=== PATIENT | female | born 1985 | race Caucasian/White ===

== ENCOUNTER 2023-08-08 19:02 | Emergency (ER) | payer OTHER, SELFPAY ==
[2023-08-08 19:06] VITALS: BP 143/87; PULSE 88; RESP 16; TEMP 36.9; O2SAT 99; BMI 33.8
--- NOTE | 2023-08-08 19:22 | ED_ITS ---
HPI - Female Genitourinary General Chief complaint: Urogenital-Female Stated complaint: UTI Time Seen by Provider: 08/08/23 19:09 Source: patient Mode of arrival: walk-in History of Present Illness HPI Narrative: Patient is a 38-year-old female who presents to the emergency department with concern she may have a UTI. She states she developed urinary urgency and frequency today. She reports some suprapubic discomfort with urination. She has had a previous hysterectomy. She has not had any fevers, chills, nausea, vomiting. She has no flank pain. No medications taken prior to arrival. She states she wanted to come to the ER to have this evaluated today so it would not get bad . Related Data Home Medications Medication Instructions Recorded Confirmed duloxetine 60 mg capsule,delayed 60 mg PO DAILY 08/08/23 08/08/23 release omeprazole 40 mg capsule,delayed 40 mg PO DAILY 08/08/23 08/08/23 release Previous Rx's Medication Instructions Recorded ciprofloxacin HCl 500 mg tablet 500 mg PO BID 3 days #6 tabs 08/08/23 (Cipro) ondansetron 4 mg disintegrating 4 mg PO Q6H PRN nausea and 08/08/23 tablet vomiting #12 tabs phenazopyridine 200 mg tablet 200 mg PO Q8H 2 days #6 tabs 08/08/23 (Pyridium) Allergies Allergy/AdvReac Type Severity Reaction Status Date / Time sulfamethoxazole Allergy Severe Verified 08/08/23 19:09 [From Bactrim] trimethoprim [From Bactrim] Allergy Severe Verified 08/08/23 19:09 Review of Systems ROS Constitutional Denies: fever or chills Ears, nose, mouth, and throat Denies: throat pain or nasal congestion Cardiovascular Denies: chest pain Respiratory Denies: shortness of breath or cough Gastrointestinal Reports: abdominal pain; Denies: nausea, vomiting or diarrhea Genitourinary Reports: urinary frequency, urinary urgency and pelvic pain; Denies: painful urination Musculoskeletal Denies: back pain or neck pain Integumentary/Breast Denies: rash Neurological Denies: headache Hematologic/Lymphatic Denies: easy bruising or easy bleeding Exam Narrative Exam Narrative: Gen.: Awake, alert, in no distress Head: Normocephalic, atraumatic ENT: Moist mucous membranes Respiratory: No respiratory distress Gastrointestinal: Abdomen is soft, nondistended and nontender to palpation Extremities: Moves extremities equally Psych: Normal mood and affect Neuro: No focal neuro deficit Skin: Warm, dry, intact Constitutional Vital Signs, click to edit/add: Last Vital Signs Temp 98.5 F 08/08/23 19:06 Pulse 88 08/08/23 19:06 Resp 16 08/08/23 19:06 BP 143/87 H 08/08/23 19:06 Pulse Ox 99 08/08/23 19:06 O2 Del Method Room Air 08/08/23 19:06 Course Vital Signs Vital signs: Vital Signs Temperature 98.5 F 08/08/23 19:06 Pulse Rate 88 08/08/23 19:06 Respiratory Rate 16 08/08/23 19:06 Blood Pressure 143/87 H 08/08/23 19:06 Pulse Oximetry 99 08/08/23 19:06 Oxygen Delivery Method Room Air 08/08/23 19:06 Temperature 98.5 F 08/08/23 19:06 Pulse Rate 88 08/08/23 19:06 Respiratory Rate 16 08/08/23 19:06 Blood Pressure 143/87 H 08/08/23 19:06 Pulse Oximetry 99 08/08/23 19:06 Oxygen Delivery Method Room Air 08/08/23 19:06 MDM - Female Genitourinary MDM Narrative Medical decision making narrative: Patient with a very mild UTI, vital signs stable and exam is benign. She is started on Cipro, Pyridium, Zofran for home. First dose is given in the ER. Follow-up with PCP and return to the ER if symptoms change or worsen Medical Records Attestation: I reviewed the patient's medical records. Lab Data Attestation: I reviewed the patient's lab results. Labs: Lab Results 08/08/23 Range/Units 19:10 Urine Color Lt. yellow (YELLOW) Urine Clarity Clear (CLEAR) Urine pH 5.5 (5.0-9.0) Ur Specific [place] >=1.030 A (1.005-1.025) Urine Protein Negative (NEG/TRACE) mg/dL Urine Glucose (UA) Negative (NEGATIVE) mg/dL Urine Ketones Negative (NEGATIVE) mg/dL Urine Occult Blood Trace-l (NEGATIVE) Urine Nitrite Negative (NEGATIVE) Urine Bilirubin Negative (NEGATIVE) Urine Urobilinogen 0.2 (0.2-1.0) EU/dL Ur Leukocyte Esterase Small A (NEGATIVE) Urine RBC 0-2 (0-2) #/HPF Urine WBC 2-5 A (NONE SEEN) #/HPF Ur Squamous Epith Cells Rare (NONE/RARE) #/LPF Urine Crystals None seen (None Seen) #/HPF Urine Bacteria Trace A (NONE SEEN) #/HPF Urine Casts None seen (NONE SEEN) #/LPF Urine Mucus None seen (NONE SEEN) Ur Culture Indicated? Yes Urine HCG, Qual Negative (NEGATIVE) Discharge Plan Discharge Chief Complaint: Urogenital-Female Clinical Impression: Urinary tract infection Patient Disposition: Home, Self-Care Time of Disposition Decision: 19:41 Condition: Good Prescriptions / Home Meds: New phenazopyridine [Pyridium] 200 mg tablet 200 mg PO Q8H 2 Days Qty: 6 0RF ciprofloxacin HCl [Cipro] 500 mg tablet 500 mg PO BID 3 Days Qty: 6 0RF ondansetron 4 mg tablet,disintegrating 4 mg PO Q6H PRN (Reason: nausea and vomiting) Qty: 12 0RF No Action duloxetine 60 mg capsule,delayed release(DR/EC) 60 mg PO DAILY omeprazole 40 mg capsule,delayed release(DR/EC) 40 mg PO DAILY Instructions: Urinary Tract Infection in Women (ED) Additional Instructions: pt ambulated with steady gait, verbalized understanding of discharge instructions at this time no distress noted Stand Alone Forms: Portal Instructions Referrals: NORA BHAT [Primary Care Provider] - 1 week Discharge Date/Time: 08/08/23 19:58
[2023-08-08 19:27] LABS: Bilirubin Urine NEGATIVE (NEGATIVE); Blood Urine TRACE-L (NEGATIVE); Clarity Urine CLEAR (CLEAR); Color Urine LT. YELLOW (YELLOW); Glucose Urine UA NEGATIVE (NEGATIVE); HCG Qualitative Urine* NEGATIVE (NEGATIVE); Ketones Urine NEGATIVE (NEGATIVE); Leukocyte Esterase Urine SMALL (NEGATIVE); Nitrite Urine NEGATIVE (NEGATIVE); Protein Urine NEGATIVE (NEG/TRACE); Specific Gravity Urine >=1.030 (1.005-1.025); Urobilinogen Urine 0.2 EU/dL (0.2-1.0); pH Urine 5.5 (5.0-9.0)
[2023-08-08 19:32] LABS: Urine Microscopic Indicated YES
[2023-08-08 19:38] LABS: Bacteria Urine TRACE #/HPF (NONE SEEN); Mucus Urine NONE SEEN (NONE SEEN); RBC Urine 0-2 #/HPF (0-2); Squamous Epithelial Cell Urine RARE #/LPF (NONE/RARE)
[2023-08-08 19:39] LABS: Cast Seen? NONE SEEN #/LPF (NONE SEEN); Crystals Seen? None Seen #/HPF (None Seen); Urine Culture Indicated YES
[2023-08-08] MEDS: CIPROFLOXACIN HCL 500 MG TABLET PO (19:50)
[2023-08-08] MEDS: PHENAZOPYRIDINE 100 MG TABLET 200 MG PO (19:50)
== END 2023-08-08 19:58 | disposition home or self-care (01) ==
PROVIDERS: Physician Assistant; Emergency Provider Internal Medicine
DX: N39.0 Urinary tract infection, site not specified (principal); Z79.899 Other long term (current) drug therapy
CPT/HCPCS: 81001; 84703; 87086; 87150; 87186; 99283

== ENCOUNTER 2023-10-13 21:41 | Emergency (ER) | payer OTHER, SELFPAY ==
--- OUTSIDE RECORDS SUMMARY | 2023-10-13 21:48 | XMS_ITS | CCD ---
Author Organization [facility] Care Team Providers Care Manager Paid Name Role Phone SAL SCHMID Admitting Unavailable ROSALVASCHCHAPIS, SAL Attending Unavailable HIRSCHCHAPIS, SAL Referring Unavailable ROSALVASCHCHAPIS, SAL Admitting Unavailable PROVIDER, UNKNOWN Attending Unavailable PROVIDER, UNKNOWN Attending Unavailable PROVIDER, UNKNOWN Admitting Unavailable PROVIDER, UNKNOWN Attending Unavailable PROVIDER, UNKNOWN Admitting Unavailable JAC MÁRQUEZ Referring Unavailabl e PROVIDER, UNKNOWN Attending Unavailable PROVIDER, UNKNOWN Admitting Unavailable PATIENT, SELF Referring Unavailable PROVIDER, UNKNOWN Attending Unavailable PROVIDER, UNKNOWN Admitting Unavailable PROVIDER, UNKNOWN Attending Unavailable PROVIDER, UNKNOWN Admitting Unavailable PATIENT, SELF Referring Unavailable PROVIDER, UNKNOWN Attending Unavailable PROVIDER, UNKNOWN Admitting Unavailable BINU, SAL Referring Unavailable PROVIDER, UNKNOWN Attending Unavailable PROVIDER, UNKNOWN Admitting Unavailable Angella Casas Primary Care Physician Heladio Roth Attending Unavailable Heladio Roth Attending Unavailable Jac Shepard Referring Unavailable Jac Shepard Attending Unavailable Jac Shepard Admitting Unavailable Shelley Oates Referring Unavailable Shelley Oates Attending Unavailable El [place] M Admitting Unavailable Heladio Roth Attending Unavailable eHladio Roth Admitting Unavailable Bereket Carlton Attending Unavailable Jac Shepard Referring Unavailable Jac Shepard Attending Unavailable Jac Shepard Admitting Unavailable Elsi Kelsey Attending Unavailable Allergies Allergy Classification Reported Allergen(s) Allergy Type Date of Onset Reaction(s) Facility (1 source) SULFAMETHOXAZOLE W-TRIMETHOPRIM; Translations: [SULFAMETHOXAZOLE W-TRIMETHOPRIM] Propensity to adverse reactions to drug (disorder) 12-20 21 [facility] (9 sources) Sulfamethoxazole / Trimethoprim; Translations: [sulfamethoxazole-t rimethoprim] Drug Allergy Yeast (substance) [facility] Medications Current Medications Medication Drug Class(es) Dates Sig (Normalized) Sig (Original) acetaminophen 325 mg / oxyCODONE hydrochloride 5 mg oral tablet (1 source) Opioid Agonist Start: 04-17-2022 End: 04-19-2022 Percocet 325 mg-5 mg Tab 1 tab(s), Oral, q6hr for pain for 2 day(s), 7 tab(s), Refill(s) 0, [facility]/pharmacy #[id number], 152, cm, 04/08/22 13:53:00 EDT, Height/Length Dosing, 79.8, kg, 04/08/22 13:53:00 EDT, Weight Dosing Start Date: 04/17/22 Stop Date: 04/19/22 Status: Ordered amoxicillin 500 mg oral capsule (1 source) Penicillin-class Antibacterial Start: 12-08-2022 End: 12-18-2022 take 1 capsule by mouth every twelve hours amoxicillin 500 mg Cap 500 mg = 1 cap(s), Oral, q12hr, X 10 day(s), # 20 cap(s), Refills(s) 0, Pharmacy: [facility]/pharmacy #[id number], 152, cm, 12/08/22 12:57:00 EDT, Height/Length Dosing, 79.9, kg, 12/08/22 12:57:00 EDT, Weight Dosing Start Date: 12/08/22 Stop Date: 12/18/22 Status: Ordered cephalexin 500 mg oral capsule (4 sources) Cephalosporin Antibacterial Start: 01-18-2023 End: 01-25-2023 take 1 capsule by mouth every eight hours Keflex 500 mg Cap 500 mg = 1 cap(s), Oral, q8hr, X 7 day(s), # 21 cap(s), Refills(s) 0, Pharmacy: [facility]/pharmacy #[id number], 153, cm, 12/23/22 18:41:00 EDT, Height/Length Dosing, 79.4, kg, 01/18/23 13:28:00 EDT, Weight Dosing Start Date: 01/18/23 Stop Date: 01/25/23 Status: Ordered Start: 04-24-2022 End: 04-29-2022 take 1 capsule by mouth every twelve hours Keflex 500 mg Cap 500 mg = 1 cap(s), Oral, q12hr, X 5 day(s), # 10 cap(s), Refills(s) 0, Pharmacy: [facility]/pharmacy #[id number], 152.4, cm, 04/24/22 13:46:00 EDT, Height/Length Dosing, 79, kg, 04/24/22 13:46:00 EDT, Weight Dosing Start Date: 04/24/22 Stop Date: 04/29/22 Status: Ordered Start: 11-28-2021 take 1 capsule by [facility] every twelve hours cephalexin 500 mg Cap 500 mg = 1 cap(s), Oral, q12hr, # 20 cap(s), Refills(s) 0, Pharmacy: [facility]/pharmacy #[id number], 152, cm, 11/28/21 21:52:00 EDT, Height/Length Dosing, 73, kg, 11/28/21 21:52:00 EDT, Weight Dosing Start Date: 11/28/21 Status: Ordered Cymbalta 60 mg Cap-DR (5 sources) Start: 09-06-2019 take 1 capsule by mouth at bedtime Cymbalta 60 mg Cap-DR 60 mg, Oral, Bedtime, Refills(s) 0, Depression Start Date: 09/06/19 Status: Ordered Start: 09-06-2019 take 1 capsule by [facility] at bedtime Cymbalta 60 mg Cap-DR 60 mg, Oral, Bedtime, Refills(s) 0 Start Date: 09/06/19 Status: Ordered DULoxetine 60 mg delayed release oral capsule (3 sources) Serotonin and Norepinephrine Reuptake Inhibitor Start: 09-06-2019 take 1 capsule by mouth at bedtime Cymbalta 60 mg Cap-DR 60 mg, Oral, Bedtime, Refills(s) 0, Depression Start Date: 09/06/19 Status: Ordered omeprazole 40 mg delayed release oral capsule (4 sources) Proton Pump Inhibitor Start: 12-08-2022 omeprazole 40 mg Cap-DR Refills(s) 0 Start Date: 12/08/22 Status: Ordered pantoprazole 40 mg delayed release oral tablet (4 sources) Proton Pump Inhibitor Start: 09-07-[address] Tab 40 mg = 1 tab(s), Oral, Daily, Refills(s) 0, Control of stomach acid Start Date: 09/07/19 Status: Ordered Start: 09-07-2019 take 1 tablet by yudy th once daily Pantoprazole [address] Tab 40 mg = 1 tab(s), Oral, Daily, Refills(s) 0 Start Date: 09/07/19 Status: Ordered phenazopyridine hydrochloride 100 mg oral tablet (2 sources) Start: 01-18-2023 End: 01-21-2023 take 1 tablet by mouth three times daily Pyridium 100 mg Tab 100 mg = 1 tab(s), Oral, TID, X 3 day(s), # 9 tab(s), Refills(s) 0, Pharmacy: [facility]/pharmacy #[id number], 153, cm, 12/23/22 18:41:00 EDT, Height/Length Dosing, 79.4, kg, 01/18/23 13:28:00 EDT, Weight Dosing Start Date: 01/18/23 Stop Date: 01/21/23 Status: Ordered Problems Active Problems Problem Classification Problem Date Documented Date Episodic/Chronic Esophageal disorders (7 sources) Gastroesophageal reflux disease 04-08-2022 Chronic Genitourinary symptoms and ill-defined conditions (1 source) Increased frequency of urination; Translations: [Frequency of micturition] Onset: 01-18-2023 Episodic Menstrual disorders (1 source) Menorrhagia; Translations: [Excessive and frequent menstruation with regular cycle] Onset: 04-17-2022 Chronic Mood disorders (8 sources) Mild major depression 01-25-2019 Chronic Nutritional deficiencies (8 sources) Vitamin D deficiency 01-25-2019 Chronic Other and unspecified benign neoplasm (1 source) Benign neoplasm of soft tissue; Translations: [Benign neoplasm of connective and other soft tissue, unspecified] Onset: 04-17-2022 Episodic Other nutritional; endocrine; and metabolic disorders (2 sources) Obese class I; Translations: [Body mass index (BMI) 34.0-34.9, adult] Onset: 12-08-2022 Chronic Other upper respiratory infections (6 sources) Acute pharyngitis; Translations: [Acute pharyngitis, unspecified] Onset: 12-08-2022 Episodic Residual codes; unclassified (1 source) Pelvic organ finding; Translations: [Acquired absence of both cervix and uterus] Onset: 04-17-2022 Episodic Substance-related disorders (8 sources) Smoker 05-09-2014 Chronic Comment on above: Added secondary to d ocumentation in Social History. Urinary tract infections (11 sources) Urinary tract infectious disease; Translations: [Urinary tract infection, site not specified] Onset: 11-28-2021 Episodic Past or Other Problems Problem Classification Problem Date Documented Date Episodic/Chronic Unclassified (8 sources) Streptococcus agalactiae (organism) Resolved: 12-12-2011 12-14-2011 Unclassified (20 sources) Onset: 09-15-1999 Resolved: 12-12-2011 12-27-2014 Results Test Name Value Interpretation Reference Range Facility C Urineon 01-21-2023 Bacteria identified Cx Nom (U) Microbiology PROCEDURE: Urine Culture [R1] SOURCE: U CleanCatch BODY SITE: COLLECTED DATE/TIME: 01/18/2023 14:22 EDT RECEIVED DATE/TIME: 01/19/2023 12:47 EDT START DATE/TIME: 01/19/2023 12:47 EDT FREE TEXT SOURCE: Gonzalez FRANCES, Heladio Roth PA-C, Heladio Solomon. FINAL REPORTS Final Report [] Verified Date/Time: 01/21/2023 11:32 EDT >100,000 cfu/ml Escherichia coli SUSCEPTIBILITY RESULTS LEGEND: S=Susceptible, N/R=Not Reported, Blank=Data not available, or drug not advisable or tested, I=Intermediate, ESBL=Extended spectrum beta-lactamase, R=Resistant, TFG=Thymidine-depend ent strain, CANDICE=Beta-lactamase positive, PARMINDER=mcg/m;(mg/L), S*=Predicted susceptible interp, R*=Predicted resistant interp EC Antibiotic PARMINDER Dilutn PARMINDER Interp Amikacin <=16 S Ampicillin >16 R Ampicillin/ 16/8 I Sulbactam Aztreonam <=4 S Cefazolin <=2 S Cefepime <=2 S Cefoxitin <=8 S Ceftazidime <=1 S Ceftazidime/ <=8 S Avibactam Ceftriaxone <=1 S Ciprofloxacin <=1 S Ertapenem <=0.5 S Gentamicin <=4 S Levofloxacin <=2 S Meropenem <=1 S Nitrofurantoin <=32 S Piperacillin/ <=16 S Tazobactam Tetracycline <=4 S Tigecycline <=2 S Tobramycin <=4 S Trimethoprim/ <=2/38 S Sulfa Performing Locations R1: This test was performed at: [facility], [address] [place] [address], [facility]- , , Normal [facility] Comment on above: Performed By: #### [id number] ####[facility] [address] [place] [address] Family Medicine Office/Clini c Noteon 01-18-2023 Family Medicine Office/Clinic Note Chief Complaint EST UTI HPI Staff Pt 37 yo female presents with UTI symptoms Onset- this morning Frequency- yes Urgency- yes Small volume void- yes Dysuria- starting Pressure- yes Back pain- no Nocturia- no Fever/chills- no Nausea/vomiting- no UTI or other reason for antbx's last 30 days- no History of Present Illness I have reviewed and verified the staff HPI to be accurate for this encounter. Portions of this record have been created with voice recognition software. Occasional wrong-word or ?[id number]? substitutions may have occurred due to the inherent limitations of voice recognition software. 37 yo female presents today with cc of possible UTI. She states onset of symptoms started this morning she notes urinary frequency and urgency small void volumes. She denies any back pain or flank pain. Denies fever chills denies any nausea vomiting abdominal pain or diarrhea. No recent antibiotics she has no other concerns at this time. Review of Systems PHQ Score Initial Depression Screen Score: 0 ROS negative unless otherwise stated in HPI. Physical Exam General: Obese female, no acute distress Eyes: not assessed Ears: not assessed Nose: not addressed Mouth: not assessed Neck: not assessed Lungs: clear to auscultation throughout, no wheezing, no rales. No respiratory distress Cardio: regular rate and rhythm, no murmur Abdomen: Bowel sounds are present x4 quadrants. Abdomen is soft, nontender, nondistended. No rigidity rebound or guarding on exam. Musculoskeletal: not assessed Extremity: not assessed Neurologic: not assessed Skin: No rashes, ulcerations, or suspicious lesions Mental Status: Alert and oriented x3. Normal mood and affect Assessment/Plan 1. UTI (urinary tract infection) (N39.0: Urinary tract infection, site not specified) UA with trace blood, trace protein, moderate leukocytes. Will treat with keflex 500 mg tid x 7 days, PRN pyridium rx sent for symptomatic tx. Finish course of ATB. Fluids/rest. Will cx urine and notify of results in 3-5 days. Fu with PCP if not improving over next 3-4 days with ATB or worsening. Patient and/or parent verbalized understanding of tx plan. Ordered: cephalexin, 500 mg = 1 cap(s), Oral, q8hr, X 7 day(s), # 21 cap(s), Refills(s) 0, Pharmacy: [facility]/pharmacy #[id number], 153, cm, 12/23/22 18:41:00 EDT, Height/Length Dosing, 79.4, kg, 01/18/23 13:28:00 EDT, Weight Dosing phenazopyridine, 100 mg = 1 tab(s), Oral, TID, X 3 day(s), # 9 tab(s), Refills(s) 0, Pharmacy: [facility]/pharmacy #[id number], 153, cm, 12/23/22 18:41:00 EDT, Height/Length Dosing, 79.4, kg, 01/18/23 13:28:00 EDT, Weight Dosing 2. BMI 33.0-33.9,adult (Z68.33: Body mass index [BMI] 33.0-33.9, adult) The standard range for ages 18 and older is >=18.5 and < 25 kg/m2. Your BMI today was above this range, this falls in the overweight to obese category and there are medical benefits to weight loss. We can offer counselling, referral, and/or medical support in addressing this problem. Your BMI and weight management will be followed at subsequent visits. Ordered: cephalexin, 500 mg = 1 cap(s), Oral, q8hr, X 7 day(s), # 21 cap(s), Refills(s) 0, Pharmacy: [facility]/pharmacy #[id number], 153, cm, 12/23/22 18:41:00 EDT, Height/Length Dosing, 79.4, kg, 01/18/23 13:28:00 EDT, Weight Dosing phenazopyridine, 100 mg = 1 tab(s), Oral, TID, X 3 day(s), # 9 tab(s), Refills(s) 0, Pharmacy: [facility]/pharmacy #[id number], 153, cm, 12/23/22 18:41:00 EDT, Height/Length Dosing, 79.4, kg, 01/18/23 13:28:00 EDT, Weight Dosing Body Mass Index (BMI) documented 3008F Frequency of urination (R35.0: Frequency of micturition) Ordered: Urnls Dip Stick Non-Auto w/o Micrscpy POC [id number] Follow-up With When Contact Information Yessenia HERNANDEZ, [place] [address]- Additional Instructions: Patient Education BMI for Adults Urinary Tract Infection, Adult Problem List/Past Medical History Ongoing GERD (gastroesophageal reflux disease) Mild major depression Smoker.. Sore throat UTI (urinary tract infection) Vitamin D deficiency Historical Group B streptococcus Procedure/Surgical History Laparoscopic hysterectomy (04/17/2022), Pelvis (06/21/2019), Cholecystectomy, Retention of hardware, tonsillectomy, Tubal ligation. Medications Cymbalta 60 mg Cap-DR, 60 mg, Oral, Bedtime Keflex 500 mg Cap, 500 mg= 1 cap(s), Oral, q8hr omeprazole 40 mg Cap-DR Pyridium 100 mg Tab, 100 mg= 1 tab(s), Oral, TID Allergies Bactrim (Yeast) Social History Alcohol - Low Risk, 02/23/2019 Current, 02/23/2019 Employment/School - Medium Risk, 09/06/2019 Exercise - Does not exercise, 09/06/2019 Home/Environment - No Risk, 09/06/2019 Nutrition/Health - No Risk, 09/06/2019 Sexual - No Risk, 09/06/2019 Substance Abuse - Denies Substance Abuse, 02/08/2012 Tobacco - High Risk, 02/23/2019 Never (less than 100 in lifetime) Tobacco Use:. Current vaping (more content not included)... Normal [facility] Comment on above: Result Comment: Elec tronically Signed By: Gonzalez FRANCES, Heladio Mei\.br\Date and Time Signed: 01/18/23 13:43 EDT Patient Educationon 01-19-20 Patient Education Nutrition BMI for Adults What is BMI? Body mass index (BMI) is a number that is calculated from a person's weight and height. BMI can help estimate how much of a person's weight is composed of fat. BMI does not measure body fat directly. Rather, it is an alternative to procedures that directly measure body fat, which can be difficult and expensive. BMI can help identify people who may be at higher risk for certain medical problems. What are BMI measurements used for? BMI is used as a screening tool to identify possible weight problems. It helps determine whether a person is obese, overweight, a healthy weight, or underweight. BMI is useful for: ? Identifying a weight problem that may be related to a medical condition or may increase the risk for medical problems. ? Promoting changes, such as changes in diet and exercise, to help reach a healthy weight. BMI screening can be repeated to see if these changes are working. How is BMI calculated? BMI involves measuring your weight in relation to your height. Both height and weight are measured, and the BMI is calculated from those numbers. This can be done either in [place] ([place] or metric measurements. Note that charts and online BMI calculators are available to help you find your BMI quickly and easily without having to do these calculations yourself. To calculate your BMI in [place] measurements: 1. Measure your weight in pounds (lb). 2. Multiply the number of pounds by 703. ? For example, for a person who weighs 180 lb, multiply that number by 703, which equals 126,540. 3. Measure your height in inches. Then multiply that number by itself to get a measurement called inches squared. ? For example, for a person who is 70 inches tall, the inches squared measurement is 70 inches x 70 inches, which equals 4,900 inches squared. 4. Divide the total from step 2 (number of lb x 703) by the total from step 3 (inches squared): 126,540 ? 4,900 = 25.8. This is your BMI. To calculate your BMI in metric measurements: 1. Measure your weight in kilograms (kg). 2. Measure your height in meters (m). Then multiply that number by itself to get a measurement called meters squared. ? For example, for a person who is 1.75 m tall, the meters squared measurement is 1.75 m x 1.75 m, which is equal to 3.1 meters squared. 3. Divide the number of kilograms (your weight) by the meters squared number. In this example: 70 ? 3.1 = 22.6. This is your BMI. What do the results mean? BMI charts are used to identify whether you are underweight, normal weight, overweight, or obese. The following guidelines will be used: ? Underweight: BMI less than 18.5. ? Normal weight: BMI between 18.5 and 24.9. ? Overweight: BMI between 25 and 29.9. ? Obese: BMI of 30 or above. Keep these notes in mind: ? Weight includes both fat and muscle, so someone with a muscular build, such as an athlete, may have a BMI that is higher than 24.9. In cases like these, BMI is not an accurate measure of body fat. ? To determine if excess body fat is the cause of a BMI of 25 or higher, further assessments may need to be done by a health care provider. ? BMI is usually interpreted in the same way for men and women. Where to find more information For more information about BMI, including tools to quickly calculate your BMI, go to these websites: ? Centers for Disease Control and Prevention: www.cdc.gov ? [place] Heart Association: www.heart.org ? National Heart, Lung, and Blood Atkins: www.nhlbi.nih.gov Summary ? Body mass index (BMI) is a number that is calculated from a person's weight and height. ? BMI may help estimate how much of a person's weight is composed of fat. BMI can help identify those who may be at higher risk for certain medical problems. ? BMI can be measured using [place]an measurements or metric measurements. ? BMI charts are used to identify whether you are underweight, normal weight, overweight, or obese. This information is not intended to replace advice given to you by your health care provider. Make sure you discuss any questions you have with your health care provider. Document Revised: 02/28/2020 Document Reviewed: 01/05/2020 [place] Patient Education ? 2022 [employer]. Obstetrics and Gynecology Urinary Tract Infection, Adult A urinary tract infection (UTI) is an infection of any part of the urinary tract. The urinary tract includes the kidneys, ureters, bladder, and urethra. These organs make, store, and get rid of urine in the body. An upper UTI affects the ureters and kidneys. A lower UTI affects the bladder and urethra. What are the causes? Most urinary tract infections are caused by bacteria in your genital area around your urethra, where urine leaves your body. These bacteria grow and cause inflammation of your urinary tract. What increases the risk? You are more likely to develop this condition if: (more content not included)... Normal [facility] Patient Letter FTon 2022 Patient Letter [facility] [place] [address], [facility] [place] [address] [id number] January 18, 2023 BEA CALVO [address] [facility] [address] [place] [address] : 1985 Please excuse BEA CALVO from work . Date and/or Time of Absence: From: 01/18/2023 To: 01/19/2023 May return to work on: 01/19/2023 Restrictions: None Comments: Please excuse due to an acute illness. Provider Signature: Heladio Roth PA-C Physician Dobby Loom [facility] [address] [place] [address] [facility] Medicine Office/Clini c Noteon 12-23-2022 Family Medicine Office/Clinic Note Chief Complaint EST strep HPI Staff was here and had strep 3 weeks ago but states her lymph nodes are swollen bad and she does not feel well states that it all just started again this week History of Present Illness Portions of this record may have been created with voice recognition artificial intelligence software, specifically [employer] and or [email or web address]. Substitutions may have occurred due to the inherent limitations of voice recognition and artificial intelligence software. Staff hpi reviewed. Pt is a 37yoF complaint of sore throat. States swollen lymph node on Wednesday a swollen right lymph node yesterday. States feels fatigued. Denies any ear pain, denies any runny nose. Denies any belly pain. No other complaints or concerns. Patient with bactrim allergies. Review of Systems PHQ Score Initial Depression Screen Score: 0 Physical Exam Vitals & Measurements T: 36.6 ?C(Oral) HR: 100(Peripheral) BP: 120/82 SpO2: 97% HT: 60 in HT: 153 cm WT: 80.1 kg WT: 176.22 lb BMI: 34.22 General - alert no acute distress Skin - warm dry Head -normocephalic atraumatic Eye - normal conjunctiva ENMT - TMs clear, moist oral mucosa, mild pharyngeal erythema without exudates Neck - supple Cardiovascular - regular rate regular rhythm, no murmur, normal peripheral perfusion Respiratory - lungs clear to auscultation, nonlabored respirations, breath sounds equal Lymphatics - no lymphadenopathy Assessment/Plan 1. Sore throat (J02.9: Acute pharyngitis, unspecified) Rapid strep -. Given exam will send strep cx to confirm- will call with results in 3-5 days. If any GAS growth, will rx appropriate antibiotic. Discussed otherwise consistent with viral illness, typical duration 7-14 days. Fluids/rest, PRN tylenol/ibuprofen for pain and/or fever. May use salt water gargles and otc lozenges or throat spray for pain. Fu with PCP if cx negative and not improving over next 5 days. Patient and/or parent verbalized understanding of tx plan. Ordered: Rapid Strep POC [id number] Follow-up With When Contact Information Yessenia HERNANDEZ, Angella Solomon [address] [place] [address]- Additional Instructions: Patient Education Strep Throat, Adult, [id number] Rapid Strep Test Strep Throat, Adult Problem List/Past Medical History Ongoing GERD (gastroesophageal reflux disease) Mild major depression Smoker.. Sore throat UTI (urinary tract infection) Vitamin D deficiency Historical Group B streptococcus Procedure/Surgical History Laparoscopic hysterectomy (04/17/2022), Pelvis (06/21/2019), Cholecystectomy, Retention of hardware, tonsillectomy, Tubal ligation. Medications Cymbalta 60 mg Cap-DR, 60 mg, Oral, Bedtime omeprazole 40 mg Cap-DR Allergies Bactrim (Yeast) Social History Alcohol - Low Risk, 02/23/2019 Current, 02/23/2019 Employment/School - Medium Risk, 09/06/2019 Exercise - Does not exercise, 09/06/2019 Home/Environment - No Risk, 09/06/2019 Nutrition/Health - No Risk, 09/06/2019 Sexual - No Risk, 09/06/2019 Substance Abuse - Denies Substance Abuse, 02/08/2012 Tobacco - High Risk, 02/23/2019 Vaping, 12/23/2022 Current vaping or e-cigarette use Smokeless Tobacco Use:., 10/27/2021 10 or more cigarettes (1/2 pack or more)/day in last 30 days Tobacco Use:. Cigarettes, 1 per day. Yes, 06/27/2021 Cigarettes, 11/07/2020 10 or more cigarettes (1/2 pack or more)/day in last 30 days Tobacco Use:., 03/28/2020 10 or more cigarettes (1/2 pack or more)/day in last 30 days Tobacco Use:. Never Smokeless Tobacco Use:. Cigarettes, Yes, 02/23/2019 10 or more cigarettes (1/2 pack or more)/day in last 30 days Tobacco Use:. Cigarettes, Previous treatment: None. Ready to change: No. Household tobacco concerns: No., 02/20/2018 Family History Alcoholism: Father. Alzheimer's disease: Aunt. Asthma: Mother. COPD: Mother. Depression: Aunt and Uncle. Drug addiction: Mother. Primary malignant neoplasm of female breast: Grandparent. Primary malignant neoplasm of female genital organ: Mother. Immunizations Vaccine Date Status Comments SARS-CoV-2 (COVID-19) mRNA-1273 vaccine 04/11/2021 Recorded 2022-12-08: TPVAL SARS-CoV-2 (COVID-19) mRNA-1273 vaccine 03/14/2021 Recorded 2022-12-08: TPVAL diphtheria/pertussis , acel/tetanus adult 09/06/2019 Given hepatitis B adult vaccine 08/18/2019 Recorded Seen in collaboration Jennifer Colon PA-C with Elsi Kelsey APRN, FNP-C. Agree with above documentation and plan of care. [facility] Comment on above: Result Comment: Elec tronically Signed By: SATURNINO Kelsey APRN, Elsi Barrios\.br\Date and Time Signed: 12/23/22 19:02 EDT Patient Educationon 12-24-19 Patient Education Infectious Disease Strep Throat, Adult Strep throat is an infection of the throat. It is caused by germs (bacteria). Strep throat is common during the cold months of the year. It mostly affects children who are 5?15 years old. However, people of all ages can get it at any time of the year. This infection spreads from person to person through coughing, sneezing, or having close contact. What are the causes? This condition is caused by the Streptococcus pyogenes germ. What increases the risk? ? You care for young children. Children are more likely to get strep throat and may spread it to others. ? You go to crowded places. Germs can spread easily in such places. ? You kiss or touch someone who has strep throat. What are the signs or symptoms? ? Fever or chills. ? Redness, swelling, or pain in the tonsils or throat. ? Pain or trouble when swallowing. ? White or yellow spots on the tonsils or throat. ? Tender glands in the neck and under the jaw. ? Bad breath. ? Red rash all over the body. This is rare. How is this treated? ? Medicines that kill germs (antibiotics). ? Medicines that treat pain or fever. These include: ? Ibuprofen or acetaminophen. ? Aspirin, only for people who are over the age of 18. ? Cough drops. ? Throat sprays. Follow these instructions at home: Medicines ? Take dmkj-ipc-qfygdor and prescription medicines only as told by your doctor. ? Take your antibiotic medicine as told by your doctor. Do not stop taking the antibiotic even if you start to feel better. Eating and drinking ? If you have trouble swallowing, eat soft foods until your throat feels better. ? Drink enough fluid to keep your pee (urine) pale yellow. ? To help with pain, you may have: ? Warm fluids, such as soup and tea. ? Cold fluids, such as frozen desserts or popsicles. General instructions ? Rinse your mouth (gargle) with a salt-water mixture 3?4 times a day or as needed. To make a salt-water mixture, dissolve ??1 tsp (3?6 g) of salt in 1 cup (237 mL) of warm water. ? Rest as much as you can. ? Stay home from work or school until you have been taking antibiotics for 24 hours. ? Do not smoke or use any products that contain nicotine or tobacco. If you need help quitting, ask your doctor. ? Keep all follow-up visits. How is this prevented? ? Do not share food, drinking cups, or personal items. They can cause the germs to spread. ? Wash your hands well with soap and water. Make sure that all people in your house wash their hands well. ? Have family members tested if they have a fever or a sore throat. They may need an antibiotic if they have strep throat. Contact a doctor if: ? You have swelling in your neck that keeps getting bigger. ? You get a rash, cough, or earache. ? You cough up a thick fluid that is green, yellow-brown, or bloody. ? You have pain that does not get better with medicine. ? Your symptoms get worse instead of getting better. ? You have a fever. Get help right away if: ? You vomit. ? You have a very bad headache. ? Your neck hurts or feels stiff. ? You have chest pain or are short of breath. ? You have drooling, very bad throat pain, or changes in your voice. ? Your neck is swollen, or the skin gets red and tender. ? Your mouth is dry, or you are peeing less than normal. ? You keep feeling more tired or have trouble waking up. ? Your joints are red or painful. These symptoms may be an emergency. Do not wait to see if the symptoms will go away. Get help right away. Call your local emergency services (911 in the [place] Summary ? Strep throat is an infection of the throat. It is caused by germs (bacteria). ? This infection can spread from person to person through coughing, sneezing, or having close contact. ? Take your medicines, including antibiotics, as told by your doctor. Do not stop taking the antibiotic even if you start to feel better. ? To prevent the spread of germs, wash your hands well with soap and water. Have others do the same. Do not share food, drinking cups, or personal items. ? Get help right away if you have a bad headache, chest pain, shortness of breath, a stiff or painful neck, or you vomit. This information is not intended to replace advice given to you by your health care provider. Make sure you discuss any questions you have with your health care provider. Document Revised: 09/30/2021 Document Reviewed: 09/30/2021 [place] Patient Education ? 2022 [employer]. Rapid Strep Test Why am I having this test? A rapid strep test is used to check for strep throat. Strep throat is a bacterial infection caused by the bacteria Streptococcus pyogenes. A rapid strep test is the quickest way to check if these bacteria are causing your sore throat. You may have this test if: ? You have throat pain or neck swelling and tenderness. ? You have (more content not included)... [facility] Provider Letteron 12-23-2022 Provider Letter December 23, 2022 BEA CALVO [address] [address] : 1985 To Whom It May Concern, Please excuse above patient from work. Date of Illness: From: 12/23/22 May Return to Work On: 12/24/22 Restrictions: none Comments: none Sincerely, [facility] [address] [place] [address], [place] [address] [facility] Ambulatory Visit Summaryon 0 12-08-2022 Ambulatory Visit Summary BEA CALVO :1985 Visit Date:12/08/2022 Ambulatory Visit Instructions Your Diagnosis Strep pharyngitis BMI 34.0-34.9,adult Sore throat Your Care Team Attending Physician - Heladio Roth PA-C. Primary Care Physician - Angella Casas MD This Is Your Medications List amoxicillin (amoxicillin 500 mg Cap) Contact prescribing physician if questions or concerns duloxetine (Cymbalta 60 mg Cap-DR) omeprazole (omeprazole 40 mg Cap-DR) Procedures Performed Laparoscopic hysterectomy (04/17/2022), Pelvis (06/21/2019), Cholecystectomy, Retention of hardware, tonsillectomy, Tubal ligation. Discharge Vitals Temperature (Oral) 36.6 ?C Heart Rate (Peripheral) 110 Blood Pressure 120/82 Height 152 cm Height 60 in Weight 79.9 kg Weight 175.78 lb BMI 34.58 What to do next You Need to Schedule the Following Appointments Follow Up with Angella Casas MD When: Where: [place] [address]- Medications What How Much When Why Instructions New amoxicillin (amoxicillin 500 mg Cap) 1 Capsules By Mouth Every 12 hours Strep pharyngitis BMI 34.0-34.9,adult Duration: 10 Days Pickup at [facility]/pharmacy #[id number] Unchanged duloxetine (Cymbalta 60 mg Cap-DR) 60 Milligram By Mouth At bedtime Contact prescribing physician if questions or concerns Unchanged omeprazole (omeprazole 40 mg Cap-DR) Contact prescribing physician if questions or concerns Pharmacy Information [facility]/pharmacy #[id number]: [address] [place], [place] [phone] Allergies Bactrim (Yeast) Problems Ongoing - Any problem that you are currently receiving treatment for. GERD (gastroesophageal reflux disease) Mild major depression Smoker.. UTI (urinary tract infection) Vitamin D deficiency Historical - Any problem that you are no longer receiving treatment for. Group B streptococcus Education Materials Strep Throat, Adult Strep throat is an infection in the throat that is caused by bacteria. It is common during the cold months of the year. It mostly affects children who are 5?15 years old. However, people of all ages can get it at any time of the year. This infection spreads from person to person (is contagious) through coughing, sneezing, or having close contact. Your health care provider may use other names to describe the infection. When strep throat affects the tonsils, it is called tonsillitis. When it affects the back of the throat, it is called pharyngitis. What are the causes? This condition is caused by the Streptococcus pyogenes bacteria. What increases the risk? You are more likely to develop this condition if: ? You care for school-age children, or are around school-age children. Children are more likely to get strep throat and may spread it to others. ? You spend time in crowded places where the infection can spread easily. ? You have close contact with someone who has strep throat. What are the signs or symptoms? Symptoms of this condition include: ? Fever or chills. ? Redness, swelling, or pain in the tonsils or throat. ? Pain or difficulty when swallowing. ? White or yellow spots on the tonsils or throat. ? Tender glands in the neck and under the jaw. ? Bad smelling breath. ? Red rash all over the body. This is rare. How is this diagnosed? This condition is diagnosed by tests that check for the presence and the amount of bacteria that cause strep throat. They are: ? Rapid strep test. Your throat is swabbed and checked for the presence of bacteria. Results are usually ready in minutes. ? Throat culture test. Your throat is swabbed. The sample is placed in a cup that allows infections to grow. Results are usually ready in 1 or 2 days. How is this treated? This condition may be treated with: ? Medicines that kill germs (antibiotics). ? Medicines that relieve pain or fever. These include: ? Ibuprofen or acetaminophen. ? Aspirin, only for people who are over the age of 18. ? Throat lozenges. ? Throat sprays. Follow these instructions at home: Medicines ? Take koqh-fbw-oqwazxt and prescription medicines only as told by your health care provider. ? Take your antibiotic medicine as told by your health care provider. Do not stop taking the antibiotic even if you start to feel better. Eating and drinking ? If you have trouble swallowing, try eating soft foods until your sore throat feels better. ? Drink enough fluid to keep your urine pale yellow. ? To help relieve pain, you may have: ? Warm fluids, such as soup and tea. ? Cold fluids, such as frozen desserts or popsicles. General instructions ? Gargle with a salt-water mixture 3?4 times a day or as needed. To make a salt-water mixture, completely dissolve ??1 tsp (3?6 g) of s (more content not included)... [facility] Family Medicine Office/Clini c Noteon 12-08-2022 Family Medicine Office/Clinic Note Chief Complaint EST sore throat HPI Staff 37 year old female presents with sore throat patient present for sore throat, onset yesterday sinus congestion- no swollen nodes-yes red/ white spots- cough-no ear pain-no fever/chills-no body aches-no nausea/ vomiting-no allergies- medication taken- History of Present Illness I have reviewed and verified the staff HPI to be accurate for this encounter. Portions of this record have been created with voice recognition software. Occasional wrong-word or ?nmkhq-g-jkms? substitutions may have occurred due to the inherent limitations of voice recognition software. 37 yo female presents today with cc of sore throat. Pt states sore throat started yesterday. Denies nasal congestion. States swollen lymph nodes. Denies any other cold symptoms. Denies nausea, vomiting, diarrhea, or abdominal pain. Denies headache, fever or chills. No recent contacts, no recent travel. No other concerns at this time. hx of tonsillecomy Review of Systems PHQ Score Initial Depression Screen Score: 0 Physical Exam Vitals & Measurements T: 36.6 ?C(Oral) HR: 110(Peripheral) BP: 120/82 SpO2: 98% HT: 60 in HT: 152 cm WT: 79.9 kg WT: 175.78 lb BMI: 34.58 General: Obese female, no acute distress. Eyes: not assessed Ears: No deformity or lesion of external ear. Canals and TM appear normal bilaterally. TM?s intact, not inflamed, with normal light reflex. Hearing grossly normal to conversational speech Nose: No deformity, discharge, inflammation, or lesions Mouth: oropharynx erythematous, no ulcerations, tonsils absent. No trismus or drooling Neck: Palpable anterior cervical nodes bilaterally Lungs: clear to auscultation throughout, no wheezing, no rales. No respiratory distress Cardio: regular rate and rhythm, no murmur Abdomen: not assessed Musculoskeletal: not assessed Extremity: not assessed Neurologic: not assessed Skin: No rashes, ulcerations, or suspicious lesions Mental Status: Alert and oriented x3. Normal mood and affect Assessment/Plan 1. Strep pharyngitis (J02.0: Streptococcal pharyngitis) Rapid strep +. Will treat with amoxicillin bid x 10 days. Finish course. Fluids/rest, PRN tylenol/ibuprofen for pain and/or fever. May use salt water gargles, otc throat sprays and lozenges for pain. Change toothbrush and pillowcases after 48 hours on ATB. Advised significantly less contagious after 24 hours on ATB. Follow up with PCP if not improving over next 4-5 days with antibiotic or fevers continuing. Seek medical attention immediately for any increased difficulty swallowing, opening mouth, or difficulty managing oral secretions. Patient and/or parent verbalized understanding of treatment plan Ordered: amoxicillin, 500 mg = 1 cap(s), Oral, q12hr, X 10 day(s), # 20 cap(s), Refills(s) 0, Pharmacy: [facility]/pharmacy #[id number], 152, cm, 12/08/22 12:57:00 EDT, Height/Length Dosing, 79.9, kg, 12/08/22 12:57:00 EDT, Weight Dosing 2. BMI 34.0-34.9,adult (Z68.34: Body mass index [BMI] 34.0-34.9, adult) The standard range for ages 18 and older is >=18.5 and < 25 kg/m2. Your BMI today was above this range, this falls in the overweight to obese category and there are medical benefits to weight loss. We can offer counselling, referral, and/or medical support in addressing this problem. Your BMI and weight management will be followed at subsequent visits. Ordered: amoxicillin, 500 mg = 1 cap(s), Oral, q12hr, X 10 day(s), # 20 cap(s), Refills(s) 0, Pharmacy: [facility]/pharmacy #[id number], 152, cm, 12/08/22 12:57:00 EDT, Height/Length Dosing, 79.9, kg, 12/08/22 12:57:00 EDT, Weight Dosing Body Mass Index (BMI) documented 3008F Sore throat (J02.9: Acute pharyngitis, unspecified) Ordered: Rapid Strep POC 44145 Follow-up With When Contact Information Yessenia HERNANDEZ, Angella Solomon [address] [place] [address]- Additional Instructions: Patient Education Strep Throat, Adult BMI for Adults Problem List/Past Medical History Ongoing GERD (gastroesophageal reflux disease) Mild major depression Smoker.. UTI (urinary tract infection) Vitamin D deficiency Historical Group B streptococcus Procedure/Surgical History Laparoscopic hysterectomy (04/17/2022), Pelvis (06/21/2019), Cholecystectomy, Retention of hardware, tonsillectomy, Tubal ligation. Medications amoxicillin 500 mg Cap, 500 mg= 1 cap(s), Oral, q12hr Cymbalta 60 mg Cap-DR, 60 mg, Oral, Bedtime omeprazole 40 mg Cap-DR Allergies Bactrim (Yeast) Social History Alcohol - Low Risk, 02/23/2019 Current, 02/23/2019 Employment/School - Medium Risk, 09/06/2019 Exercise - Does not exercise, 09/06/2019 Home/Environment - No Risk, 09/06/2019 Nutrition/Health - No Risk, 09/06/2019 Sexual - No Risk, 09/06/2019 Substance Abuse - Denies Substance Abuse, 02/08/2012 Tobacco - High Risk, 02/23/2019 Vaping, 12/08/2022 Current vaping or e-cigarette use Smokeless (more content not included)... [facility] Comment on above: Result Comment: Elec tronically Signed By: Gonzalez FRANCES, Heladio Mei\.br\Date and Time Signed: 12/08/22 13:18 EDT Patient Educationon 12-09-19 Patient Education Infectious Disease Strep Throat, Adult Strep throat is an infection in the throat that is caused by bacteria. It is common during the cold months of the year. It mostly affects children who are 5?15 years old. However, people of all ages can get it at any time of the year. This infection spreads from person to person (is contagious) through coughing, sneezing, or having close contact. Your health care provider may use other names to describe the infection. When strep throat affects the tonsils, it is called tonsillitis. When it affects the back of the throat, it is called pharyngitis. What are the causes? This condition is caused by the Streptococcus pyogenes bacteria. What increases the risk? You are more likely to develop this condition if: ? You care for school-age children, or are around school-age children. Children are more likely to get strep throat and may spread it to others. ? You spend time in crowded places where the infection can spread easily. ? You have close contact with someone who has strep throat. What are the signs or symptoms? Symptoms of this condition include: ? Fever or chills. ? Redness, swelling, or pain in the tonsils or throat. ? Pain or difficulty when swallowing. ? White or yellow spots on the tonsils or throat. ? Tender glands in the neck and under the jaw. ? Bad smelling breath. ? Red rash all over the body. This is rare. How is this diagnosed? This condition is diagnosed by tests that check for the presence and the amount of bacteria that cause strep throat. They are: ? Rapid strep test. Your throat is swabbed and checked for the presence of bacteria. Results are usually ready in minutes. ? Throat culture test. Your throat is swabbed. The sample is placed in a cup that allows infections to grow. Results are usually ready in 1 or 2 days. How is this treated? This condition may be treated with: ? Medicines that kill germs (antibiotics). ? Medicines that relieve pain or fever. These include: ? Ibuprofen or acetaminophen. ? Aspirin, only for people who are over the age of 18. ? Throat lozenges. ? Throat sprays. Follow these instructions at home: Medicines ? Take xvex-nid-yidahsy and prescription medicines only as told by your health care provider. ? Take your antibiotic medicine as told by your health care provider. Do not stop taking the antibiotic even if you start to feel better. Eating and drinking ? If you have trouble swallowing, try eating soft foods until your sore throat feels better. ? Drink enough fluid to keep your urine pale yellow. ? To help relieve pain, you may have: ? Warm fluids, such as soup and tea. ? Cold fluids, such as frozen desserts or popsicles. General instructions ? Gargle with a salt-water mixture 3?4 times a day or as needed. To make a salt-water mixture, completely dissolve ??1 tsp (3?6 g) of salt in 1 cup (237 mL) of warm water. ? Get plenty of rest. ? Stay home from work or school until you have been taking antibiotics for 24 hours. ? Do not use any products that contain nicotine or tobacco. These products include cigarettes, chewing tobacco, and vaping devices, such as e-cigarettes. If you need help quitting, ask your health care provider. ? It is up to you to get your test results. Ask your health care provider, or the department that is doing the test, when your results will be ready. ? Keep all follow-up visits. This is important. How is this prevented? ? Do not share food, drinking cups, or personal items that could cause the infection to spread to other people. ? Wash your hands often with soap and water for at least 20 seconds. If soap and water are not available, use hand compounder sterile products. Make sure that all people in your house wash their hands well. ? Have family members tested if they have a sore throat or fever. They may need an antibiotic if they have strep throat. Contact a health care provider if: ? You have swelling in your neck that keeps getting bigger. ? You develop a rash, cough, or earache. ? You cough up a thick mucus that is green, yellow-brown, or bloody. ? You have pain or discomfort that does not get better with medicine. ? Your symptoms seem to be getting worse. ? You have a fever. Get help right away if: ? You have new symptoms, such as vomiting, severe headache, stiff or painful neck, chest pain, or shortness of breath. ? You have severe throat pain, drooling, or changes in your voice. ? You have swelling of the neck, or the skin on the neck becomes red and tender. ? You have signs of dehydration, such as tiredness (fatigue), dry mouth, and decreased urination. ? You become increasingly sleepy, or you cannot wake up completely. ? Your joints become red or painful. These symptoms may represent a serious problem that is an emergency. Do not wait (more content not included)... [facility] [place] [facility] [address], [address] [place] [phone] December 08, 2022 BEA CALVO [address] [facility] [address] [place] [address] : 1985 Please excuse BEA CALVO from work . Date and/or Time of Absence: From: 12/08/2022 To: 12/10/2022 May return to work on: 12/10/2022 Restrictions: None Comments: Please excuse due to an acute illness. Provider Signature: Heladio Roth PA-C Physician Dobby Loom [place] [address] [address] [facility] Coding Summary.on 04-27-2022 Coding Summary. CD:[id number] Gh0bWw+PGhlYWQ+PE1FV HUnQ10ilQOkqH7RT2yNW T7DXPHDCPSPUN3QVS6yu AF4VRvkC5WgeeOa UoubeOZqLG51XMi1QHZ6 lCgeVLkhxE1cfXSsK8y2 InUqOY65lV84LFtzPROt KpL3InRqkfwtxYSn W7jsNvNdwOAnUai+PHRh YmxlIHdpZHRoPScxMDAl FiLqqLzuBC9cXs5lPWJv LWNvbGxhcHNlOiBj g7vyGDWnRAfmLX9wzAfw Y6BhwUN5JTOur2a3Oa73 dHI+ZDJaACM8eLirUUph c871AqJod0gxWKB6 fLCjRWirQYC6W77fy8C3 EJHmGJHsOKO9zUZ6mQ8u mUojzskdR1LjtXTgIoO3 QFO8oAOalS2qiBln ifxntQ9lKvp+V85NDL4L WXDMYR9LXxd5B9QiAwol dHI+DA23WULoDZ80kYXl xNUdl4objAp1LkKe UTKeELF3xNpwJRlnm7Pg HDTeL37imZKnz5F1YGFq sUbfvCTqNwWvxYK2qE8d PPydzrnoq9kejqac Qeyjr6qmlx61qY30O30m TOhnEOPeBES5RFYhIODc xCmbet0wwK3qHl8+IDxj o9ztn0xezZw6PgXd VRVbkfLfxXbuTOF1l6Hb Er22V5JjdZgmx5IdCim1 zi08fFPyi0P5uPS9SEjz BEMunB2bMLgpLpE2 WGDhTaQrdP11pALxQUev Ii7erYyoqYaeLA2hCNMv gtksUSUqjI7mTPBloTVz nSfpRU9aDXDzgotj s242YbXiXKR8CIYujEKq I7BgqG7dBhLiNTZbYERi C7AibOKiTEzuB853HPch BkJ8EHEtboLnT2Ip TMGmoXviRuU8r5L7Ak5B n0YyeqqcSAZ4ODtgDHUh KhU0WkFwLgW2I1HxKmj3 TTMmdWfsOM8sN7Hh UTQddvlaffzkrYW0UHAm RAOxiW50xWVuYWqvLs1k c7P3z272YGWxBYVfdK69 Qe4ncAthBWRypCVZ dW0mszavs8agdncqAqBg PXFjHGp2QOj7TFNdfRpp JwHmTMC5FtB9RGB3mCYq lF5hyXkjxnnmwD9l Oyc+E06pdN5rCZF6KWU0 bsgfFCDtadJzVD76MC71 T8HsVvgweILsiOY+PGRp ulLgfSjqBR9sYxKn r4pgr6JyYIkrE9LvDSDw SDwxMph9EKHqURN7vRK2 zQ5pAHMyRNcch2Q7eMD2 C3TpytBkrz0lb1mc GRSbSWmyL58ccKUoe1M3 BVHonGT8IMSnuOboRhZs pZ56Djh+ZJWwyIkjz3Cp Djure9ucn8inmSl6 IjMwJSIgdmFsaWduPSJ0 o5IwLu94F86nZUudHNSx XNDaMPCgUADwyFcomf8g fL1yLq6+PGNvbCB3 zYO7oY5nPBZkOpQ8CTcg F887OdCbqMRsSrehr5ul z4hsqCu7YiMkLPGqvvIq lBcrWOS1m6CrAi43 X37qBGmgPNOtOPGgQRVb JLRitDtmst4vjL3dKz8+ UM3rg7bang08rX36oMV+ LMIeAAH2qWmfYBcb HTGntK8bQEzjDtS1AMSq KsPnsZ28gVWzYGywIf7f hXuncBgiGV9jFNFoaxgf m285IiSdz7eqCKMg gIPnMHxxLIB3J72vr4H6 TGKlAZEfCFX6fUD7uT4h bGlnbjogbGVmdDsgdmVy qRkcNNhsCEkiP246 IHRvcDsnPlBhdGllbnQg FyFoXEo6N0UhLlh6SAXu vJpcYS2mqTBzXDatLy9m aShmdGhyKM2sESWm bqovo841QxEjo9seVKUi lPGvVVwfJFY4J37um5I2 DRRxXWBcZAE1mWS2wL5r bGlnbjogbGVmdDsg stJypYqhCSgeRQwaM916 IHRvcDsnPkJpcnRoIERh nNA9XB91YC04aFKjm2J1 eHB2W3RaGAAyyebx llspsAI3SMXwNPEamN07 Va8taGrcPh2rOSEiQVQ9 HDHfsQBhU5TrbW4wPfLa TCUbOZPdA4GvnQMy KEicF286OAqyDfI8LFWl wcAcG2PaWILofFdrOjE0 q0N6Be3AC1H4FW98CX21 aKLhx0Z4oGQ2S5Ho MTCmbzhrpgitvCR1PSFc DSMdyO74Dw6ycMnzPd8q ENQuLFJ1ICDduLMjO7Yg iC4oZtOmNRZtAZRr W9CtjIVxIYhxW532VGmn GdM0OOJcwuLbZ7RxKRBo hAfbXhO6b7R2Mi5ZEJm4 JT77DL60zULph6R5 sIU0I5AiPHHdmyfzijeh dHW1MSZmBEJjeI98Iu6a vPsuPr6pFOSpWTD1YUAa hIJpY3ZozW2zUuFu DSDzNVCtE1UkcLDyLEvo F057ATsqMrN8WXXjlaGh S5FmAOIorAgoAmF6u9X4 Gt1KVWOmGF27FAK6 uGU2OZ54SU47W5HmTber dGFibGU+PHRhYmxlIHdp ZHRoPScxMDAlJyBzdHls SI1pHj7yGFKlDXJz uNbwjFTmRnDmw5dnQXMr RNypSG6eaQmlP5PvxRY5 TLXxw0v8Bz18M55lC2Hr dXA+JUEwyZV3pLL9 jT1uPmMgWqA0PTxnE972 ZvQazLDdRwayt0hzp5jx jTw0NgQ8IHUgliVvkBuw ZUG4l0EpOr10S00r IHdpZHRoPSIxNSUiIHZh iCdsux8vfL9aRy7+PGNv mOQ0gXN0iE6zUcKyFzP7 CAcwT374CmOgrEUj Etzry7dci5yyjMj9CjTc BGWuffObhInnKXL9o0At Hz64J7DqzCsnl5SgSeg2 sg90fBHgk5X3lKP6 N7RfGWDhqzllcRIbmRtc LZ6rXXLlvhteFFYkgD0l NPNqO6z5HzXqZkR9DUhd M9TahgA4CIXruMPa LQpjTUH1V49yj8B4IOCq IJYjJOF2kYQ1zM5otJzw bjogbGVmdDsgdmVydGlj TCphVXgyP101DPAh hStcFJMjgB2iTQNlrUCn hIdrDQ4uDNLgoturGhPI W0jWZvRRNDUVJ8xRXMKT SJ55KA78iVWls9X4 dGO7B6ReQNEvqpnquhcq sBJ4ITGkACYebG21iUCw IHkmZb2xj3F8q077RMMf DDBxiB07Xw6cuPms DOTjsDLMfB7awvzab4lp cloaXdQhOWXaOIf8IHo1 BZRnkBvpHrYmTYK7BbJ5 ITA1tCBqcD2hwLfo ppwwjF6hPfd+MDEvMDYv OKj9UGgyoZV+PHRkIHN0 yYdyOLjmUKCiuH0tLZOp O4y7EnIbHnS1PVop W5YaTMJfirowQi58zQ4r AcCzPeO1PFpeN7HyrvO8 PLBngWXuVOsaZCW7Q20s s0X8UYPwNSJyTZJ1 kXI4vA8bsNecvtkfqDLp dDsgdmVydGljYWwtYWxp Y696MRQkjWvoPhX5MQxv FNOsCX39UN80sSIf i9A8tFU6U3VmYOStpblx ocenrPW8NIVpSOOuqX21 mOIuEZjoKt9cq3G3g587 CZYaZKZkgX08Sf6a iWfaEOGkqGLGxD7imonz g8euleclCrMfGOEjXYv1 MHb6RGWtsNcmIoNvNLS9 EaJ8POL1gUBjyB7i kQboikisfY5tKqq+RmVt QWhtEG93TY97yOUdq8G9 iEC4Z4TmCNGjlnufwsnk oSQ3BKByXFTjsL11 kBDvUPaeVm1wk6Z1t640 TZJpUYRbbK82Je0ckTfz OLUnzJPRhN1cxdklq2wq cjogIzAwMDAwMDt0 DFx1YWNyfWxcTbRwPOC3 GqI0NDJ5bTOhbY5qdItj zbgiwA5rXse+OO9dqfof fyO2OW16WV62C9Wz PjwvdGFibGU+PHRhYmxl IHdpZHRoPScxMDAlJyBz mEjsAK1aBe8vMNZbNFHg iUbzeKEtEoHic0mc HLXwGDvlOV4ztHdxV9Nb nTP6MGEeh1g7Ss18J14p L5UanVP+XZKimZR2lVD7 fL3eKiOdQoX3KLlg B265SjAxiWGzWgqsf7va y8akpYh9JwNbRAKluqEo kWsqAOK3i9SxXd62N32l IHdpZHRoPSIyMCUi LAXceGkgtg9ntS7dOy8+ UDFbdFS3mPH5vE3cVeBh NzH3AVqtY468VgNbgISj QplmV94eC3ZmyKL+ WZRwYyb7GZCpdHviAQ3v eIWkNHyfNz8vXKS2VgRc KgCrUUmdZ1WeFTSvrglm jkykqOA1YMYyVAPe bK30Ze5luUpwZk6gKLGw CEG1DMRbuKUrH7PevP5x KjZxNMEiQMJlA8QpgRZg ELhwS454ZNewLsK7 BJIipjPzW0OnWAKuzIpr BmF3h9Z1Na0OeUpfjQQo KL8dRpKxUKo8R7NzJdf5 OGYrmRyzFR4xcNAe VMrrBb1enSyjfKhfVS4t BDPwjrbve291RwEsb2gl VCBpiOUaVAmcHCA1P32r f4X0OYRrTRPcXBC0 uIV8lI0siVphnxteiSSl dDsgdmVydGljYWwtYWxp L121VTXcxHesSeBKJei1 O6IpVqn1HDAapUrd RC4hoNFjZHwvGf4psWkk lXzkJS4yHHZdmglje285 FqPdm8hcQRKcrGQbLIyi IVK2W68uq6M8EAMt CQEeXEY3iJP0sA9vaJpx bjogbGVmdDsgdmVydGlj CFulRSwxA201NKLiuJne Xc3VYbk7N6KtDsj2 DHIqnToaDY6xeJFvIMhz Mq3gcBgejJyrKN1dFVDz nxiyi297RmRjw2kdBSGq ySJlRRazXGA6K14m y1V6YJFvISIoFZV0mGB5 jM2xsCsfjbkimSLwoYfh vtNrcXlvLTmkQFboK343 IHRvcDsnPlBheWVy OjwvdGQ+EQ66ih44A7Xn CjliMak4NLKhALQ0fBY1 gQ9vSPVyBDxql0E0uUN3 D3IzkgTxug1wh7io YXBz (more content not included)... Normal [facility] Consenton 04-27-2022 Consent [id number] #1.00CD:127 [facility] Progress Note-Physicianon Progress Note-Physician Patient: BEA DAVILA Age: 36 years Sex: Female : 1985 Associated Diagnoses: None Author: Jac Salazar Jr, DO Preoperative Information Time patient last ate or drank:=== (npo 8 hours) Anesthesia history: Patient history: No prior anesthesia problems. Re-evaluation prior to induction: Completed, Initial evaluation reviewed. Review of Systems Respiratory: No shortness of breath. Cardiovascular: No chest pain. Hematology/Lymphatic s: No bruising tendency, No bleeding tendency. Health Status Allergies: Allergic Reactions (All) Severity Not Documented Bactrim- Yeast. Canceled/Inactive Reactions (All) No Known Allergies Current medications: (Selected) Inpatient Medications Ordered Lactated Ringers IV Christina 1000 mL 1,000 mL: 1,000 mL, IV, 150 mL/hr, Routine, Start date 04/17/22 9:30:00 EDT, 6.7 hour(s), Total volume (mL): 1,000, 79.8 kg, 1.84, m2 cefazolin additive + Sodium Chloride 0.9% intravenous solution 50 mL: 2 gram = 1 EA, Powder-Inj, IV Piggyback, PREOP, Routine, Start date 04/17/22 9:30:00 EDT, 100 mL/hr, Infuse over 30 minute(s) Documented Medications Documented Cymbalta 60 mg Cap-DR: 60 mg, Oral, Bedtime, Refills(s) 0, Depression Pantoprazole [address] Tab: 40 mg = 1 tab(s), Oral, Daily, Refills(s) 0, Control of stomach acid Problem list: All Problems GERD (gastroesophageal reflux disease) / SNOMED CT 980616539 / Confirmed Mild major depression / SNOMED CT 636989758 / Confirmed Obesity / ICD-9-CM 278.00 / Possible Smoker.. / SNOMED CT [id number] / Confirmed Added secondary to documentation in Social History. UTI (urinary tract infection) / SNOMED CT 103808319 / Confirmed Vitamin D deficiency / SNOMED CT 01919847 / Confirmed Resolved: Group B streptococcus / SNOMED CT 347833198 Resolved: / SNOMED CT 561322818 Resolved: / SNOMED CT 756381313 Resolved: / SNOMED CT 059226329 Resolved: / SNOMED CT 628146357 Resolved: / SNOMED CT 323231688 Histories Past Medical History: Resolved ([id number]): Onset on 03/27/2011 at 25 years. Resolved on 12/12/2011 at 26 years. (726251590): Onset on 09/21/2006 at 21 years. Resolved in 2007 at 21 years. (488532541): Onset on 09/14/2000 at 15 years. Resolved in 2001 at 15 years. ([id number]): Onset on 09/15/1999 at 14 years. Resolved in 2000 at 14 years. ([id number]): Resolved in 2005 at 19 years. Group B streptococcus (444256050): Resolved on 12/12/2011 at 26 years. Family History: Asthma Mother Primary malignant neoplasm of female genital organ Mother COPD Mother Primary malignant neoplasm of female breast Grandparent Alcoholism Father Drug addiction Mother Alzheimer's disease Aunt Depression Aunt Uncle Procedure history: Pelvis ([id number]) on 06/21/2019 at 33 Years. tonsillectomy. Comments: 02/08/2012 10:15 EDT - Christiane LÓPEZ, Kat 1997 Tubal ligation ([id number]). Cholecystectomy ([id number]). Removal of hardware ([id number]). Comments: 04/08/2022 13:44 Krista Mart RN May 2021 Social History Social & Psychosocial Habits Alcohol Comment: denies - 01/05/2019 11:48 - Mirian Hill RN 02/23/2019 Risk Assessment: Low Risk 02/23/2019 Use: Current Comment: occasional use - 02/23/2019 08:54 - Huma Montes CMA Comment: socially - 08/13/2021 08:31 - Irena Sifuentes RN Employment/School 09/06/2019 Risk Assessment: Medium Risk Exercise 09/06/2019 Risk Assessment: Does not exercise Home/Environment 09/06/2019 Risk Assessment: No Risk Nutrition/Health 09/06/2019 Risk Assessment: No Risk Sexual 09/06/2019 Risk Assessment: No Risk Substance Abuse 02/08/2012 Risk Assessment: Denies Substance Abuse Comment: denies - 01/05/2019 11:49 - Mirian Hill RN Comment: denies - 08/13/2021 08:32 - Irena Sifuentes RN Tobacco Comment: smokes 1/2 ppd. - 06/20/2015 20:52 - Yuki Beatty RN 02/20/2018 Tobacco Use: 10 or more cigarettes (1/ Type: Cigarettes Previous treatment: None Ready to change: No Concerns about tobacco use in household: No 02/23/2019 Risk Assessment: High Risk 02/23/2019 Tobacco Use: 10 or more cigarettes (1/ Smokeless tobacco use: Never Type: Cigarettes Smoking Cessation Yes 03/28/2020 Tobacco Use: 10 or more cigarettes (1/ Comment: 1 ppd daily - 03/28/2020 13:23 - Yaz Sanabria RN 11/07/2020 Type: Cigarettes Comment: 1ppd - 11/07/2020 16:43 - Sanket Newton RN 06/27/2021 Tobacco Use: 10 or more cigarettes (1/ Type: Cigarettes Tobacco use per day: 1 Smoking Cessation Yes 08/13/2021 Type: Vaping 10/27/2021 Smokeless tobacco use: Current vaping or e-cigar . Physical Examination Vital Signs 04/17/2022 9:52 EDT Heart Rate Monitored 94 bpm Systolic Blood Pressure 125 mmHg Diastolic Blood Pressure 85 mmHg Blood Pressure Location Left a (more content not included)... Normal [facility] Comment on above: Result Comment: Elec tronically Signed By: Jac Salazar Jr, DO\.br\Date and Time Signed: 04/27/22 14:34 EST Progress Note-Physician Patient: BEA DAVILA Age: 36 years Sex: Female : 1985 Associated Diagnoses: None Author: Jac Salazar Jr, DO Postoperative Information Post Operative Note: Post Anesthesia Care Unit. Anesthetic utilized: General. Health Status Allergies: Allergic Reactions (Selected) Severity Not Documented Bactrim- Yeast. Problem list: All Problems GERD (gastroesophageal reflux disease) / SNOMED CT 110394480 / Confirmed Mild major depression / SNOMED CT 097713120 / Confirmed Obesity / ICD-9-CM 278.00 / Possible Smoker.. / SNOMED CT [id number] / Confirmed Added secondary to documentation in Social History. UTI (urinary tract infection) / SNOMED CT 322022935 / Confirmed Vitamin D deficiency / SNOMED CT 99085412 / Confirmed Resolved: Group B streptococcus / SNOMED CT 962846705 Resolved: / SNOMED CT 586743793 Resolved: / SNOMED CT 474432432 Resolved: / SNOMED CT 185840784 Resolved: / SNOMED CT 739513341 Resolved: / SNOMED CT 144253388 Physical Examination Vital Signs 04/17/2022 15:44 EDT Heart Rate Monitored 104 bpm HI Respiratory Rate 18 br/min Systolic Blood Pressure 118 mmHg Diastolic Blood Pressure 82 mmHg Blood Pressure Location Right arm Mean Arterial Pressure, Monitered 94 mmHg SpO2 99 % BP/Pulse Patient Position Sitting 04/17/2022 14:48 EDT Heart Rate Monitored 107 bpm HI Respiratory Rate 18 br/min Systolic Blood Pressure 115 mmHg Diastolic Blood Pressure 79 mmHg Blood Pressure Location Right arm Mean Arterial Pressure, Monitered 91 mmHg SpO2 93 % BP/Pulse Patient Position Supine 04/17/2022 14:40 EDT Temperature Temporal Artery 36.1 DegC LOW Heart Rate Monitored 105 bpm HI Respiratory Rate Monitored 23 br/min Systolic Blood Pressure 117 mmHg Diastolic Blood Pressure 82 mmHg Blood Pressure Location Left arm SpO2 94 % 04/17/2022 14:30 EDT Heart Rate Monitored 117 bpm HI Respiratory Rate Monitored 21 br/min Systolic Blood Pressure 122 mmHg Diastolic Blood Pressure 78 mmHg Blood Pressure Location Left arm SpO2 94 % 04/17/2022 14:25 EDT Heart Rate Monitored 107 bpm HI Respiratory Rate Monitored 19 br/min Systolic Blood Pressure 121 mmHg Diastolic Blood Pressure 79 mmHg Blood Pressure Location Left arm SpO2 100 % 04/17/2022 14:20 EDT Heart Rate Monitored 114 bpm HI Respiratory Rate Monitored 11 br/min Systolic Blood Pressure 129 mmHg Diastolic Blood Pressure 84 mmHg Blood Pressure Location Left arm SpO2 100 % 04/17/2022 14:14 EDT Temperature Temporal Artery 36.2 DegC LOW Heart Rate Monitored 115 bpm HI Respiratory Rate Monitored 18 br/min Systolic Blood Pressure 130 mmHg Diastolic Blood Pressure 86 mmHg Blood Pressure Location Left arm SpO2 100 % 04/17/2022 9:52 EDT Heart Rate Monitored 94 bpm Systolic Blood Pressure 125 mmHg Diastolic Blood Pressure 85 mmHg Blood Pressure Location Left arm Mean Arterial Pressure, Monitered 98 mmHg 04/17/2022 9:52 EDT Apical Heart Rate 92 bpm 04/17/2022 9:51 EDT Temperature Oral 36.3 DegC Heart Rate Monitored 100 bpm Respiratory Rate 20 br/min Systolic Blood Pressure 125 mmHg Diastolic Blood Pressure 81 mmHg Blood Pressure Location Right arm Mean Arterial Pressure, Monitered 96 mmHg SpO2 97 % Vital Signs (last 24 hrs) Last Charted Temp Oral 36.3 DegC (APR 17 09:51) Heart Rate Apical 92 bpm (APR 17 09:52) Resp Rate 23 br/min (APR 17 14:40) SBP 118 mmHg (APR 17 15:44) DBP 82 mmHg (APR 17 15:44) SpO2 99 % (APR 17 15:44) Pain assessment: Pain Assessment 04/17/2022 15:44 EDT Preliminary Pain Scale 2 04/17/2022 15:44 EDT Pain Symptoms Self Report Yes, able to self report Primary Pain Location Abdomen Patient Preferred Pain Tool Numeric rating Numeric Pain Scale 2 Numeric Pain Score 2 04/17/2022 14:48 EDT Preliminary Pain Scale 0 04/17/2022 14:48 EDT Pain Symptoms Self Report No, able to self report Patient Preferred Pain Tool Numeric rating Numeric Pain Scale 0 = No pain Numeric Pain Score 0 04/17/2022 14:40 EDT Pain Symptoms Self Report Yes, able to self report Primary Pain Location Abdomen Primary Pain Quality Aching Patient Preferred Pain Tool Numeric rating Numeric Pain Scale 3 Numeric Pain Score 3 04/17/2022 14:14 EDT Pain Symptoms Self Report No, able to self report Numeric Pain Scale 0 = No pain Numeric Pain Score 0 04/17/2022 9:51 EDT Preliminary Pain Scale 0 . General: Alert and oriented, No acute distress. Respiratory: Lungs are clear to auscultation. Cardiovascular: Normal rate, Regular rhythm. Neurologic: Normal sensory. Review / Management Condition: Stable. Assessment Anesthetic outcome No anesthetic complications noted. Adequate pain relief. TOLERATING PO INTAKE. voiding w/o diff.. No Complaint of nausea and vomiting. Plan Transfer/ Discharge: Condition stable. Normal [facility] Comment on above: Result Comment: Elec tronically Signed By: Jac Salazar Jr, DO\.br\Date and Time Signed: 04/27/22 14:28 EST C Urineon 04-26-2022 Bacteria identified Cx Nom (U) Microbiology PROCEDURE: Urine Culture [R1] SOURCE: U CleanCatch BODY SITE: COLLECTED DATE/TIME: 04/24/2022 14:18 EDT RECEIVED DATE/TIME: 04/24/2022 17:14 EDT START DATE/TIME: 04/24/2022 17:15 EDT FREE TEXT SOURCE: Bereket Carlton DO, DO, Kevin M. FINAL REPORTS Final Report [] Verified Date/Time: 04/26/2022 11:38 EST 30,000 cfu/ml Escherichia coli SUSCEPTIBILITY RESULTS LEGEND: S=Susceptible, N/R=Not Reported, Blank=Data not available, or drug not advisable or tested, I=Intermediate, ESBL=Extended spectrum beta-lactamase, R=Resistant, TFG=Thymidine-depend ent strain, CANDICE=Beta-lactamase positive, PARMINDER=mcg/m;(mg/L), S*=Predicted susceptible interp, R*=Predicted resistant interp EC Antibiotic PARMINDER Dilutn PARMINDER Interp Amikacin <=16 S Ampicillin >16 R Ampicillin/ 16/8 I Sulbactam Aztreonam <=4 S Cefazolin <=2 S Cefepime <=2 S Cefoxitin <=8 S Ceftazidime <=1 S Ceftazidime/ <=8 S Avibactam Ceftriaxone <=1 S Ciprofloxacin <=1 S Ertapenem <=0.5 S Gentamicin <=4 S Levofloxacin <=2 S Meropenem <=1 S Nitrofurantoin <=32 S Piperacillin/ <=16 S Tazobactam Tetracycline <=4 S Tigecycline <=2 S Tobramycin <=4 S Trimethoprim/ <=2/38 S Sulfa Performing Locations R1: This test was performed at: [facility], [address] [place] [address], [address] , , [facility] Comment on above: Performed By: #### 2 [id number], [id number] ####[address] [address] Auto Diffon 04-24-2022 Basophils/100 WBC (Bld) 0.2 % Normal 0.0-2.0 [facility] Comment on above: Order Comment: Order Added by Discern Expert. Performed By: #### 2 559802, 7458807, 5508888, [id number] ####[address] [address] Basophils/Leukocytes Auto (Bld) [Pure # fraction] 0.0 E9/L Normal 0.0-0.2 [facility] Comment on above: Order Comment: Order Added by Discern Expert. Performed By: #### 2 172505, 0163438, 9723941, 83510991 ####[address] [address] Eosinophils/100 WBC (Bld) 0.5 % Normal 0.0-8.0 [facility] Comment on above: Order Comment: Order Added by Discern Expert. Performed By: #### 2 080437, 6041516, 5530120, [id number] ####[address] [address] Eosinophils/Leukocytes Auto (Bld) [Pure # fraction] 0.0 E9/L Normal 0.0-0.5 [facility] Comment on above: Order Comment: Order Added by Discern Expert. Performed By: #### 2 016226, 0524000, 0002633, 01654414 ####[address] [address] Lymphocytes/100 WBC (Bld) 9.2 % Low 14.0-50.0 [facility] Comment on above: Order Comment: Order Added by Discern Expert. Performed By: #### 2 025062, 3091829, 3075103, 48845145 ####[address] [address] Lymphocytes/Leukocytes Auto (Bld) [Pure # fraction] 0.8 E9/L Low 1.0-4.0 [facility] Comment on above: Order Comment: Order Added by Discern Expert. Performed By: #### 2 043606, 0237591, 7376271, 53358319 ####[facility] [address] [place] [address] Monocytes/100 WBC (Bld) 7.6 % Normal 4.0-14.0 [facility] Comment on above: Order Comment: Order Added by Discern Expert. Performed By: #### 2 758287, 1961742, 1487790, 48645063 ####[facility] [address] [place] [address] Monocytes/Leukocytes Auto (Bld) [Pure # fraction] 0.6 E9/L Normal 0.2-1.0 [facility] Comment on above: Order Comment: Order Added by Stella Expert. Performed By: #### 2 863345, 9961761, 3417927, 09601657 ####[address] [address] Neutrophils/100 WBC (Bld) 82.5 % High 36.0-75.0 [facility] Comment on above: Order Comment: Order Added by Discern Expert. Performed By: #### 2 305826, 9567832, 3553503, 40361933 ####[facility] [address] [place] [address] Neutrophils/Leukocytes Auto (Bld) [Pure # fraction] 6.9 E9/L Normal 2.0-7.5 [facility] Comment on above: Order Comment: Order Added by Discern Expert. Performed By: #### 2 446916, 1663897, 1353136, 66649776 ####[facility] [address] [place] [address] BMPon 04-24-2022 Creatinine [Mass/Vol] 0.6 mg/dL Normal 0.5-1.3 [facility] Comment on above: Performed By: #### 2 285154, 6164765, 4623083, 71523386 ####[facility] [address] [place] [address] Urea nitrogen [Mass/Vol] 9 mg/dL Normal 5-21 [facility] Comment on above: Performed By: #### 2 122746, 2394276, 4458399, 91805913 ####[facility] [address] [place] [address] Urea nitrogen/Creatinine [Mass ratio] 15 No Units Normal 10-20 [facility] Comment on above: Performed By: #### 2 661729, 3535941, 1409993, 52684141 ####[facility] [address] [place] [address] Anion gap [Moles/Vol] 16 mmol/L Normal 6-16 [facility] Comment on above: Performed By: #### 2 559201, 5413677, 5929892, 06207294 ####[facility] [address] [place] [address] Calcium [Mass/Vol] 8.8 mg/dL Low 8.9-11.1 [facility] Comment on above: Performed By: #### 2 955418, 3138022, 1453716, 46131962 ####[facility] [address] [place] [address] Chloride [Moles/Vol] 98 mmol/L Low 101-111 [facility] Comment on above: Performed By: #### 2 174046, 8554310, 1278588, 06171289 ####[facility] [address] [place] [address] CO2 [Moles/Vol] 22 mmol/L Normal 21-31 [facility] Comment on above: Performed By: #### 2 273589, 4706386, 5085185, 46932492 ####[facility] [address] [place] [address] Glucose [Mass/Vol] 116 mg/dL Normal 55-199 [facility] Comment on above: Result Comment: If t his glucose result represents a fasting glucose, interpretation should refer to the following reference range: 55-99 mg/dL Performed By: #### 2 426790, 8695248, 9779079, 13456628 ####[facility] [address] [place] [address] Potassium [Moles/Vol] 3.7 mmol/L Normal 3.5-5.3 [facility] Comment on above: Performed By: #### 2 440732, 4357747, 4201874, 91548064 ####[address] [address] Sodium [Moles/Vol] 132 mmol/L Low 135-145 [facility] Comment on above: Performed By: #### 2 091150, 9066645, 5031572, 45568533 ####[address] [address] CBC w/ Auto Diffon Erythrocyte distribution width (RBC) [Ratio] 16.5 % High 10.9-14.2 [facility] Comment on above: Performed By: #### 2 076889, 5140980, 1965573, 51981513 ####[address] [address] Hematocrit (Bld) [Volume fraction] 34.3 % Normal 34.0-46.0 [facility] Comment on above: Performed By: #### 2 046020, 2224414, 3066887, 55148734 ####[address] [address] Hemoglobin (Bld) [Mass/Vol] 11.3 g/dL Low 12.0-16.0 [facility] Comment on above: Performed By: #### 2 080014, 2851946, 8613785, 22561621 ####[address] [address] MCH (RBC) [Entitic mass] 27.7 pg Normal 27.0-34.0 [facility] Comment on above: Performed By: #### 2 916826, 8066821, 1563019, 53073113 ####[address] [address] MCHC (RBC) [Mass/Vol] 33.0 g/dL Normal 31.4-36.0 [facility] Comment on above: Performed By: #### 2 079368, 8529043, 7916012, 32857661 ####[address] [address] MCV (RBC) [Entitic vol] 83.8 fL Normal 80.0-100.0 [facility] Comment on above: Performed By: #### 2 060287, 1341418, 9590959, 46598126 ####[address] [address] Platelet mean volume (Bld) [Entitic vol] 8.2 fL Normal 6.4-10.8 [facility] Comment on above: Performed By: #### 2 948071, 6020827, 0940917, 84237068 ####[address] [address] Platelets (Bld) [#/Vol] 221.0 E9/L Normal 150.0-500.0 [facility] Comment on above: Performed By: #### 2 487108, 7442292, 4162856, 31956527 ####[address] [address] RBC (Bld) [#/Vol] 4.1 E12/L Low 4.3-5.9 [facility] Comment on above: Performed By: #### 2 231741, 1202715, 0756488, 16777890 ####[address] [address] WBC corrected for nucl RBC Auto (Bld) [#/Vol] 8.3 E9/L Normal 4.0-11.0 [facility] Comment on above: Performed By: #### 2 052557, 4486694, 1520864, 41593786 ####[address] [address] CHEMISTRYOrdered By: SYSTEM SYSTEM on 04-24-2022 Anion gap [Moles/Vol] 16 mmol/L Normal 6 - 16 mEq/L [facility] Calcium [Mass/Vol] 8.8 mg/dL Low 8.9 - 11. 1 mg/dL [facility] Chloride [Moles/Vol] 98 mmol/L Low 101 - 1 11 mmol/L [facility] CO2 [Moles/Vol] 22 mmol/L Normal 21 - 31 mmol/L [facility] Creatinine [Mass/Vol] 0.6 mg/dL Normal 0.5 - 1.3 mg/dL [facility] GFR/1.73 sq M.predicted among blacks MDRD (S/P/Bld) [Vol rate/Area] mL/min/1.73 m2 Normal >=59mL/min/1 .73 m2 [facility] Chem S GFR/1.73 sq M.predicted among non-blacks MDRD (S/P/Bld) [Vol rate/Area] mL/min/1.73 m2 Normal >=59mL/min/1 .73 m2 [facility] [place] Chem S Glucose [Mass/Vol] 116 mg/dL Normal 55 - 199 mg/dL [facility] Potassium [Moles/Vol] 3.7 mmol/L Normal 3.5 - 5.3 mmol/L [facility] Sodium [Moles/Vol] 132 mmol/L Low 135 - 145 mmol/L [facility] Urea nitrogen [Mass/Vol] 9 mg/dL Normal 5 - 21 mg/dL [facility] Urea nitrogen/Creatinine [Mass ratio] 15 mg/mg Normal 10 - 20 [facility] Consent for Treatmenton Consent for Treatment [id number] #1.00CD:127 Normal [facility] Discharge Instructionson Discharge Instructions [id number]#1.00CD:127 Normal [facility] ED Clinical Summaryon 2021 ED Clinical Summary [place] [id number] ED Clinical Summary Person Information Name: BEA DAVILA [facility] Age: 36 Years : 1985 Sex: Female Language: Palauan PCP: Angella Casas MD Marital Status: Phone: [phone] Visit Id: Visit Reason: Body aches; Fever; Post surgical problem; POST SURGERY PROBLEMS Speciality: Acuity: 2 Enc Type: Emergency Med Service: Emergency Arrival: 04/24/2022 13:41:11 Discharge: 04/24/2022 15:35:54 LOS: 000 01:54 Checkin: 04/24/2022 13:41:11 Checkout: 04/24/2022 15:35:54 Dispo Type: Home (Routine DC) EVENTS: Event Name Event Status Request Date/Time Start Date/Time Complete Date/Time Arrive Complete 04/24/2022 13:41:11 04/24/2022 13:41:11 04/24/2022 13:41:11 Document Home Meds Request 04/24/2022 13:41:11 Triage Complete 04/24/2022 13:41:11 04/24/2022 13:46:41 04/24/2022 13:46:41 Bed Assign Complete 04/24/2022 13:42:52 04/24/2022 13:42:52 04/24/2022 13:42:52 Dr Exam Complete 04/24/2022 13:42:52 04/24/2022 13:51:04 04/24/2022 13:51:04 RN Exam Complete 04/24/2022 13:42:52 04/24/2022 14:54:05 04/24/2022 14:54:05 Registration Complete 04/24/2022 13:51:04 04/24/2022 14:00:42 04/24/2022 14:00:42 Pending Labs Complete 04/24/2022 13:56:49 04/24/2022 14:37:36 Lab Complete 04/24/2022 13:56:49 04/24/2022 14:37:36 Urine Collect Complete 04/24/2022 13:56:49 04/24/2022 14:30:58 Pending Labs Complete 04/24/2022 13:57:41 04/24/2022 14:52:56 Swab Complete 04/24/2022 13:57:41 04/24/2022 14:52:56 Lab Complete 04/24/2022 13:57:41 04/24/2022 14:52:56 Reg Complete Request 04/24/2022 14:00:42 Reg Bed Request Complete 04/24/2022 14:00:42 04/24/2022 14:00:42 04/24/2022 14:00:42 Pending Labs Complete 04/24/2022 14:22:27 04/24/2022 14:22:27 04/24/2022 14:37:37 Lab Complete 04/24/2022 14:22:27 04/24/2022 14:22:27 04/24/2022 14:37:37 Pending Labs Collected 04/24/2022 14:23:03 04/24/2022 14:23:03 Lab Collected 04/24/2022 14:23:03 04/24/2022 14:23:03 Pending Labs Complete 04/24/2022 14:35:00 04/24/2022 14:35:00 04/24/2022 14:35:07 Lab Complete 04/24/2022 14:35:00 04/24/2022 14:35:00 04/24/2022 14:35:07 Discharge Complete 04/24/2022 15:29:20 04/24/2022 15:36:00 04/24/2022 15:36:00 Transfer Complete 04/24/2022 15:36:00 04/24/2022 15:36:00 04/24/2022 15:36:00 ADDRESS: [address] [place] [address] [id number] PHYS DOC NOTES: MEDICAL INFORMATION: Prescriptions Given: New Medications [facility]/pharmacy #[id number], [address], [place] [id number], [phone] cephalexin (Keflex 500 mg Cap) 1 Capsules By Mouth every 12 hours for 5 Days. Refills: 0. Medications to Continue with No Changes Other Medications duloxetine (Cymbalta 60 mg Cap-DR) 60 Milligram By Mouth at bedtime. pantoprazole (Pantoprazole [address] Tab) 1 Tablets By Mouth every day. PATIENT EDUCATION INFORMATION: Instructions: Urinary Tract Infection, Adult; Antibiotic Medicine, Adult Follow up: With: Address: When: Angella Casas [address] [place] [address] Business (1) In 3 days 04/27/2022 Comments: Call the office of your primary care doctor to arrange for follow-up within the above-stated timeframe. Follow-up with your primary care doctor about this ED visit. You should review your labs, imaging, and diagnoses from this ED visit with your primary care physician. If you were prescribed medications you should discuss possible side-effects and drug interactions with your pharmacist. Call 911 or go to the nearest Emergency Department if you develop any new or worsening symptoms. Seek immediate medical attention if you develop: worsening abdominal pain, new or worsening nausea, new or worsening vomiting, new or worsening diarrhea, chest pain, shortness of breath, pain with urination, problems urinating, fever, chills, weakness, or any new or worsening symptoms. DIAGNOSIS: Acute UTI Normal [facility] ED Note-Physicianon 04-24-20 ED Note-Physician Basic Information Time Seen: Bereket Carlton DO 04/24/2022 13:51 Chief Complaint Pt reports she had a laproscopic hysterectomy 7 days days. Started with headache, body aches, chills, and low grade fevers 2 days ago. pt reports one incision looks infected. Pt reports a lot of pressure with urination. History of Present Illness 36-year-old female to the emergency department chief complaint of suprapubic pressure, dysuria, low-grade fever, body aches, general malaise after having a laparoscopic hysterectomy 7 days ago. She reports that she has pressure when she urinates. She wanted her surgical sites evaluated as well as get a urine sample. She denies any nausea or vomiting. She is able to eat and drink without difficulty. She reports that her daughter is also sick with a viral infection. She is unsure if she is coming down with this or has a urinary tract infection. Review of Systems A 10 point review of systems is negative except as noted above. Medical and Surgical History: Reviewed and noted Social history: Lives at home Tobacco: Denies Physical Exam Vitals & Measurements T: 37.1 ?C(Oral) HR: 95(Monitored) RR: 16 BP: 120/82 SpO2: 100% HT: 152.4 cm WT: 79 kg BMI: 34.01 VITALS: I have reviewed the triage vital signs. GENERAL: Well developed, well appearing adult in no acute distress. NEURO: Alert and oriented. Moves all extremities. Face is symmetric and expressive. EYES: PERRL. No scleral icterus or conjunctival injection. No discharge. HENT: Normocephalic, atraumatic. Hearing is grossly intact. Nares grossly patent and without discharge. Mucous membranes moist. NECK: No JVD. Patient moves neck without restriction. CARDIO: Rhythm regular. Normal rate. No murmur, rub, or gallop. Pulses equal bilaterally in the upper and lower extremity. No lower extremity edema. PULM: Lungs clear to auscultation in all saha. No wheezes, rales, or rhonchi. No conversational dyspnea. No splinting, stridor, or accessory muscle use. GI/: Abdomen is soft and non-tender. Normoactive bowel sounds. Several small abdominal incisions consistent with her robotic hysterectomy. No erythema, discharge, evidence of infection. EXTREMITIES: Symmetric muscle bulk. No joint swelling. No clubbing, cyanosis, or deformity. SKIN: Warm and dry. Normal turgor. No rash or lesions appreciated. PSYCH: Mood, affect, and interaction is appropriate to the setting. Medical Decision Making Well-appearing 28-year-old female to the emergency department chief complaint of malaise, flulike symptoms. Vital stable, the patient is afebrile. Her wounds do not appear infected. Basic labs are without significant abnormality except her urine which does appear infected. She is prescribed Keflex. She is tolerating p.o.'s in department. COVID and influenza are negative. Return discussed. All questions were answered. Patient was discharged home. I did call and update Dr. Shepard that his patient was here in emergency department looked well. He agrees with plan and she may follow-up as scheduled. Assessment/Plan Acute UTI (N39.0: Urinary tract infection, site not specified) Orders: cephalexin, 500 mg = 1 cap(s), Oral, q12hr, X 5 day(s), # 10 cap(s), Refills(s) 0, Pharmacy: [facility]/pharmacy #[id number], 152.4, cm, 04/24/22 13:46:00 EDT, Height/Length Dosing, 79, kg, 04/24/22 13:46:00 EDT, Weight Dosing Automated Diff Basic Metabolic Panel CBC w/ Auto Diff eGFR Influenza A&B Ag Rapid COVID Antigen ([facility] UA With Cult Reflex Urine Culture Disposition Plan Patient Discharge Condition Stable Discharge Disposition Home Discharge Prescription List Prescriptions Keflex 500 mg Cap, 500 mg= 1 cap(s), Oral, q12hr Follow-up With When Contact Information Angella Casas In 3 days 04/27/2022 EST [address] [id number] [employer] (1) Additional Instructions: Call the office of your primary care doctor to arrange for follow-up within the above-stated timeframe. Follow-up with your primary care doctor about this ED visit. You should review your labs, imaging, and diagnoses from this ED visit with your primary care physician. If you were prescribed medications you should discuss possible side-effects and drug interactions with your pharmacist. Call 911 or go to the nearest Emergency Department if you develop any new or worsening symptoms. Seek immediate medical attention if you develop: worsening abdominal pain, new or worsening nausea, new or worsening vomiting, new or worsening diarrhea, chest pain, shortness of breath, pain with urination, problems urinating, fever, chills, weakness, or any new or worsening symptoms. Patient Education Urinary Tract Infection, Adult Antibiotic Medicine, Adult Problem List/Past Medical History Ongoing GERD (gastroesophageal reflux disease) Mild major depression Smoker.. UTI (urinary tract infection) Vitamin D deficiency Historical Group B streptococcus Preg (more content not included)... Normal [facility] Comment on above: Result Comment: Elec tronically Signed By: Bereket Carlton DO\.ria\Date and Time Signed: 04/24/22 20:18 EDT ED Patient Education Noteon 04-24-2022 ED Patient Education Note Obstetrics and Gynecology Urinary Tract Infection, Adult A urinary tract infection (UTI) is an infection of any part of the urinary tract. The urinary tract includes the kidneys, ureters, bladder, and urethra. These organs make, store, and get rid of urine in the body. Your health care provider may use other names to describe the infection. An upper UTI affects the ureters and kidneys (pyelonephritis). A lower UTI affects the bladder (cystitis) and urethra (urethritis). What are the causes? Most urinary tract infections are caused by bacteria in your genital area, around the entrance to your urinary tract (urethra). These bacteria grow and cause inflammation of your urinary tract. What increases the risk? You are more likely to develop this condition if: ? You have a urinary catheter that stays in place (indwelling). ? You are not able to control when you urinate or have a bowel movement (you have incontinence). ? You are female and you: ? Use a spermicide or diaphragm for control. ? Have low estrogen levels. ? Are . ? You have certain genes that increase your risk (genetics). ? You are sexually active. ? You take antibiotic medicines. ? You have a condition that causes your flow of urine to slow down, such as: ? An enlarged prostate, if you are male. ? Blockage in your urethra (stricture). ? A kidney stone. ? A nerve condition that affects your bladder control (neurogenic bladder). ? Not getting enough to drink, or not urinating often. ? You have certain medical conditions, such as: ? Diabetes. ? A weak disease-fighting system (immunesystem). ? Sickle cell disease. ? Gout. ? Spinal cord injury. What are the signs or symptoms? Symptoms of this condition include: ? Needing to urinate right away (urgently). ? Frequent urination or passing small amounts of urine frequently. ? Pain or burning with urination. ? Blood in the urine. ? Urine that smells bad or unusual. ? Trouble urinating. ? Cloudy urine. ? Vaginal discharge, if you are female. ? Pain in the abdomen or the lower back. You may also have: ? Vomiting or a decreased appetite. ? Confusion. ? Irritability or tiredness. ? A fever. ? Diarrhea. The first symptom in older adults may be confusion. In some cases, they may not have any symptoms until the infection has worsened. How is this diagnosed? This condition is diagnosed based on your medical history and a physical exam. You may also have other tests, including: ? Urine tests. ? Blood tests. ? Tests for sexually transmitted infections (STIs). If you have had more than one UTI, a cystoscopy or imaging studies may be done to determine the cause of the infections. How is this treated? Treatment for this condition includes: ? Antibiotic medicine. ? Jscf-ogx-vllpyvh medicines to treat discomfort. ? Drinking enough water to stay hydrated. If you have frequent infections or have other conditions such as a kidney stone, you may need to see a health care provider who specializes in the urinary tract (urologist). In rare cases, urinary tract infections can cause sepsis. Sepsis is a life-threatening condition that occurs when the body responds to an infection. Sepsis is treated in the hospital with IV antibiotics, fluids, and other medicines. Follow these instructions at home: Medicines ? Take pvvx-bzj-lantfzx and prescription medicines only as told by your health care provider. ? If you were prescribed an antibiotic medicine, take it as told by your health care provider. Do not stop using the antibiotic even if you start to feel better. General instructions ? Make sure you: ? Empty your bladder often and completely. Do not hold urine for long periods of time. ? Empty your bladder after sex. ? Wipe from front to back after a bowel movement if you are female. Use each tissue one time when you wipe. ? Drink enough fluid to keep your urine pale yellow. ? Keep all follow-up visits as told by your health care provider. This is important. Contact a health care provider if: ? Your symptoms do not get better after 1?2 days. ? Your symptoms go away and then return. Get help right away if you have: ? Severe pain in your back or your lower abdomen. ? A fever. ? Nausea or vomiting. Summary ? A urinary tract infection (UTI) is an infection of any part of the urinary tract, which includes the kidneys, ureters, bladder, and urethra. ? Most urinary tract infections are caused by bacteria in your genital area, around the entrance to your urinary tract (urethra). ? Treatment for this condition often includes antibiotic medicines. ? If you were prescribed an antibiotic medicine, take it as told by your health care provider. Do not stop using the antibiotic even if you start to feel better. ? Keep all follow-up visits as told by your health care provider. This is important. This in (more content not included)... Normal [facility] ED Patient Summaryon 022 ED Patient Summary [place] [id number] Patient Discharge Instructions Person Information Name: BEA DAVILA Age: 36 Years Arrival Date: 04/24/2022 13:41:11 Discharge Diagnosis: Acute UTI Primary Care Physician: Angella Casas MD Provider Information Primary Provider: Bereket Carlton DO [employer] Planner:None The exam and treatment you received in the Emergency Department were for an urgent problem and are not intended as complete care. It is important that you follow up with a doctor, nurse practitioner, or physician?s dairy and food laboratory assistant for ongoing care. If your symptoms become worse or you do not improve as expected and you are unable to reach your usual health care provider, you should return to the Emergency Department. We are available 24 hours a day. BEA DAVILA has been given the following list of patient education materials, prescriptions and follow-up instructions: Follow-up Instructions: With: Address: When: Angella Casas [place] [address] [employer]IA Formula E ([employer] In 3 days 04/27/2022 Comments: Call the office of your primary care doctor to arrange for follow-up within the above-stated timeframe. Follow-up with your primary care doctor about this ED visit. You should review your labs, imaging, and diagnoses from this ED visit with your primary care physician. If you were prescribed medications you should discuss possible side-effects and drug interactions with your pharmacist. Call 911 or go to the nearest Emergency Department if you develop any new or worsening symptoms. Seek immediate medical attention if you develop: worsening abdominal pain, new or worsening nausea, new or worsening vomiting, new or worsening diarrhea, chest pain, shortness of breath, pain with urination, problems urinating, fever, chills, weakness, or any new or worsening symptoms. In the event that this physician does not participate in your insurance network, please consult with your insurance company to find a nearby participating provider. Patient Education Materials: Urinary Tract Infection, Adult; Antibiotic Medicine, Adult A MESSAGE TO ALL PATIENTS REGARDING OPIOIDS PRESCRIPTION OPIOIDS: WHAT YOU NEED TO KNOW Prescription opioids can be used to help relieve nxcyaozl-vn-ggoiis pain and are often prescribed following a surgery or injury, or for certain health conditions. These medications can be an important part of the treatment but also come with serious risks. It is important to work with your healthcare provider to make sure you are getting the safest, most effective care. WHAT ARE THE RISKS AND SIDE EFFECTS OF OPIOID USE? Prescription opioids carry serious risks of addiction and overdose, especially with prolonged use. An opioid overdose, often marked by slowed breathing, can cause sudden . The use of prescription opioids can have a number of side effects as well, even when taken as directed: ? Tolerance?meaning you might need to take more of the medication for the same pain relief ? Physical dependence?meaning you have symptoms of withdrawal when a medication is stopped ? Increased sensitivity to pain ? Constipation ? Nausea, vomiting, and dry mouth ? Sleepiness and dizziness ? Confusion ? Depression ? Low levels of testosterone that can result in lower sex drive, energy, and strength ? Itching and sweating RISKS ARE GREATER WITH: ? History of drug misuse, substance use disorder, or overdose ? Mental health conditions (such as depression or anxiety) ? Sleep apnea ? Older age (65 years and older) ? Avoid alcohol while taking prescription opioids. Also, unless specifically advised by your health care provider, medications to avoid include: ? Benzodiazepines (such as Xanax or Valium) ? Muscle relaxants (such as Soma or Flexeril) ? Hypnotics (such as Ambien or Lunesta) ? Other prescription opioids KNOW YOUR OPTIONS Talk to your health care provider about ways to manage your pain that don?t involve prescription opioids. Some of these options may actually work better and have fewer risks and side effects. Options may include: ? Pain relievers such as acetaminophen, ibuprofen, and naproxen ? Some medication that are also used for depression or seizures ? Physical therapy and exercise ? Cognitive behavioral therapy, a psychological, goal-directed approach, in which patients learn how to modify physical, behavioral, and emotional triggers of pain and stress. IF YOU ARE PRESCRIBED OPIOIDS FOR PAIN: ? Never take opioids in greater amounts or more often than prescribed. ? Follow up with your primary health care provider. o Work together to create a plan on how to manage your pain. o Talk about ways to help manage your pain that don?t involve prescription opioids. o Talk about any and all concerns and side effect (more content not included)... Normal [facility] HEMATOLOGYOrdered By: SYSTEM SYSTEM on 04-24-2022 Basophils/100 WBC (Bld) 0.2 % Normal 0.0 - 2.0 % [facility] HemeAutoSS Basophils/Leukocytes Auto (Bld) [Pure # fraction] 0.0 E9/L Normal 0.0 - 0.2 E9/L [facility] HemeAutoSS Eosinophils/100 WBC (Bld) 0.5 % Normal 0.0 - 8.0 % [facility] HemeAutoSS Eosinophils/Leukocytes Auto (Bld) [Pure # fraction] 0.0 E9/L Normal 0.0 - 0.5 E9/L [facility] HemeAutoSS Lymphocytes/100 WBC (Bld) 9.2 % Low 14.0 - 50.0 % [facility] HemeAutoSS Lymphocytes/Leukocytes Auto (Bld) [Pure # fraction] 0.8 E9/L Low 1.0 - 4.0 E9/L [facility] HemeAutoSS Monocytes/100 WBC (Bld) 7.6 % Normal 4.0 - 14.0 % [facility] HemeAutoSS Monocytes/Leukocytes Auto (Bld) [Pure # fraction] 0.6 E9/L Normal 0.2 - 1.0 E9/L [facility] HemeAutoSS Neutrophils/100 WBC (Bld) 82.5 % High 36.0 - 75.0 % [facility] HemeAutoSS Neutrophils/Leukocytes Auto (Bld) [Pure # fraction] 6.9 E9/L Normal 2.0 - 7.5 E9/L [facility] HemeAutoSS HEMATOLOGYOrdered By: Tanja Grant on 04-24-2022 Erythrocyte distribution width (RBC) [Ratio] 16.5 % High 10.9 - 14.2 % [facility] HemeAutoSS Hematocrit (Bld) [Volume fraction] 34.3 % Normal 34.0 - 46.0 % [facility] HemeAutoSS Hemoglobin (Bld) [Mass/Vol] 11.3 g/dL Low 12.0 - 16.0 gm/dL [facility] HemeAutoSS MCH (RBC) [Entitic mass] 27.7 pg Normal 27.0 - 34.0 pg [facility] HemeAutoSS MCHC (RBC) [Mass/Vol] 33.0 g/dL Normal 31.4 - 36.0 gm/dL [facility] HemeAutoSS MCV (RBC) [Entitic vol] 83.8 fL Normal 80.0 - 100.0 fL [facility] HemeAutoSS Platelet mean volume (Bld) [Entitic vol] 8.2 fL Normal 6.4 - 10.8 fL [facility] HemeAutoSS Platelets (Bld) [#/Vol] 221.0 E9/L Normal 150.0 - 500.0 E9/L [facility] HemeAutoSS RBC (Bld) [#/Vol] 4.1 E12/L Low 4.3 - 5.9 E12/L [facility] HemeAutoSS WBC corrected for nucl RBC Auto (Bld) [#/Vol] 8.3 E9/L Normal 4.0 - 11.0 E9/L [facility] HemeAutoSS Influenza A&B Agon 2 Influenzae A Ag Negative Normal Negative [facility] Comment on above: Performed By: #### 2 [id number] #### [facility] [address] [place] [address] Influenzae B Ag Negative Normal Negative [facility] Comment on above: Result Comment: Test sensitivity and specificity vary for age group, specimen type, antigen types, and prevalence of disease. Test results must be evaluated in conjunction with other clinical data available to the physician. Individuals who received nasally administered Influenza A vaccine may have positive test results up to 3 days after vaccination. Performed By: #### 2 [id number], [id number] #### [facility] [address] [place] [address] MICRO OTHER TESTSOrdered By: Carolyn Oviedo on 04-24-2022 Influenzae A Ag Negative (04/24/22 2:18 PM) Normal Negative [facility] Man Sero Influenzae B Ag Negative (04/24/22 2:18 PM) Normal Negative [facility] Man Sero Rapid COV Int NEG Ctl Pass (04/24/22 2:18 PM) Normal [facility] Man Sero Rapid COV Int POS Ctl Pass (04/24/22 2:18 PM) Normal [facility] Man Sero SARS-CoV+SARS-CoV-2 (COVID-19) Ag IA.rapid Ql (Resp) Not Detected (04/24/22 2:18 PM) Normal Not Detected [facility] Man Sero Rapid COVID Antigen ([facility])on 04-24-2022 Rapid COV Int NEG Ctl Pass Normal [facility] Comment on above: Performed By: #### 2 [id number] #### [facility] [address] [place] [address] Rapid COV Int POS Ctl Pass Normal [facility] Comment on above: Performed By: #### 2 [id number] #### [facility] [address] [place] [address] SARS-CoV+SARS-CoV-2 (COVID-19) Ag IA.rapid Ql (Resp) Not detected Normal Not Detected [facility] Comment on above: Result Comment: The [employer]? System for Rapid Detection of SARS-CoV-2 is a chromatographic digital immunoassay intended for the direct and qualitative detection of SARS-CoV-2 nucleocapsid antigens in nasal swabs from individuals who are suspected of COVID-19 by their healthcare provider within the first five days of the onset of symptoms. Negative results should be treated as presumptive, do not rule out SARS-CoV-2 infection and should not be used as the sole basis for treatment or patient management decisions, including infection control decisions. Negative results should be considered in the context of a patient?s recent exposures, history and the presence of clinical signs and symptoms consistent with COVID-19, and confirmed with a molecular assay, if necessary, for patient management. For in vitro diagnostic use. In the [place], only for use under an Emergency Use Authorization. In the [place], this test has not been FDA cleared or approved; this test has been authorized by FDA under an EUA for use by authorized laboratories; use by laboratories certified under the CLIA, 42 U.S.C. ?263a, that meet requirements to perform moderate, high, or waived complexity tests and at the Point of Care (POC), i.e., in patient care settings operating under a CLIA Certificate of Waiver, Certificate of Compliance, or Certificate of Accreditation. This test has been authorized only for the detection of proteins from SARS-CoV-2, not for any other viruses or pathogens; and, in the [place], this test is only authorized for the duration of the declaration that circumstances exist justifying the authorization of emergency use of in vitro diagnostics for detection and/or diagnosis of the virus that causes COVID-19 under Section 564(b)(1) of the Act, 21 U.S.C. ? 360bbb-3(b)(1), unless the authorization is terminated or revoked sooner. Performed By: #### 2 [id number], [id number] #### [facility] [address] [place] [address] ADMITTED TO INTENSIVE CARE UNIT FOR CONDITION OF INTEREST:FIND:PT: NO Normal [facility] Comment on above: Performed By: #### 2 [id number] #### [facility] [address] [place] [address] EMPLOYED IN A HEALTHCARE SETTING:FIND:PT: NO Normal [facility] Comment on above: Performed By: #### 2 [id number] #### [facility] [address] [place] [address] FIRST TEST FOR CONDITION OF INTEREST:FIND:PT: YES Normal [facility] Comment on above: Performed By: #### 2 [id number] #### [facility] [address] [place] [address] HAS SYMPTOMS RELATED TO CONDITION OF INTEREST:FIND:PT: Unknown Normal [facility] Comment on above: Performed By: #### 2 [id number], [id number] #### [facility] [address] [place] [address] HOSPITALIZED FOR CONDITION OF INTEREST:FIND:PT: NO Normal [facility] Comment on above: Performed By: #### 2 [id number] #### [facility] [address] [place] [address] STATUS:FIND:PT: NO Normal [facility] Comment on above: Performed By: #### 2 [id number] #### [facility] [address] [place] [address] [facility]ID[facility]TING:FIND:PT: NO Normal [facility] Comment on above: Performed By: #### 2 [id number], [id number] #### [facility] [address] [place] [address] UA With Cult Reflexon 2021 Bacteria LM Ql (Urine sed) 1+ /HPF Abnormal Trace [facility] Comment on above: Performed By: #### 2 [id number] ####[facility] [id number] [place] [address] Bilirubin Ql (U) Negative Normal Negative [facility] Comment on above: Performed By: #### 2 [id number], [id number] ####[address] [address] Clarity (U) SL CLOUDY Abnormal Clear [facility] Comment on above: Performed By: #### 2 [id number], [id number] ####[address] [address] Color (U) YELLOW Normal Yellow [facility] Comment on above: Performed By: #### 2 [id number], [id number] ####[address] [address] Epithelial cells.squamous LM.HPF (Urine sed) [#/Area] 3-4 Normal 0-2 [facility] Comment on above: Performed By: #### 2 316597, [id number] ####[address] [address] Glucose Test strip (U) [Mass/Vol] Negative Normal Negative [facility] Comment on above: Performed By: #### 2 724205, [id number] ####[facility] [address] [place] [address] Hemoglobin Ql (U) 2+ Abnormal Negative [facility] Comment on above: Performed By: #### 2 665746, [id number] ####[address] [address] Ketones (U) [Mass/Vol] Negative Normal Negative [facility] Comment on above: Performed By: #### 2 975777, [id number] ####[address] [address] Barling.plasma/Barling .RBC (Bld) [Mass ratio] 0-3 Normal 0-3 [facility] Comment on above: Performed By: #### 2 018269, [id number] ####[address] [address] Mucus Ql (Urine sed) TRACE Normal Fish [facility] Comment on above: Performed By: #### 2 959912, [id number] ####[address] [address] Nitrite Ql (U) Negative Normal Negative [facility] Comment on above: Performed By: #### 2 168294, [id number] ####[place] [id number] pH (U) 5.5 [pH] Invalid Interpretation Code 5.0-9.0 [facility] Comment on above: Performed By: #### 2 663118, [id number] ####[place] [id number] Protein (U) [Mass/Vol] Negative Normal Negative [facility] Comment on above: Performed By: #### 2 784297, [id number] ####[place] [id number] Specific gravity (U) [Rel density] 1.025 Invalid Interpretation Code 1.005-1.030 [facility] Comment on above: Performed By: #### 2 824636, [id number] ####[place] [address] Type of Urine collection method Clean Catch Normal [facility] Comment on above: Performed By: #### 2 992190, [id number] ####[place] [id number] Urobilinogen Qn (U) 0.2 {Roro'U}/dL Normal 0.0-1.0 [facility] Comment on above: Performed By: #### 2 583939, [id number] ####[place] [id number] WBC Auto Ql (U) 1+ Abnormal Negative [facility] Comment on above: Performed By: #### 2 084245, [id number] ####[place] [id number] WBC LM.HPF (Urine sed) [#/Area] 6-15 Abnormal 0-5 [facility] Comment on above: Performed By: #### 2 024717, [id number] ####[facility] [address] [place] [address] URINALYSISOrdered By: Lenora Tavarez on 04-24-2022 Bacteria LM Ql (Urine sed) 1+ /HPF Invalid Interpretation Code Trace/HPF [facility] UA Auto SS Bilirubin Ql (U) Negative (04/24/22 2:18 PM) Normal Negative [facility] UA Auto SS Clarity (U) Slightly Cloudy *ABN* (04/24/22 2:18 PM) Invalid Interpretation Code Clear [facility] UA Auto SS Color (U) Yellow (04/24/22 2:18 PM) Normal Yellow [facility] UA Auto SS Epithelial cells.squamous LM.HPF (Urine sed) [#/Area] 3-4 /HPF Normal 0-2/HPF [facility] UA Aut o SS Glucose Test strip (U) [Mass/Vol] Negative (04/24/22 2:18 PM) Normal Negative [facility] UA Auto SS Hemoglobin Ql (U) 2+ *ABN* (04/24/22 2:18 PM) Invalid Interpretation Code Negative [facility] UA Auto SS Ketones (U) [Mass/Vol] Negative (04/24/22 2:18 PM) Normal Negative [facility] UA Auto SS Barling.plasma/Barling .RBC (Bld) [Mass ratio] 0-3 /HPF Normal 0-3/HPF [facility] UA Auto SS Mucus Ql (Urine sed) Trace (04/24/22 2:18 PM) Normal [facility] UA Auto SS Nitrite Ql (U) Negative (04/24/22 2:18 PM) Normal Negative [facility] UA Auto SS pH (U) 5.5 *NA* (04/24/22 2:18 PM) Invalid Interpretation Code 5.0 - 9.0 [facility] UA Auto SS Protein (U) [Mass/Vol] Negative (04/24/22 2:18 PM) Normal Negative [facility] UA Auto SS Specific gravity (U) [Rel density] 1.025 *NA* (04/24/22 2:18 PM) Invalid Interpretation Code 1.005 - 1.030 [facility] UA Auto SS UA Spec Desc Clean Catch (04/24/22 2:18 PM) Normal [facility] UA Auto SS Urobilinogen Qn (U) 0.4159910 {Roro'U}/dL Normal 0.0 - 1.0 EU/dL [facility] UA Auto SS WBC Auto Ql (U) 1+ *ABN* (04/24/22 2:18 PM) Invalid Interpretation Code Negative [facility] UA Auto SS WBC LM.HPF (Urine sed) [#/Area] 6-15 /HPF Invalid Interpretation Code 0-5/HPF [facility] UA Auto SS eGFRon 04-24-2022 GFR/1.73 sq M.predicted among blacks MDRD (S/P/Bld) [Vol rate/Area] mL/min/{1.73_m2} Normal >=59 [facility] Comment on above: Order Comment: Order added by Discern Expert. Result Comment: eGFR is race adjusted. AA=. Performed By: #### 2 380626, [id number], [id number], [id number] ####[facility] [address] [place] [address] GFR/1.73 sq M.predicted among non-blacks MDRD (S/P/Bld) [Vol rate/Area] mL/min/{1.73_m2} Normal >=59 [facility] Comment on above: Order Comment: Order added by Discern Expert. Result Comment: [facility] kidney disease could be indicated at eGFR's of less than 60 mL/min/1.73m2. Kidney failure is indicated at less than 15 mL/min/1.73m2. Performed By: #### 2 970069, 7866073, 9387037, [id number] ####[facility] [address] [place] [address] IntraOperative Documentson 1 06-23-2021 IntraOperative Documents [id number] 0#1.00CD:127 Normal [facility] Coding Summary.on 04-22-2022 Coding Summary. CD:[id number] Gh0bWw+PGhlYWQ+PE1FV AAnH84lcJGcaI3ZV6yJT W3RTHTAVTARMV3IIF5pe SP4ZMhdW1VovcKe LkiisSKcTZ23IFl2XDH4 rCttTPhaxM7mjHUpA4e5 YgNiWT38bG26JZhqKDEe BsU6WkFvggctlKDd M3dhCoXtwRHtKgm+PHRh YmxlIHdpZHRoPScxMDAl NzVseUgyLP3dIh2qTBQw LWNvbGxhcHNlOiBj n0fwRSLmHWpoNH0dsKoz A3BdxLP7UHHmi6o4Dk34 dHI+HJCkZHN5qQrxFKey x527BpLis8geTXI6 bBQnDLvfVVQ7Q24ki3H9 LEEeCAHqUQA6dSX4pF3t lFbqphszT7PsdPXwZbA5 WEG9oOFdgJ8jtAmd wrproQ9nJif+A33PBG1O XXVKWG2ZHki2J0KmWuee dHI+NA34ZQFfLA54xVQd dUTwd9xqoYy1PjCh WQNlAHP4fIkzFKssl5Us YQZcH67uyKXrq4N8IZJz pWtepOCyVwQmaRQ5fG0g FNqhpxffi9ntbwvm Bjmeq6epue83wX45N19j VWcdZWAqUHW4HPCvPIVj eRkljm1xtD3uOb6+IDxj h2ems2jisGk0BqNl JMZrgdAhzGuqAWX0v9He Aq51Z2ZxtCbri1AsJfe7 cd98aGPep3P6kKQ0COik ZKGfuD1aOYdhHnH3 FSEdCdZpnB00bHUcBVeb Sm1saAiwpRykYX2fAGEa ybvzQRDyaL8mVJVjfVVd nSxjDM4tSLRctndx f251OoAuYAY7UMIjcTUb V8DtfA6pZcNlJXKlVRLd O4DjpFBjMWcwB281EMld BcR5ALCwvxAuJ8Kd MXPwmRtaRxM0s8O8Kr5W y3QmuaiaCEY8AIehTHKm EeCwJkWyRiY8D1KlEkq4 PMEtwOqoNI3nB5Tk XLGcnvytjrrrbRS7AQNt OVAitD07xUBnNZclEh3z e7M5p396LGPtJQKlaA34 Xm1oaEkoJBYfbEDB pE5mjdvnh3dvbqgzNhPh ANLnTYe7JKl3ECNtdLhf TlFaTYV6FqN0TJM3vNGi dY2oxJvkqvcomN1a Oyc+P07nbR4aFII8BET6 jyvoIDGhenRbNB24YG78 J9MfZqxdtBBrkXZ+PGRp oeJoeSzrBI6xTiNe n8qiz8FlATxgY5PgVOKu JOrnNov5WSLwGAM6oCY5 lS9dXXTqVUcly3G1rSU3 E8MvowPumy2uc6ww BPNeWHvsG34txIEms8H8 PGOouCL9QHKacHovKaSz lE36Dta+CFOfiOhbz7Ci Hyvur2djc1fkaIr0 IjMwJSIgdmFsaWduPSJ0 f9OjNc43O09zGCkbUSZa NEEfBKXnTTZysYsyvg5o yB0bHn6+PGNvbCB3 xRT9zB9mWNElFpQ3JStm B342HdEjgVKgNazjn8eg a7aaiBr6KnGoLDJsthRk iHeiDKP7v1XjFz33 S61yVEhvNBPgZTFbCPSr WMBzrSywfs7hoQ5rTn8+ OY4dl6vbbq12xS51eJM+ AOHrTAZ5jDbzGQmf CWJldT4bSZgvZgZ8EWGz AgZgeY15cFQcHXxsUn5a wFdboIthUN6mELSftkzk y083TePwv7nnRUKc mPQaADhnSEK3E73uk2F6 FACiHNLmHEQ0mDG8aD5h bGlnbjogbGVmdDsgdmVy wTgcZZjyIAlsK190 IHRvcDsnPlBhdGllbnQg PfAsKAr6B8PnRhm6QLXk eXcjZX1vmEZwRWhqPv4l vIlaoWnkPC3mYODs sdacf730KuVxp8bbLRNn vWCxQZriDNE7A92rc3R1 DDDgHZEcTBX7vVE0pS1b bGlnbjogbGVmdDsg xcNjmHovXRviIBeoB957 IHRvcDsnPkJpcnRoIERh xVA4AI86WR96gUXqr1L1 wOW2C0SsTYZwxuqj yjakcGB2HUSmYEZofR19 Gs0prMzkMc9vHRAeWXJ1 FNZvnMNiE3VasT8tYtSz TPTdMXZpZ9IqtIUg DQnhS279MGbkZpC6XLVl xoKvU5JjILZgtIyqHtN2 g3B4En5AN5Q3TR75XR11 hZYtr6R0wQW4K7Db QBKvyrmdoorlwNZ9AZPp ZEIxfV65Vp3qmQakOj6d KFCrRMF1VDWonMCoQ0Fl eF2aYpSgKQWvNUKm P1HsgMCkCZypP632PRik YrX6KBRnbiLdF4DeHJRn fFfpLyV3x4R7Gq2YAOn6 GK22KQ44kVLfk6K1 aGY7G9EvZURxkujhuujx yZC7RRHcVXJrgT71As2j pDvyPn2uBINfMXB5APRg rLXxO6ZpwU7pCbHw PUFsIOArM4BuoYLjHIit V420JLrwDyP1OMQnkiQo R7KrZVSbdYiyRxW2v3Q7 Gy5XIBHjME46CNF6 jQP6VN41PZ48H5QcVwao dGFibGU+PHRhYmxlIHdp ZHRoPScxMDAlJyBzdHls WO8yXs1fHAOdQPZp xZdhnHGyHjEcq0toLVGx LNzpCJ7gcAklT0SpoGI6 MTOkn4x5Yf72D23bE8Nz dXA+STDxrRJ7mCL3 uF3wAyRfFaM8IJoiI706 RcOfnVIzYaenv9tjf7nm oTk4TtD7ZPGrwhExjJdi AQH4x6NhAj82W09k IHdpZHRoPSIxNSUiIHZh oKuqwm1dhU0rHy7+PGNv rJU0yVL4zC5sNoLlJuF8 AHdfI487WeStyEFc Indhs3flu9oqzSf5QwYc DZXgkgQweZfkOXK2c4Nu Hw40H0XgeFqcv5KhLuk9 uc52zTAzb4D0gMT9 T8VuBWTjkfrcrHMapYbi IO2wZCJmvfylSQEmyR5j WZCfI2h0DhGsCiU7XVjs Z4OzspG2DZPsaEOq CCgaCUK1E98ib6A4SXCy QMEdCOH3bIG2aC6ocRkf bjogbGVmdDsgdmVydGlj IJceVLzeZ085RLBi nAknYXPpgH1bHFDzxLJo kFqcGL4eEWLwctalUpWU S5sMDoENWNHWL9mFGYFV CM48PE09wNQwb4N7 aQN0Y6XcUQOsorawsxzv oMK5OTCiPRSpiD65oEKu HHkjDn9ar2U8q474KRFj ZSNqfL83Hj5ilZcp HXYjmBEYyJ7rpztjg6mg nzntZvRxSQZmLIg5ZDd9 ESEtmOclSsEaQFI7FfN8 IZN6oKPanS9wzQkn louvwY4iGek+MDEvMDYv KQb1EOnhoYC+PHRkIHN0 uWgqAWefSDEapQ9sLAUj G8f8LrFhGjN7RVvn I4DyVCUhjcyyOg35xZ9g ByIrEvB3SJskX7VubcG2 FMRajGGfRRilOSD4O51v f4A4MKKlQAAvSQM4 eKQ6vB6okLdjuqjxhNLr dDsgdmVydGljYWwtYWxp X840TIOsrBoaVvL9GAfy XUHgDU78OD72rNFy g8F6mVI6Q1SiGHBsgbwd yobgqCB5RYPyMOVajR88 yJKpRMmyQy5ty4Y8b410 QWJbDYNhrQ62Rc6c zYwlRIFmmWTJxN0wubum i6pdxfpxWyHvTSAwMKb1 EBy1WNAuoBpqRdUlYWB7 ChB2QFB6uVLeqP4j qYzwxvffgD6bZro+RmVt ITipVU59NZ75fHYjg4E6 ySB0U3GySYJexeoyxvnc yYE8VJFaRJGfvJ72 zILwYEyeEm8sn9W8w289 RFTyUDJscF88Yg7qwKsz HNLvlJIDlE2plrtnt3jq cjogIzAwMDAwMDt0 HIc8ALBbtAytNaWoFFE7 HrE4TRF0wQBadR1oiVlc dglcoD7eZnn+GB3ylSll xT6yjR5AZC9cAHGc mUMUqPLvXDM9XV18PG79 N8PvOpcrbBSalIN+PHRh YmxlIHdpZHRoPScxMDAl LyQoiYunVA3zEk4p ZGVyLWNvbGxhcHNlOiBj k5noRRUwYGirHT5ngAjx B1AypXB3YGDwq4g5Ew69 R23zK2IzvRU+PGNv tXT5fEO9wF2iLzUnXhC7 FAxzR393LeGouZOxJlvk y9rdx9teiQm6XhFuVWJu zdGjmLbvMUV7w0Ko Zs29Z34rFBnrMSZxRJPj KGNtBRLwlQaxum7bzK6h Ii8+BGEcaNW2dUP8kA4p FxKiBwJ1GIweP710 CnIgdVUjUkvfI66bB7Nm dXA+CFXwFyp3IBQeqVnn YZ3jcTDoXAphCg2iRBU7 OjVnNxRhWDumQ8Uv HAQsjnpqzojddYI3MJPm YTJfdZ28Ed0fgPtnDq6m EBMsNVX1TQIgpXLkJ4Dr cB9bYdTsTCFuAPFj N4PitXPmZFkkY224HAnq CyB3EAPybxNnW9GvGFTf iKlnVsA6h4P6Qe3VgKvx jTNpZN6oSmIjHTn8 A2LeZni6EEXhnYtyIS5a rJChDPauSt4bkSpyhUxr OB0oYQJduvqan985MxEz l4mlBJPenCSjXMpn KND4G58kw3Z6BVZdZKWs NNR6rVH5pJ3dtYahsglg bGVmdDsgdmVydGljYWwt VQpkK892GFDmmCuk FgBVRcw2K5XzZkv5PXDc uGuaDH1uyZLfRWrrAd5k kApsnAasKC5pKGXiaaaw e819HqOuo1ljIPDr uYFbIWhjCDZ2D70pl6I1 ZEYwRAMoXQC9kHO7iC1l bGlnbjogbGVmdDsgdmVy jMwxWVigMMjxO333 IPIhaLpcGf5EUfe4H5Wf Iqg3YZVqiMbeVF6tcVEk MAyyIp6enTvhpLamMW7o LFFsgstfd536ZwXz t7ajCZSchMRkZPmlEBX2 D67tb1W8RNWhLTPoVFT3 xQL9vC8loRlihyxxeZZf dDsgdmVydGljYWwt BJtqH481CMHwaYzbTsWk eWVyOjwvdGQ+UH89ls80 A4WaDhlkYpb9DFBmDXM1 ySC0iA3kCHAnDTfs c3R5 (more content not included)... Normal [facility] Operative Reporton Operative Report SURGERY DATE: 04/17/2022 PREOPERATIVE DIAGNOSIS: Leiomyomata, menorrhagia, possible adenomyosis POSTOPERATIVE DIAGNOSIS: Leiomyomata, menorrhagia, possible adenomyosis OPERATION: Robotic assisted hysterectomy, bilateral tubal remnant removal ANESTHESIA: General ANESTHESIOLOGIST: PURA Terrazas PREOPERATIVE HISTORY: The patient is a 36 year old white female who presented in referral from Chandrakant Oates D.O. having difficulty with prolonged irregular periods disrupting her life. They are associated with pain. She has undergone ultrasound which revealed leiomyomatous uterus with several submucosal leiomyomas as well as the possibility of adenomyosis. We had a discussion of all this and she desired to have robotic hysterectomy with removal of any tubal remnants status post tubal ligation. She appropriately signed consent forms and was made ready for the Operative Suite. OPERATIVE TECHNIQUE: The patient was taken to the Operative Suite and after general anesthesia was administered the patient was draped and prepped in the usual fashion for abdominal surgery. The [employer] uterine manipulator was placed in the usual fashion without difficulties or problems and the robot was docked. Attention was turned to the abdominal approach. A sharp knife was used to make a scoring incision underneath the umbilicus which allowed for the Veress needle to be placed in the peritoneal cavity. Peritoneal cavity is insufflated with 2 1/2 liters of carbon dioxide and laparoscopic sheath and trocar were introduced into the peritoneal cavity. Secondary and tertiary probes were placed under direct visualization and the dairy and food laboratory assistant port was placed under direct visualization. The robot was then docked in the usual fashion and attention was turned to the pelvis. The left fimbria and a portion of the distal fallopian tube were a remnant and these were grasped with the graspers and ligated and incised using the vessel sealer. This was removed from the surgical field. The suspensory ligament to the ovary was then ligated and incised using the vessel sealer. A series of ligations and incisions were carried down the mesosalpinx to the level of the round ligament. The round ligament was then ligated and incised using the vessel sealer. A series of ligations and incisions were carried down the lateral aspect of the uterus. This allowed for a rent to be made in the peritoneum and the bladder flap was created and reflected off the lower uterine segment. The uterine vessels were skeletonized using the vessel sealer and the bipolars and the uterine vessel was then ligated and incised using the vessel sealer. A series of ligation and incisions were carried out to reflect the uterine vessels off the lower uterine segment. Hemostasis was assured and attention was turned to the opposite side. The distal fallopian tube was removed on this side and was grasped out of the surgical field. The mesosalpinx was then ligated and incised using the vessel sealer. A series of ligations and incisions were used. The ovarian ligament had been ligated and incised with the vessel sealer. A series of ligations and incisions were carried down the mesosalpinx to the level of the round ligament. The round ligament was then ligated and incised using the vessel sealer. A series of ligations and incisions were carried down the lateral aspect of the uterus using the vessel sealer on the right. This allowed for completion of the bladder flap and skeletonization of the uterine vessels on the right. The uterine vessels were then ligated and incised using the vessel sealer. A series of ligations and incisions were used on the pedicle to reflect it off the lower uterine segment. Hemostasis was assured and the Endoshears were then used to create the vaginal cuff. The uterus and tubal remnants were then extirpated from the surgical field and hemostasis was assured using the bipolar and the vessel sealer. The vaginal cuff was then closed using a running stitch of 2-0 V-Loc suture incorporating the uterosacral ligament into the left and into the right using separate sutures. Hemostasis was assured. Copious amounts of irrigation were used. The procedure complete. The carbon dioxide was allowed to escape from the peritoneal cavity. The laparoscopic sheaths were removed from the peritoneal cavity. The skin edge was closed with 4-0 Vicryl suture in a subcuticular stitch. Steri-Strips and usual dressing were applied. Estimated blood loss was 40 cc. Fluid replacement was adequate. There were no complications. Sponge and needle counts were correct and the patient was transferred to the Recovery Room in stable condition. Bree Cabral Dictated: 04/17/2022 [id number] Transcribed: 04/17/2022 [facility] Comment on above: Result Comment: Elec tronically Signed By: Devyn HERNANDEZ, Jac Shea\.br\Date and Time Signed: 04/22/22 07:29 EDT Postoperative Documentson Postoperative Documents [id number] 3#1.00CD:127 Normal [facility] Main OR Intraoperative Recor don 04-21-2022 Main OR Intraoperative Record IntraOp Document Type FT Summary Primary Physician: Jac Shepard MD Finalized Date/Time: 04/21/22 14:55:45 Pt. Name: GIOVANNI BEA Monse /Sex: 1985 Female Med Rec #: [id number] Physician: Jac Shepard MD Financial #: [id number] Pt. Type: A Room/Bed: [place] [address] Admit/Disch: 04/17/22 09:34:52 - 04/17/22 16:00:00 Institution: Case Times FT Entry 1 Patient Times In Room 04/17/22 12:20:00 Out Room 04/17/22 14:13:00 Procedure Times Start 04/17/22 12:45:00 Stop 04/17/22 14:06:00 Anesthesia Times Start 04/17/22 12:20:00 Stop 04/17/22 14:13:00 Last Modified By: Weston LÓPEZ, Charley Martinez 04/17/22 14:13:01 General Comments: Robot docked at 1258. undocked at 1352. victor hugo ash 04/21/22 Chart opened to review and send charges [facility]oth CSFA Case Attendance FT Entry 1 Entry 2 Entry 3 Case Attendee Jose NEVES, Mariya Shepard MD, Jac Escobedo Role Performed Anesthesiologist Surgeon - Primary MAKEUP ARTIST/SA Dobby Loom Weaver Time In 04/17/22 12:20:00 04/17/22 12:20:00 04/17/22 12:20:00 Time Out 04/17/22 14:13:00 04/17/22 13:52:00 04/17/22 14:13:00 Procedure HYSTERECTOMY, ROBOT HYSTERECTOMY, ROBOT HYSTERECTOMY, ROBOT ASSISTED(Bilateral) ASSISTED(Bilateral) ASSISTED(Bilateral) Comments dr salazar supervising. OUT OF ROOM [id number] Last Modified By: Weston LÓPEZ, Charley Ontiveros RN, Charley Ontiveros RN, Charley Martinez 04/17/22 14:13:02 04/17/22 14:13:02 04/17/22 14:13:02 Entry 4 Entry 5 Entry 6 Case Attendee Jovan RN, Meli Ontiveros RN, Charley Olvera CST, Sharon López Role Performed Outside Industrial Sales Representative - Primary Outside Industrial Sales Representative - Primary Scrub - Primary Time In 04/17/22 12:20:00 04/17/22 12:20:00 04/17/22 12:20:00 Time Out 04/17/22 13:35:00 04/17/22 14:13:00 04/17/22 13:20:00 Procedure HYSTERECTOMY, ROBOT HYSTERECTOMY, ROBOT HYSTERECTOMY, ROBOT ASSISTED(Bilateral) ASSISTED(Bilateral) ASSISTED(Bilateral) Comments Orienting RN Precepting RN. out of Orienting MAKEUP ARTIST room for lunch [id number] Last Modified By: Weston RN, Charley Ontiveros RN, Charley Ontiveros RN, Charley Martinez 04/17/22 14:13:02 04/17/22 14:13:02 04/17/22 14:13:02 Entry 7 Entry 8 Entry 9 Case Attendee Ruiz PATRICK, Ericka Celaya, Jac Leyva Jr, DO Role Performed Scrub - Primary Staff - Other Anesthesiologist of Record Time In 04/17/22 12:20:00 04/17/22 12:20:00 04/17/22 12:46:00 Time Out 04/17/22 14:13:00 04/17/22 13:20:00 04/17/22 13:16:00 Procedure HYSTERECTOMY, ROBOT HYSTERECTOMY, ROBOT HYSTERECTOMY, ROBOT ASSISTED(Bilateral) ASSISTED(Bilateral) ASSISTED(Bilateral) Comments Orienting MAKEUP ARTIST Last Modified By: Weston LÓPEZ, Charley Ontiveros RN, Charley Ontiveros RN, Charley Martinez 04/17/22 14:13:02 04/17/22 14:13:02 04/17/22 14:13:02 Entry 10 Case Attendee Manda Covington RN Role Performed Outside Industrial Sales Representative - Relief Time In 04/17/22 12:45:00 Time Out 04/17/22 13:15:00 Procedure HYSTERECTOMY, ROBOT ASSISTED(Bilateral) Comments Last Modified By: Charley Ontiveros RN 04/17/22 14:13:02 Perioperative Protocols FT Pre-Care Text: Implements protective measures prior to operative or invasive procedure, confirms identity before the operative or invasive procedure, verifies operative procedure, surgical site, and laterality Entry 1 Procedure(s) HYSTERECTOMY, ROBOT Patient Identity Birthday, Blood Band, ASSISTED(Bilateral) Verified (select at ID Band Check, Patient least 2): Participation Consents / H and P Anesthesia Consent, Operative Site N/A Verified HandP, Surgery/Procedure Marking Verified Consent, Transfusion Consent Surgical Site Yes Laterality Verified n/a Verified Procedure Verified Yes Correct Patient Yes Position Verified Availability Equipment, Medication Prep Dry Yes Verified (If Applicable) PreOp Antibiotic Yes Time Out Jose NEVES, Mariya M, Given Participants Devyn HERNANDEZ, Jac Shea, Jac Faith, Jovan LÓPEZ, Weston Gonzalez RN, Ruiz Lerner CST, Wade Knight CST, Yomi Shipley Jessica D Time Out Complete 04/17/22 12:44:00 Outcomes Met? Yes Last Modified By: Jovan LÓPEZ, Meli Burns 04/17/22 13:23:50 Post-Care Text: The patient is free from signs and symptoms of injury caused by extraneous objects Allergy Information FT Pre-Care Text: Verifies allergies Entry 1 Allergies Reviewed? Yes Allergies Reviewed Self/Patient With Outcomes Met? Yes Last Modified By: Charley Ontiveros RN 04/17/22 12:00:59 Post-Care Text: The patient received appropriate medication(s) safely administered during the perioperative period Surgical Procedures FT Entry 1 Procedure Description Procedure HYSTERECTOMY, ROBOT Modifiers Bilateral ASSISTED Surgeon Description ROBOT ASSISTED HYSTERECTOMY WITH BILATERAL TUBAL REMNANTS Primary Procedure Yes Primary Surgeon Jac Shepard MD Start 04/17/22 12:45:00 Stop 04/17/22 14:06:00 Anesthesia Type General Surgical Service Obstetric Gynecology Wound Class 2 - Clean-Contaminated Last Modified By: Digna Gamboa 04/21/22 13:10:19 General Case Data FT Pre-Care Text: C (more content not included)... Normal [facility] Blood Bank Slipon 04-20-2022 Blood Bank Slip [id number] 7#1.00CD:127 Normal [facility] Consent for Anesthesiaon Consent for Anesthesia [id number] 210 [id number] 9#1.00CD:127 Normal [facility] Discharge Instructionson Discharge Instructions [id number] 210 [id number] 9#1.00CD:127 Normal [facility] IntraOperative Documentson 1 IntraOperative Documents [id number] 2#1.00CD:127 Normal [facility] IntraOperative Documents [id number] 4#1.00CD:127 Normal [facility] Preoperative Documentson Preoperative Documents [id number] 210 [id number] 9#1.00CD:127 Normal [facility] ABO/Rhon 04-17-2022 ABO/Rh Positive Invalid Interpretation Code [facility] Comment on above: Performed By: #### 1 [id number], [id number], [id number], [id number] ####[facility] [address] [place] [address] ABO/Rh History Checkon 04-17 ABO/Rh History Check Verified Hx Blood Type Normal [facility] Comment on above: Performed By: #### 1 [id number], [id number], [id number], [id number] ####[facility] [address] [place] [address] ABSCon 04-17-2022 ABSC Gel Interp Negative Normal [facility] Comment on above: Performed By: #### 1 [id number], [id number], [id number], [id number] ####[facility] [address] [place] [address] BLOOD BANKOrdered By: Tanja Grant on 04-17-2022 ABO/Rh Interp Positive Invalid Interpretation Code [facility] [place] Subsection ABSC Gel Interp Negative (04/17/22 10:09 AM) Normal [facility] [place] BB Subsection Blood Bank ID#on 04-17-2022 BBID# [id number] Invalid Interpretation Code [facility] Comment on above: Performed By: #### 1 [id number], [id number], [id number], [id number] ####[facility] [address] [place] [address] Consent for Treatmenton 03-22 Consent for Treatment [id number] #1.00CD:127 Normal [facility] Inpatient Patient Summaryon 04-17-2022 Inpatient Patient Summary [address] [address] [facility] Clinical Discharge Instructions PERSON INFORMATION Name: [facility] Admitting Physician: Jac Shepard MD Attending Physician: Jac Shepard MD PCP: Angella Casas MD Discharge Diagnosis: Fibroids; Menorrhagia; S/P total hysterectomy Comment: PATIENT EDUCATION INFORMATION Instructions: MASH TUB COOKER - Post Hysterectomy/Laparot navjot/Major Surgery-Devyn (Custom); Post Op Patient Instructions - FT (Custom) (CUSTOM) Medication Leaflets: Follow up: With: Address: When: Jac Shepard [address] [place] [address], [address] [address] Business (1) Within 2 weeks Comments: Call for any problems. MEDICATION LIST New Medications [id number], [address] [place], [place] [id number], [phone] acetaminophen-oxycod one (Percocet 325 mg-5 mg Tab) 1 Tablets By Mouth every 6 hours as needed for pain for 2 Days. Refills: 0. Medications to Continue with No Changes Other Medications duloxetine (Cymbalta 60 mg Cap-DR) 60 Milligram By Mouth at bedtime. pantoprazole (Pantoprazole [address] Tab) 1 Tablets By Mouth every day. Comment: Normal [facility] Main OR PACU I Recordon 03-22 Main OR PACU I Record PACU Phase I Document Type FT Summary Primary Physician: Jac Shepard MD Finalized Date/Time: 04/17/22 14:59:09 Pt. Name: BEA DAVILA /Sex: 1985 Female Med Rec #: [id number] Physician: Jac Shepard MD Financial #: [id number] Pt. Type: A Room/Bed: [facility] Admit/Disch: 04/17/22 09:34:52 - Institution: Case Times PACU I FT Pre-Care Text: Identifies barriers to communication and implements measures to provide psychological support Develops individualized plan of care, and ensures continuity of care Maintains patient's dignity and privacy, and maintains patient confidentiality Identifies and reports philosophical, cultural, and spiritual beliefs and values Identifies individual values and wishes concerning care Implements aseptic technique, and administers prescribed antibiotic therapy and immunizing agents as ordered Evaluates postoperative tissue perfusion Implements thermoregulation measures, and monitors body temperature Evaluates postoperative respiratory status Evaluates postoperative cardiac status Evaluates postoperative neurological status Assesses pain control, collaborated in initiating patient-controlled analgesia and implements alternative methods of pain control Verifies allergies, administers prescribed medications and solutions, evaluates response to medications Entry 1 In PACU I 04/17/22 14:14:00 Discharge from PACU 04/17/22 14:44:00 I Outcomes Met? Yes Last Modified By: Jackie Gonzalez RN 04/17/22 14:58:50 Post-Care Text: The patient demonstrates knowledge of the expected response to the operative or invasive procedure The patient's care is consistent with the individualized perioperative plan of care The patient's right to privacy is maintained The patient's value system, lifestyle, ethnicity, and culture are considered, respected, and incorporated into the perioperative plan of care The patient participates in decisions affecting his or her perioperative plan of care The patient is free from signs and symptoms of infection The patient has wound/tissue perfusion consistent with or improved from baseline levels established preoperatively The patient is at or returning to normothermia at the conclusion of the immediate postoperative period The patient's respiratory function is consistent with or improved from baseline levels established preoperatively The patient's cardiovascular status is consistent with or improved from baseline levels established preoperatively The patient's cardiovascular status is consistent with or improved from baseline levels established preoperatively The patient demonstrates and/or reports adequate pain control throughout the perioperative period The patient received appropriate medication(s), safely administered during the perioperative period Acuity Level PACU I FT Entry 1 Start Time 04/17/22 14:14:00 Stop Time 04/17/22 14:44:00 Acuity Level Acuity Level I Last Modified By: Jackie Gonzalez RN 04/17/22 14:58:58 Finalized By: Jackie Gonzalez RN Document Signatures Signed By: Jackie Gonzalez RN 04/17/22 14:59 Normal [facility] Main OR PACU II Recordon Main OR PACU II Record PACU Phase II Document Type FT Summary Primary Physician: Jac Shepard MD Finalized Date/Time: 04/17/22 16:03:44 Pt. Name: DAVILABEA /Sex: 1985 Female Med Rec #: [id number] Physician: Jac Shepard MD Financial #: [id number] Pt. Type: Room/Bed: [place] [address] Admit/Disch: 04/17/22 09:34:52 - Institution: Case Times PACU II FT Pre-Care Text: Identifies barriers to communication and implements measures to provide psychological support and determines knowledge level Develops individualized plan of care, and ensures continuity of care Maintains patient's dignity and privacy, and maintains patient confidentiality Identifies and reports philosophical, cultural, and spiritual beliefs and values Identifies individual values and wishes concerning care administers prescribed antibiotic therapy and immunizing agents as ordered, Evaluates postoperative tissue perfusion Implements thermoregulation measures, and monitors body temperature Evaluates postoperative respiratory status Evaluates postoperative cardiac status Evaluates postoperative neurological status Assesses pain control, collaborated in initiating patient-controlled analgesia and implements alternative methods of pain control Verifies allergies, administers prescribed medications and solutions, evaluates response to medications Entry 1 In PACU II 04/17/22 14:45:00 Discharge from PACU 04/17/22 16:00:00 II Outcomes Met? Yes Last Modified By: Cnade Rivera RN 04/17/22 16:03:42 Post-Care Text: The patient demonstrates knowledge of the expected response to the operative or invasive procedure The patient's care is consistent with the individualized perioperative plan of care The patient's right to privacy is maintained The patient's value system, lifestyle, ethnicity, and culture are considered, respected, and incorporated into the perioperative plan of care The patient participates in decisions affecting his or her perioperative plan of care. The patient is free from signs and symptoms of infection The patient has wound/tissue perfusion consistent with or improved from baseline levels established preoperatively The patient is at or returning to normothermia at the conclusion of the immediate postoperative period The patient's respiratory function is consistent with or improved from baseline levels established preoperatively The patient's cardiovascular status is consistent with or improved from baseline levels established preoperatively The patient's neurological status is consistent with or improved from baseline levels established preoperatively The patient demonstrates and/or reports adequate pain control throughout the perioperative period The patient received appropriate medication(s), safely administered during the perioperative period Finalized By: Cande Rivera RN Document Signatures Signed By: Cande Rivera RN 04/17/22 16:03 Normal [facility] Main OR Preoperative Recordo n 04-17-2022 Main OR Preoperative Record PreOp Document Type FT Summary Primary Physician: Jac Shepard MD Finalized Date/Time: 04/17/22 12:24:06 Pt. Name: BEA DAVILA /Sex: 1985 Female Med Rec #: [id number] Physician: Jac Shepard MD Financial #: [id number] Pt. Type: A Room/Bed: [place] [address] Admit/Disch: 04/17/22 09:34:52 - Institution: Case Times PreOp FT Pre-Care Text: Verifies consent for planned procedure, identifies individual values and wishes concerning care, includes family members in perioperative teaching Entry 1 Patient Times. In Pre Surgery 04/17/22 09:40:00 Out Pre Surgery 04/17/22 12:18:00 Outcomes Met? Yes Last Modified By: Charley Ontiveros RN 04/17/22 12:23:52 Post-Care Text: The patient participates in decisions affecting his or her perioperative plan of care Finalized By: Charley Ontiveros RN Document Signatures Signed By: Charley Ontiveros RN 04/17/22 12:23 Charley Ontiveros RN 04/17/22 12:24 Normal [facility] Monitor Recordon 04-17-2022 Monitor Record [id number] 2#[id number]:127 Normal [facility] Monitor Record [id number]#[id number]:127 Normal [facility] Outpatient Surgery Discharge Instructionon 04-17-2022 Outpatient Surgery Discharge Instruction [address] [address] Patient Discharge Instructions PERSON INFORMATION Name: BEA DAVILA Date of : 1985 Current Date: 04/17/2022 14:12:46 PHYSICIANS Admitting Physician: Jac Shepard MD Discharge Diagnosis: Fibroids; Menorrhagia; S/P total hysterectomy BEA DAVILA has been given the following list of follow-up instructions, prescriptions, and patient education materials: PATIENT FOLLOW-UP INFORMATION Diet: Regular Discharge Activity: Expect mild pain, Expect minimal amount of drainage and/or bleeding, Activity as tolerated Call Your Doctor For: Persistent or heavy bleeding, Temperature above 101.5 degrees, Persistent vomiting Wound Care Instructions: Keep incision dry IF UNABLE TO CONTACT YOUR PHYSICIAN AND YOU FEEL IT IS AN EMERGENCY, GO TO THE NEAREST EMERGENCY ROOM OR CALL 911 IGIOVANNI HOLLY D, have received the attached patient education materials/instructio ns and have verbalized understanding: May we do a follow up call? Yes No I was present when discharge instructions were given Patient Signature Date Clinican/Nurse Signature Date Follow up: With: Address: When: Jac Shepard [address] [place] [address], [place] [address], [place] [address] Business (1) Within 2 weeks Comments: Call for any problems. Pharmacy Information: You may receive a survey from [facility] asking you to rate your care experience. Your feedback is important and will help us understand what we do well and how we can improve the quality of care we provide to you, your loved ones and our community. It?s an honor to serve you. Thank you for choosing [facility] HERE ARE THE MEDICATION CHANGES THAT OCCURRED DURING YOUR HOSPITAL STAY New Medications [id number], [address] [place] [id number], [phone] acetaminophen-oxycod one (Percocet 325 mg-5 mg Tab) 1 Tablets By Mouth every 6 hours as needed for pain for 2 Days. Refills: 0. Medications to Continue with No Changes Other Medications duloxetine (Cymbalta 60 mg Cap-DR) 60 Milligram By Mouth at bedtime. pantoprazole (Pantoprazole [address] Tab) 1 Tablets By Mouth every day. PATIENT EDUCATION INFORMATION Instructions: Instructions post hysterectomy/laparot navjot/major surgery It is recommended that you rest at home on the day of discharge, and get to bed early so you get a good night?s rest. Gradually increase your activity daily ? for example: no lifting anything heavier than ten pounds the first week, twenty pounds the second week, and thirty pounds the third week. NO: intercourse, douches, and tampons for the next 6 weeks. You can expect some vaginal spotting, cramps or light bleeding after surgery. This is normal. Each day should get better and better. If you are soaking a pad an hour or more frequently ? you need to call your doctor. You can ride in a car; Drive when it is not painful. If it is painful, don?t do it. Stitches will dissolve with time and do not need to be removed. The band aids can be removed tomorrow. Leave the steri strips on. They may fall off and that is o.k. You may place band aids over the steri strips if there is drainage. You can shower with the incisions the day after surgery. Try to keep the steri strips as dry as possible. No tub baths, swimming, or soaking in water until after your two week follow up appointment. Return to the office for postoperative check, and to go over any biopsy results at your scheduled appointment; usually two weeks following your surgery; and then at six weeks after surgery. Please call the office to schedule these appointments. CALL THE DOCTOR if you have severe pain, heavy bleeding, or a temperature of 100.5 or higher. Resume your regular home medication schedule as soon as you are eating a regular diet. You can either take the prescribed medications as directed for pain, or you can take over the counter pain medication, such as Motrin; as indicated on the package for pain or cramps. PLEASE CALL FOR ANY PROBLEMS. Medication Leaflets: Matt [facility] Patient Education - Texton 1 Patient Education - Text Instructions post hysterectomy/laparot navjot/major surgery It is recommended that you rest at home on the day of discharge, and get to bed early so you get a good night?s rest. Gradually increase your activity daily ? for example: no lifting anything heavier than ten pounds the first week, twenty pounds the second week, and thirty pounds the third week. NO: intercourse, douches, and tampons for the next 6 weeks. You can expect some vaginal spotting, cramps or light bleeding after surgery. This is normal. Each day should get better and better. If you are soaking a pad an hour or more frequently ? you need to call your doctor. You can ride in a car; Drive when it is not painful. If it is painful, don?t do it. Stitches will dissolve with time and do not need to be removed. The band aids can be removed tomorrow. Leave the steri strips on. They may fall off and that is o.k. You may place band aids over the steri strips if there is drainage. You can shower with the incisions the day after surgery. Try to keep the steri strips as dry as possible. No tub baths, swimming, or soaking in water until after your two week follow up appointment. Return to the office for postoperative check, and to go over any biopsy results at your scheduled appointment; usually two weeks following your surgery; and then at six weeks after surgery. Please call the office to schedule these appointments. CALL THE DOCTOR if you have severe pain, heavy bleeding, or a temperature of 100.5 or higher. Resume your regular home medication schedule as soon as you are eating a regular diet. You can either take the prescribed medications as directed for pain, or you can take over the counter pain medication, such as Motrin; as indicated on the package for pain or cramps. PLEASE CALL FOR ANY PROBLEMS. Normal [facility] UA With Cult Reflexon 2021 Bacteria LM Ql (Urine sed) TRACE Normal Trace [facility] Comment on above: Performed By: #### 1 [id number] #### [facility] [address] [place] [address] Bilirubin Ql (U) Negative Normal Negative [facility] Comment on above: Performed By: #### 1 [id number] #### [facility] [address] [place] [address] Clarity (U) CLEAR Normal Clear [facility] Comment on above: Performed By: #### 1 [id number] #### [facility] [address] [place] [address] Color (U) YELLOW Normal Yellow [facility] Comment on above: Performed By: #### 1 [id number] #### [facility] [address] [place] [address] Epithelial cells.squamous LM.HPF (Urine sed) [#/Area] 3-4 Normal 0-2 [facility] Comment on above: Performed By: #### 1 [id number] #### [facility] [address] [place] [address] Glucose Test strip (U) [Mass/Vol] Negative Normal Negative [facility] Comment on above: Performed By: #### 1 [id number] #### [facility] [address] [place] [address] Hemoglobin Ql (U) Negative Normal Negative [facility] Comment on above: Performed By: #### 1 [id number] #### [facility] [address] [place] [address] Ketones (U) [Mass/Vol] Negative Normal Negative [facility] Comment on above: Performed By: #### 1 [id number] #### [facility] [address] [place] [address] Barling.plasma/Barling .RBC (Bld) [Mass ratio] 0-3 Normal 0-3 [facility] Comment on above: Performed By: #### 1 [id number] #### [facility] [address] [place] [address] Nitrite Ql (U) Negative Normal Negative [facility] Comment on above: Performed By: #### 1 [id number] #### [facility] [address] [place] [address] pH (U) 8.0 [pH] Invalid Interpretation Code 5.0-9.0 [facility] Comment on above: Performed By: #### 1 [id number] #### [facility] [address] [place] [address] Protein (U) [Mass/Vol] Negative Normal Negative [facility] Comment on above: Performed By: #### 1 [id number] #### [facility] [address] [place] [address] Specific gravity (U) [Rel density] 1.020 Invalid Interpretation Code 1.005-1.030 [facility] Comment on above: Performed By: #### 1 [id number] #### [facility] [address] [place] [address] Type of Urine collection method Porras Normal [facility] Comment on above: Performed By: #### 1 [id number] #### [facility] [address] [place] [address] Urobilinogen Qn (U) 1.0 {Roro'U}/dL Normal 0.0-1.0 [facility] Comment on above: Performed By: #### 1 [id number] #### [facility] [address] [place] [address] WBC Auto Ql (U) Negative Normal Negative [facility] Comment on above: Performed By: #### 1 [id number] #### [facility] [address] [place] [address] WBC LM.HPF (Urine sed) [#/Area] 0-5 Normal 0-5 [facility] Comment on above: Performed By: #### 1 [id number] #### [facility] [address] [place] [address] URINALYSISOrdered By: Yash Roa on 04-17-2022 Bacteria LM Ql (Urine sed) Trace /HPF Normal Trace/HPF [facility] UA Auto SS Bilirubin Ql (U) Negative (04/17/22 12:35 PM) Normal Negative [facility] UA Auto SS Clarity (U) Clear (04/17/22 12:35 PM) Normal Clear [facility] UA Auto SS Color (U) Yellow (04/17/22 12:35 PM) Normal Yellow [facility] UA Auto SS Epithelial cells.squamous LM.HPF (Urine sed) [#/Area] 3-4 /HPF Normal 0-2/HPF [facility] UA Aut o SS Glucose Test strip (U) [Mass/Vol] Negative (04/17/22 12:35 PM) Normal Negative [facility] UA Auto SS Hemoglobin Ql (U) Negative (04/17/22 12:35 PM) Normal Negative [facility] UA Auto SS Ketones (U) [Mass/Vol] Negative (04/17/22 12:35 PM) Normal Negative [facility] UA Auto SS Barling.plasma/Barling .RBC (Bld) [Mass ratio] 0-3 /HPF Normal 0-3/HPF [facility] UA Auto SS Nitrite Ql (U) Negative (04/17/22 12:35 PM) Normal Negative [facility] UA Auto SS pH (U) 8.0 *NA* (04/17/22 12:35 PM) Invalid Interpretation Code 5.0 - 9.0 [facility] UA Auto SS Protein (U) [Mass/Vol] Negative (04/17/22 12:35 PM) Normal Negative [facility] UA Auto SS Specific gravity (U) [Rel density] 1.020 *NA* (04/17/22 12:35 PM) Invalid Interpretation Code 1.005 - 1.030 [facility] UA Auto SS UA Spec Desc Porras (04/17/22 12:35 PM) Normal [facility] UA Auto SS Urobilinogen Qn (U) 1.0591998 {Roro'U}/dL Normal 0.0 - 1.0 EU/dL [facility] UA Auto SS WBC Auto Ql (U) Negative (04/17/22 12:35 PM) Normal Negative [facility] UA Auto SS WBC LM.HPF (Urine sed) [#/Area] 0-5 /HPF Normal 0-5/HPF [facility] UA Auto SS Coding Summary.on 04-14-2022 Coding Summary. CD:[id number] Gh0bWw+PGhlYWQ+PE1FV UGvR09uiQQrxL3UH6yXT W9KDLGZOLYLCU4VGY3rx OF1RFzxZ0IsjwGn AkmfkZQqBW39VIs7EEO0 oAvyHNljzQ9qhWWoD0y5 FwPeKC19hR92WDnsDUSu FeH2NeQyedvxwZZv C9gaUsTzfOUbHzf+PHRh YmxlIHdpZHRoPScxMDAl HjKihNhcJE1mGe2dBTIn LWNvbGxhcHNlOiBj v9lyGIYpMCrzOB7uyTue A4TkdYR2QZXma0g1Nu08 dHI+DNBdTMS0bXdpSIhg j246JhUzy0hxWSY6 uLAdKAzcVZR6R84gs0Q3 WATvMZHjMGL0fED9rL4l xTwnpjtxP2VuqUEcPqG8 EWY8fWGnyW2keHoq mgnxcY5eXqq+H78EPW4Z XCMJNS6QJzl1W2HwKflq dHI+DT84CDWgSR67nWKp xOUzo7tevSv3ZgNs JWVrRPX3sTscPGoea4Gs AUUrN51xjPUjz5R5YQJz sVaxbOKdMhGvxPN3vP4x IWvdvohkx8vodxoh Qjloq1nboa98kB11F66p PIpaGRPgUYS4DMGmCUYd hEmksf4poN0mTi3+IDxj v0fwb6cdvGu2QqRe CJNfbxXvdJqnHTY9w0Eo Ey19M9PowLwwl9MiNuv6 zn22yWNbt5V7tWZ8LSpe UABttP9vSSunBsB4 HKFzRzBlyD46jXOvCEco Ud4qmNhguOqeGT7kDLHn syyhHXEftE1wKVMewJIb mMtjJG4pSDUezzbi w651MvGuAIZ7XHWyzKTa F9XhaF5xQnHvJSPdKTBu C5TqnOFgNGiwT364WEcp MqR9ZELbbbGgE6Xt FKSenExxJnK0a1E7Dq6F b3WnbbgsBZA3GClqXMHd PyN8SsTbKlT1J1VuUoi8 HLGynCydRU3dO2Rl VESfmnzczvwteUB8YYUu YWUxdK37kJMlPNbaEm1p k7I9s390GGYnVEWtnL46 Yd1faNgbBZPpnYUK kM3krxvme5pbpjahNpSl QYHgKLd2UNx7NUUkbKbk OzKyUVI6MsW0JJT2iUWw uT5dtAmciuixmL6e Oyc+A09wlK7tODT4FUG6 rmxfFSWcklFmLM52EY83 Q4BoLnbmoEZbtCF+PGRp seZzwMavAB3qGlLj t4hqm1UnUWtbH5FdKBKi NGwtYrg4TWNoBWI3aCU4 rH2pDVYtANuzg3A5dUI6 G6HkehPnvj5os9yp VZWhFBlxW38sdGXns6K0 GRDbyAE9OOWoqLqcGrJb yH48Pbq+SCEwaTpys4Bf Fcfgb4muc8zfdIm6 IjMwJSIgdmFsaWduPSJ0 i7ZdCf59J44wVLutEUGq VUQoWLUoYLIrrRxpah7j wI8iZh5+PGNvbCB3 nWR8dA5lXCGxXpV2ZHoa Y911SqEenWDaAdehl2lb m2pcoIx4TnIlPXGtkrDl bVjdWPG1v0UuCn95 Z50sXDwcWUYmYXBlYVXx MTDeqQaqdk6weN2gFb1+ JU7kk7qcjn10vI80hJD+ EIGeLYT8mTvnFMhe NVRfwC4tREzxNiM2AWPr VnDqlP35qTFmUIdhSq6j lLmrzSswVF2vZLCfsyvl r370AlDga2vuQXCb vSAmIAngPLP2H62ja7R8 NQWgRFFvENR8vBI5zO5p bGlnbjogbGVmdDsgdmVy pQkfGMwlJRfiY286 IHRvcDsnPlBhdGllbnQg RcXcGNu6D6FqLkj4NKZj bNinPV5tqGWhHAxgTr6j eOyjdNpjWG4iDMEj oavnk727LoYjg6jdYIOl qODkVMkkYWQ7Y72og5R2 SYDhBVAxMCL6rMQ5vP7x bGlnbjogbGVmdDsg bmTbjGqqEBrxOUqgU492 IHRvcDsnPkJpcnRoIERh iVF4JC97ZM03eFMwq0F8 uWB7T0ZkIBXzalhs siwssZV6URZoJJBruN69 Kh0fjDorDa0wEUQfFNG0 IJWcfWQgQ0UmhP8lVmDu AONyVIBuK2MswMIf QKaoT906FTnjGnN2AWBq hvTdO3HtYWZnrBskBdG2 r2P7Ks4OL0T0IY38EJ40 pZHpp2O6iYD6D7Jg FHTbzjbbhibiaNG3UEUf MTJyyG58Hb1koMmrRa6d LMSaXNJ0GPJrhLGvG8Js bZ0oLtWoVVVrIFSw G6IbwSBvCKcuN962ZMxe KcJ1WNWupgPzJ0TwXXZq cNglCjZ0y5A3Uj7SWIk1 TF25JW72dGXel1M0 xVB1K3SmAVDgsojbbkph fQO7DJYqQBQawD85Ck8w wWqpMt8hFFKhQRX2JDEi gPEaY7WdcU0sRcLl FJJgCOXmU8OzzZPxVEkl L957KMvmXkQ0VJWxkkGi K1VvEMEogLmkRqU9o2B0 Nf0UGLChGL34KSG0 yPJ9YM03RK39P7OqIdum dGFibGU+PHRhYmxlIHdp ZHRoPScxMDAlJyBzdHls EI6xVg9xUKPuZUZe kStbiLWnBjCbj1fcLUNz KHhnRD0vrFujG6TuaZY1 XUEco0g6Vc20L74mW9Lu dXA+ESTlcVB1iDV2 oT7rEkWhYqV0ILpcE054 TbGizFMaAjsjl0rqe3av bXl8NrT2WFXkfvPxsLdk BJN3c9VaXb21I88b IHdpZHRoPSIxNSUiIHZh tSffry8woT7wEi0+PGNv zKS8mLE3vS8fEiBoNrV1 JRscS848AyGobHCj Rkkud8pjr9jnoVd7IuPr GVIqcoTxxRhnEEH8d8Am Kg47M2XajAhse6CfOdd3 ip58kYCzw9U7rWZ8 S6QuKQOlhzdkfEFnxPmq VN6eRIKycswbUNAjsW0r NKQhL4c0DpFvTtI1LYtm D8DfrdO2DCIudHPj TMmwGJG5F23xi8F0ADSm GLZeBKY8vGX1uE9dtUkk bjogbGVmdDsgdmVydGlj SBvxJSajJ099NSUd pZxbGJHbkM9eEQTpxRYl vIlmXT9pPUUtddijMnIJ P0cNVhOGBGBXO0vCPVIV TS42DF95oBYki3T8 kPK0R7YeTIBmhiqpjjej wAA3RMNbUKJnwM83iQXj LOdoGk7bn6J8o448DNNs WLIszR36Cp2ccYyh XMRmpBWXwZ2ysarwi2qw qfhlEkYhTQDiYXu7NAi5 BZPlcNhgLiNgJRP7ToP1 VBO5jJLgrB7wjSot ejedwY7qEhc+MDEvMDYv TJu2REjyvYW+PHRkIHN0 fEvuKVtsVIUnwF6kQSLt Z6e9SwXaNcQ2NJtm R9JoKRXshkikJy12vE3e DlNwQyE9JFjmS3SekaG0 YLJqyRBjGYrzBEW7V66n w5A1DHPjKZFbBEE3 jAI6bT1zoXrznmyyvOSa dDsgdmVydGljYWwtYWxp O635IJEqmDxpWhD2ELgf VDBuQR44HW31zQDs p2D5dXN8J4DcOPBqavhk qghucNS0KFUjBFCpcO85 iFLzFVzvMd2ir8T9g463 TKQlLSCahO32Rp0n nZwhMPUfaIYFaK2gerzm p2qdjmkyQfIwRGUnMXr4 VCj0DBRojSeaZbKeMYJ7 JgS6MTR1tWBymM6l nOmtarhttG5bUjw+RmVt EYkcYM44PY56xXUyn8W6 xRL4T7ZvWVNoezsgxqwk bPG4MQViFYNbcZ62 mBQwHUghYm3rn1K6h897 NHZqYMGyyC03Vj0rrWff LVNcrBJXuC5ehtzom3gd cjogIzAwMDAwMDt0 HBj3CZMprDlqKnStABQ7 AjN8ANG0lEOzgF7hgYoq jsppwZ8xRzq+E8D6qMM8 aWVudDwvdGQ+PC90 it03W2WaHaozGvk8XAMw JDG2aJD0kM8iLRRkKHbo l1C6oRJ5L4UdetZhsa0u n1fcUCLuWNygD76o pRCab3Z8XBLkkUS5BHQh hXubGrOvzR35Ame+PGNv hUtpq7OoQisox8hmy8ie yOb7IiLbXPUgwfCd bLpeSRT0b6RtQm12F52m IHdpZHRoPSIzMCUiIHZh rNsnxv2hiC8zNu5+PGNv jIN4pQG6wJ0pBvQv AkC9RJvvO423QaWjuPKq Dsfku8jwl4mwjAt6HwRo ELWwnmCztTrvGKH7c6Nb Wg11T5EdmBqju8Jo Hps4ft64rDErs5Z7hIO1 J3XfHGJteikxfJOtfHbi SP1xLNKtltepCQUfaP2t FQQbZ8k7BgOlEfI2 DRxmZ9UcvdQ5FVEqvZMg MVFvzTUMoF3ybpdll5ar gwsuFuCzEFTdXAw5FUy0 LWFsaWduOiBsZWZ0 BfZ2GKF7rVSvmN4gdIij pwekhZ8rBsf+LKj1t8sw aFRnTQ7dmRX6XC45YD27 wFDpq5X2oVL9V4Hb DTUdyjfkfdkkwCZ8EFVm WERfxQ53Cw5weQddBh5k UJDuASD8TLLrvYTqV2Dh lL7bNjRcRQUeYNXd D0LwrHKpNEmfH255EAxg UvU9YNWodzIfI7RcLOQq gIfuTyI6p4R8Sl0GCJ82 OZ68HW39iKSqv6Z8 qYM0R7NjROEbdwxngdea pAK0WHHnOBRnkQ24Tm9d nGkzPu9zCVMgSXG6GPTh kPBwI5IznN1hRrRw WDKzTMTvW6LffOKzWZwg U565BUxcGyT7KNZwrzPc S1DbYUPcnTtsKhX5f2Z9 Mz1GBa58OJ63HN10 qLAdf3D9mAV0Q2IiTFMh mtmkcuqqlLO7NTYhITMb yE95Ww8pxBlzPp6qHREr LIA3QPTskZYiO4St bX7iAkKkPVRjOHCxX2Ef pIOoQQdcR663TTbxChE8 SAMgggYdU7RrHTQunNoo TtO2x2Y6Qk8TPFeg usu4F5TiIprwiYN+PC90 VWNuWG18pLKliQAyo4zy dDy1TvCrWYChAZL4mJvv QKfvw9HxFNUzW13a bGFw (more content not included)... Normal [facility] BUNon 04-08-2022 Urea nitrogen [Mass/Vol] 10 mg/dL Normal - [facility] Comment on above: Performed By: #### 2 [id number] #### [facility] [address] [place] [address] CBC w/Indiceson 04-08-2022 Erythrocyte distribution width (RBC) [Ratio] 16.5 % High 10.9-14.2 [facility] Comment on above: Performed By: #### 2 [id number] ####[facility] [id number] [place] [address] Hematocrit (Bld) [Volume fraction] 36.3 % Normal 34.0-46.0 [facility] Comment on above: Performed By: #### 2 927797, 7529154, 6121591, 12358957, 0946526, 70029440 ####[facility] [address] [place] [address] Hemoglobin (Bld) [Mass/Vol] 11.8 g/dL Low 12.0-16.0 [facility] Comment on above: Performed By: #### 2 072357, 8645973, 6333665, 36268211, 4063007, 15131466 ####[address] [address] MCH (RBC) [Entitic mass] 28.6 pg Normal 27.0-34.0 [facility] Comment on above: Performed By: #### 2 116909, 3952779, 1037661, 35105190, 6152842, 82751878 ####[address] [address] MCHC (RBC) [Mass/Vol] 32.6 g/dL Normal 31.4-36.0 [facility] Comment on above: Performed By: #### 2 018816, 9340925, 0368229, 67092494, 0038356, 58491717 ####[address] [place] [address] MCV (RBC) [Entitic vol] 87.8 fL Normal 80.0-100.0 [facility] Comment on above: Performed By: #### 2 122865, 7633017, 9578028, 19129575, 1389761, 66611188 ####[address] [address] Platelet mean volume (Bld) [Entitic vol] 9.2 fL Normal 6.4-10.8 [facility] Comment on above: Performed By: #### 2 011244, 3020949, 3846418, 72897047, 8911837, 75071070 ####[facility] [address] [place] [address] Platelets (Bld) [#/Vol] 307.0 E9/L Normal 150.0-500.0 [facility] Comment on above: Performed By: #### 2 564791, 5643305, 8017032, 26091395, 4897571, 30102124 ####[facility] [address] [place] [address] RBC (Bld) [#/Vol] 4.1 E12/L Low 4.3-5.9 [facility] Comment on above: Performed By: #### 2 140572, 6883296, 8785473, 11052576, 3050317, 92568955 ####[facility] [address] [place] [address] WBC corrected for nucl RBC Auto (Bld) [#/Vol] 4.1 E9/L Normal 4.0-11.0 [facility] Comment on above: Performed By: #### 2 531383, 1323724, 6342864, 48496616, 8667468, 46463126 ####[facility] [address] [place] [address] CHEMISTRYOrdered By: SYSTEM SYSTEM on 04-08-2022 Anion gap [Moles/Vol] 10 mmol/L Normal 6 - 16 mEq/L [facility]isol Chloride [Moles/Vol] 103 mmol/L Normal 101 - 1 11 mmol/L [facility] Remisol CO2 [Moles/Vol] 26 mmol/L Normal 21 - 31 mmol/L [facility] Remisol Creatinine [Mass/Vol] 0.6 mg/dL Normal 0.5 - 1.3 mg/dL [facility] Remisol GFR/1.73 sq M.predicted among blacks MDRD (S/P/Bld) [Vol rate/Area] mL/min/1.73 m2 Normal >=59mL/min/1 .73 m2 [facility] Chem S GFR/1.73 sq M.predicted among non-blacks MDRD (S/P/Bld) [Vol rate/Area] mL/min/1.73 m2 Normal >=59mL/min/1 .73 m2 [facility] Chem S Potassium [Moles/Vol] 3.9 mmol/L Normal 3.5 - 5.3 mmol/L [facility] Remisol Sodium [Moles/Vol] 135 mmol/L Normal 135 - 145 mmol/L [facility] Remisol Urea nitrogen [Mass/Vol] 10 mg/dL Normal 5 - 21 mg/dL [facility] Remisol COAGULATIONOrdered By: Chandrakant Wisdom on 04-08-2022 aPTT Coag (PPP) [Time] 28.8 s Normal 25.1 - 36.5 second(s) [facility] Auto Coag INR Coag (PPP) [Relative time] 1.1 {INR} Invalid Interpretation Code [facility] Auto Coag PT Coag (PPP) [Time] 11.8 s Normal 9.4 - 1 2.5 second(s) [facility] Auto Coag Consent for Treatmenton 03-21 Consent for Treatment [id number] #1.00CD:127 Normal [facility] Creatinineon 04-08-2022 Creatinine [Mass/Vol] 0.6 mg/dL Normal 0.5-1.3 [facility] Comment on above: Performed By: #### 2 847593, 3374061, 2489807, 89182389, 6412177, 66084273 ####[facility] [address] [place] [address] HEMATOLOGYOrdered By: Miguelina Alberto on 04-08-2022 Erythrocyte distribution width (RBC) [Ratio] 16.5 % High 10.9 - 14.2 % [facility] HemeAutoSS Hematocrit (Bld) [Volume fraction] 36.3 % Normal 34.0 - 46.0 % [facility] HemeAutoSS Hemoglobin (Bld) [Mass/Vol] 11.8 g/dL Low 12.0 - 16.0 gm/dL [facility] HemeAutoSS MCH (RBC) [Entitic mass] 28.6 pg Normal 27.0 - 34.0 pg [facility] HemeAutoSS MCHC (RBC) [Mass/Vol] 32.6 g/dL Normal 31.4 - 36.0 gm/dL [facility] HemeAutoSS MCV (RBC) [Entitic vol] 87.8 fL Normal 80.0 - 100.0 fL [facility] HemeAutoSS Platelet mean volume (Bld) [Entitic vol] 9.2 fL Normal 6.4 - 10.8 fL [facility] HemeAutoSS Platelets (Bld) [#/Vol] 307.0 E9/L Normal 150.0 - 500.0 E9/L [facility] HemeAutoSS RBC (Bld) [#/Vol] 4.1 E12/L Low 4.3 - 5.9 E12/L [facility] HemeAutoSS WBC corrected for nucl RBC Auto (Bld) [#/Vol] 4.1 E9/L Normal 4.0 - 11.0 E9/L [facility] HemeAutoSS Lyteson 04-08-2022 Anion gap [Moles/Vol] 10 mmol/L Normal 6-16 [facility] Comment on above: Performed By: #### 2 041541, 3004626, 0198584, 15739767, 2388277, 28264848 ####[facility] [address] [place] [address] Chloride [Moles/Vol] 103 mmol/L Normal 101-111 [facility] Comment on above: Performed By: #### 2 304830, 8305192, 2859440, 11081486, 0440889, 13457281 ####[facility] [address] [place] [address] CO2 [Moles/Vol] 26 mmol/L Normal 21-31 [facility] Comment on above: Performed By: #### 2 655058, 4584197, 5514855, 21854916, 9733138, 08670672 ####[facility] [address] [place] [address] Potassium [Moles/Vol] 3.9 mmol/L Normal 3.5-5.3 [facility] Comment on above: Performed By: #### 2 560790, 6778397, 1536552, 41177349, 3896917, 29808436 ####[facility] [address] [place] [address] Sodium [Moles/Vol] 135 mmol/L Normal 135-145 [facility] Comment on above: Performed By: #### 2 098093, 1721881, 5172085, 51518236, 4195782, 40430359 ####[facility] [address] [place] [address] PT & PTTon 04-08-2022 aPTT Coag (PPP) [Time] 28.8 second(s) Normal 25.1-36.5 [facility] Comment on above: Result Comment: Para meter 15 days - 4 weeks 1 - 5 months 6 - 11 months 1 - 5 years 6 - 10 years 11 - 17 years PTT Mean: 35.4 (27.6-45.6) Mean: 33.5 (24.8-40.7) Mean: 32.4 (25.1-40.7) Mean: 31.6 (24.0-39.2) Mean: 31.6 (26.9-38.7) Mean: 31.0 (24.6-38.4) Pediatric Reference ranges were obtained from a study by Maikol Dawson et al. prepared from 1437 samples obtained at 7 different centers using the same coagulation reagent and instrumentation as [facility]. Currently there are no coagulation studies available worldwide for children to 14 days, and no normal ranges. Heparin therapeutic range (represented by Anti-Factor Xa activity of 0.2 - 0.4 U/mL) corresponds to PTT of 56.6 - 109.0 sec. Performed By: #### 2 836254, 0202468, 4205757, 25890629, 7326758, 63062671 #### [facility] [address] [place] [address] INR Coag (PPP) [Relative time] 1.1 {INR} Invalid Interpretation Code [facility] Comment on above: Result Comment: INR results are specifically intended to assess patients stabilized on long-term Anticoagulation therapy suggested INR?s ?Less Intensive Anticoagulation? 2.0 ? 3.0 Conventional Range 3.0 ? 4.5 Performed By: #### 2 396311, 2998205, 6737434, 91401916, 5985678, 41790087 #### [facility] [address] [place] [address] PT Coag (PPP) [Time] 11.8 second(s) Normal 9.4-12.5 [facility] Comment on above: Result Comment: 15 d ays - 4 weeks 1 - 5 months 6 -11 months 1 ? 5 years 6 ? 10 years 11 -17 years Mean: 11.2 (9.5 ? 12.6) Mean: 11.0 (9.7 ? 12.8) Mean: 11.0 (9.8 ? 13.0) Mean: 11.3 (9.9 ? 13.4) Mean: 11.7 (10.0 ? 14.6) Mean: 11.8 (10.0 - 14.1) Pediatric Reference ranges were obtained from a study by adrian Weiss al. prepared from 1437 samples obtained at 7 different centers using the same coagulation reagent and instrumentation as [facility]. Currently there are no coagulation studies available worldwide for children to 14 days, and no normal ranges. Performed By: #### 2 755473, 3507635, 0448472, 68688979, 6217496, 23892928 #### [facility] [address] [place] [address] XR Chest 2 Viewson XR Chest 2 Views Exam Date/Time: 04/08/2022 14:42 EDT Reason for Exam: PRE OP Report IMPRESSION: NO EVIDENCE OF ACTIVE CHEST DISEASE. CLINICAL HISTORY: PRE OP. COMPARISON: 08/13/2021. COMMENT: The heart is normal in size. The mediastinum is unremarkable. The lungs appear clear. No infiltration nor pleural effusion is evident. There are old healed left rib and sternal fractures. No significant change is noted when compared to the prior exam. FINAL REPORT Dictated: 04/08/2022 3:26 pm Govind Hair M.D. Signed (Electronic Signature): 04/08/2022 3:26 pm Signed by: Govind Hair M.D. Transcribed by: FRANK Technologist: LEANDRO Gutierrez [facility] eGFRon 04-08-2022 GFR/1.73 sq M.predicted among blacks MDRD (S/P/Bld) [Vol rate/Area] mL/min/{1.73_m2} Normal >=59 [facility] Comment on above: Order Comment: Order added by Discern Expert. Result Comment: eGFR is race adjusted. AA=. Performed By: #### 2 027679, 1222004, 0032771, 14018904, 5095910, 68407417 ####[facility] [address] [place] [address] GFR/1.73 sq M.predicted among non-blacks MDRD (S/P/Bld) [Vol rate/Area] mL/min/{1.73_m2} Normal >=59 [facility] Comment on above: Order Comment: Order added by Discern Expert. Result Comment: [facility] kidney disease could be indicated at eGFR's of less than 60 mL/min/1.73m2. Kidney failure is indicated at less than 15 mL/min/1.73m2. Performed By: #### 2 151784, 4815030, 6559526, 02373069, 6986440, 52050582 ####[facility] [address] [place] [address] Physician Orderon 04-03-2022 Physician Order [id number]#1 .00CD:127 Normal [facility] Consent for Procedure/Surger yon 04-02-2022 Consent for Procedure/Surgery [id number]#1.00CD:127 Normal [facility] Coding Summary.on 03-18-2022 Coding Summary. CD:[id number]:[id number] Gh0bWw+PGhlYWQ+PE1FV LIsG18cfXWxeD9LT5vPR N7SWAFJCSAPPG5SMR8mh JH9KZxnV8CnjrUk JhzuxMQvWV90NFj3GAC9 kZmcVVfstM5kuDLaJ1m6 RnRxSQ38xH33HJwpUWBw UlQ0BlRjkuadvPCf C1syIqIakPMoHgn+PHRh YmxlIHdpZHRoPScxMDAl VcIlpMitCR8oYo1dQJGb LWNvbGxhcHNlOiBj v0pfXWQjIDrfCW6bcIir Q2ZvkLV6WDOug5j2Os58 dHI+PWGjWYF3fOksFDmw l152AvTns1phPBE1 oRKpANwtMMU5C65wv2Z8 TDXmTRNoWHQ1vLT0iL5l jFdaymndQ7GsmRZeRdY5 MEQ2cZSmiY8ctEpj exauvI3fCwc+Q23ERM9J KZXQAV9NQwk2U5DgEylm dHI+OO25ANWlLC30tDNu vTQcr6saiBg1TsPn ISAgECG9jWbuPUsfi3Qm ISNhI73doEHaw4E2OCGb aQibrNHcYeKxdEM0mM9d GHgfsbwge7fyzohx Vbddg8jobj26iE30V87r WYniOPNmCET6MUIrZGUm jJrcpi4upK3hKo5+IDxj o4xbf5amuYp1WxOn MWPtrdVicNorUXB6u0Hp Cx88W3SeeMicg8BqYee3 bf68qGUvd8M0xGM1LYwz DYVjyV4vGKhgNoR1 FEJkIgRfhZ86uQQvVGdw Eg3gwByewGrtXR1tGNQt ajjcMKOlvJ9qSLGobVUv oNnxVT7zVTOijgbn b482UmQyOCW1PAFdwKQs T4JomO2uIqTeRGYmKUAs S0YlhJVoISljJ273WEdd VaE5YXFfmjSyM5Fa SSWtzAhrQuH1n2P8Uz3J h2JnobnpHPT3RSumYQP0 RnT1LpThHhD8V0WcRke4 AXHfiKwoOV8hO0Ij ZBXbacgscytolHI5VAUn FPNyuG53pUHhEYoeXz2r u3B3v730ZDCeYEStjM92 Jq7rjMxiKTZhhLGO sB4rxrzuz4lhsysxDwWd UBAwXEs8ACw0DEGrhHym RbDpRAR5XyY1BUB4dCNc lK8fiBrgebqmoO5o Oyc+Q46xwQ9tGCQ2TRD2 wwjpIUKzzgSgGX93VN26 H3WqCotlqLVxuUL+PGRp gsAdwJqgDB3pPuTb v8vpn3ZhHCjoE6TvVVSa TSnhQvf0RGYpONF3oHA0 aI1sIMXqKUfdk0N1bKM3 O9UytgLovd2pv6gk KFJkHLmeU60lkLUrf7M1 IQNqwAI3NDTzbBvvGaCc zS61Piu+XPAwaDbob5Cg Kyaki9zbb1bbrGi6 IjMwJSIgdmFsaWduPSJ0 z6EkUc29Y60kTZipAZCc MRNpKMZsBOSgnNgtje5v lC7iLu6+PGNvbCB3 hBR3pL1bURKwLyU4YIhl Y728FuQfaQEgIygrq3yk r2cgoVf1YvQrCZQpotKc sIrgJVJ6q9FvWa63 Q83qENawJWGlJMErMCRa RCOlxZykyg7nkX8qKw2+ MU5te0tfak80vP89hUJ+ ALZiDKY6sZesLZfx SWSwtO8fSVroOcF8LDYo TrCbhI82wZVsRMeaSr2b wUjfgKuzDS4qFFVhyldw t462SiYzc0waXNXc rOEtQXfvHQR4L87qs6T2 LOHjJBQgHNF3gWL2wL3e bGlnbjogbGVmdDsgdmVy cNujBEuwCJcuH379 IHRvcDsnPlBhdGllbnQg CiMjJVt9M1VfMcx2MJQm jGhtDK7zzDZwZWobRg2p rZunsVxmRK2kFLIr amzpt420CdMfn8lcYWFk nETpVXcqEST3W38bx5S1 YFWfGJMoZTK3tNU5rU5g bGlnbjogbGVmdDsg jwUzuYlzVZwdDXfrA392 IHRvcDsnPkJpcnRoIERh qVY4ZY40ZI31cINim3U9 lPT1O5FdKGUkwzdf jonaeVZ4FXDjLHDhbQ62 Am5xtUxfGs7jPAZiAFE9 HVBdqCYfH2PrlL5sLgOo KINzMKZrW1WloXFv HOhqU115QFkzTrN4RWWg mwCrA6BbEVLrrKueVjO5 i2H1Er7SJ1J6GH10LN27 aWLwx7C8eQF4E3Jv EVJbvqpoabgqrZC0ENRe ERLnyW77Gq1qfJyhJp5w KJJoBLL5VAImmETiY5Du vY1zQnCnBMFmTDOd B2GvzFEtSBwkL597QRpt OpQ6JLHztcZyP7BbYQRx oQncBgQ5c7C4Ui2JFWz9 OL03UI73cRMbl2Z0 uKL4J4NtCBVjkkfeogbx kNN3CNIoIXEreO00Aw9f iSnqGt5eLIGoZFN8THQu xOYeY0IysS3tRxUy LGIhMWIlO0BbcSSsWCdq N905QUdmEfC5GKAupbRs D5GdGVUnrHmjLqZ4l5I3 Gb7DPBHaGE09MDZ2 vIQ8NZ17KM30L4OgCgbw dGFibGU+PHRhYmxlIHdp ZHRoPScxMDAlJyBzdHls QS3aXf9vFFVjXQBs oAlpoRVhMqJmj6nwGLWu PSfsXN5piFzwK0HpvCO5 CCBtn2p3Kz16W24nX0Ei dXA+MHSzaEO5wYC7 wS1cYrLdPkO0CVxmZ259 IcEnuLZyFfgny5tym8rr oLj6ToY6VRLiitHvkDyy LER5r2FuEh24A40l IHdpZHRoPSIxNSUiIHZh vFusru3rdX7lQo1+PGNv xJX1hJV8fP6mWcOzTlJ4 ZQbfT366WsShuFBd Pultp2ufa7rptDl6RiNz HEEoqoUiaHyhICR0w7Jd Tb92V6WzgRcsr9KkUhf2 ce96uLTjo7Y4nYN8 A9XsVGBqkbqtxBGgzNfr YQ9xUCIuagqlOYZoeZ2q BCLoZ3t5JvRzQvV2RQkv Y5ApacJ0FBOyqARv NLiyBTJ3N81mk5D9UKUj GEChKGR8dTB7eL7tbDbt bjogbGVmdDsgdmVydGlj AEaxABazP711GMDn jBuwKTCsiP9gSRBapIMy tNhwUW6jPRYblkorVdSP J1yWZjMOOTHMV3wNBGUJ UC81LD14cNGpi7A8 uFJ9N4MlMIQjduihdbvf pFX3UMDaKDQzgN26kHJr WMavZd5dc4A7i944HQMe ONFzsC08Ih0qrCyy OHCsnTHGmC5iqcfth2uj nrbhHaEwWPCdAKb6FWa3 GIHxgZcdWkEuUQF0WnD6 VLZ9yCZafE9ziLmf fomjbL8cTvi+MDEvMDYv EBx1GNkbiXK+PHRkIHN0 hHvsLMweETNnjH6rKFNr M6f3EpKqMuT9JLwu U9QlYRNluljtKh37sL4w GiUdZsC1DIlgZ8JirqS2 CFOkoBZbFObmSTP9P12e y2E9ENFrRHBvOSV2 dDC8uZ0mxTralngyjTMm dDsgdmVydGljYWwtYWxp Y160IGTigPrmFtJ2HXzx VPUqSX14VL03gKLp q5E3uTN3W4LmDLYcuexc meicoUZ7ITRlCWXsaI62 xBQcCGreBt9rh6I9y775 JMJjSUAjuM52Wm9a qPuaWYHniFKNiL9fitpq q5byimgbAkUhFRXwOYo3 SRl1LXJtnZluFoDsKRT7 QzE9LAH6tHWusX1v jAtzjrqasY5pRqa+RmVt VZydHV30HO94uRSrc4S1 pIW0T0IuDCCamxbewizc uOA3PTPyYQFscQ58 zKIpWWobQu0bu8S2h840 HWLnJCAmvG23Dy7weMcu QKBbwUXVmN5zvqazj8yo cjogIzAwMDAwMDt0 XXg1UQQtaBuhFvItDJO3 IjK1IUC0gCOfwD2xsMtu ukpyfN9lDjw+I8V5aNA1 aWVudDwvdGQ+PC90 lw32Z7KoYkwvXrb1ZJJu KQK3cUC7qB6vZKGsAEvi x6V4tLG2K6XkhdWkkc0s z1keXBRcEMokK68a vPIue8C8PBEkpIJ3XWEk jYjuLeSzpS51Qqs+PGNv rGbaw6RmKqduo5xja3wa rMa0ArInYAGpjrOk rNfhKAK8h5QuWa06I71q IHdpZHRoPSIzMCUiIHZh eQtjil5owN0cZh0+PGNv bOQ8oKW1zS2vRnJd XuF4TFkvV810GgKywVBf Vergw1kse7nbiJo3UvQp CDIjecGmnXmoBNU4i5Ye Yf95K6XnfQzia7Mc Qdq6pg18uSLgf8U2dXT3 Q8GbRKRycbmonBRtkMvq ZJ2kNZAtjqriEMHkeY2y VNRdH2d3SxCwSrO2 WScyT8IghcU1SUPzyJAk QODidLJVwN4uhhuoz6sp fowmYhKdQWLeDEj4ITk2 LWFsaWduOiBsZWZ0 EeV9ZEA1oDPewD6siVtv qltvpE5vVra+FHy4k7qj uWHxQZ4nxUP6KQ22VQ49 gGJrt7S1fCX9Y5Ng FKMlhkwojwknbUR0YLQa AFJodX83Rs2qwOpaAi7s XCRoHHL8DDKlyPRjE2Zp bF1kZkUcRXXyVOJo K4ZpxZDiIWnnD155QZvd SnC8ODDgtyPmK7JkADAd nXcrVrF2v2S6Ug6LOG96 VI88BI27nPVcm2J1 dXH7W9QjEPYjhfjjxxtc bWD1DAWvPBQaoK17Nd8j xBjlLa4lNSBxFQI9HGBd xCLlB8UwdY4vXaVa VHXcKXCxV5IvbWNdEEqa G565QQmvGhE5ZMKapzNh T0RgZYWuaZesOgH5d0F2 Em4BCe67IE76RI81 lLAuj4J8zJN1E9DlQFAn lxninomniGW9IGWkYACf pQ38Lb5lgIobMs1bHHDa RKM8GQFaiYZaM8Nr xR8pJjHmVGXeVZGrJ6Xp vFJsHJuxJ945LMepExL6 KUIovmPoD9YnPAIwpHfo OnP3n9I9Hy1WUWfc knu8C7OyQxjifFR+PC90 GESxYV38bTRimIQnq8fs yFx2RnXdVXHnWGJ5xXnc TFizr1SeUKDeB85s bGFw (more content not included)... Normal [facility] Consent for Treatmenton 02-20 Consent for Treatment [id number] #1.00CD:127 Normal [facility] US Pelvis Non-OB Completeon 03-16-2022 US Pelvis Non-OB Complete Exam Date/Time: 03/16/2022 14:54 EDT Reason for Exam: N92.6 Report IMPRESSION: HETEROGENEOUS UTERUS SUGGESTING SEVERAL SMALL LEIOMYOMAS AND/OR ADENOMYOSIS. A FEW SMALL SIMPLE OVARIAN FOLLICLES; THE LARGEST NOTED. OTHERWISE, NEGATIVE PELVIC ULTRASOUND. EXAM: US Pelvis Non-OB Complete, Transvaginal Non-OB DATE: 03/16/2022 CLINICAL HISTORY: N92.6. COMPARISON: CT abdomen and pelvis 08/10/2021. TECHNIQUE: Transabdominal ultrasound was performed to visualize the entirety of the pelvis. Transvaginal scanning was performed to provide better detail of the uterus and ovaries. FINDINGS: The uterus is normal in size with heterogeneous echotexture suggesting several small poorly delineated submucosal and subserosal uterine fibromas; the largest measuring approximately 2 cm. Both ovaries appear within normal limits for the patient's age group, with a few simple follicles bilaterally. The largest on the right measures approximately 1.4 cm, and on the left 1.1 cm. Equivalent blood flow is noted to both ovaries on Doppler analysis. There is no significant free fluid, abnormal adnexal masses, or other findings of concern identified elsewhere. The uterus is anteverted and mildly anteflexed in position, with measurements and estimated volume: Uterus Length: 8.3 cm Uterus Width: 5.1 cm Uterus Height: 3.8 cm Uterus Volume: 83.5 cm3 Report Endometrium Thickness: 0.4 cm The right ovary measurements and estimated volume: Right Ovary Length: 1.8 cm Right Ovary Width: 2.9 cm Right Ovary Height: 1.7 cm Right Ovary Volume: 4.6 cm3 The left ovary measurements and an estimated volume are: Left Ovary Length: 2.0 cm Left Ovary Width: 2.1 cm Left Ovary Height: 1.8 cm Left Ovary Volume: 4.2 cm3 FINAL REPORT Dictated: 03/16/2022 3:04 pm Boubacar Loyola MD Signed (Electronic Signature): 03/16/2022 3:04 pm Signed by: Boubacar Loyola MD Transcribed by: FRANK Technologist: KUMAR Technical Comments Transabdominal Ultrasound Performed Transvaginal Ultrasound Performed Normal [facility] US Transvaginal Non-OBon US Transvaginal Non-OB Exam Date/Time: 03/16/2022 14:52 EDT Reason for Exam: irregular cycles Report PLEASE SEE US Pelvis Non-OB Complete REPORT DATED: 03/16/2022. FINAL REPORT Dictated: 03/16/2022 3:04 pm Boubacar Loyola MD Signed (Electronic Signature): 03/16/2022 3:04 pm Signed by: Boubacar Loyola MD Transcribed by: FRANK Technologist: KUMAR [facility] Physician Orderon 03-13-2022 Physician Order [id number] #1.00CD:127 [facility] SEROLOGYOrdered By: Natalia Smith on 11-28-2021 HCG.beta subunit (U) [Moles/Vol] Negative Normal [facility] URINALYSISOrdered By: Darwni Smith on 11-28-2021 Bacteria LM Ql (Urine sed) Trace /HPF Normal Trace/HPF [facility] UA Auto SS Bilirubin Ql (U) Negative (11/28/21 10:00 PM) Normal Negative [facility] UA Auto SS Calcium oxalate crystals LM Ql (Urine sed) Present (11/28/21 10:00 PM) Normal [facility] UA Auto SS Clarity (U) Clear (11/28/21 10:00 PM) Normal Clear [facility] UA Auto SS Color (U) [place] *ABN* (11/28/21 10:00 PM) Invalid Interpretation Code Yellow [facility] UA Auto SS Crystals LM Ql (Urine sed) Present (11/28/21 10:00 PM) Normal [facility] UA Auto SS Epithelial cells.squamous LM.HPF (Urine sed) [#/Area] 3-4 /HPF Normal 0-2/HPF [facility] UA Aut o SS Glucose Test strip (U) [Mass/Vol] Trace *ABN* (11/28/21 10:00 PM) Invalid Interpretation Code Negative [facility] UA Auto SS Hemoglobin Ql (U) 1+ *ABN* (11/28/21 10:00 PM) Invalid Interpretation Code Negative [facility] UA Auto SS Ketones (U) [Mass/Vol] Trace *NA* (11/28/21 10:00 PM) Invalid Interpretation Code Negative [facility] UA Auto SS Barling.plasma/Barling .RBC (Bld) [Mass ratio] 4-20 /HPF Normal 0-3/HPF [facility] UA Auto SS Mucus Ql (Urine sed) Trace (11/28/21 10:00 PM) Normal [facility] UA Auto SS Nitrite Ql (U) Positive *ABN* (11/28/21 10:00 PM) Invalid Interpretation Code Negative [facility] UA Auto SS pH (U) 5.0 *NA* (11/28/21 10:00 PM) Invalid Interpretation Code 5.0 - 9.0 [facility] UA Auto SS Protein (U) [Mass/Vol] 1+ *ABN* (11/28/21 10:00 PM) Invalid Interpretation Code Negative [facility] UA Auto SS Specific gravity (U) [Rel density] >=1.030 *NA* (11/28/21 10:00 PM) Invalid Interpretation Code 1.005 - 1.030 [facility] UA Auto SS UA Spec Desc Clean Catch (11/28/21 10:00 PM) Normal [facility] UA Auto SS Urobilinogen Qn (U) 2.7579364 {Roro'U}/dL Invalid Interpretation Code 0.0 - 1.0 EU/dL [facility] UA Auto SS WBC Auto Ql (U) Negative (11/28/21 10:00 PM) Normal Negative [facility] UA Auto SS WBC LM.HPF (Urine sed) [#/Area] 0-5 /HPF Normal 0-5/HPF [facility] UA Auto SS Q - CBC W/DIFF AND PLTon BASOABS 10 cells/uL Normal 0-200 [facility] Comment on above: Order Comment: [facility] performed at: [employer] [employer] [facility], [address] [place] [address], [address] [place] [address], [phone], Political Science Instructor: Hesham Bhakta MD [facility] Date/Time: [facility] Results Received Date/Time: [facility] Reported Date/Time: FASTING: YES Performed By: #### 9 [id number], [id number], [id number], [id number] #### [facility] [address] [place] [address] Basophils/100 WBC (Bld) 0.2 % Normal [facility] Comment on above: Order Comment: [facility] performed at: [employer] [employer] [facility], [address] [facility], [address] [place] [address], [phone], Political Science Instructor: Hesham Bhakta MD [facility] Date/Time: [facility] Results Received Date/Time: [facility] Reported Date/Time: FASTING: YES Performed By: #### 9 68T, [id number], [id number], [id number] #### [facility] [address] [place] [address] EOSABS 50 cells/uL Normal 15-500 [facility] Comment on above: Order Comment: [facility] performed at: [employer] [employer] [facility], [address] [place] [address], [address] [place] [address], [phone], Political Science Instructor: Hesham Bhakta MD [facility] Date/Time: [facility] Results Received Date/Time: [facility] Reported Date/Time: FASTING: YES Performed By: #### 9 68T, [id number], [id number], [id number] #### [facility] [address] [place] [address] Eosinophils/100 WBC (Bld) 1.0 % Normal [facility] Comment on above: Order Comment: [facility] performed at: [facility], [address] [place] [address], [address] [place] [address], [address] [place] [address], Political Science Instructor: Hesham Bhakta MD [facility] Date/Time: [facility] Results Received Date/Time: [facility] Reported Date/Time: FASTING: YES Performed By: #### 9 68T, [id number], [id number], [id number] #### [facility] [address] [place] [address] Erythrocyte distribution width (RBC) [Ratio] 14.6 % Normal 11.0-15.0 [facility] Comment on above: Order Comment: [facility] performed at: [facility], [address] [place] [address], [address] [place] [address], [address] [place] [address], Political Science Instructor: Hesham Bhakta MD [facility] Date/Time: [facility] Results Received Date/Time: [id number] [facility] Reported Date/Time: FASTING: YES Performed By: #### 9 68T, [id number], 40306M, [id number] #### [facility] [address] [place] [address] Hematocrit (Bld) [Volume fraction] 40.7 % Normal 35.0-45.0 [facility] Comment on above: Order Comment: [facility] performed at: [employer] [employer] [facility], [address] [facility], [address] [place] [address], [phone], Political Science Instructor: Hesham Bhakta MD [facility] Date/Time: [facility] Results Received Date/Time: [facility] Reported Date/Time: FASTING: YES Performed By: #### 9 68T, [id number], [id number], [id number] #### [facility] [address] [place] [address] Hemoglobin (Bld) [Mass/Vol] 12.9 g/dL Normal 11.7-15.5 [facility] Comment on above: Order Comment: [facility] performed at: [employer] [employer] [facility], [address] [place] [address], [address] [place] [address], [address] [place] [address], Political Science Instructor: Hesham Bhakta MD [facility] Date/Time: [facility] Results Received Date/Time: [facility] Reported Date/Time: FASTING: YES Performed By: #### 9 68T, 10413, 06776S, 6399 #### [facility] [address] [place] [address] Lymphocytes (Bld) [#/Vol] 1.935 10*3/uL Normal 850-3900 [facility] Comment on above: Order Comment: [facility] Testing performed at: [employer], [employer] [facility], [address] [facility], [address] [place] [address], [address] [place] [address], Political Science Instructor: Hesham Bhakta MD [facility] Collection Date/Time: [facility] Results Received Date/Time: [facility] Reported Date/Time: FASTING: YES Performed By: #### 9 68T, 27967, 50037Z, 6399 #### [facility] [address] [place] [address] Lymphocytes/100 WBC (Bld) 38.7 % Normal [facility] Comment on above: Order Comment: [facility] performed at: [employer], [employer] [facility], [address] [place] [address], [address] [place] [address], [address], Political Science Instructor: Hesham Bhakta MD [facility] Date/Time: [facility] Results Received Date/Time: [facility] Reported Date/Time: FASTING: YES Performed By: #### 9 68T, 51089, 50712R, 6399 #### [facility] [address] [place] [address] MCH (RBC) [Entitic mass] 27.4 pg Normal 27.0-33.0 [facility] Comment on above: Order Comment: [facility] performed at: [employer], [employer] [facility], [address] [place] [address], [address] [place] [address], [address] [place] [address], Political Science Instructor: Hesham Bhakta MD [facility] Date/Time: [facility] Results Received Date/Time: [facility] Reported Date/Time: FASTING: YES Performed By: #### 9 68T, 58359, 58365E, 6399 #### [facility] [address] [place] [address] MCHC (RBC) [Mass/Vol] 31.7 g/dL Low 32.0-36.0 [facility] Comment on above: Order Comment: [facility] performed at: [employer], [employer] [facility], [address] [place] [address], [address] [place] [address], [address] [place] [address], Political Science Instructor: Hesham Bhakta MD [facility] Collection Date/Time: [facility] Results Received Date/Time: [facility] Reported Date/Time: FASTING: YES Performed By: #### 9 68T, 23900, 65910M, 6399 #### [facility] [address] [place] [address] MCV (RBC) [Entitic vol] 86.4 fL Normal 80.0-100.0 [facility] Specialist Comment on above: Order Comment: [facility] performed at: [employer], [employer] [facility], [address] [facility], [address] [place] [address], [address] [place] [address], Political Science Instructor: Hesham Bhakta MD [facility] Collection Date/Time: [facility] Results Received Date/Time: [facility] Reported Date/Time: FASTING: YES Performed By: #### 9 68T, 46029, 79024R, 6399 #### [facility] [address] [place] [address] MONOABS 385 cells/uL Normal 200-950 [facility] Comment on above: Order Comment: [facility] performed at: [employer], [employer] [facility], [address] [facility], [address] [place] [address], [address] [place] [address], Political Science Instructor: Hesham Bhakta MD [facility] Collection Date/Time: [facility] Results Received Date/Time: [facility] Reported Date/Time: FASTING: YES Performed By: #### 9 68T, 65583, 96472T, 6399 #### [facility] [address] [place] [address] Monocytes/100 WBC (Bld) 7.7 % Normal [facility] Specialist Comment on above: Order Comment: [facility] performed at: [employer], [employer] [facility], [address] [facility], [address] [place] [address], [address] [place] [address], Political Science Instructor: Hesham Bhakta MD [facility] Collection Date/Time: [facility] Results Received Date/Time: [facility] Reported Date/Time: FASTING: YES Performed By: #### 9 68T, 75398, 80965Z, 6399 #### [facility] [address] [place] [address] Neutrophils (Bld) [#/Vol] 2.62 10*3/uL Normal 6868-3123 [facility] Comment on above: Order Comment: [facility] performed at: [employer], [employer] [facility], [address] [place] [address], [address] [place] [address], [address] [place] [address], Political Science Instructor: Hesham Bhakta MD [facility] Collection Date/Time: [facility] Results Received Date/Time: [facility] Reported Date/Time: FASTING: YES Performed By: #### 9 68T, 98619, 77679R, 6399 #### [facility] [address] [place] [address] Neutrophils/100 WBC (Bld) 52.4 % Normal [facility] Specialist Comment on above: Order Comment: [facility] performed at: [employer], [employer] [facility], [address] [place] [address], [address] [place] [address], [address] [place] [address], Political Science Instructor: Hesham Bhakta MD [facility] Collection Date/Time: [facility] Results Received Date/Time: [facility] Reported Date/Time: FASTING: YES Performed By: #### 9 68T, 27003, 47684W, 6399 #### [facility] [address] [place] [address] Platelet mean volume (Bld) [Entitic vol] 10.7 fL Normal 7.5-12.5 [facility] Specialist Comment on above: Order Comment: [facility] performed at: [employer], [employer] [facility], [address] [facility], [address] [place] [address], [address] [place] [address], Political Science Instructor: Hesham Bhakta MD [facility] Collection Date/Time: [id number] [facility] Results Received Date/Time: [facility] Reported Date/Time: FASTING: YES Performed By: #### 9 68T, 62856, 31881C, 6399 #### [facility] Default [address] [place] [address] Platelets (Bld) [#/Vol] 328 10*3/uL Normal 140-400 [facility] [place] [facility] Comment on above: Order Comment: [facility] performed at: [employer], [employer] [facility], [address] [place] [address], [address] [place] [address], [address] [place] [address], Political Science Instructor: Hesham Bhakta MD [facility] Collection Date/Time: [facility] Results Received Date/Time: [facility] Reported Date/Time: FASTING: YES Performed By: #### 9 68T, 39122, 58271F, 6399 #### [facility] Default [address] [place] [address] RBC (Bld) [#/Vol] 4.71 10*6/uL Normal 3.80-5.10 [facility] Comment on above: Order Comment: [facility] performed at: [employer], [employer] [facility], [address] [facility], [address] [place] [address], [address] [place] [address], Political Science Instructor: Hesham Bhakta MD [facility] Collection Date/Time: [facility] Results Received Date/Time: [facility] Reported Date/Time: FASTING: YES Performed By: #### 9 68T, 74273, 11394Q, 6399 #### [facility] [address] [place] [address] WBC (Bld) [#/Vol] 5.0 10*3/uL Normal 3.8-10.8 [facility] Comment on above: Order Comment: [facility] performed at: [employer], [employer] [facility], [address] [facility], [address] [place] [address], [address] [place] [address], Political Science Instructor: Hesham Bhakta MD [facility] Collection Date/Time: [id number] [facility] Results Received Date/Time: [facility] Reported Date/Time: FASTING: YES Performed By: #### 9 68T, 57909, 97911P, 6399 #### [facility] [address] [place] [address] Q - COMPREHENSIVE METABOLIC PANEL W/EGFRon 11-21-2021 Albumin [Mass/Vol] 4.2 g/dL Normal 3.6-5.1 [facility] Comment on above: Order Comment: [facility] performed at: [employer], [employer] [facility], [address] [place] [address], [address] [place] [address], [address] [place] [address], Political Science Instructor: Hesham Bhakta MD [facility] Collection Date/Time: [facility] Results Received Date/Time: [facility] Reported Date/Time: FASTING: YES Performed By: #### 9 68T, 24913, 29266S, 6399 #### [facility] Default [address] [place] [address] Albumin/Globulin [Mass ratio] 1.5 {ratio} Normal 1.0-2.5 [facility] Specialist Comment on above: Order Comment: [facility] performed at: [employer], [employer] [facility], [address] [place] [address], [address] [place] [address], [address] [place] [address], Political Science Instructor: Hesham Bhakta MD [facility] Date/Time: [facility] Results Received Date/Time: [facility] Reported Date/Time: FASTING: YES Performed By: #### 9 68T, 95479, 96851I, 6399 #### [facility] Default [address] [place] [address] ALP [Catalytic activity/Vol] 83 U/L Normal 31-125 [facility] Specialist Comment on above: Order Comment: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 others. You go to crowded places. Germs can spread easily in such places. You kiss or touch someone who has strep throat. What are the signs or symptoms? Fever or chills. Redness, swelling, or pain in the tonsils or throat. Pain or trouble when swallowing. White or yellow spots on the tonsils or throat. Tender glands in the neck and under the jaw. Bad breath. Red rash all over the body. This is rare. How is this treated? Medicines that kill germs (antibiotics). Medicines that treat pain or fever. These include: ?Ibuprofen or acetaminophen. ?Aspirin, only for people who are over the age of 18. ?Cough drops. ?Throat sprays. Follow these instructions at home: Medicines Take bltt-guv-wgkckgs and prescription medicines only as told by your doctor. Take your antibiotic medicine as told by your doctor. Do not stop taking the antibiotic even if you start to feel better. Eating and drinking If you have trouble swallowing, eat soft foods until your throat feels better. Drink enough fluid to keep your pee (urine) pale yellow. To help with pain, you may have: ?Warm fluids, such as soup and tea. ?Cold fluids, such as frozen desserts or popsicles. General instructions Rinse your mouth (gargle) with a salt-water mixture 3 4 times a day or as needed. To make a salt-water mixture, dissolve 1 tsp (3 6 g) of salt in 1 cup (237 mL) of warm water. Rest as much as you can. Stay home from work or school until you have been taking antibiotics for 24 hours. Do not smoke or use any products that contain nicotine or tobacco. If you need help quitting, ask your doctor. Keep all follow-up visits. How is this prevented? Do not share food, drinking cups, or personal items. They can cause the germs to spread. Wash your hands well with soap and water. Make sure that all people in your house wash their hands well. Have family members tested if they have a fever or a sore throat. They may need an antibiotic if they have strep throat. Contact a doctor if: You have swelling in your neck that keeps getting bigger. You get a rash, cough, or earache. You cough up a thick fluid that is green, yellow-brown, or bloody. You have pain that does not get better with medicine. Your symptoms get worse instead of getting better. You have a fever. Get help right away if: You vomit. You have a very bad headache. Your neck hurts or feels stiff. You have chest pain or are short of breath. You have drooling, very bad throat pain, or changes in your voice. Your neck is swollen, or the skin gets red and tender. Your mouth is dry, or you are peeing less than normal. You keep feeling more tired or have trouble waking up. Your joints are red or painful. These symptoms may be an emergency. Do not wait to see if the symptoms will go away. Get help right away. Call your local emergency services (911 in the [place] Summary Strep throat is an infection of the throat. It is caused by germs (bacteria). This infection can spread from person to person through coughing, sneezing, or having close contact. Take your medicines, including antibiotics, as told by your doctor. Do not stop taking the antibiotic even if you start to feel better. To prevent the spread of germs, wash your hands well with soap and water. Have others do the same. Do not share food, drinking cups, or personal items. Get help right away if you have a bad headache, chest pain, shortness of breath, a stiff or painful neck, or you vomit. This information is not intended to replace advice given to you by your health care provider. Make sure you discuss any questions you have with your health care provider. Document Revised: 09/30/2021 Document Reviewed: 09/30/2021 [employer] Patient Education 2022 [employer] 12/23/2022 18:51:19 Rapid Strep Test Rapid Strep Test Why am I having this test? A rapid strep test is used to check for strep throat. Strep throat is a bacterial infection caused by the bacteria Streptococcus pyogenes. A rapid strep test is the quickest way to check if these bacteria are causing your sore throat. You may have this test if: You have throat pain or neck swelling and tenderness. You have a fever. You have a red throat with yellow or white spots. You experience loss of appetite. You have trouble breathing or painful swallowing. You have a rash. You are dehydrated. The test can be done at your health care provider's office. Results are usually ready in about 20 minutes. What is being tested? This test checks for the presence of the Streptococcus pyogenes bacteria. What kind of sample is taken? This test requires a sample of fluid from the back of your throat and tonsils. Your health care provider may hold down your tongue with a tongue depressor and use a swab to collect the sample. Your health care provider may collect a second sample at the same time. The second sample may be used for a throat culture. In a culture test, the sample is combined with a substance that encourages bacteria to grow. It takes longer to get the results of the throat culture test, but they are more accurate. A culture test can confirm the results from a rapid strep test, or it may show that the results were wrong. How are the results reported? Your test results will be reported as either positive or negative for the bacteria that cause strep throat. What do the results mean? Talk with your health care provider about what your results mean. In some cases, your health care provider may do more testing to confirm the results. If the result of your rapid strep test is negative, it means that: It is likely that you do not have strep throat. A virus may be causing your sore throat. If the result of your rapid strep test is positive, it means that: It is likely that you do have strep throat. You may have to take antibiotic medicine. Talk with your health care provider about what your results mean. Your health care provider may do a throat culture to confirm the results of the rapid strep test. The throat culture can also identify the different strains of bacteria that are present. Questions to ask your health care provider Ask your health care provider, or the department that is doing the test: When will my results be ready? How will I get my results? What are my treatment options? What other tests do I need? What are my next steps? Summary A rapid strep test is used to check for strep throat. Strep throat is a bacterial infection caused by the bacteria Streptococcus pyogenes. A rapid strep test is the quickest way to check if these bacteria are causing your sore throat. The test can be done at your health care provider's office. Results are usually ready in about 20 minutes. This test requires a sample of fluid from the back of your throat and tonsils. Your health care provider may hold down your tongue with a tongue depressor and use a swab to collect the sample. Your test results will be reported as either positive or negative for the bacteria that cause strep throat. This information is not intended to replace advice given to you by your health care provider. Make sure you discuss any questions you have with your health care provider. Document Revised: 09/30/2021 Document Reviewed: 09/30/2021 [employer] Patient Education 2022 [employer]. 12/23/2022 18:51:17 Strep Throat, Adult Strep Throat, Adult Strep throat is an infection in the throat that is caused by bacteria. It is common during the cold months of the year. It mostly affects children who are 5 15 years old. However, people of all ages can get it at any time of the year. This infection spreads from person to person (is contagious) through coughing, sneezing, or having close contact. Your health care provider may use other names to describe the infection. When strep throat affects the tonsils, it is called tonsillitis. When it affects the back of the throat, it is called pharyngitis. What are the causes? This condition is caused by the Streptococcus pyogenes bacteria. What increases the risk? You are more likely to develop this condition if: You care for school-age children, or are around school-age children. Children are more likely to get strep throat and may spread it to others. You spend time in crowded places where the infection can spread easily. You have close contact with someone who has strep throat. What are the signs or symptoms? Symptoms of this condition include: Fever or chills. Redness, swelling, or pain in the tonsils or throat. Pain or difficulty when swallowing. White or yellow spots on the tonsils or throat. Tender glands in the neck and under the jaw. Bad smelling breath. Red rash all over the body. This is rare. How is this diagnosed? This condition is diagnosed by tests that check for the presence and the amount of bacteria that cause strep throat. They are: Rapid strep test. Your throat is swabbed and checked for the presence of bacteria. Results are usually ready in minutes. Throat culture test. Your throat is swabbed. The sample is placed in a cup that allows infections to grow. Results are usually ready in 1 or 2 days. How is this treated? This condition may be treated with: Medicines that kill germs (antibiotics). Medicines that relieve pain or fever. These include: ?Ibuprofen or acetaminophen. ?Aspirin, only for people who are over the age of 18. ?Throat lozenges. ?Throat sprays. Follow these instructions at home: Medicines Take ihcs-sxa-jntuikb and prescription medicines only as told by your health care provider. Take your antibiotic medicine as told by your health care provider. Do not stop taking the antibiotic even if you start to feel better. Eating and drinking If you have trouble swallowing, try eating soft foods until your sore throat feels better. Drink enough fluid to keep your urine pale yellow. To help relieve pain, you may have: ?Warm fluids, such as soup and tea. ?Cold fluids, such as frozen desserts or popsicles. General instructions Gargle with a salt-water mixture 3 4 times a day or as needed. To make a salt-water mixture, completely dissolve 1 tsp (3 6 g) of salt in 1 cup (237 mL) of warm water. Get plenty of rest. Stay home from work or school until you have been taking antibiotics for 24 hours. Do not use any products that contain nicotine or tobacco. These products include cigarettes, chewing tobacco, and vaping devices, such as e-cigarettes. If you need help quitting, ask your health care provider. It is up to you to get your test results. Ask your health care provider, or the department that is doing the test, when your results will be ready. Keep all follow-up visits. This is important. How is this prevented? Do not share food, drinking cups, or personal items that could cause the infection to spread to other people. Wash your hands often with soap and water for at least 20 seconds. If soap and water are not available, use hand compounder sterile products. Make sure that all people in your house wash their hands well. Have family members tested if they have a sore throat or fever. They may need an antibiotic if they have strep throat. Contact a health care provider if: You have swelling in your neck that keeps getting bigger. You develop a rash, cough, or earache. You cough up a thick mucus that is green, yellow-brown, or bloody. You have pain or discomfort that does not get better with medicine. Your symptoms seem to be getting worse. You have a fever. Get help right away if: You have new symptoms, such as vomiting, severe headache, stiff or painful neck, chest pain, or shortness of breath. You have severe throat pain, drooling, or changes in your voice. You have swelling of the neck, or the skin on the neck becomes red and tender. You have signs of dehydration, such as tiredness (fatigue), dry mouth, and decreased urination. You become increasingly sleepy, or you cannot wake up completely. Your joints become red or painful. These symptoms may represent a serious problem that is an emergency. Do not wait to see if the symptoms will go away. Get medical help right away. Call your local emergency services (911 in the [place] Do not drive yourself to the hospital. Summary Strep throat is an infection in the throat that is caused by the Streptococcus pyogenes bacteria. This infection is spread from person to person (is contagious) through coughing, sneezing, or having close contact. Take your medicines, including antibiotics, as told by your health care provider. Do not stop taking the antibiotic even if you start to feel better. To prevent the spread of germs, wash your hands well with soap and water. Have others do the same. Do not share food, drinking cups, or personal items. Get help right away if you have new symptoms, such as vomiting, severe headache, stiff or painful neck, chest pain, or shortness of breath. This information is not intended to replace advice given to you by your health care provider. Make sure you discuss any questions you have with your health care provider. Document Revised: 09/30/2021 Document Reviewed: 09/30/2021 [employer] Patient Education 2022 [employer]. Follow Up Care 12/23/2022 18:24:41 With:Angella Casas MD Address: [address] [place] [id number] When: Unknown [facility] 12-08-2022 Hospital Discharg e instructions Patient Education 12/08/2022 13:18:33 Strep Throat, Adult Strep Throat, Adult Strep throat is an infection in the throat that is caused by bacteria. It is common during the cold months of the year. It mostly affects children who are 5 15 years old. However, people of all ages can get it at any time of the year. This infection spreads from person to person (is contagious) through coughing, sneezing, or having close contact. Your health care provider may use other names to describe the infection. When strep throat affects the tonsils, it is called tonsillitis. When it affects the back of the throat, it is called pharyngitis. What are the causes? This condition is caused by the Streptococcus pyogenes bacteria. What increases the risk? You are more likely to develop this condition if: You care for school-age children, or are around school-age children. Children are more likely to get strep throat and may spread it to others. You spend time in crowded places where the infection can spread easily. You have close contact with someone who has strep throat. What are the signs or symptoms? Symptoms of this condition include: Fever or chills. Redness, swelling, or pain in the tonsils or throat. Pain or difficulty when swallowing. White or yellow spots on the tonsils or throat. Tender glands in the neck and under the jaw. Bad smelling breath. Red rash all over the body. This is rare. How is this diagnosed? This condition is diagnosed by tests that check for the presence and the amount of bacteria that cause strep throat. They are: Rapid strep test. Your throat is swabbed and checked for the presence of bacteria. Results are usually ready in minutes. Throat culture test. Your throat is swabbed. The sample is placed in a cup that allows infections to grow. Results are usually ready in 1 or 2 days. How is this treated? This condition may be treated with: Medicines that kill germs (antibiotics). Medicines that relieve pain or fever. These include: ?Ibuprofen or acetaminophen. ?Aspirin, only for people who are over the age of 18. ?Throat lozenges. ?Throat sprays. Follow these instructions at home: Medicines Take toeo-gfj-xqlilzl and prescription medicines only as told by your health care provider. Take your antibiotic medicine as told by your health care provider. Do not stop taking the antibiotic even if you start to feel better. Eating and drinking If you have trouble swallowing, try eating soft foods until your sore throat feels better. Drink enough fluid to keep your urine pale yellow. To help relieve pain, you may have: ?Warm fluids, such as soup and tea. ?Cold fluids, such as frozen desserts or popsicles. General instructions Gargle with a salt-water mixture 3 4 times a day or as needed. To make a salt-water mixture, completely dissolve 1 tsp (3 6 g) of salt in 1 cup (237 mL) of warm water. Get plenty of rest. Stay home from work or school until you have been taking antibiotics for 24 hours. Do not use any products that contain nicotine or tobacco. These products include cigarettes, chewing tobacco, and vaping devices, such as e-cigarettes. If you need help quitting, ask your health care provider. It is up to you to get your test results. Ask your health care provider, or the department that is doing the test, when your results will be ready. Keep all follow-up visits. This is important. How is this prevented? Do not share food, drinking cups, or personal items that could cause the infection to spread to other people. Wash your hands often with soap and water for at least 20 seconds. If soap and water are not available, use hand compounder sterile products. Make sure that all people in your house wash their hands well. Have family members tested if they have a sore throat or fever. They may need an antibiotic if they have strep throat. Contact a health care provider if: You have swelling in your neck that keeps getting bigger. You develop a rash, cough, or earache. You cough up a thick mucus that is green, yellow-brown, or bloody. You have pain or discomfort that does not get better with medicine. Your symptoms seem to be getting worse. You have a fever. Get help right away if: You have new symptoms, such as vomiting, severe headache, stiff or painful neck, chest pain, or shortness of breath. You have severe throat pain, drooling, or changes in your voice. You have swelling of the neck, or the skin on the neck becomes red and tender. You have signs of dehydration, such as tiredness (fatigue), dry mouth, and decreased urination. You become increasingly sleepy, or you cannot wake up completely. Your joints become red or painful. These symptoms may represent a serious problem that is an emergency. Do not wait to see if the symptoms will go away. Get medical help right away. Call your local emergency services (911 in the [place] Do not drive yourself to the hospital. Summary Strep throat is an infection in the throat that is caused by the Streptococcus pyogenes bacteria. This infection is spread from person to person (is contagious) through coughing, sneezing, or having close contact. Take your medicines, including antibiotics, as told by your health care provider. Do not stop taking the antibiotic even if you start to feel better. To prevent the spread of germs, wash your hands well with soap and water. Have others do the same. Do not share food, drinking cups, or personal items. Get help right away if you have new symptoms, such as vomiting, severe headache, stiff or painful neck, chest pain, or shortness of breath. This information is not intended to replace advice given to you by your health care provider. Make sure you discuss any questions you have with your health care provider. Document Revised: 09/30/2021 Document Reviewed: 09/30/2021 [employer] Patient Education 2022 [employer]. 12/08/2022 13:03:02 BMI for Adults BMI for Adults What is BMI? Body mass index (BMI) is a number that is calculated from a person's weight and height. BMI can help estimate how much of a person's weight is composed of fat. BMI does not measure body fat directly. Rather, it is an alternative to procedures that directly measure body fat, which can be difficult and expensive. BMI can help identify people who may be at higher risk for certain medical problems. What are BMI measurements used for? BMI is used as a screening tool to identify possible weight problems. It helps determine whether a person is obese, overweight, a healthy weight, or underweight. BMI is useful for: Identifying a weight problem that may be related to a medical condition or may increase the risk for medical problems. Promoting changes, such as changes in diet and exercise, to help reach a healthy weight. BMI screening can be repeated to see if these changes are working. How is BMI calculated? BMI involves measuring your weight in relation to your height. Both height and weight are measured, and the BMI is calculated from those numbers. This can be done either in [place] ([place] or metric measurements. Note that charts and online BMI calculators are available to help you find your BMI quickly and easily without having to do these calculations yourself. To calculate your BMI in [place] ([place] measurements: 1.Measure your weight in pounds (lb). 2.Multiply the number of pounds by 703. For example, for a person who weighs 180 lb, multiply that number by 703, which equals 126,540. 3.Measure your height in inches. Then multiply that number by itself to get a measurement called inches squared. For example, for a person who is 70 inches tall, the inches squared measurement is 70 inches x 70 inches, which equals 4,900 inches squared. 4.Divide the total from step 2 (number of lb x 703) by the total from step 3 (inches squared): 126,540 4,900 = 25.8. This is your BMI. To calculate your BMI in metric measurements: 1.Measure your weight in kilograms (kg). 2.Measure your height in meters (m). Then multiply that number by itself to get a measurement called meters squared. For example, for a person who is 1.75 m tall, the meters squared measurement is 1.75 m x 1.75 m, which is equal to 3.1 meters squared. 3.Divide the number of kilograms (your weight) by the meters squared number. In this example: 70 3.1 = 22.6. This is your BMI. What do the results mean? BMI charts are used to identify whether you are underweight, normal weight, overweight, or obese. The following guidelines will be used: Underweight: BMI less than 18.5. Normal weight: BMI between 18.5 and 24.9. Overweight: BMI between 25 and 29.9. Obese: BMI of 30 or above. Keep these notes in mind: Weight includes both fat and muscle, so someone with a muscular build, such as an athlete, may have a BMI that is higher than 24.9. In cases like these, BMI is not an accurate measure of body fat. To determine if excess body fat is the cause of a BMI of 25 or higher, further assessments may need to be done by a health care provider. BMI is usually interpreted in the same way for men and women. Where to find more information For more information about BMI, including tools to quickly calculate your BMI, go to these websites: Centers for Disease Control and Prevention: www.cdc.gov [place] [employer]: www.heart.org National Heart, Lung, and Blood [employer]: www.nhlbi.nih.gov Summary Body mass index (BMI) is a number that is calculated from a person's weight and height. BMI may help estimate how much of a person's weight is composed of fat. BMI can help identify those who may be at higher risk for certain medical problems. BMI can be measured using [place] measurements or metric measurements. BMI charts are used to identify whether you are underweight, normal weight, overweight, or obese. This information is not intended to replace advice given to you by your health care provider. Make sure you discuss any questions you have with your health care provider. Document Revised: 02/28/2020 Document Reviewed: 01/05/2020 [employer] Patient Education 2022 [employer]. Follow Up Care 12/08/2022 12:38:52 With:Angella Casas MD Address: [address] [place], [place] [id number] When: Unknown [facility] 04-24-2022 Hospital Discharg e instructions Patient Education 04/24/2022 15:30:02 Urinary Tract Infection, Adult Urinary Tract Infection, Adult A urinary tract infection (UTI) is an infection of any part of the urinary tract. The urinary tract includes the kidneys, ureters, bladder, and urethra. These organs make, store, and get rid of urine in the body. Your health care provider may use other names to describe the infection. An upper UTI affects the ureters and kidneys (pyelonephritis). A lower UTI affects the bladder (cystitis) and urethra (urethritis). What are the causes? Most urinary tract infections are caused by bacteria in your genital area, around the entrance to your urinary tract (urethra). These bacteria grow and cause inflammation of your urinary tract. What increases the risk? You are more likely to develop this condition if: You have a urinary catheter that stays in place (indwelling). You are not able to control when you urinate or have a bowel movement (you have incontinence). You are female and you: ?Use a spermicide or diaphragm for control. ?Have low estrogen levels. ?Are . You have certain genes that increase your risk (genetics). You are sexually active. You take antibiotic medicines. You have a condition that causes your flow of urine to slow down, such as: ?An enlarged prostate, if you are male. ?Blockage in your urethra (stricture). ?A kidney stone. ?A nerve condition that affects your bladder control (neurogenic bladder). ?Not getting enough to drink, or not urinating often. You have certain medical conditions, such as: ?Diabetes. ?A weak disease-fighting system (immunesystem). ?Sickle cell disease. ?Gout. ?Spinal cord injury. What are the signs or symptoms? Symptoms of this condition include: Needing to urinate right away (urgently). Frequent urination or passing small amounts of urine frequently. Pain or burning with urination. Blood in the urine. Urine that smells bad or unusual. Trouble urinating. Cloudy urine. Vaginal discharge, if you are female. Pain in the abdomen or the lower back. You may also have: Vomiting or a decreased appetite. Confusion. Irritability or tiredness. A fever. Diarrhea. The first symptom in older adults may be confusion. In some cases, they may not have any symptoms until the infection has worsened. How is this diagnosed? This condition is diagnosed based on your medical history and a physical exam. You may also have other tests, including: Urine tests. Blood tests. Tests for sexually transmitted infections (STIs). If you have had more than one UTI, a cystoscopy or imaging studies may be done to determine the cause of the infections. How is this treated? Treatment for this condition includes: Antibiotic medicine. Vybj-xbd-zmguxgs medicines to treat discomfort. Drinking enough water to stay hydrated. If you have frequent infections or have other conditions such as a kidney stone, you may need to see a health care provider who specializes in the urinary tract (urologist). In rare cases, urinary tract infections can cause sepsis. Sepsis is a life-threatening condition that occurs when the body responds to an infection. Sepsis is treated in the hospital with IV antibiotics, fluids, and other medicines. Follow these instructions at home: Medicines Take kjmv-oac-xcbzthb and prescription medicines only as told by your health care provider. If you were prescribed an antibiotic medicine, take it as told by your health care provider. Do not stop using the antibiotic even if you start to feel better. General instructions Make sure you: ?Empty your bladder often and completely. Do not hold urine for long periods of time. ?Empty your bladder after sex. ?Wipe from front to back after a bowel movement if you are female. Use each tissue one time when you wipe. Drink enough fluid to keep your urine pale yellow. Keep all follow-up visits as told by your health care provider. This is important. Contact a health care provider if: Your symptoms do not get better after 1 2 days. Your symptoms go away and then return. Get help right away if you have: Severe pain in your back or your lower abdomen. A fever. Nausea or vomiting. Summary A urinary tract infection (UTI) is an infection of any part of the urinary tract, which includes the kidneys, ureters, bladder, and urethra. Most urinary tract infections are caused by bacteria in your genital area, around the entrance to your urinary tract (urethra). Treatment for this condition often includes antibiotic medicines. If you were prescribed an antibiotic medicine, take it as told by your health care provider. Do not stop using the antibiotic even if you start to feel better. Keep all follow-up visits as told by your health care provider. This is important. This information is not intended to replace advice given to you by your health care provider. Make sure you discuss any questions you have with your health care provider. Document Released: 03/17/2006 Document Revised: 05/25/2019 Document Reviewed: 12/15/2018 [employer] Patient Education 2020 [employer]. 04/24/2022 15:30:02 Antibiotic Medicine, Adult Antibiotic Medicine, Adult Antibiotic medicines are used to treat infections caused by bacteria, such as strep throat and urinary tract infection (UTI). Antibiotic medicines will not work for viral illnesses, such as colds or the flu (influenza). They work by killing the bacteria that is making you sick. Antibiotics can also have serious side effects. It is important that you take antibiotic medicines safely and only when needed. When do I need to take antibiotics? Antibiotics are medicines that treat bacterial infections. You may need antibiotics for: UTI. Strep throat. Meningitis. This infection affects the spinal cord and brain. Bacterial sinusitis. Serious lung infection. You may start antibiotics while your health care provider waits for test results to come back. Common tests may include throat, urine, blood, or mucus culture. Your health care provider may change or stop the antibiotic depending on your test results. When are antibiotics not needed? You do not need antibiotics for most common illnesses. These illnesses may be caused by a virus, not a bacteria. You do not need antibiotics for: The common cold. Influenza. Sore throat. Discolored mucus. Bronchitis. Antibiotics are not always needed for all bacterial infections. Many of these infections clear up without antibiotic treatment. Do not ask for or take antibiotics when they are not necessary. How long should I take the antibiotic? You must take the entire prescription. Continue to take your antibiotic for as long as told by your health care provider. Do not stop taking it even if you start to feel better. If you stop taking it too soon: You may start to feel sick again. Your infection may become harder to treat. Complications may develop. Each course of antibiotics needs a different amount of time to work. Some antibiotic courses last only a few days. Some last about a week to 10 days. In some cases, you may need to take antibiotics for a few weeks to completely treat the infection. What if I miss a dose? Try not to miss any doses of medicine. If you miss a dose, call your health care provider or pharmacist for advice. Sometimes it is okay to take the missed dose as soon as possible. What are the risks of taking antibiotics? Most antibiotics can cause an infection called Clostridioides difficile (C. difficile or C. diff), which causes severe diarrhea. This infection happens when the antibiotics kill the healthy bacteria in your intestines. This allows C. diff to grow. The infection needs to be treated right away. Let your health care provider know if: You have diarrhea while taking an antibiotic. You have diarrhea after you stop taking an antibiotic. C. diff infection can start weeks after stopping the antibiotic. Taking an antibiotic also puts you at risk for getting a bacteria that does not respond to medicine (antibiotic-resistant infection) in the future. Antibiotics can cause bacteria to change so that if the antibiotic is taken again, the medicine is not able to kill the bacteria. These infections can be more serious and, in some cases, life-threatening. Do antibiotics affect control? control pills may not work while you are on antibiotics. If you are taking control pills, continue taking them as usual and use a second form of control, such as a condom, to avoid unwanted . Continue using the second form of control until your health care provider says you can stop. What else should I know about taking antibiotics? It is important for you to take antibiotics exactly as told. Make sure that you: Take the entire course of antibiotic that was prescribed. Do not stop taking your antibiotics even if your symptoms improve. Take the correct amount of medicine each day. Ask your health care provider: ?How long to wait in between doses. ?If the antibiotic should be taken with food. ?If there are any foods, drinks, or medicines that you should avoid while taking the antibiotics. ?If there are any side effects you should be aware of. Only use the antibiotics prescribed for you by your health care provider. Do not use antibiotics prescribed for someone else. Drink a large glass of water along with the antibiotics. Ask the pharmacist for a syringe, cup, or spoon that properly measures the antibiotics. Throw away any leftover medicine. Contact a health care provider if: Your symptoms get worse. You have new joint pain or muscle aches that begin after starting the antibiotic. When should I seek immediate medical care? You have signs of a serious allergic reaction to antibiotics. If you have signs of a severe allergic reaction, stop taking the antibiotic right away. Signs may include: ?Hives, which are raised, itchy, red bumps on the skin. ?Skin rash. ?Trouble breathing. ?A wheezing sound when you breathe. ?Swelling anywhere on your body. ?Feeling dizzy. ?Vomiting. Your urine turns dark or becomes blood-colored. Your skin turns yellow. You bruise or bleed easily. You have severe diarrhea and abdominal cramps. You have a severe headache. Summary Antibiotic medicines are used to treat infections caused by bacteria, such as strep throat and UTIs. It is important that you take antibiotic medicines only when needed. Your health care provider may change or stop the antibiotic depending on your test results. Most antibiotics can cause an infection called Clostridioides difficile (C. difficile or C. diff), which causes severe diarrhea. Let your health care provider know if you develop diarrhea while taking an antibiotic. Take the entire course of antibiotic that was prescribed. This information is not intended to replace advice given to you by your health care provider. Make sure you discuss any questions you have with your health care provider. Document Released: 02/17/2005 Document Revised: 12/06/2018 Document Reviewed: 06/08/2017 [place] Patient Education 2020 [employer] Follow Up Care 04/24/2022 13:42:01 With:Angella Casas Address: [address] [place], [place] [id number] [facility] (1) When:04/27/2022 15:29:11 Comments:Call the office of your primary care doctor to arrange for follow-up within the above-stated timeframe. Follow-up with your primary care doctor about this ED visit. You should review your labs, imaging, and diagnoses from this ED visit with your primary care physician. If you were prescribed medications you should discuss possible side-effects and drug interactions with your pharmacist. Call 911 or go to the nearest Emergency Department if you develop any new or worsening symptoms.Seek immediate medical attention if you develop:worsening abdominal pain, new or worsening nausea, new or worsening vomiting, new or worsening diarrhea, chest pain, shortness of breath, pain with urination, problems urinating, fever, chills, weakness, or any new or worsening symptoms. [facility] 04-24-2022 Evaluation + Plan note Extrac laisha from: Title:ED Note Author:Bereket Carlton DO Date:06/24/21 Acute UTI (N39.0: Urinary tr act infection, site not specified) Orders: cephalexin, 500 mg = 1 cap(s), Oral, q12hr, X 5 day(s), # 10 cap(s), Refills(s) 0, Pharmacy: [facility]/pharmacy #[id number], 152.4, cm, 04/24/22 13:46:00 EDT, Height/Length Dosing, 79, kg, 04/24/22 13:46:00 EDT, Weight Dosing Automated Diff Basic Metabolic Panel CBC w/ Auto Diff eGFR Influenza A&B Ag Rapid COVID Antigen ([facility] [place] UA With Cult Reflex Urine Culture Diagnostic Tests Pending * Urine Culture 04/24/22 [facility]10-28-2022 Hospital Discharge instructions Patient Education 04/17/2022 14:09:13 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 Gradually increase your activity daily for example: no lifting anything heavier than ten pounds the first week, twenty pounds the second week, and thirty pounds the third week. NO: intercourse, douches, and tampons for the next 6 weeks. You can expect some vaginal spotting, cramps or light bleeding after surgery. This is normal. Each day should get better and better. If you are soaking a pad an hour or more frequently you need to call your doctor. You can ride in a car; Drive when it is not painful. If it is painful, don t do it. Stitches will dissolve with time and do not need to be removed. The band aids can be removed tomorrow. Leave the steri strips on. They may fall off and that is o.k. You may place band aids over the steri strips if there is drainage. You can shower with the incisions the day after surgery. Try to keep the steri strips as dry as possible. No tub baths, swimming, or soaking in water until after yourtwo week follow up appointment. Return to the office for postoperative check, and to go over any biopsy results at your scheduled appointment; usually two weeks following your surgery; and then at six weeks after surgery. Please call the office to schedule these appointments. CALL THE DOCTOR if you have severe pain, heavy bleeding, or a temperature of 100.5 or higher. Resume your regular home medication schedule as soon as you are eating a regular diet. You can either take the prescribed medications as directed for pain, or you can take over the counter pain medication, such as Motrin; as indicated on the package for pain or cramps. PLEASE CALL FOR ANY PROBLEMS. 04/17/2022 14:09:13 Post Op Patient Instructions - FT (Naveed) (CUSTOM) Follow Up Care 04/01/2022 10:40:57 With:Jac Shepard Address: [address] [place] [address], [place] [id number] Business (1) When:2 weeks Comments:Call for any problems. [facility]10-28-2022 NoteHOSPITAL REGULATIONS: All Positive and Important Negative Findings Shall Be Recorded DATE ADMITTED: 04/17/2022 ADMITTING DIAGNOSIS: Leiomyomata, menorrhagia, possible adenomyosis. The patient is a 36 year old white female who presented in referral from Dr. Chandrakant Oates. She is having difficulty with prolonged irregular periods that were disrupting her life. They are associated with pain. She had undergone an ultrasound which revealed a leiomyomatous uterus with several submucosal leiomyomata as well as the possibility of adenomyosis. We had a discussion as to alternatives of care and because of the anatomic issues the patient desired more definitive surgical management. She is done having children. She is status post tubal ligation in the past. We ultimately discussed robotic assisted hysterectomy and removal of tubal remnants. At the time we plan to leave both ovaries, if possible, or one at least to produce hormones for her as long as they look normal. We discussed the risks involved including bleeding, infection, injury to internal organs, all of which she understood, accepted, appropriately signed consent forms and was made ready for the Operative Suite. PAST MEDICAL HISTORY: Allergies: No known allergies. Medications: Meloxicam, Omeprazole, Duloxetine. Illnesses: Anxiety, menorrhagia. PAST SURGICAL HISTORY:Tonsillectomy 1997, tubal ligation in 2012, cholecystectomy in 2015, broken pelvis with external fixation with pins with broken sternum and broken ribs in 2019, screws removed in 2020. FAMILY HISTORY:Positive for hypertension and diabetes in maternal grandmother; mother with cervicalcancer in her 30's. Father because of cancer. PSYCHOSOCIAL HISTORY:Current everyday smoker, negative for ETOH. REVIEW OF SYSTEMS:Menorrhagia. PHYSICAL EXAMINATION Well developed, well nourished white female, in no acute distress. VITAL SIGNS: Afebrile, pulse 80, respirations 18, blood pressure 100/64. HEAD, E.E.N.T.: Normocephalic, extraocular muscles intact. Pupils equal and responsive to accommodation. Nose and throat clear. NECK: Without mass, without thyromegaly. LUNGS: Clear to auscultation and percussion. HEART: Regular rate and rhythm. BREASTS: Nonpathologic. ABDOMEN: Soft, non-tender, positive bowel sounds. Uterus irregular, palpable at pelvic brim. PELVIC: Normal external genitalia, vault within normal limits, cervix without lesion, uterus 10 week size, moderately irregular, adnexa without mass, non-tender. IMPRESSION:Leiomyomatous uterus, submucosal leiomyomata as well as possibility of adenomyosis with menorrhagia for definitive surgical management. Jac Shepard M.D. lr Dictated: 04/17/2022 [id number] Transcribed: 04/17/2022[facility] HospitalComment [facility] above:Result Comment: Electronically Signed By: Devyn HERNANDEZ, Jac Shea\.br\Date and Time Signed: 04/17/22 10:24 [id number] Hospital Discharge instructions Patient Education 11/28/2021 23:01:49 Urinary Tract Infection, Adult, [id number] Urinary Tract Infection, Adult A urinary tract infection (UTI) is an infection of any part of the urinary tract. The urinary tractincludes: The kidneys. The ureters. The bladder. The urethra. These organs make, store, and get rid of pee (urine) in the body. What are the causes? This is caused by germs (bacteria) in your genital area. These germs grow and cause swelling (inflammation) of your urinary tract. What increases the risk? You are more likely to develop this condition if: You have a small, thin tube (catheter) to drain pee. You cannot control when you pee or poop (incontinence). You are female, and: ?You use these methods to prevent : ?A medicine that kills sperm (spermicide). ?A device that blocks sperm (diaphragm). ?You have low levels of a female hormone (estrogen). ?You are . You have genes that add to your risk. You are sexually active. You take antibiotic medicines. You have trouble peeing because of: ?A prostate that is bigger than normal, if you are male. ?A blockage in the part of your body that drains pee from the bladder (urethra). ?A kidney stone. ?A nerve condition that affects your bladder (neurogenic bladder). ?Not getting enough to drink. ?Not peeing often enough. You have other conditions, such as: ?Diabetes. ?A weak disease-fighting system (immune system). ?Sickle cell disease. ?Gout. ?Injury of the spine. What are the signs or symptoms? Symptoms of this condition include: Needing to pee right away (urgently). Peeing often. Peeing small amounts often. Pain or burning when peeing. Blood in the pee. Pee that smells bad or not like normal. Trouble peeing. Pee that is cloudy. Fluid coming from the vagina, if you are female. Pain in the belly or lower back. Other symptoms include: Throwing up (vomiting). No urge to eat. Feeling mixed up (confused). Being tired and grouchy (irritable). A fever. Watery poop (diarrhea). How is this treated? This condition may be treated with: Antibiotic medicine. Other medicines. Drinking enough water. Follow these instructions at home: Medicines Take [id number]-[id number] and prescription medicines only as told by your doctor. If you were prescribed an antibiotic medicine, take it as told by your doctor. Do not stop taking it even if you start to feel better. General instructions Make sure you: ?Pee until your bladder is empty. ?Do not hold pee for a long time. ?Empty your bladder after sex. ?Wipe from front to back after pooping if you are a female. Use each tissue one time when you wipe. Drink enough fluid to keep your pee pale yellow. Keep all follow-up visits as told by your doctor. This is important. Contact a doctor if: You do not get better after 1 2 days. Your symptoms go away and then come back. Get help right away if: You have very bad back pain. You have very bad pain in your lower belly. You have a fever. You are sick to your stomach (nauseous). You are throwing up. Summary A urinary tract infection (UTI) is an infection of any part of the urinary tract. This condition is caused by germs in your genital area. There are many risk factors for a UTI. These include having a small, thin tube to drain pee and notbeing able to control when you pee or poop. Treatment includes antibiotic medicines for germs. Drink enough fluid to keep your pee pale yellow. This information is not intended to replace advice given to you by your health care provider. Make sure you discuss any questions you have with your health care provider. Document Released: 11/23/2008 Document Revised: 05/25/2019 Document Reviewed: 12/15/2018 [place] Patient Education 2020 [employer]. Follow Up Care 11/28/2021 21:47:33 With:Angella Casas Address: [address] [place] [address]- Business (1) When:12/01/2021 [facility]06-10-2022 Evaluation + Plan note Diagnostic Tests Pending * Urine Culture 11/28/21 [facility] Future Appointments Appointment Date:04/17/2022 11:30:00 AM Scheduled Provider: Location:[facility] App[facility]ment [facility] FT [facility] Narrative No data available for this section [facility] Discharge instructions No data available for this section [facility] note No data available for this section [facility] Summary Purpose Family History No Family History Records FoundNo Family History Records FoundNo Family History Records FoundNo Family History Records Found Advance Directives No Advanced Directives Records FoundNo Advanced Directives Records FoundNo Advanced Directives Records FoundNo Advanced Directives Records Found Additional Source Comments INFORMATION SOURCE (unrecogn ized section and content) DATE CREATED AUTHOR 09/15/[address] [facility] DATE CREATED AUTHOR AUTHOR'S ORGANIZ ATION 09/10/2021 [facility] DATE CREATED AUTHOR AUTHOR'S ORGANIZ ATION 11/24/2021 [facility] DATE CREATED AUTHOR AUTHOR'S ORGANIZ ATION 01/22/2023 [facility] Patient Care team informatio n (unrecognized section and content) Personnel Name: Angella Casas MD Address: Address: [address] [place] [address] Personnel Name: Angella Casas MD Address: Address: [address] [place] [address] Personnel Name: Angella Casas MD Address: Address: [address] [place] [address] Personnel Name: Angella Casas MD Address: Address: [address] [place] [address] Personnel Name: Angella Casas MD Address: Address: [address] [place] [address] Personnel Name: Angella Casas MD Address: Address: [address] [place] [address] Personnel Name: Angella Casas MD Address: Address: [address] [place] [address] FOR RECORDS PERTAINING TO PATIENTS WHO ARE OR HAVE BEEN ENROLLED IN A CHEMICAL DEPENDENCY/SUBSTANCEABUSE PROGRAM, SOME INFORMATION MAY BE OMITTED. This clinical summary was aggregated from multiple sources. Caution should be exercised in using it in the provision of clinical care. This summary normalizes information from multiple sources, and as a consequence, information in this document may materially change the coding, format and clinical context of patient data. In addition, data may be omitted in some cases. CLINICAL DECISIONS SHOULD BE BASED ON THE PRIMARY CLINICAL RECORDS. [facility] [employer] [facility]. provides no warranty or guarantee of the accuracy or completeness of information in this document.
[2023-10-13 21:52] VITALS: BP 137/88; PULSE 100; TEMP 36.4; O2SAT 99; BMI 33.3
--- NOTE | 2023-10-13 22:27 | ED_ITS ---
HPI - Female Genitourinary General Chief complaint: Urogenital-Female Stated complaint: UTI Time Seen by Provider: 10/13/23 22:25 Source: patient Mode of arrival: walk-in Limitations: no limitations History of Present Illness HPI Narrative: This 38-year-old female with a history of frequent urinary tract infections presents for evaluation of urinary frequency and urgency and dysuria starting 2 days ago. She has had some mild low back pain for the past several days. She denies any fevers or chills. She has not had any nausea vomiting. She states her last urinary tract infection was in May. She has leftover Pyridium from that. She denies the possibility of because she has had a hysterectomy. Related Data Home Medications ?Medication ?Instructions ?Recorded ?Confirmed duloxetine 60 mg capsule,delayed 60 mg PO DAILY 08/08/23 10/13/23 release omeprazole 40 mg capsule,delayed 40 mg PO DAILY 08/08/23 10/13/23 release Previous Rx's ?Medication ?Instructions ?Recorded ondansetron 4 mg disintegrating 4 mg PO Q6H PRN nausea and 08/08/23 tablet vomiting #12 tabs phenazopyridine 200 mg tablet 200 mg PO Q8H 2 days #6 tabs 08/08/23 (Pyridium) Allergies Allergy/AdvReac Type Severity Reaction Status Date / Time sulfamethoxazole Allergy Severe Verified 10/13/23 21:55 [From Bactrim] trimethoprim [From Bactrim] Allergy Severe Verified 10/13/23 21:55 Review of Systems ROS Status of ROS 10 or more systems reviewed and unremark able except as noted in history and below Exam Narrative Exam Narrative: Nurses note and vital signs reviewed and patient is not hypoxic. General: The patient appears well and in no apparent distress. Patient is res ting comfortably on cart. Skin: Warm, dry, no pallor noted. There is no rash noted. Head: Normocephalic, atraumatic Eye: Normal conjunctiva, no drainage, EOMI. PERRL Ears, Nose, Mouth, and Throat: oral mucosa is moist. Nares patent. Mouth without vesicles. Ear canals patent. Tm's without Erythema Cardiovascular: Regular Rate and Rhythm Respiratory: Patient is in no distress, no accessory muscle use, lungs are clear to auscultation, no wheezing, rales or rhonchi Back: non-tender, no CVA tenderness bilaterally to percussion. GI: Normal bowel sounds, no tenderness to palpation, no masses appreciated. No rebound, guarding, or rigidity noted. Musculoskeletal: The patient has no evidence of calf tenderness, no pitting edema, symmetrical pulses noted bilaterally Neurological: A&O x4, normal speech Psychiatric: Cooperative Constitutional Vital Signs, click to edit/add: Last Vital Signs Temp 97.6 F 10/13/23 21:52 Pulse 75 10/13/23 22:47 Resp 16 10/13/23 22:47 BP 140/86 10/13/23 22:47 Pulse Ox 98 10/13/23 22:47 O2 Del Method Room Air 10/13/23 22:47 Course Vital Signs Vital signs: Vital Signs Temperature 97.6 F 10/13/23 21:52 Pulse Rate 100 H 10/13/23 21:52 Respiratory Rate 16 10/13/23 21:52 Blood Pressure 137/88 10/13/23 21:52 Pulse Oximetry 99 10/13/23 21:52 Oxygen Delivery Method Room Air 10/13/23 21:52 Temperature 97.6 F 10/13/23 21:52 Pulse Rate 75 10/13/23 22:47 Respiratory Rate 16 10/13/23 22:47 Blood Pressure 140/86 10/13/23 22:47 Pulse Oximetry 98 10/13/23 22:47 Oxygen Delivery Method Room Air 10/13/23 22:47 MDM - Female Genitourinary MDM Narrative Medical decision making narrative: This 38-year-old female status post hysterectomy and has for urinary tract infections presents for evaluation of urinary tract infection symptoms including urinary frequency urgency and dysuria. She denies any hematuria. She had some low back pain several days ago but denies any pain at this time. She has not had any fevers or chills. She has not had any nausea or vomiting. Her symptoms are consistent with a urinary tract infection. Urine is positive for nitrites and WBC, culture is pending. She has leftover Pyridium from her last urinary tract i nfection. She states that Cipro typically helps for urinary tract infections better than Keflex and amoxicillin gives her yeast infections. She is medicated in emergency department with a dose of Cipro and will be discharged home with a prescription for Cipro to use for the next 7 days. She was encouraged to drink plenty of fluids and return to emergency department as needed for ongoing or worsening symptoms including flank pain or fever. Lab Data Labs: Lab Results 10/13/23 Range/Units 21:47 Urine Color Lt. yellow (YELLOW) Urine Clarity Clear (CLEAR) Urine pH 5.5 (5.0-9.0) Ur Specific [place] >=1.030 A (1.005-1.025) Urine Protein Negative (NEG/TRACE) mg/dL Urine Glucose (UA) Negative (NEGATIVE) mg/dL Urine Ketones Negative (NEGATIVE) mg/dL Urine Occult Blood Trace-i (NEGATIVE) Urine Nitrite Positive A (NEGATIVE) Urine Bilirubin Negative (NEGATIVE) Urine Urobilinogen 0.2 (0.2-1.0) EU/dL Ur Leukocyte Esterase Small A (NEGATIVE) Urine RBC 5-10 A (0-2) #/HPF Urine WBC 10-20 A (NONE SEEN) #/HPF Ur Squamous Epith Cells Few A (NONE/RARE) #/LPF Urine Crystals None seen (None Seen) #/HPF Urine Bacteria Small A (NONE SEEN) #/HPF Urine Casts None seen (NONE SEEN) #/LPF Urine Mucus None seen (NONE SEEN) Ur Culture Indicated? Yes Discharge Plan Discharge Stand Alone Forms: Portal Instructions Chief Complaint: Urogenital-Female Clinical Impression: Urinary tract infection Patient Disposition: Home, Self-Care Time of Disposition Decision: 22:26 Condition: Good Mode of Transportation: Private Vehicle Prescriptions / Home Meds: No Action duloxetine 60 mg capsule,delayed release(DR/EC) 60 mg PO DAILY omeprazole 40 mg capsule,delayed release(DR/EC) 40 mg PO DAILY phenazopyridine [Pyridium] 200 mg tablet 200 mg PO Q8H 2 Days Qty: 6 0RF ondansetron 4 mg tablet,disintegrating 4 mg PO Q6H PRN (Reason: nausea and vomiting) Qty: 12 0RF Print Language: Lao Instructions: Urinary Tract Infection in Women (ED) Referrals: NORA BHAT [Primary Care Provider] - 1 week Discharge Date/Time: 10/13/23 22:47
[2023-10-13 22:32] LABS: Bilirubin Urine NEGATIVE (NEGATIVE); Blood Urine TRACE-I (NEGATIVE); Clarity Urine CLEAR (CLEAR); Color Urine LT. YELLOW (YELLOW); Glucose Urine UA NEGATIVE (NEGATIVE); Ketones Urine NEGATIVE (NEGATIVE); Leukocyte Esterase Urine SMALL (NEGATIVE); Nitrite Urine POSITIVE (NEGATIVE); Protein Urine NEGATIVE (NEG/TRACE); Specific Gravity Urine >=1.030 (1.005-1.025); Urobilinogen Urine 0.2 EU/dL (0.2-1.0); pH Urine 5.5 (5.0-9.0)
[2023-10-13 22:41] LABS: Bacteria Urine SMALL #/HPF (NONE SEEN); Cast Seen? NONE SEEN #/LPF (NONE SEEN); Crystals Seen? None Seen #/HPF (None Seen); Mucus Urine NONE SEEN (NONE SEEN); Squamous Epithelial Cell Urine FEW #/LPF (NONE/RARE); Urine Culture Indicated YES
[2023-10-13] MEDS: CIPROFLOXACIN HCL 500 MG TABLET PO (22:45)
[2023-10-13 22:47] VITALS: BP 140/86; PULSE 75; O2SAT 98
== END 2023-10-13 22:47 | disposition home or self-care (01) ==
PROVIDERS: Emergency Provider Emergency Medicine
DX: N39.0 Urinary tract infection, site not specified (principal); Z90.710 Acquired absence of both cervix and uterus; Z79.899 Other long term (current) drug therapy; Z87.440 Personal history of urinary (tract) infections
CPT/HCPCS: 81001; 87086; 99283

== ENCOUNTER 2024-02-27 16:28 | Emergency (ER) | payer OTHER, SELFPAY ==
[2024-02-27 16:37] VITALS: BP 131/94; PULSE 58; TEMP 36.6; O2SAT 98; BMI 33.9
--- NOTE | 2024-02-27 16:42 | ED.FEMALEGU1 ---
HPI - Female Genitourinary General Chief complaint: Urogenital-Female Stated complaint: UTI Time Seen by Provider: 02/27/24 16:34 Source: patient Mode of arrival: walk-in Limitations: no limitations History of Present Illness HPI Narrative: 38-year-old female presents to the ER with concerns of UTI. States symptoms started this morning, urgency frequency and discomfort with urination. She denies any vaginal discharge or external lesions. Patient has had symptoms 2 times previously 6 to 8 months. She denies any nausea or vomiting. She notes discomfort in her lower pelvis and lower back but denies severe pain. Coming in to get it treated early. Patient did take an [id number] medication to try and help symptoms while she was at work which did not help. Patient reports having Cipro for the last 2 UTIs but expressed she does not have a preference on which antibiotic we used today. She reports a history of frequent UTIs. Denies concern for sexually transmitted disease and her symptoms have resolved previously with antibiotic use. MD elicited complaint: Reports dysuria and UTI Related Data Home Medications ?Medication ?Instructions ?Recorded ?Confirmed duloxetine 60 mg capsule,delayed 60 mg PO DAILY 08/08/23 02/27/24 release omeprazole 40 mg capsule,delayed 40 mg PO DAILY 08/08/23 02/27/24 release Previous Rx's ?Medication ?Instructions ?Recorded cephalexin 500 mg capsule 500 mg PO BID 7 days #14 caps 02/27/24 phenazopyridine 200 mg tablet 200 mg PO TID PRN pain 2 days #6 02/27/24 (Pyridium) tabs Allergies Allergy/AdvReac Type Severity Reaction Status Date / Time sulfamethoxazole Allergy Severe yeast Verified 02/27/24 16:37 [From Bactrim] infection trimethoprim [From Bactrim] Allergy Severe yeast Verified 02/27/24 16:37 infection Review of Systems ROS Constitutional Denies: fever or change in weight Eyes Denies: change in vision Ears, nose, mouth, and throat Denies: throat pain or neck pain Cardiovascular Denies: chest pain or palpitations Respiratory Denies: shortness of breath or cough Gastrointestinal Denies: abdominal pain, nausea or vomiting Genitourinary Reports: painful urination, urinary frequency and urinary urgency; Denies: urinary incontinence Musculoskeletal Reports: back pain; Denies: neck pain Integumentary/Breast Denies: rash Neurological Denies: headache or numbness in extremities Psychiatric Denies: anxiety PFSH PFSH Social History Little interest or pleasure in doing things: not at all Feeling down, depressed, or hopeless: not at all Exam Narrative Exam Narrative: Nurses notes and vital signs reviewed and patient is not hypoxic. General: The patient appears well and in no apparent distress. Patient is resting comfortably on cart. Skin: Warm, dry, no pallor noted. Head: Normocephalic, atraumatic Neck: Supple, trachea mid-line, no tenderness, no lymphadenopathy Eye: Pupils are equal, round and reactive to light, EOMI Ears, Nose, Mouth, and Throat: TM are clear, normal light reflex, oral mucosa is moist, no posterior oropharynx erythema or hypertrophy, uvula is mid-line Cardiovascular: Regular Rate and Rhythm Respiratory: Patient is in no distress, no accessory muscle use, lungs are clear to auscultation, no wheezing, rales or rhonchi. Chest Wall: no tenderness Back: non-tender, no CVA tenderness Musculoskeletal: normal ROM, no tenderness, no swelling GI: Normal bowel sounds, no tenderness to palpation, no masses appreciated. No rebound, guarding, or rigidity noted. Neurological: A&O x4 Psychiatric: Cooperative Constitutional Vital Signs, click to edit/add: Last Vital Signs Temp 98 F 02/27/24 16:37 Pulse 58 L 02/27/24 16:37 Resp 18 02/27/24 16:37 BP 131/94 H 02/27/24 16:37 Pulse Ox 98 02/27/24 16:37 O2 Del Method Room Air 02/27/24 16:37 Course Vital Signs Vital signs: Vital Signs Temperature 98 F 02/27/24 16:37 Pulse Rate 58 L 02/27/24 16:37 Respiratory Rate 18 02/27/24 16:37 Blood Pressure 131/94 H 02/27/24 16:37 Pulse Oximetry 98 02/27/24 16:37 Oxygen Delivery Method Room Air 02/27/24 16:37 Temperature 98 F 02/27/24 16:37 Pulse Rate 58 L 02/27/24 16:37 Respiratory Rate 18 02/27/24 16:37 Blood Pressure 131/94 H 02/27/24 16:37 Pulse Oximetry 98 02/27/24 16:37 Oxygen Delivery Method Room Air 02/27/24 16:37 MDM - Female Genitourinary MDM Narrative Medical decision making narrative: Benign exam, no abdominal tenderness, no CVA tenderness. We discussed need to return if her symptoms worsen or new symptoms develop. We discussed proper hygiene with wiping front to back and possible treatment with postcoital antibiotics given her recurrence of symptoms. Patient will discuss this further with her MATERIAL SPECIALIST. She is agreeable to Keflex after review of her prior urine cultures x 2 showing E. coli and sensitivities. We discussed the use of Cipro with her medications and potential interactions. Patient declines the need for any nausea medication. She will be given a few doses of Pyridium to help with symptoms pending outpatient follow-up. Patient had no further concerns or questions The patient is to followup with primary care physician in next 2-3 days or to return to the emergency department should any of the signs or symptoms worsen or new symptoms develop. Patient had questions answered. The patient agrees with the following Diagnosis and Treatment plan and the patient will be discharged home. Lab Data Attestation: I reviewed the patient's lab results. Labs: Lab Results 02/27/24 Range/Units 16:35 Urine Color Lt. yellow (YELLOW) Urine Clarity Clear (CLEAR) Urine pH 6.5 (5.0-9.0) Ur Specific [place] 1.010 (1.005-1.025) Urine Protein Negative (NEG/TRACE) mg/dL Urine Glucose (UA) Negative (NEGATIVE) mg/dL Urine Ketones Negative (NEGATIVE) mg/dL Urine Occult Blood Negative (NEGATIVE) Urine Nitrite Negative (NEGATIVE) Urine Bilirubin Negative (NEGATIVE) Urine Urobilinogen 0.2 (0.2-1.0) EU/dL Ur Leukocyte Esterase Small A (NEGATIVE) culture pending. Discharge Plan Discharge Chief Complaint: Urogenital-Female Clinical Impression: Urinary tract infection Patient Disposition: Home, Self-Care Time of Disposition Decision: 16:51 Condition: Good Prescriptions / Home Meds: New phenazopyridine [Pyridium] 200 mg tablet 200 mg PO TID PRN (Reason: pain) 2 Days Qty: 6 0RF cephalexin 500 mg capsule 500 mg PO BID 7 Days Qty: 14 0RF No Action duloxetine 60 mg capsule,delayed release(DR/EC) 60 mg PO DAILY omeprazole 40 mg capsule,delayed release(DR/EC) 40 mg PO DAILY Print Language: Amharic Instructions: Urinary Tract Infection in Women (ED) Additional Instructions: Urine culture pending. Referrals: NORA BHAT [Primary Care Provider] - 1 week JAC EASTON [Physician] - As soon as possible Discharge Date/Time: 02/27/24 17:10
[2024-02-27] MEDS: PHENAZOPYRIDINE 100 MG TABLET 200 MG PO (16:58)
[2024-02-27] MEDS: CEPHALEXIN 500 MG CAPSULE PO (16:58)
--- OUTSIDE RECORDS SUMMARY | 2024-02-27 17:01 | XMS_ITS | CCD ---
Author Organization [facility] Informat ion Partnership [facility] Care Team Providers Care Vehicle Calibration Engineer Name Role Phone SAL SCHMID Admitting Unavailable SAL SCHMID Attending Unavailable SAL SCHMID Referring Unavailable SAL SCHMID Admitting Unavailable PROVIDER, UNKNOWN Attending Unavailable PROVIDER, [...] UNKNOWN Attending Unavailable PROVIDER, UNKNOWN Admitting Unavailable SAL SCHMID Referring Unavailable PROVIDER, UNKNOWN Attending Unavailable PROVIDER, UNKNOWN Admitting Unavailable Angella Bhat Primary Care Physician Heladio Roth. Attending Unavailable Heladio Roth Attending Unavailable Elsi Kelsey Attending Unavailable MOHSEN STEWART Attending Unavailable Heladio Roth Admitting Unavailable Heladio Roth Attending Unavailable ANGELLA BHAT Attending Unavailable Allergies Allergy Classification Reported Allergen(s) Allergy Type Date of Onset Reaction(s) Facility (1 source) SULFAMETHOXAZOLE W-TRIMETHOPRIM; Translations: [SULFAMETHOXAZOLE W-TRIMETHOPRIM] Propensity to adverse reactions to drug (disorder) 12-20 21 [facility] sources) Sulfamethoxazole / Trimethoprim; Translations: [sulfamethoxazole-t rimethoprim] Drug Allergy Yeast (substance) [facility] Medications Current Medications Medication Drug Class(es) Dates Sig (Normalized) Sig (Original) acetaminophen 325 mg / oxyCODONE hydrochloride 5 mg oral tablet (1 source) Opioid Agonist Start: 10-28-2022 End: 04-19-2022 Percocet 325 mg-5 mg Tab 1 tab(s), Oral, q6hr for pain for 2 day(s), 7 tab(s), Refill(s) 0, [facility]/pharmacy #[id number], 152, cm, 04/08/22 13:53:00 EDT, Height/Length [...] day(s), # 20 cap(s), Refills(s) 0, Pharmacy: [facility]/pharmacy #[id number], 152, cm, 12/08/22 12:57:00 EDT, Height/Length [...] day(s), # 21 cap(s), Refills(s) 0, Pharmacy: [facility]/pharmacy #[id number], 153, cm, 12/23/22 18:41:00 EDT, Height/Length Dosing, 79.4, kg, 01/18/23 13:28:00 EDT, Weight Dosing Start Date: 01/18/23 Stop Date: 01/25/23 Status: Ordered Start: 04-24-2022 End: 04-29-2022 take 1 capsule by mouth every twelve hours Keflex 500 mg Cap 500 mg = 1 cap(s), Oral, q12hr, X 5 day(s), # 10 cap(s), Refills(s) 0, Pharmacy: [facility]/pharmacy #[id number], 152.4, cm, 04/24/22 13:46:00 EDT, Height/Length Dosing, 79, kg, 04/24/22 13:46:00 EDT, Weight Dosing Start Date: 04/24/22 Stop Date: 04/29/22 Status: Ordered Start: 11-28-2021 take 1 capsule by mo [facility] every twelve hours cephalexin 500 mg Cap 500 mg = 1 cap(s), Oral, q12hr, # 20 cap(s), Refills(s) 0, Pharmacy: [facility]/pharmacy #[id number], 152, cm, 11/28/21 21:52:00 EDT, Height/Length Dosing, 73, kg, 11/28/21 21:52:00 EDT, Weight Dosing Start Date: 11/28/21 Status: Ordered Cymbalta 60 mg Cap-DR (5 sources) Start: 09-06-2019 take 1 capsule by mouth at bedtime Cymbalta 60 mg Cap-DR 60 mg, Oral, Bedtime, Refills(s) 0, Depression Start Date: 09/06/19 Status: Ordered Start: 09-06-2019 take 1 capsule by [facility] at bedtime Cymbalta 60 mg [...] Ordered Start: 09-07-2019 take 1 tablet by [facility] once daily Pantoprazole [address] Tab 40 mg = 1 tab(s), Oral, Daily, Refills(s) 0 Start Date: 09/07/19 Status: Ordered phenazopyridine hydrochloride 100 mg oral tablet (2 sources) Start: 01-18-2023 End: 01-21-2023 take 1 tablet by mouth three times daily Pyridium 100 mg Tab 100 mg = 1 tab(s), Oral, TID, X 3 day(s), # 9 tab(s), Refills(s) 0, Pharmacy: [facility]/pharmacy #[id number], 153, cm, 12/23/22 18:41:00 EDT, Height/Length [...] SOURCE: Gonzalez FRANCES, Heladio Roth PA-C, Heladio Mei FINAL REPORTS Final Report [] Verified Date/Time: [...] Locations R1: This test was performed at: [facility], [address] [place] [address], [phone]- , , [facility] Comment on above: Performed By: #### [id number] #### [facility] [address] [place] [id number] Family Medicine Office/Clini c Noteon 01-18-2023 Family [...] with voice recognition software. Occasional wrong-word or ?fvywf-v-jupf? substitutions may have occurred due to the [...] day(s), # 21 cap(s), Refills(s) 0, Pharmacy: [facility]/pharmacy #[id number], 153, cm, 12/23/22 18:41:00 EDT, Height/Length Dosing, 79.4, kg, 01/18/23 13:28:00 EDT, Weight Dosing phenazopyridine, 100 mg = 1 tab(s), Oral, TID, X 3 day(s), # 9 tab(s), Refills(s) 0, Pharmacy: [facility]/pharmacy #[id number], 153, cm, 12/23/22 18:41:00 EDT, Height/Length [...] day(s), # 21 cap(s), Refills(s) 0, Pharmacy: [facility]/pharmacy #[id number], 153, cm, 12/23/22 18:41:00 EDT, Height/Length Dosing, 79.4, kg, 01/18/23 13:28:00 EDT, Weight Dosing phenazopyridine, 100 mg = 1 tab(s), Oral, TID, X 3 day(s), # 9 tab(s), Refills(s) 0, Pharmacy: [facility]/pharmacy #[id number], 153, cm, 12/23/22 18:41:00 EDT, Height/Length Dosing, 79.4, kg, 01/18/23 13:28:00 EDT, Weight Dosing Body Mass Index (BMI) documented 3008F Frequency of urination (R35.0: Frequency of micturition) Ordered: Urnls Dip Stick Non-Auto w/o Micrscpy POC 97836 Follow-up With When Contact Information Yessenia HERNANDEZ, Angella Solomon [address] [place] [id number]- Additional Instructions: Patient Education BMI for Adults [...] Current vaping (more content not included)... Normal [facility] Comment on above: Result Comment: Elec tronically Signed By: Gonzalez FRANCES, Heladio Mei\.br\Date and Time Signed: 01/18/23 13:43 EDT Patient Educationon 01-19-20 23 Patient Education Nutrition BMI for Adults What [...] numbers. This can be done either in [place]ian (U.S.) or metric measurements. Note that charts and online BMI calculators are available to help you find your BMI quickly and easily without having to do these calculations yourself. To calculate your BMI in [place]ian ([place].S.) measurements: 1. Measure your weight in [...] for Disease Control and Prevention: www.cdc.gov ? [place] Heart Association: www.heart.org ? National Heart, Lung, and Blood Union: www.nhlbi.nih.gov Summary ? Body mass index (BMI) is a number that is calculated from a person's weight and height. ? BMI may help estimate how much of a person's weight is composed of fat. BMI can help identify those who may be at higher risk for certain medical problems. ? BMI can be measured using Malian measurements or metric measurements. ? BMI charts are used to identify whether you are underweight, normal weight, overweight, or obese. This information is not intended to replace advice given to you by your health care provider. Make sure you discuss any questions you have with your health care provider. Document Revised: 02/28/2020 Document Reviewed: 01/05/2020 ElseDispop Patient Education ? 2022 [employer] [place]. Obstetrics and Gynecology Urinary Tract Infection, Adult [...] condition if: (more content not included)... Normal [facility] Patient Letter FTon 2022 Patient Letter [facility] [address] [facility], [facility] [place] [phone] January 18, 2023 BEA CALVO [address] [facility] [address] [place] [address] : 1985 Please excuse BEA CALVO from work . Date and/or Time of Absence: From: 01/18/2023 To: 01/19/2023 May return to work on: 01/19/2023 Restrictions: None Comments: Please excuse due to an acute illness. Provider Signature: Heladio Roth PA-C Physician Mixer Pigment [facility] [address] [facility] [place] [address] [facility] Family Medicine Office/Clini c Noteon 12-23-2022 Family Medicine [...] with voice recognition artificial intelligence software, specifically Ecohaus, BuddyBounce and or PowerPot. Substitutions may have occurred due to the [...] of tx plan. Ordered: Rapid Strep POC 28006 Follow-up With When Contact Information Angella B[place] [address]- Additional Instructions: Patient Education Strep Throat, Adult, Folj-ez-Bgcr Rapid Strep Test Strep Throat, Adult Problem [...] with above documentation and plan of care. [facility] Comment on above: Result Comment: Elec [...] these instructions at home: Medicines ? Take czag-add-vwqgbkm and prescription medicines only as told by [...] provider. Document Revised: 09/30/2021 Document Reviewed: 09/30/2021 Localbase Patient Education ? 2022 [employer] [place]. Rapid Strep Test Why am I having [...] You have (more content not included)... Normal [facility] Provider Letteron 12-23-2022 Provider Letter December 23, 2022 BEA CALVO [address] [address] : 1985 To Whom It May Concern, Please excuse above patient from work. Date of Illness: From: 12/23/22 May Return to Work On: 12/24/22 Restrictions: none Comments: none Sincerely, [facility] [address] [place] [address], [place] [address] [facility] Ambulatory Visit Summaryon 0 12-08-2022 Ambulatory Visit Summary BEA CALVO :1985 Visit Date:12/08/2022 Ambulatory Visit Instructions Your Diagnosis Strep pharyngitis BMI 34.0-34.9,adult Sore throat Your Care Team Attending Physician - Heladio Roth PA-C. Primary Care Physician - Angella Bhat MD This Is Your Medications List amoxicillin [...] the Following Appointments Follow Up with Angella Bhat MD When: Where: [place] [address]- Medications What How Much When Why Instructions New amoxicillin (amoxicillin 500 mg Cap) 1 Capsules By Mouth Every 12 hours Strep pharyngitis BMI 34.0-34.9,adult Duration: 10 Days Pickup at [facility]/pharmacy #[id number] Unchanged duloxetine (Cymbalta 60 mg Cap-DR) 60 Milligram By Mouth At bedtime Contact prescribing physician if questions or concerns Unchanged omeprazole (omeprazole 40 mg Cap-DR) Contact prescribing physician if questions or concerns Pharmacy Information [facility]/pharmacy #[id number]: [address] [place], [place] [phone] Allergies Bactrim (Yeast) Problems Ongoing - Any [...] these instructions at home: Medicines ? Take zpnx-ugw-hcnesup and prescription medicines only as told by [...] s (more content not included)... Normal [facility] Medicine Office/Clini c Noteon 12-08-2022 Family Medicine [...] with voice recognition software. Occasional wrong-word or ?vbqxb-d-ueir? substitutions may have occurred due to the [...] day(s), # 20 cap(s), Refills(s) 0, Pharmacy: [facility]/pharmacy #[id number], 152, cm, 12/08/22 12:57:00 EDT, Height/Length [...] day(s), # 20 cap(s), Refills(s) 0, Pharmacy: [facility] #[id number], 152, cm, 12/08/22 12:57:00 EDT, Height/Length Dosing, 79.9, kg, 12/08/22 12:57:00 EDT, Weight Dosing Body Mass Index (BMI) documented 3008F Sore throat (J02.9: Acute pharyngitis, unspecified) Ordered: Rapid Strep POC 84254 Follow-up With When Contact Information Yessenia HERNANDEZ, Angella [place] [address]- Additional Instructions: Patient Education Strep Throat, Adult [...] use Smokeless (more content not included)... Normal [facility] Comment on above: Result Comment: Elec tronically Signed By: Gonzalez FRANCES, Heladio Mei\.br\Date and Time Signed: 12/08/22 13:18 EDT Patient Educationon 12-09-19 23 Patient Education Infectious Disease Strep Throat, Adult [...] these instructions at home: Medicines ? Take zhmt-tzi-yslsvcv and prescription medicines only as told by [...] and water are not available, use hand seaport planning manager. Make sure that all people in your [...] not wait (more content not included)... Normal [facility] [address], [place] [id number] December 08, 2022 BEA CALVO [address] [facility] [address] [place] [address] : 1985 Please excuse BEA CALVO from work . Date and/or Time of Absence: From: 12/08/2022 To: 12/10/2022 May return to work on: 12/10/2022 Restrictions: None Comments: Please excuse due to an acute illness. Provider Signature: Heladio Roth PA-C Physician Mixer Pigment [address] [place] [address] Normal [facility] CHEMISTRYOrdered By: SYSTEM SYSTEM on 04-24-2022 Anion [...] Normal >=59mL/min/1 .73 m2 FT Chem S Glucose [Mass/Vol] 116 mg/dL Normal 55 - 199 mg/dL [facility] Remisol Potassium [Moles/Vol] 3.7 mmol/L Normal 3.5 - 5.3 mmol/L [facility] Sodium [Moles/Vol] 132 mmol/L Low 135 - 145 mmol/L [facility] Urea nitrogen [Mass/Vol] 9 mg/dL Normal 5 - 21 mg/dL [facility] Urea nitrogen/Creatinine [Mass ratio] 15 mg/mg Normal 10 - 20 [facility] HEMATOLOGYOrdered By: SYSTEM SYSTEM on 04-24-2022 Basophils/100 WBC (Bld) 0.2 % Normal 0.0 - 2.0 % [facility] HemeAutoSS Basophils/Leukocytes Auto (Bld) [Pure # fraction] [...] 4.1 E12/L Low 4.3 - 5.9 E12/L [facility] HemeAutoSS WBC corrected for nucl RBC Auto (Bld) [#/Vol] 8.3 E9/L Normal 4.0 - 11.0 E9/L [facility] HemeAutoSS MICRO OTHER TESTSOrdered By: Carolyn Oviedo on 04-24-2022 Influenzae A Ag Negative (04/24/22 2:18 PM) Normal Negative [facility] Sero Influenzae B Ag Negative (04/24/22 2:18 PM) Normal Negative [facility] Rapid COV Int NEG Ctl Pass (04/24/22 2:18 PM) Normal [facility] Rapid COV Int POS Ctl Pass (04/24/22 2:18 PM) Normal [facility] SARS-CoV+SARS-CoV-2 (COVID-19) Ag IA.rapid Ql (Resp) Not Detected (04/24/22 2:18 PM) Normal Not Detected [facility] URINALYSISOrdered By: Lenora Tavarez on 04-24-2022 Bacteria [...] PM) Normal Negative [facility] UA Auto SS [place].plasma/[place] .RBC (Bld) [Mass ratio] 0-3 /HPF Normal [...] Desc Clean Catch (04/24/22 2:18 PM) Normal [facility] UA Auto SS Urobilinogen Qn (U) 0.0177560 {Roro'U}/dL Normal 0.0 - 1.0 EU/dL [facility] UA Auto SS WBC Auto Ql (U) 1+ *ABN* (04/24/22 2:18 PM) Invalid Interpretation Code Negative [facility] UA Auto SS WBC LM.HPF (Urine sed) [#/Area] 6-15 /HPF Invalid Interpretation Code 0-5/HPF [facility] UA Auto SS BLOOD BANKOrdered By: Tanja Grant on 04-17-2022 ABO/Rh Interp Positive Invalid Interpretation Code [facility] BB Subsection ABSC Gel Interp Negative (04/17/22 10:09 AM) Normal FT BB Subsection URINALYSISOrdered By: Yash Roa on 04-17-2022 Bacteria [...] PM) Normal Negative [facility] UA Auto SS [place].plasma/[place] .RBC (Bld) [Mass ratio] 0-3 /HPF Normal 0-3/HPF [facility] UA Auto SS Nitrite Ql (U) Negative (04/17/22 12:35 PM) Normal Negative [facility] UA Auto SS pH (U) 8.0 *NA* (04/17/22 12:35 PM) Invalid Interpretation Code 5.0 - 9.0 [facility]A Auto SS Protein (U) [Mass/Vol] Negative (04/17/22 12:35 PM) Normal Negative [facility] UA Auto SS Specific gravity (U) [Rel density] 1.020 *NA* (04/17/22 12:35 PM) Invalid Interpretation Code 1.005 - 1.030 FT UA Auto SS UA Spec Desc [place] (04/17/22 12:35 PM) Normal [facility] UA Auto SS Urobilinogen Qn (U) 1.3396648 {Roro'U}/dL Normal 0.0 - 1.0 EU/dL [facility] UA Auto SS WBC Auto Ql (U) Negative (04/17/22 12:35 PM) Normal Negative [facility] UA Auto SS WBC LM.HPF (Urine sed) [#/Area] 0-5 /HPF Normal 0-5/HPF [facility] UA Auto SS CHEMISTRYOrdered By: SYSTEM SYSTEM on 04-08-2022 Anion gap [Moles/Vol] 10 mmol/L Normal 6 - 16 mEq/L F [facility] Remisol Chloride [Moles/Vol] 103 mmol/L Normal 101 - 1 11 mmol/L [facility] Remisol CO2 [Moles/Vol] 26 mmol/L Normal 21 - 31 mmol/L [facility] Rem[facility] Creatinine [Mass/Vol] 0.6 mg/dL Normal 0.5 - 1.3 mg/dL [facility] Remisol GFR/1.73 sq M.predicted among blacks MDRD (S/P/Bld) [Vol rate/Area] mL/min/1.73 m2 Normal >=59mL/min/1 .73 m2 [facility] Chem S GFR/1.73 sq M.predicted among non-blacks MDRD (S/P/Bld) [Vol rate/Area] mL/min/1.73 m2 Normal >=59mL/min/1 .73 m2 FT Chem S Potassium [Moles/Vol] 3.9 mmol/L Normal 3.5 - 5.3 mmol/L [facility] Remisol Sodium [Moles/Vol] 135 mmol/L Normal 135 - 145 mmol/L [facility] Remisol Urea nitrogen [Mass/Vol] 10 mg/dL Normal 5 - 21 mg/dL [facility] COAGULATIONOrdered By: Chandrakant Wisdom on 04-08-2022 aPTT Coag (PPP) [Time] 28.8 s Normal 25.1 - 36.5 second(s) [facility] Auto Coag INR Coag (PPP) [Relative time] 1.1 {INR} Invalid Interpretation Code [facility] Auto Coag PT Coag (PPP) [Time] 11.8 s Normal 9.4 - 1 2.5 second(s) [facility] Auto Coag HEMATOLOGYOrdered By: Miguelina Alberto on 04-08-2022 Erythrocyte distribution width (RBC) [Ratio] 16.5 % High 10.9 - 14.2 % [facility] HemeAutoSS Hematocrit (Bld) [Volume fraction] 36.3 % Normal 34.0 - 46.0 % [facility] HemeAutoSS Hemoglobin (Bld) [Mass/Vol] 11.8 g/dL Low 12.0 - 16.0 gm/dL [facility] HemeAutoSS MCH (RBC) [Entitic mass] 28.6 pg Normal 27.0 - 34.0 pg [facility] HemeAutoSS MCHC (RBC) [Mass/Vol] 32.6 g/dL Normal 31.4 - 36.0 gm/dL [facility] HemeAutoSS MCV (RBC) [Entitic vol] 87.8 fL Normal 80.0 - 100.0 fL [facility] HemeAutoSS Platelet mean volume (Bld) [Entitic vol] 9.2 fL Normal 6.4 - 10.8 fL [facility] HemeAutoSS Platelets (Bld) [#/Vol] 307.0 E9/L Normal 150.0 - 500.0 E9/L [facility] HemeAutoSS RBC (Bld) [#/Vol] 4.1 E12/L Low 4.3 - 5.9 E12/L [facility] HemeAutoSS WBC corrected for nucl RBC Auto (Bld) [#/Vol] 4.1 E9/L Normal 4.0 - 11.0 E9/L [facility] HemeAutoSS SEROLOGYOrdered By: Natalia Smith on 11-28-2021 HCG.beta subunit (U) [Moles/Vol] Negative Normal [facility] URINALYSISOrdered By: Darwin Smith on 11-28-2021 Bacteria LM Ql (Urine sed) Trace /HPF Normal Trace/HPF [facility] UA Auto SS Bilirubin Ql (U) Negative (11/28/21 10:00 PM) Normal Negative [facility] UA Auto SS Calcium oxalate crystals LM Ql (Urine sed) Present (11/28/21 10:00 PM) Normal [facility] UA Auto SS Clarity (U) Clear (11/28/21 10:00 PM) Normal Clear [facility] UA Auto SS Color (U) [place] *ABN* (11/28/21 10:00 PM) Invalid Interpretation Code [...] Interpretation Code Negative [facility] UA Auto SS [place].plasma/[place] .RBC (Bld) [Mass ratio] 4-20 /HPF Normal [...] [facility] UA Auto SS Urobilinogen Qn (U) 2.5291352 {Roro'U}/dL Invalid Interpretation Code 0.0 - 1.0 EU/dL [facility] UA Auto SS WBC Auto Ql (U) Negative (11/28/21 10:00 PM) Normal Negative [facility] UA Auto SS WBC LM.HPF (Urine sed) [#/Area] 0-5 /HPF Normal 0-5/HPF [facility] UA Auto SS Q - CBC W/DIFF AND PLTon BASOABS 10 cells/uL Normal 0-200 [facility] Data Abstractor Comment on above: Order Comment: [facility] Testing performed at: [employer], I Do Venues [facility], [address] [place] [address], [address] [place] [address], [id number], Assistant Plant Control Operator: Hesham Bhakta MD [facility] Collection Date/Time: [facility] Results Received Date/Time: [facility] Reported Date/Time: FASTING: YES Performed By: #### 9 68T, [id number], [id number], [id number] #### [facility] Default [address] [place] [address] Basophils/100 WBC (Bld) 0.2 % Normal [facility] Data Abstractor Comment on above: Order Comment: [facility] performed at: [employer], [employer] [facility], [address] [place] [address], [address] [place] [address], [phone], Assistant Plant Control Operator: Hesham Bhakta MD [facility] Date/Time: [facility] Results Received Date/Time: [facility] Reported Date/Time: FASTING: YES Performed By: #### 9 68T, 61603, [id number], [id number] #### [facility] Default [address] [place] [address] EOSABS 50 cells/uL Normal 15-500 [facility] Data Abstractor Comment on above: Order Comment: [facility] performed at: [employer], [employer] [facility], [address] [place] [address], [address] [place] [address], [address] [place] [address], Assistant Plant Control Operator: Hesham Bhakta MD [facility] Date/Time: [facility] Results Received Date/Time: [facility] Reported Date/Time: FASTING: YES Performed By: #### 9 68T, 09806, [id number], [id number] #### [facility] Default [address] [place] [address] Eosinophils/100 WBC (Bld) 1.0 % Normal [facility] Data Abstractor Comment on above: Order Comment: [facility] performed at: [facility], [address] [place] [address], [address] [place] [address], [address] [place] [address], Assistant Plant Control Operator: Hesham Bhakta MD [facility] Date/Time: [facility] Results Received Date/Time: [facility] Reported Date/Time: FASTING: YES Performed By: #### 9 68T, 08360, [id number], 6399 #### [facility] Default [address] [place] [address] Erythrocyte distribution width (RBC) [Ratio] 14.6 % Normal 11.0-15.0 [facility] Data Abstractor Comment on above: Order Comment: [facility] performed at: [facility], [address] [place] [address], [address] [place] [address], [address] [place] [address], Assistant Plant Control Operator: Hesham Bhakta MD [facility] Date/Time: [facility] Results Received Date/Time: [facility] Reported Date/Time: FASTING: YES Performed By: #### 9 68T, 91617, [id number], 6399 #### [facility] Default [address] [place] [address] Hematocrit (Bld) [Volume fraction] 40.7 % Normal 35.0-45.0 [facility] Data Abstractor Comment on above: Order Comment: [facility] Testing performed at: [employer], [employer] [facility], [address] [facility], [address] [place] [address], [address] [place] [address], Assistant Plant Control Operator: Hesham Bhakta MD [facility] Collection Date/Time: [facility] Results Received Date/Time: [facility] Reported Date/Time: FASTING: YES Performed By: #### 9 68T, 82741, [id number], 6399 #### [facility] Default [address] [place] [address] Hemoglobin (Bld) [Mass/Vol] 12.9 g/dL Normal 11.7-15.5 [facility] Data Abstractor Comment on above: Order Comment: [facility] Testing performed at: [employer], [employer] [facility], [address] [facility], [address] [place] [address], [address] [place] [address], Assistant Plant Control Operator: Hesham Bhakta MD [facility] Collection Date/Time: [facility] Results Received Date/Time: [facility] Reported Date/Time: FASTING: YES Performed By: #### 9 68T, 19617, [id number], 6399 #### [facility] Default [address] [place] [address] Lymphocytes (Bld) [#/Vol] 1.935 10*3/uL Normal 850-3900 [facility] Data Abstractor Comment on above: Order Comment: [facility] Testing performed at: [employer], [employer] [facility], [address] [facility], [address] [place] [address], [address] [place] [address], Assistant Plant Control Operator: Hesham Bhakta MD [facility] Collection Date/Time: [facility] Results Received Date/Time: [facility] Reported Date/Time: FASTING: YES Performed By: #### 9 68T, 25302, [id number], 6399 #### [facility] Default [address] [place] [address] Lymphocytes/100 WBC (Bld) 38.7 % Normal [facility] Data Abstractor Comment on above: Order Comment: [facility] Testing performed at: [employer], I [employer] [facility], [address] [place] [address], [address] [place] [address], [address] [place] [address], Assistant Plant Control Operator: Hesham Bhakta MD [facility] Date/Time: [facility] Results Received Date/Time: [facility] Reported Date/Time: FASTING: YES Performed By: #### 9 68T, 74034, 09889N, 6399 #### [facility] Default [address] [place] [address] MCH (RBC) [Entitic mass] 27.4 pg Normal 27.0-33.0 [facility] Specialist Comment on above: Order Comment: [facility] Testing performed at: [employer], I [employer] [facility], [address] [place] [address], [address] [place] [address], [address] [place] [address], Assistant Plant Control Operator: Hesham Bhakta MD [facility] Date/Time: [facility] Results Received Date/Time: [facility] Reported Date/Time: FASTING: YES Performed By: #### 9 68T, , [id number], 6399 #### [facility] Laboratory Default [address] [place] [address] MCHC (RBC) [Mass/Vol] 31.7 g/dL Low 32.0-36.0 [facility] Comment on above: Order Comment: [facility] Testing performed at: [employer] [facility] [facility], [address] [place] [address], [address] [place] [address], [address] [place] [address], Assistant Plant Control Operator: Hesham Bhakta MD [facility] Collection Date/Time: [facility] Results Received Date/Time: [facility] Reported Date/Time: FASTING: YES Performed By: #### 9 68T, 07094, 00053W, 6399 #### [facility] Default [address] [place] [address] MCV (RBC) [Entitic vol] 86.4 fL Normal 80.0-100.0 [facility] Specialist Comment on above: Order Comment: [facility] Testing performed at: [employer] [facility] [facility], [address] [facility], [address] [place] [address], [address] [place] [address], Assistant Plant Control Operator: Hesham Bhakta MD [facility] Collection Date/Time: [facility] Results Received Date/Time: [facility] Reported Date/Time: FASTING: YES Performed By: #### 9 68T, 50999, 19291D, 6399 #### [facility] Default [address] [place] [address] MONOABS 385 cells/uL Normal 200-950 [facility] Specialist Comment on above: Order Comment: [facility] Testing performed at: [employer] [facility] [facility], [address] [place] [address], [address] [place] [address], [address] [place] [address], Assistant Plant Control Operator: Hesham Bhakta MD [facility] Collection Date/Time: [facility] Results Received Date/Time: [facility] Reported Date/Time: FASTING: YES Performed By: #### 9 68T, 83869, 62080P, 6399 #### [facility] Default [address] [place] [address] Monocytes/100 WBC (Bld) 7.7 % Normal [facility] Specialist Comment on above: Order Comment: [facility] Testing performed at: [facility], [address] [facility], [address] [place] [address], [address] [place] [address], Assistant Plant Control Operator: Hesham Bhakta MD [facility] Collection Date/Time: [facility] Results Received Date/Time: [facility] Reported Date/Time: FASTING: YES Performed By: #### 9 68T, 13719, 32883R, 6399 #### [facility] Default [address] [place] [address] Neutrophils (Bld) [#/Vol] 2.62 10*3/uL Normal 4223-4909 [place] Data [facility] Comment on above: Order Comment: [facility] Testing performed at: [employer], [employer] [facility] [facility], [address] [place] [address], [address] [place] [address], [address] [place] [address], Assistant Plant Control Operator: Hesham Bhakta MD [facility] Collection Date/Time: [facility] Results Received Date/Time: [facility] Reported Date/Time: FASTING: YES Performed By: #### 9 68T, 54494, 72448A, 6399 #### [facility] Default [address] [place] [address] Neutrophils/100 WBC (Bld) 52.4 % Normal [facility] Specialist Comment on above: Order Comment: [facility] Testing performed at: [employer] [facility] [facility], [address] [place] [address], [address] [place] [address], [phone], Assistant Plant Control Operator: Hesham Bhakta MD [facility] Collection Date/Time: [facility] Results Received Date/Time: [facility] Reported Date/Time: FASTING: YES Performed By: #### 9 68T, [address]336, 73053Q, 6399 #### [facility] Default [address] [place] [address] Platelet mean volume (Bld) [Entitic vol] 10.7 fL Normal 7.5-12.5 [facility] Comment on above: Order Comment: [facility] Testing performed at: [employer] [facility], [address] [place] [address], [address] [place] [address], [phone], Assistant Plant Control Operator: Hesham Bhakta MD [facility] Collection Date/Time: [id number] [facility] Results Received Date/Time: [facility] Reported Date/Time: FASTING: YES Performed By: #### 9 68T, 30151, 76376Q, 6399 #### [facility] Default [address] [place] [address] Platelets (Bld) [#/Vol] 328 10*3/uL Normal 140-400 [facility] Specialist Comment on above: Order Comment: [facility] Testing performed at: [employer] [facility], [address] [place] [address], [address] [place] [address], [address] [place] [address], Assistant Plant Control Operator: Hesham Bhakta MD [facility] Collection Date/Time: [facility] Results Received Date/Time: [facility] Reported Date/Time: FASTING: YES Performed By: #### 9 68T, 31870, 40922B, 6399 #### [facility] Default [address] [place] [address] RBC (Bld) [#/Vol] 4.71 10*6/uL Normal 3.80-5.10 Juan agrawal [place] Data Abstract[employer] Comment on above: Order Comment: [facility] Testing performed at: [employer] [facility], [address] [place] [address], [address] [place] [address], [address] [place] [address], Assistant Plant Control Operator: Hesham Bhakta MD [facility] Collection Date/Time: [facility] Results Received Date/Time: [facility] Reported Date/Time: FASTING: YES Performed By: #### 9 68T, 06901, 06490H, 6399 #### [facility] Default [address] [place] [address] WBC (Bld) [#/Vol] 5.0 10*3/uL Normal 3.8-10.8 Neeraj gay [place] Data Abstract[employer] Comment on above: Order Comment: [facility] Testing performed at: [employer] [facility] [facility], [address] [place] [address], [address] [place] [address], [address] [place] [address], Assistant Plant Control Operator: Hesham Bhakta MD [facility] Collection Date/Time: [id number] [facility] Results Received Date/Time: [facility] Reported Date/Time: FASTING: YES Performed By: #### 9 68T, 38236, 25622R, 6399 #### [facility] Default [address] [place] [address] Q - COMPREHENSIVE METABOLIC PANEL W/EGFRon 11-21-2021 Albumin [Mass/Vol] 4.2 g/dL Normal 3.6-5.1 [facility] [facility] [place] [facility] Comment on above: Order Comment: [facility] Testing performed at: [employer] [facility] [facility], [address] [place] [address], [address] [place] [address], [address] [place] [address], Assistant Plant Control Operator: Hesham Bhakta MD [facility] Collection Date/Time: [facility] Results Received Date/Time: [facility] Reported Date/Time: FASTING: YES Performed By: #### 9 68T, 00976, 15155Y, 6399 #### [facility] Default [address] [place] [address] Albumin/Globulin [Mass ratio] 1.5 {ratio} Normal 1.0-2.5 [facility] Data Abstractor Comment on above: Order Comment: [facility] Testing performed at: [employer] [facility] [facility], [address] [place] [address], [address] [place] [address], [address] [place] [address], Assistant Plant Control Operator: Hesham Bhakta MD [facility] Collection Date/Time: [facility] Results Received Date/Time: [facility] Reported Date/Time: FASTING: YES Performed By: #### 9 68T, 70631, 74142V, 6399 #### [facility] Default [address] [place] [address] ALP [Catalytic activity/Vol] 83 U/L Normal 31-125 [facility] Data Abstractor Comment on above: Order Comment: [facility] Testing performed at: [employer] [facility] [facility], [address] [facility], [address] [place] [address], [address] [place] [address], Assistant Plant Control Operator: Hesham Bhakta MD [facility] Collection Date/Time: [id number] [facility] Results Received Date/Time: [facility] Reported Date/Time: FASTING: YES Performed By: #### 9 68T, 94079, 29800V, 6399 #### [facility] Default [address] [place] [address] ALT [Catalytic activity/Vol] 13 U/L Normal 6-29 [facility] Data Abstractor Comment on above: Order Comment: [facility] Testing performed at: [employer] [facility] [facility], [address] [facility], [address] [place] [address], [address] [place] [address], Assistant Plant Control Operator: Hesham Bhakta MD [facility] Collection Date/Time: [facility] Results Received Date/Time: [facility] Reported Date/Time: FASTING: YES Performed By: #### 9 68T, 46097, 29924L, 6399 #### [facility] Default [address] [place] [address] AST [Catalytic activity/Vol] 13 U/L Normal 10-30 [facility] Specialist Comment on above: Order Comment: [facility] Testing performed at: [employer] [facility], [address] [place] [address], [address] [place] [address], [address] [place] [address], Assistant Plant Control Operator: Hesham Bhakta MD [facility] Collection Date/Time: [facility] Results Received Date/Time: [facility] Reported Date/Time: FASTING: YES Performed By: #### 9 68T, 97845, 42621T, 6399 #### [facility] Default [address] [place] [address] Bilirubin [Mass/Vol] 0.5 mg/dL Normal 0.2-1.2 [facility] Comment on above: Order Comment: [facility] Testing performed at: [employer] [facility] [facility], [address] [place] [address], [address] [place] [address], [address] [place] [address], Assistant Plant Control Operator: Hesham Bhakta MD [facility] Collection Date/Time: [facility] Results Received Date/Time: [facility] Reported Date/Time: FASTING: YES Performed By: #### 9 68T, 69503, 74246K, 6399 #### [facility] Default [address] [place] [address] BUN/CREA 18 NOT APPLICABLE Normal 6-22 [facility] Comment on above: Order Comment: [facility] Testing performed at: [employer] [facility] [facility], [address] [place] [address], [address] [place] [address], , Assistant Plant Control Operator: Hesham Bhakta MD [facility] Collection Date/Time: [facility] Results Received Date/Time: [facility] Reported Date/Time: FASTING: YES Performed By: #### 9 68T, 05485, 78652G, 6399 #### [facility] Default [address] [place] [address] Calcium [Mass/Vol] 9.3 mg/dL Normal 8.6-10.2 [facility] Specialist Comment on above: Order Comment: [facility] Testing performed at: [employer] [facility] [facility], [address] [place] [address], [address] [place] [address], , Assistant Plant Control Operator: Hesham Bhakta MD [facility] Collection Date/Time: [facility] Results Received Date/Time: [facility] Reported Date/Time: FASTING: YES Performed By: #### 9 68T, 49823, 81182A, 6399 #### [facility] Default [address] [place] [address] Chloride [Moles/Vol] 101 mmol/L Normal 98-110 [facility] Specialist Comment on above: Order Comment: [facility] Testing performed at: [employer] [facility] [facility], [address] [place] [address], [address] [place] [address], [address], Assistant Plant Control Operator: Hesham Bhakta MD [facility] Collection Date/Time: [facility] Results Received Date/Time: [facility] Reported Date/Time: FASTING: YES Performed By: #### 9 68T, 48713, 95008N, 6399 #### [facility] Default [address] [place] [address] CO2 [Moles/Vol] 24 mmol/L Normal 20-32 [facility] Data Abstractor Comment on above: Order Comment: [facility] Testing performed at: [employer] [facility] [facility], [address] [place] [address], [address] [place] [address], [address], Assistant Plant Control Operator: Hesham Bhakta MD [facility] Collection Date/Time: [facility] Results Received Date/Time: [facility] Reported Date/Time: FASTING: YES Performed By: #### 9 68T, 82244, 15423G, 6399 #### [facility] Default [address] [place] [address] Creatinine [Mass/Vol] 0.74 mg/dL Normal 0.50-1.10 [facility] Comment on above: Order Comment: [facility] Testing performed at: [employer] [facility] [facility], [address] [facility], [address] [place] [address], [address] [place] [address], Assistant Plant Control Operator: Hesham Bhakta MD [facility] Collection Date/Time: [facility] Results Received Date/Time: [facility] Reported Date/Time: FASTING: YES Performed By: #### 9 68T, 41814, 32279O, 6399 #### [facility] Default [address] [place] [address] eGFRAA ([facility]) 119 mL/min/1.73m2 Normal > OR = 60 [facility] Comment on above: Order Comment: [facility] Testing performed at: [facility], [address] [place] [address], [address] [place] [address], [address] [place] [address], Assistant Plant Control Operator: Hesham Bhakta MD [facility] Collection Date/Time: [facility] Results Received Date/Time: [facility] Reported Date/Time: FASTING: YES Performed By: #### 9 68T, 27862, 94766Q, 6399 #### [facility] Default [address] [place] [address] eGFRNAA ([facility]) 103 mL/min/1.73m2 Normal > OR = 60 No rthern [place] Data Abstractor Comment on above: Order Comment: [facility] Testing performed at: [employer] [facility] [facility], [address] [facility], [address] [place] [address], [address] [place] [address], Assistant Plant Control Operator: Hesham Bhakta MD [facility] Collection Date/Time: [facility] Results Received Date/Time: [facility] Reported Date/Time: FASTING: YES Performed By: #### 9 68T, 56479, 98499F, 6399 #### [facility] Default [address] [place] [address] Globulin (S) [Mass/Vol] 2.8 g/dL Normal 1.9-3.7 [facility] Comment on above: Order Comment: [facility] Testing performed at: [employer] [facility] [facility], [address] [place] [address], [address] [place] [address], [address], Assistant Plant Control Operator: Hesham Bhakta MD [facility] Collection Date/Time: [facility] Results Received Date/Time: [facility] Reported Date/Time: FASTING: YES Performed By: #### 9 68T, 86425, 19681W, 6399 #### [facility] Default [address] [place] [address] Glucose [Mass/Vol] 82 mg/dL Normal 65-99 [facility] Comment on above: Order Comment: [facility] Testing performed at: [employer] [facility] [facility], [address] [place] [address], [address] [place] [address], [address], Assistant Plant Control Operator: Hesham Bhakta MD [facility] Collection Date/Time: [facility] Results Received Date/Time: [facility] Reported Date/Time: FASTING: YES Result Comment: Fasting reference interval Performed By: #### 9 68T, 45667, 10277A, 6399 #### [facility] Default [address] [place] [address] Potassium [Moles/Vol] 5.0 mmol/L Normal 3.5-5.3 [facility] Comment on above: Order Comment: [facility] Testing performed at: [facility], [address] [place] [address], [address] [place] [address], [address] [place] [address], Assistant Plant Control Operator: Hesham Bhakta MD [facility] Collection Date/Time: [facility] Results Received Date/Time: [facility] Reported Date/Time: FASTING: YES Performed By: #### 9 68T, 07690, 39629X, 6399 #### [facility] Default [address] [place] [address] Protein [Mass/Vol] 7.0 g/dL Normal 6.1-8.1 Neeraj gay [place] Data Abstractor Comment on above: Order Comment: [facility] Testing performed at: [employer] [facility] [facility], [address] [place] [address], [address] [place] [address], [address], Assistant Plant Control Operator: Hesham Bhakta MD [facility] Collection Date/Time: [facility] Results Received Date/Time: [facility] Reported Date/Time: FASTING: YES Performed By: #### 9 68T, 82258, 61468W, 6399 #### [facility] Default [address] [place] [address] Sodium [Moles/Vol] 136 mmol/L Normal 135-146 Neeraj gay [place] Data Abstractor Comment on above: Order Comment: [facility] Testing performed at: [employer] [facility] [facility], [address] [place] [address], [address] [place] [address], [address], Assistant Plant Control Operator: Hesham Bhakta MD [facility] Collection Date/Time: [facility] Results Received Date/Time: [facility] Reported Date/Time: FASTING: YES Performed By: #### 9 68T, 37483, 81341S, 6399 #### [facility] Default [address] [place] [address] Urea nitrogen [Mass/Vol] 13 mg/dL Normal 7-25 [facility] Comment on above: Order Comment: [facility] Testing performed at: [employer] [facility] [facility], [address] [place] [address], [address] [place] [address], [address], Assistant Plant Control Operator: Hesham Bhakta MD [facility] Collection Date/Time: [facility] Results Received Date/Time: [facility] Reported Date/Time: FASTING: YES Performed By: #### 9 68T, 19327, 60365K, 6399 #### [facility] Default [address] [place] [address] Q - HIV 1/2 ANTIGEN/ANTIBODY ,FOURTH GENERATION W/RFLon 11-21-2021 HIV AG/AB, 4TH GEN Non-Reactive Normal NON-REACTIVE No rthern [place] Data Abstractor Comment on above: Order Comment: [facility] Testing performed at: [employer] [facility] [facility], [address] , [address] [place] [address], [address], Assistant Plant Control Operator: Hesham Bhakta MD [facility] Collection Date/Time: [facility] [...] purpose. For additional information please refer to http://education.[employer]/faq/EHG799 (This link is being provided for informational/ educational purposes only.) The performance of this assay has not been clinically validated in patients less than 2 years old. Performed By: #### 9 1431 #### [facility] Default [address] [place] [address] Q - Lipid Panelon 11-21-2021 Cholesterol [Mass/Vol] 233 mg/dL High <200 No rthern [place] Data Abstractor Comment on above: Order Comment: [facility] Testing performed at: [employer] [facility] [facility], [address] , [address] [place], [address], Assistant Plant Control Operator: Hesham Bhakta MD [facility] Collection Date/Time: [id number] [facility] Results Received Date/Time: [facility] Reported Date/Time: FASTING: YES Performed By: #### 9 68T, 78844, 78724P, 6399 #### [facility] Default [address] [place] [address] Cholesterol in HDL [Mass/Vol] 62 mg/dL Normal > OR = 50 [facility] Data Abstractor Comment on above: Order Comment: [facility] Testing performed at: [employer] [facility] [facility], [address] [place] [address], [address] [place] [address], [address] [place] [address], Assistant Plant Control Operator: Hesham Bhakta MD [facility] Collection Date/Time: [facility] Results Received Date/Time: [facility] Reported Date/Time: FASTING: YES Performed By: #### 9 68T, 19424, 45516C, 6399 #### [facility] Default [address] [place] [address] Cholesterol in LDL [Mass/Vol] 147 mg/dL High [facility] Data Abstractor Comment on above: Order Comment: [facility] Testing performed at: [employer] [facility], [address] [facility], [address] [place] [address], [address] [place] [address], Assistant Plant Control Operator: Hesham Bhakta MD [facility] Collection Date/Time: [facility] [...] LDL-C. Mauro CONSTANTINO et al. CORDELIA. 2013;310(19): 0060-8458 (http://education.[employer]/faq/JUG554) Performed By: #### 9 68T, 82151, 69025T, 6399 #### [facility] Default [address] [place] [address] Cholesterol.total/Chol esterol in HDL [Mass ratio] 3.8 {ratio} Normal <5.0 [facility] Data Abstractor Comment on above: Order Comment: [facility] Testing performed at: [employer] [facility] [facility], [address] [facility], [address] [place] [address], [address], Assistant Plant Control Operator: Hesham Bhakta MD [facility] Collection Date/Time: [facility] Results Received Date/Time: [facility] Reported Date/Time: FASTING: YES Performed By: #### 9 68T, 71222, 05509W, 6399 #### [facility] Default [address] [place] [address] NON HDL CHOLESTEROL 171 mg/dL (calc) High <130 [facility] Data Abstractor Comment on above: Order Comment: [facility] Testing performed at: [employer] [facility] [facility], [address] [facility], [address] [place] [address], [address] [place] [address], Assistant Plant Control Operator: Hesham Bhakta MD [facility] Collection Date/Time: [facility] Results Received Date/Time: [facility] Reported Date/Time: FASTING: YES Result Comment: For patients with diabetes plus 1 major ASCVD risk factor, treating to a non-HDL-C goal of <100 mg/dL (LDL-C of <70 mg/dL) is considered a therapeutic option. Performed By: #### 9 68T, 80857, 57637Y, 6399 #### [facility] Default [address] [place] [address] Triglyceride [Mass/Vol] 122 mg/dL Normal <150 [facility] Data Abstractor Comment on above: Order Comment: [facility] Testing performed at: [facility], [address] [facility], [address] [place] [address], [address], Assistant Plant Control Operator: Hesham Bhakta MD [facility] Collection Date/Time: [facility] Results Received Date/Time: [facility] Reported Date/Time: FASTING: YES Performed By: #### 9 68T, 38818, 14932Q, 6399 #### [facility] Default [address] [place] [address] Q - TSH WITH REFLEX TO FREE T4on 11-21-2021 TSH W/REFLEX TO FT4 2.03 mIU/L Normal [facility] Data Abstractor Comment on above: Order Comment: [facility] Testing performed at: [facility], [facility], [address] [facility], [address] [facility], [place], [address], Assistant Plant Control Operator: Hesham Bhakta MD [facility] Collection Date/Time: [id number] [facility] Results Received Date/Time: [id number] [facility] Reported Date/Time: [id number] FASTING: YES Result Comment: Refe rence Range > or = 20 Years 0.40-4.50 Ranges First trimester 0.26-2.66 Second trimester 0.55-2.73 Third trimester 0.43-2.91 Performed By: #### 9 68T, 19555, 06483P, 6399 #### [facility] Default [address] [place] [address] Progress Noteson 08-26-2021 [employer] Team Member Authentication Interface Message Text Patient at risk for falls:No Falls Risk protocol implemented: No Normal [facility] [employer] Team Member Authentication Interface Message Text [facility] [...] pelvis today shows no fracture CT pelvis (Jurado Banner) from July shows no fracture A/P: Bea [...] and impressions. Sal Schmid MD Normal [facility] XR PELVIS INLET OUTLET 3 VIE [...] OUTLET 3 VIEWS MACRO: None Normal [facility] Telephone Encounteron 2021 [employer] Team Member Authentication Interface Message Text Pt calling in to advise pt fell 08/[address] scan 08/13 at [facility] their phone #[phone]. pt is wanting the DR to follow up with them to see if she needs to come in sooner than the current 09/09 appt. pt advised she feels like somethign is going on in the area she had the surgery. Pt requesting a call back to discuss at [phone] Thank you Normal [employer] [facility] Progress Noteson 08-18-2021 [employer] Team Member Authentication Interface Message Text pelv Normal [facility] Addendum Noteon 07-15-2021 [employer] Team Member Authentication Interface Message Text Addendum created 07/15/21520 by Hilton Suh MD Delete clinical note Normal [facility] Progress Noteson 06-10-2021 [employer] Team Member Authentication Interface Message Text ORTHOPAEDIC SURGERY CLINIC [...] Kieran Montanez MD Orthopaedic Surgery, PGY-5 Pager [phone] After 6pm and on the weekends please page the ortho call pager for any issues, [phone] Teaching Physician Note: I saw and evaluated the patient. I personally obtained the hill and critical portions of the history and physical exam. I reviewed the resident's documentation and discussed the patient with the resident. I agree with the resident's medical decision making as documented in the resident's note. This note represents our aggregated findings and impressions. Sal Schmid MD Normal The [facility] Authentication Interface Message Text Patient at risk for falls:No Falls Risk protocol implemented: No Normal [facility] Anesthesia Attestationon [facility] Team Member Authentication Interface Message Text Anesthesia Attestation ATTESTATION OF INFORMED CONSENT FOR ANESTHESIA Anesthesia options were discussed with the patient and/or legal sales representative sales manager. The risks, benefits and alternatives were reviewed. Questions regarding anesthesia were answered. Patient and/or legal sales representative sales manager knows such anesthetics and procedures may be performed by Resident physicians, Certified Anesthesiologist Assistants, or Certified Nurse Anesthetists under the supervision of a physician. The patient /or the patient's legal sales representative sales manager agree with the plan for anesthesia. Normal [facility] Anesthesia Postprocedure Brittany aden 05-21-2021 [facility] Team Member Authentication Interface Message Text Anesthesia Postoperative Assessment: [...] ANESTHESIA COMPLICATIONS: No complications documented. Normal [facility] Anesthesia Transfer Of Careo n 05-21-2021 [facility] [employer] Team Member Authentication Interface Message Text Patient taken to [...] Buchanan, Grant, MD Anesthesiologist: Luigi Elizabeth MD AUTOMOTIVE BRAKE TECHNICIAN: Imtiaz Gonzales APRN-CRNA REMOVAL, HARDWARE, SI screw pelvis (N/A Hip) [...] 6.0 3.08 9.8 27.8 90 13.7 108 09/08/19 1013 7.5 3.43 10.8 31.0 90 13.8 [...] was received. Imtiaz Gonzales APRN-HAROON Normal [facility] Blood Attestationon 05-21-20 [facility] [employer] Team Member Authentication Interface Message Text Blood Attestation ATTESTATION OF INFORMED CONSENT FOR BLOOD The transfusion of blood and/or blood components were discussed with the patient and/or legal sales representative sales manager. The risks, benefits and alternatives were reviewed. Questions regarding blood transfusions were answered. The patient /or the patient's legal sales representative sales manager agree with the plan for transfusion of blood and/or blood components. Normal [facility] Brief Operative Noteon 05-21 [facility] [employer] Team Member Authentication Interface Message Text Brief Operative Note MAIN OR 05 Bea Davila 35 year old female Surgical Contact Serial Number: [id number] Preoperative Diagnosis: Closed displaced fracture of pelvis, unspecified part of pelvis, sequela [S32.9XXS] Postoperative Diagnosis: * Closed displaced fracture of pelvis, unspecified part of pelvis, sequela [S32.9XXS] Procedures: Surgical CPTs Procedures * REMOVAL, IMPLANT; DEEP No data filed Surgeon(s): Surgeon(s): Sla Schmid MD Buchanan, Grant, MD Staff: Scrub: Brynn Cueva Warranty Coordinator Nurse: Cheli Espino, RN, BSN Anesthesia: General Anesthesiologist: Luigi Elizabeth MD AUTOMOTIVE BRAKE TECHNICIAN: Imtiaz Gonzales APRN-CRNA Specimen(s): * No specimens [...] Binu Fernandez MD Orthopaedic Trauma Fellow Pager: [phone] Normal [facility] H AND Dev 05-21-2021 [employer] Team Member Authentication Interface Message Text ADMISSION NOTE Chief Complaint: surgery History of Present Illness: 35F presents for removal of hardware posterior pelvis. Wishes to proceed with surgery. Past Medical History: Diagnosis Date * PONV (postoperative nausea and vomiting) Immunization History Administered Date(s) Administered * Albumin 09/08/2019 * Hepatitis B Vaccine (CpG,Recombinant,Adj uvanted) (MOL=774) 08/18/2019 * Moderna SARS-COV-2 (COVID-19) vaccine, mRNA, spike protein, LNP, preservative free, 100 mcg or 50 mcg dose (HBL=306) 03/14/2021, 04/11/2021 * Tdap (WKV=860) 09/06/2019 Medications: Medications Prior to Admission Medication [...] hardware posterior pelvis Preet Fernandez Normal [facility] OP Noteon 05-21-2021 [facility] [employer] Team Member Authentication Interface Message Text Name: BEA DAVILA MR#: [id number] ENC#: [id number] Date of Procedure: 05/21/2021 ATTENDING SURGEON: Sal Schmid MD E LEARNING MANAGER: Dr. Preet Fernandez. PREOPERATIVE DIAGNOSES: Painful retained orthopedic hardware pelvis. POSTOPERATIVE DIAGNOSIS: Painful retained orthopedic hardware pelvis. PROCEDURE PERFORMED: Removal of hardware, deep, from pelvis. CPT code 20041.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
[2024-02-27 17:04] LABS: Bilirubin Urine NEGATIVE (NEGATIVE); Blood Urine NEGATIVE (NEGATIVE); Clarity Urine CLEAR (CLEAR); Color Urine LT. YELLOW (YELLOW); Glucose Urine UA NEGATIVE (NEGATIVE); Ketones Urine NEGATIVE (NEGATIVE); Leukocyte Esterase Urine SMALL (NEGATIVE); Nitrite Urine NEGATIVE (NEGATIVE); Protein Urine NEGATIVE (NEG/TRACE); Urobilinogen Urine 0.2 EU/dL (0.2-1.0); pH Urine 6.5 (5.0-9.0)
[2024-02-27 17:05] LABS: Urine Microscopic Indicated YES
[2024-02-27 17:23] LABS: Bacteria Urine SMALL #/HPF (NONE SEEN); Cast Seen? NONE SEEN #/LPF (NONE SEEN); Crystals Seen? None Seen #/HPF (None Seen); Mucus Urine NONE SEEN (NONE SEEN); RBC Urine 0-2 #/HPF (0-2); Squamous Epithelial Cell Urine FEW #/LPF (NONE/RARE); Urine Culture Indicated YES
== END 2024-02-27 17:10 | disposition home or self-care (01) ==
PROVIDERS: Personal Emergency Response Attendant; Emergency Provider Emergency Medicine
DX: N39.0 Urinary tract infection, site not specified (principal); Z87.440 Personal history of urinary (tract) infections
CPT/HCPCS: 81001; 87086; 87186; 99283

== ENCOUNTER 2024-11-21 21:55 | Emergency (ER) | payer OTHER, SELFPAY ==
--- OUTSIDE RECORDS SUMMARY | 2023-11-24 06:15 | XMS_ITS ---
Author Organization [facility] Address [address] [place] [address] Care Team Providers Care Program Development Specialist Name Role Phone Theodore Navarro Primary Care Provider Vannesa Arnold Unavailable [phone] REASON FOR VISIT New pt, Vivitrol PPW/ID/INS Encounters Encounter Location Date Provider Diagnosis [place] [address] [place] [address] 11/24/2023 Vannesa Arnold Plan Of Treatment No Information Progress Notes * DAVILA SARAOB: 4 (39 yo F)Acc No.[id number]:11/24/2023 Patient: BEA RUIZ Provider: Gab Arnold CNP :1985 A ge:38 Y S ex:Female Date:11/24/2023 Address:[address] [place] [address], [address], [place], [id number] Pcp:Theodore Navarro Subjective: * Chief Complaints: * 1 . New pt, Vivitrol PPW/ID/INS. * Medical History: Objective: * Vitals: Assessment: Plan: * Treatment: * Images: * Electronic signature of SATURNINO Messina on 11/21/2024 at 10:02 PM EDT Sign off status: Pending * Provider: Gab Arnold CNP Date: 11/24/2023 Generated for Printi ng/Jose/Juan Carlositting on: 0 11/21/2024 10:02 PM EDT
[2024-11-21] VITALS (7 sets, daily range): BP systolic 142–156; BP diastolic 99–104; PULSE 86–109; TEMP 36.9; O2SAT 98; BMI 33.9
--- OUTSIDE RECORDS SUMMARY | 2024-11-21 22:03 | XMS_ITS | Patient Health Record ---
Author Organization [facility] Address [address] [place] [address] Care Team Providers Care Development And Planning Engineer Name Role Phone Ramon Theodore Primary Care Provider Vannesa Arnold Unavailable [phone] Allergies Allergen (clinical drug ingredient) Drug/Non Drug Allergy documented on EMR Reaction Allergy Type Onset Date Status sulfamethoxazole / trimethoprim Bactrim Unknown Drug Allergy Active Reason For Referral No Information Medications Medication SIG (Take, Route, Fr equency, Duration) Notes Start Date End Date Status Ibuprofen 800 MG 1 tablet with food o r milk as needed Orally Three times a day 02/16/2022 Active Cymbalta 60 MG 1 capsule Orally Once a day Active Ondansetron HCl 4 MG 1 tablet Orally Onc e a day for 10 days 06/27/2021 Active Omeprazole 20 mg one tablet orally twice a day Active Social History Tobacco Use: Social History Observation Description Date Details (start date - stop date) Current Smoker NA - NA Tobacco Screen: Question Answer Notes Are you a: current smoker How often do you smoke cigarettes? every day How many cigarettes a day do you smoke? 11-20 How soon after you wake up do you smoke your fir st cigarette? within 5 min Are you interested in quitting? Not ready to reyna t Alcohol Screening: Question Answer Notes Did you have a drink contain ing alcohol in the past year? Yes How often did you have a dri nk containing alcohol in the past year? Monthly or less (1 point) Points 1 Interpretation Negative Plan Of Treatment No Information Insurance Providers Payer Name Payer Address Payer Phone Subscriber Number Group Number Insured Name Patient Relationship to Insured Coverage Start Date Coverage End Date [facility] ed 22. [address] CLAIMS [facility] [place] [address] [id number] BEA DAVILA Self - patient is the insured 1 zMEDICAID CFC after [employer] [address] [place] [address] [id number] BEA DAVILA Self - patient is the insured 1 zDENTAL [employer] med 22 [address] [address] [place] [address] [id number] BEA DAVILA Self - patient is the insured 2 zDental MEDICAID CFC after [employer] 22 [address] [place] [address] [id number] BEA DAVILA Self - patient is the insured 2 Medical (General) History Medical History History ICD Code depression/ anxiety Surgical History Surgery Date(Month/Year) tubal ligation 08/2012 gallbladder broken pelvis Hospitalization History Reason Date(Month/Year) see surgery
--- OUTSIDE RECORDS SUMMARY | 2024-11-21 22:03 | XMS_ITS | Encounter Summary ---
Author Organization [facility] Address [address] [place] [address] Care Team Providers Care Home Worker Name Role Phone Mer Chambers NP Unavailable [phone] Angella Casas MD Primary Care Provider [phone] Angella Casas MD Unavailable [phone] Encounter Details Date Type Department Care Team (Late st Contact Info) Description 12/09/2023 Orders Only [facility] [address] [place] [id number] Lyssa Pickett MA Breast cancer screening by mammogram Social History Tobacco Use Types Packs/Day Years Used Date Smoking Tobacco: Former Cigarettes 2 - 2006 Smokeless Tobacco: Never Alcohol Use Standard Drinks/Week Comments Yes 2 (1 standard drink = 0.6 oz pure alcohol) Caffeine intake: 2-3 cups per day PHQ-2 Answer Date Recorded Patient Health Questionnaire-2 Score 0 12/01/2022 Comments Unknown Sex and Gender Information Value Date Recorded Sex Assigned at Not on file Legal Sex Female 9:35 PM EDT Gender Identity Not on file Sexual Orientation Straight 02/29/2024 5: 53 PM EDT documented as of this encounter Plan of Treatment Not on file documented as of this encounter Visit Diagnoses Diagnosis Breast cancer screening by mammogram documented in this encounter Care Teams Home Worker Relationship Specialty Start Date End Date Angella Casas MD [address] [place] [address] PCP - General Family Medicine 12/07/23 Angella Casas MD [address] [place] [address] [facility] 03/21/24 Mer Chambers NP [address] [place] [address] Nurse Practitioner Family Medicine 11/30/22 documented as of this encounter
--- OUTSIDE RECORDS SUMMARY | 2024-11-21 22:03 | XMS_ITS | Encounter Summary ---
Author Organization [facility] Address [address] [place] [address] Care Team Providers Care Dental Amalgam Processor Name Role Phone Shelley Oates MD Primary Care Provider [phone] Mer Chambers NP Unavailable [phone] Angella Casas MD Unavailable [phone] Angella Casas MD Primary Care Provider [phone] Angella Casas MD Unavailable [phone] Reason for Visit * Reason Comments Med Refill Encounter Details Date Type Department Care Team (Late st Contact Info) Description 12/04/2022 Refill [facility] [address] [place] [id number] Angella Casas MD [address] [place] [address] Primary insomnia Social History Tobacco Use Types Packs/Day Years Used Date Smoking Tobacco: Never Assessed Alcohol Use Standard Drinks/Week Comments Yes 2 [...] PM EDT documented as of this encounter Miscellaneous Notes * Telephone Encounter - Brucestoneykadi Best - 12/07/2022 4:26 PM EDT Approving, but needs appt for additional refills. documented in this encounter Plan of Treatment Not on file documented as of this encounter Visit Diagnoses Diagnosis Primary insomnia Persistent disorder of initiating or maintaining sleep documented in this encounter Care Teams Dental Amalgam Processor Relationship Specialty Start Date End Date Shelley Oates MD [address] [place] [address] PCP - General [facility] 11/30/22 12/06/23 Angella Casas MD [address] [place] [address] PCP - [facility] 12/19/22 Angella Casas MD [address] [place] [address] PCP - [facility] 12/07/23 Angella Casas MD [address] [place] [address] PCP - [facility] 03/21/24 Mer Chambers NP [address] [place] [address] Nurse Practitioner Family Medicine 11/30/22 documented as of this encounter
--- OUTSIDE RECORDS SUMMARY | 2024-11-21 22:03 | XMS_ITS | Encounter Summary ---
Author Organization [facility] Address [address] [place] [address] Care Team Providers Care Boat Canvas Maker And Installer Name Role Phone Mer Chambers NP Unavailable [phone] Angella Casas MD Primary Care Provider [phone] Angella Casas MD Unavailable [phone] Reason for Visit * Reason Comments Med Refill Encounter Details Date Type Department Care Team (Late st Contact Info) Description 05/01/2024 Refill [facility] [address] [place] [address] Marycarmen Gamboa NP [address] [place] [address] Generalized anxiety disorder (CMS/HCC) ; Current moderate episode of major depressive disorder without prior episode (HCC) (CMS/HCC) Social History Tobacco Use Types Packs/Day Years Used Date Smoking Tobacco: Former Cigarettes 2 2006 Smokeless Tobacco: Never Alcohol Use Standard Drinks/Week Comments Yes 2 (1 standard drink = 0.6 oz pure alcohol) Caffeine intake: 2-3 cups per day B1300 Health Literacy Answer Date Recor ded How often do you need to hav e someone help you when you read instructions, pamphlets, or other written material from your doctor or pharmacy? Never 02/29/2024 Social Connection and Isolation Panel [NHANES] A nswer Date Recorded In a typical week, how many times do you talk on the phone with family, friends, or neighbors? Three times a week 02/29/2024 How often do you get togethe r with friends or relatives? Patient declined 02/29/2024 How often do you attend chur ch or jew services? Never 02/29/2024 Do you belong to any clubs o r organizations such as yazidi groups, unions, fraternal or athletic groups, or school groups? No 02/29/2024 How often do you attend meet ings of the clubs or organizations you belong to? Never 02/29/2024 Marital Status Not on file 02/29/2024 AUDIT-C Answer Date Recorded Q1: How often do you have a drink containing alc ohol? Monthly or less 02/29/2024 Q2: How many drinks containi ng alcohol do you have on a typical day when you are drinking? 1 or 2 02/29/2024 Q3: How often do you have si x or more drinks on one occasion? Less than monthly 02/29/2024 Overall Financial Resource Strain (CARDIA) Answe r Date Recorded How hard is it for you to pa y for the very basics like food, housing, medical care, and heating? Somewhat hard 02/29/2024 PHQ-2 Answer Date Recorded Patient Health Questionnaire-2 Score 0 12/01/2022 [facility] - Occupational Stress Questionnaire Answer Date Recorded Do you feel stress - tense, restless, nervous, or anxious, or unable to sleep at night because your mind is troubled all the time - these days? To some extent 02/29/2024 Exercise Vital Sign Answer Date Recorde d On average, how many days pe r week do you engage in moderate to strenuous exercise (like a brisk walk)? 0 days 02/29/2024 On average, how many minutes do you engage in exercise at this level? 0 min 02/29/2024 Hunger Vital Sign Answer Date Recorded Within the past 12 months, y ou worried that your food would run out before you got the money to buy more. Never true 02/29/20 24 Within the past 12 months, t he food you bought just didn't last and you didn't have money to get more. Never true 02/29/2024 PRAPARE - Transportation Answer Date Re corded In the past 12 months, has l ack of transportation kept you from medical appointments or from getting medications? No 02/19 In the past 12 months, has l ack of transportation kept you from meetings, work, or from getting things needed for daily living? No 02/29/2024 Housing Stability Vital Sign Answer Hi e Recorded In the last 12 months, was t here a time when you were not able to pay the mortgage or rent on time? No 02/29/2024 Number of Times Moved in the Last Year Not on fi le 02/29/2024 At any time in the past 12 m ont, were you homeless or living in a senior living (including now)? No 02/29/2024 Comments No Sex and Gender Information Value Date Recorded Sex Assigned at Not on file Legal Sex Female 9:35 PM EDT Gender Identity Not on file Sexual Orientation Straight 02/29/2024 5: 53 PM EDT documented as of this encounter Miscellaneous Notes * Telephone Encounter - Marycarmen Gamboa NP - 05/01/2024 8:52 AM EST Already sent. documented in this encounter Plan of Treatment Not on file documented as of this encounter Visit Diagnoses Diagnosis Generalized anxiety disorder (CMS/HCC) Generalized anxiety disorder Current moderate episode of major depressive disorder without prior episode (HCC) (CMS/HCC) documented in this encounter Care Teams Boat Canvas Maker And Installer Relationship Specialty Start Date End Date Angella Casas MD [address] [place] [address] PCP - General Family Medicine 12/07/23 Angella Casas MD [address] [place] [address] PCP - [facility] 03/21/24 Mer Chambers NP [address] [place] [address] Nurse Practitioner Family Medicine 11/30/22 documented as of this encounter
--- OUTSIDE RECORDS SUMMARY | 2024-11-21 22:04 | XMS_ITS | CCD ---
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 Attending Unavailable Heladio Roth. Attending Unavailable Elsi Kelsey Attending Unavailable MOHSEN STEWART Attending Unavailable Heladio Roth. Admitting Unavailable Heladio Roth. Attending Unavailable Mer Chambers NP Unavailable Angella Bhat MD Primary Care Provider Angella Bhat Primary Care Unavailable Heladio Roth PA-C Attending UnavailHeladio Sosa PA-C Admitting UnavailAngella Ceja MD Unavailable [phone] ANGELLA BHAT Attending Unavailable ANGELLA BHAT Attending Unavailable ANGELLA BHAT Referring Unavailable ANGELLA BHAT Attending Unavailable DRE GALVAN Attending Unavailable DRE GALVAN Attending Unavailable ANGELLA BHAT Attending Unavailable Allergies Allergy Classification Reported Allergen(s) Allergy Type Date of Onset Reaction(s) Facility (1 source) SULFAMETHOXAZOLE W-TRIMETHOPRIM; Translations: [SULFAMETHOXAZOLE W-TRIMETHOPRIM] Propensity to adverse reactions to drug (disorder) [facility] ([facility] sources) Sulfamethoxazole / Trimethoprim; Translations: [sulfamethoxazole-t rimethoprim] Drug Allergy 12-01-19 Yeast (substance), Unknown [facility] Medications Current Medications Medication Drug Class(es) Dates Sig (Normalized) Sig (Original) acetaminophen 325 mg / oxyCODONE hydrochloride 5 mg oral tablet (1 source) Opioid Agonist Start: 04-17-2022 End: 04-19-2022 Percocet 325 mg-5 mg Tab 1 tab(s), Oral, q6hr for pain for 2 day(s), 7 tab(s), Refill(s) 0, [facility]/pharmacy #[id number], 152, cm, 04/08/22 13:53:00 EDT, [...] day(s), # 20 cap(s), Refills(s) 0, Pharmacy: [facility]/pharmacy #[id number], 152, cm, 12/08/22 12:57:00 EDT, [...] day(s), # 21 cap(s), Refills(s) 0, Pharmacy: [facility]/pharmacy #[id number], 153, cm, 12/23/22 18:41:00 EDT, Height/Length Dosing, 79.4, kg, 01/18/23 13:28:00 EDT, Weight Dosing Start Date: 01/18/23 Stop Date: 01/25/23 Status: Ordered Start: 04-24-2022 End: 04-29-2022 take 1 capsule by mouth every twelve hours Keflex 500 mg Cap 500 mg = 1 cap(s), Oral, q12hr, X 5 day(s), # 10 cap(s), Refills(s) 0, Pharmacy: [facility]/pharmacy #[id number], 152.4, cm, 04/24/22 13:46:00 EDT, Height/Length Dosing, 79, kg, 04/24/22 13:46:00 EDT, Weight Dosing Start Date: 04/24/22 Stop Date: 04/29/22 Status: Ordered Start: 11-28-2021 take 1 capsule by [facility] every twelve hours cephalexin 500 mg Cap 500 mg = 1 cap(s), Oral, q12hr, # 20 cap(s), Refills(s) 0, Pharmacy: [facility]/pharmacy #[id number], 152, cm, 11/28/21 21:52:00 EDT, Height/Length Dosing, 73, kg, 11/28/21 21:52:00 EDT, Weight Dosing Start Date: 11/28/21 Status: Ordered Cymbalta 60 mg Cap-DR (5 sources) Start: 09-06-2019 take 1 capsule by mouth at bedtime Cymbalta 60 mg Cap-DR 60 mg, Oral, Bedtime, Refills(s) 0, Depression Start Date: 09/06/19 Status: Ordered Start: 09-06-2019 take 1 capsule by [facility] at bedtime Cymbalta 60 mg Cap-DR 60 mg, Oral, Bedtime, Refills(s) 0 Start Date: 09/06/19 Status: Ordered DULoxetine 30 mg delayed release oral capsule (20 sources) Serotonin and Norepinephrine Reuptake Inhibitor Start: 04-26-2024 take 1 capsule by mouth once daily DULoxetine (Cymbalta) [address] capsule Indications: Generalized anxiety disorder (CMS/HCC) , Current moderate episode of major depressive disorder without prior episode (HCC) (CMS/HCC) Take 1 capsule (30 mg) by mouth Daily 7 capsule 04/26/2024 Active Start: 12-07-2023 take 1 capsule by mo [facility] once daily DULoxetine (Cymbalta) [address] capsule Indications: Anxiety disorder, unspecified type TAKE 1 CAPSULE BY MOUTH EVERY DAY 90 capsule 3 12/07/2023 Active Start: 09-06-2019 take 1 capsule by [facility] at bedtime Cymbalta 60 mg Cap-DR 60 mg, Oral, Bedtime, Refills(s) 0, Depression Start Date: 09/06/19 Status: Ordered naltrexone hydrochloride 50 mg oral tablet (20 sources) Opioid Antagonist Start: 12-09-2023 End: 04-14-2025 take 2 tablets by mouth once daily in the morning naltrexone (Depade) 50 MG tablet Indications: Alcohol use disorder TAKE 2 TABLETS BY MOUTH EVERY MORNING 30 tablet 08/03/2024 Active omeprazole 40 mg delayed release oral capsule (20 sources) Proton Pump Inhibitor Start: 09-14-2023 omeprazole (PriLOSEC) [address] capsule Indications: Gastroesophageal reflux disease without esophagitis TAKE 1 CAPSULE BY MOUTH EVERY DAY 30 MINUTES BEFORE MORNING MEAL FOR 30 DAYS 30 capsule 11 09/14/2023 Active Start: 12-08-2022 omeprazole 40 mg Cap-DR Refills(s) 0 Start Date: 12/08/22 Status: Ordered pantoprazole 40 mg delayed release oral tablet (4 sources) Proton Pump Inhibitor Start: 09-07-2019 Pantoprazole 40 mg D R Tab 40 mg = 1 tab(s), Oral, Daily, Refills(s) 0, Control of stomach acid Start Date: 09/07/19 Status: Ordered Start: 09-07-2019 take 1 tablet by [facility] once daily Pantoprazole [address] Tab 40 mg = 1 tab(s), Oral, Daily, Refills(s) 0 Start Date: 09/07/19 Status: Ordered phenazopyridine hydrochloride 100 mg oral tablet (2 sources) Start: 01-18-2023 End: 01-21-2023 take 1 tablet by mouth three times daily Pyridium 100 mg Tab 100 mg = 1 tab(s), Oral, TID, X 3 day(s), # 9 tab(s), Refills(s) 0, Pharmacy: [facility]/pharmacy #[id number], 153, cm, 12/23/22 18:41:00 EDT, Height/Length Dosing, 79.4, kg, 01/18/23 13:28:00 EDT, Weight Dosing Start Date: 01/18/23 Stop Date: 01/21/23 Status: Ordered 24 hr venlafaxine 75 mg extended release oral capsule (15 sources) Serotonin and Norepinephrine Reuptake Inhibitor Start: 04-26-2024 take 1 capsule by mouth once daily venlafaxine XR (Effexor XR) 75 MG 24 hr capsule Indications: Generalized anxiety disorder (CMS/HCC) , Current moderate episode of major depressive disorder without prior episode (HCC) (CMS/HCC) Take 1 capsule (75 mg) by mouth Daily Do not crush or chew. 30 capsule 1 04/26/2024 Active Problems Active Problems Problem Classification Problem Date Documented Date Episodic/Chronic Anxiety disorders (19 sources) Anxiety disorder; Translations: [Anxiety disorder, unspecified] Onset: 11-30-2022 11-30-2022 Chronic Cardiac dysrhythmias (4 sources) Palpitations; Translations: [Palpitations] 09-22-2024 Episodic E Codes: Adverse effects of medical drugs (2 sources) Adverse reaction to drug; Translations: [Adverse effect of unspecified drugs, medicaments and biological substances, initial encounter] 04-21-2024 Episodic Endometriosis (19 sources) Uterine adenomyosis; Translations: [Adenomyosis] Onset: 11-30-2022 11-30-2022 Chronic Esophageal disorders (7 sources) Gastroesophageal reflux disease 04-08-2022 Chronic Genitourinary symptoms and ill-defined conditions (1 source) Increased frequency of urination; Translations: [Frequency of micturition] Onset: 01-18-2023 Episodic Malaise and fatigue (19 sources) Fatigue; Translations: [Chronic fatigue, unspecified] Onset: 11-30-2022 11-30-2022 Chronic Menstrual disorders (20 sources) Menorrhagia; Translations: [Excessive and frequent menstruation with regular cycle] Onset: 04-17-2022 Chronic Miscellaneous mental health disorders (19 sources) Primary insomnia; Translations: [Primary insomnia] Onset: 11-30-2022 11-30-2022 Chronic Mood disorders (20 sources) Mild major depression; Translations: [Major depression, single episode] Onset: 11-30-2022 01-25-2019 Chronic Nonmalignant breast conditions (2 sources) Mastodynia; Translations: [Mastodynia] 06-08-2024 Episodic Nutritional deficiencies (8 sources) Vitamin D deficiency 01-25-2019 Chronic Other acquired deformities (19 sources) Contracture of joint of right ankle; Translations: [Contracture, right ankle] Onset: 11-30-2022 11-30-2022 Chronic Other and unspecified benign neoplasm (1 source) Benign neoplasm of soft tissue; Translations: [Benign neoplasm of connective and other soft tissue, unspecified] Onset: 04-17-2022 Episodic Other inflammatory condition of skin (2 sources) Erythema of skin; Translations: [Other specified erythematous conditions] 07-31-2024 Episodic Other injuries and conditions due to external causes (2 sources) Contusion; Translations: [Other injury of unspecified body region, initial encounter] 09-22-2024 Episodic Other nervous system disorders (19 sources) Carpal tunnel syndrome of right wrist; Translations: [Carpal tunnel syndrome, right upper limb] Onset: 11-30-2022 11-30-2022 Chronic Other nutritional; endocrine; and metabolic disorders (2 sources) Obese class I; Translations: [Body mass index (BMI) 34.0-34.9, adult] Onset: 12-08-2022 Chronic Other upper respiratory infections (6 sources) Acute pharyngitis; Translations: [Acute pharyngitis, unspecified] Onset: 12-08-2022 Episodic Residual codes; unclassified (1 source) Pelvic organ finding; Translations: [Acquired absence of both cervix and uterus] Onset: 04-17-2022 Episodic Residual codes; unclassified (5 sources) Alcoholism; Translations: [Alcohol use disorder] 04-21-2024 Episodic Residual codes; unclassified (2 sources) Generalized aches and pains; Translations: [Pain, unspecified] 06-27-2024 Episodic Substance-related disorders (8 sources) Smoker 05-09-2014 Chronic Comment on above: Added secondary to d ocumentation in Social History. Urinary tract infections (11 sources) Urinary tract infectious disease; Translations: [Urinary tract infection, site not specified] Onset: 11-28-2021 Episodic Viral infection (8 sources) Genital warts; Translations: [Anogenital (venereal) warts] 04-21-2024 Episodic Past or Other Problems Problem Classification Problem Date Documented Date Episodic/Chronic Unclassified (8 sources) Streptococcus agalactiae (organism) Resolved: 12-12-2011 12-14-2011 Unclassified (20 sources) Onset: 09-15-1999 Resolved: 12-12-2011 12-27-2014 Results Test Name Value Interpretation Reference Range Facility No Panel Informationon 07-31 Complexity: simple Destruction method: cryotherapy [facility] No Panel Informationon 06-27 [facility] Healthcare Coding Summaryon 04-27-2024 Coding Summary HTMLBase 64 VhhacovkCOr7xFa+PGhl YWQ+AW4LLZZlL10wcNMo vB6rR8NLOCvTWxqwZGAU LVeREuQifySkBK5wiTJd ZXJu IC8+BL2vSHCkWkhxmRNw i7G8bJM0Q07gug5dQXnf dFT1YKJmLeAuhwnzw3kp aVd9HAvvRxzgWkEa EZJnvF57QPY5sG74Wb14 dEZxcAAyo1gkxSb2PoDc IAYbKYS1hUsuASaep7Qd LEGpR04agWVuc3B8 IGNvbGxhcHNlOyBlbXB0 oF2cSAbdzejup7lghocf Kge9st26pCXrg1B7pMS7 Q6YqgdN0JHMynWSn AhnwyYLNdS3gmldfg5lz nuteAgIpAPRkZAt5JIj1 QURwvHlzXtNxZN23JMS1 XDPlgyWnC7PhVOCw uUbyBjN0f9I1Dm2LW1SS OwbkK9URSXCXZWkzcZQ+ XC86dh76E6CnQovlUlp2 RQZmKSS6yRH5iG0t WHXfXZilt7J9oAC3Y5Jj yiDxgn4go6agGMFwMGby R24slXXlh8O2VLKmyJA2 NZSuxGtpVwDtwC56 Oyc+NLEbdChwx7LrMerw b2itp9efgSr3YtcpHNIk leVmrJupCTC3p3HqSm8g MGHmvXR8bZE4tI8m MrNvXhG6ELteD215KeXt xYEdLtsiI99wY5FcjCD+ LZNlIku0BZGozAgaDH2o Z1JlSVDqmnbmiPOa hHvjCS5mIELhsfouZNKd zF1kOCPyJ2a1KfLzBgG9 JJnrY8PtUSDlbsvjGs42 nY9nWcDyWiC2JLyc Z5MemsC9JUDrgHHeCDbv KXG4O47xw6W2WECnADAg BIF4lZH2uF8hlMqgoiyb bGVmdDsgdmVydGlj WLgeUAckO979FMAecWzc PkNvZGluZyBEYXRlOiAg MTEvMDcvMjAyNDwvdGQ+ UMPeEIF3bGpmDUBf aKXcFWxpJz3neIyadOev DP5eORXtyjhiZPSuxN3w JVLnhOElwXuxVV4bTPJb zjqjq971LyJwEEY7 FTRgiIScA8KwfF4mOdBm ONTkYYUdQ6DluBFzVFik D549BHlpOxX7GXBpokQl B8JmWKRgeCqaRaQ6 k3Q1Lg4Gc5QhxfknF5Iv kMKfUeRqUishLUj9D2Wj PjwvdHI+TH93RBZpRK44 QMg0AHM7aRuyICkp WOQyN3ApqE9vUuYlGAZg ZGRkOyc+PHRhYmxlIHdp ZHRoPScxMDAlJyBzdHls UF5qJu5hGVSwIWXp hZvmlUEoPuVgv5leFVDk HOxuGL6weQxxQ0GbbHV9 VUJqq9s9Ml40N32cX6Ao dXA+QGSdlVG5wSS8 iE9hDcVfQfS1DNtxW987 FnJupVRcKsgif0wba7og cUl8QdX9TKUtmlHnfTby PRQ3r8OkMk69Z76t IHdpZHRoPSIxNSUiIHZh xLownn2xxP4yDz9+PGNv pYP8mVA3cF9tAlFaKzA4 XTkfU320QhJniQIo Phgvh1yuv1bsiAx5ZpJw ZTUirxGzwKhqAUS6a2Dd Tu00Y3WeaBjhn8DvOlw0 rk45oVAhd4B2nDY6 E9HxWHKfcnvtnJOllBhq MM8uPSIdjkinZOUfzD8f EWHtK3i0AyQuFnF8XCdh E0CrdnX8KIHmuWDp DFCtuUMAqZ2pxwiop8io rlycEvNmAPSlEQw5ICr0 UVBfwDwaJcNyGSO6YmF0 CLF2qSFjaZ5ybLqv hqdipW8kOzf+TCL2uGUu iZKOEI6zLtcuyCG+PHRk ACP7hWdbCCuoQILocT1f RCEwV9x1AiSjSmD7 IGeeC1JtrvI8EYWrvSTr TJQkwDLEmE6iuiyjp9cv qpzsMeKyZVPxQXl4NXn0 LWFsaWduOiBsZWZ0 UwT0UAJ5bMWwuY9jaJyv oaonyO2eUxp+QmlydGgg PBA9VCz8F8HaRva1PTPe sVczQR4ofAAnUCrl Sl2krXsblCtdBN1pFOXr sbxdt981KyMac9svFFZe hSReQEecOGF8N52dy1X9 YYAvJOEbHAL1gAX4 sG9enRlebutcxRWbfJic lrXdiCksMStcKLuuG679 BJEkpUoeNsUeYSm7K7Vp Ede1YMOonSuzWO8l lZDmWEviSd4mnPcjyIrs FY2xYMMowdwcn179BaOi z4lsBKVwbQMzLVzjIVM0 X85rx5E4GCBwDMIv HHG0bRF3iD8axNnuhxzm bGVmdDsgdmVydGljYWwt SDocJ703SEIoyZbnEhCl cNr7O9ExIli1XJDt iDypEY3qgQOfSCbzUh0e eFrsbRhoTC0lRCVmnxoa e818VqVcd2twBOJrpVWu HFpvOBU6Q76zd5O3 ZBPnTDPqKWV6sUK0qT3h bGlnbjogbGVmdDsgdmVy aLesNWodGHldE352RCNb cDsnPlBhdGllbnQg COouIHy6G9LpXcodgVC+ HE60GPSwYE53vUMsxYPr e5trpAy4OqQoPLPtSVV9 zLmdKUaji8CmAQCh N51maAGgs7O0ARLxsTjt hKHsWvSzaFP0tR3zCFrk thfyb0ceczkiAogyr1bs dw08rC19I21bESde ZHRoPSIzMCUiIHZhbGln gz1ayG0lXx5+PGNvbCB3 rBX1eW9aFUSoApZ6LDnk N742JdWmqTJnSvit n8xoz7irrNe9XbR9REVp eqClkDkcLTF9p7WwNt01 Q60dBUjlICHeFWCsBEEy HBTlcRxjkj2xnP9q Ii8+EYQveYV8iFB4rZ7y HmGvHnA1LDydG244AtZj kNDnAthoC50nX9HcvQL+ DMIlEli4MIRsqXce EW6axBVgXDqsPm9bHAV5 QyRfXeHyNSywB0AlPJMg hmgrassovCG1MGOhVJLi pL18Pv1bfZbtOFHk xYNRbC9wxwhve4jcvkrm TnMySFLsLDu4JVp8FSWb tXrbPkUrNRG5DwF9GXT6 gPJzjT0jtQfdsozj jG8bS9DhNORowitgOs38 tR2gMySxTaC6SLmfBwx+ UklDSEFSRFMsIEhPTExZ HTWPIS2PNGxxaTQ+ UPCmITU3cSzqBObxOKLi oA3oMVMiR2u2IbBgZpR3 UFdyQ4HkIRJdztguBb94 mO9vJbKkMtB7AMvu I1OcjhS1ARQjrRPpOXij TLW3O71dw4V5HMAzYVZv PYT1hYG4mR4elXgetvig bGVmdDsgdmVydGlj NFjuUHakS086AQPkyQsq UoWwJvM3AmJ6JGT6D7Eo Pyj7JQUllMkeIT4hcCKc KPezEc2yfFaizQof MK6rIACzwqkaZVGnbM8u CSSrfRTdgWfyPT7qUMNp vyhnv372LdQpMRQ8MQHj pOWiE1UlfZ9gEpJm XQYjNMOhH2RbwGUcAPpq U236TCktNsF2ZKOfvlEz K6UpMJPfxSesVzC0v0Y3 Zl52RXUDJYRxyipr dGQ+KGCaKJI9wHtwWWeh KUHmyI0kDXAsC7g6OiJi RnX5OIozI0WgNCDlztxq Be71iV0oEnDhQpW4 UQcoE5KkkoK2IIEljJCq QCplCHD9S92tf5G8EUMo VPTtCNS6xBG5gR1fjHhj bjogbGVmdDsgdmVy qFssYIyxAKocW230SYQc cDsnPkZFTUFMRTwvdGQ+ UDYnENQ4jKgbEHafDIYv wG7rLWPvE6i6WoQt TsW6ACtlU8DqDUUdxbaa Gy87aS8pYhGoYzW3DAky S7OdtoH0JUTnjVBkJLxg HCD1L00np7B7RNUi BESxQOC7uQQ3sS9syHdz bjogbGVmdDsgdmVydGlj IGolKSsuX706PRLcwWov Ka4HVO95SJ88U1Ek PjwvdGFibGU+PHRhYmxl IHdpZHRoPScxMDAlJyBz pVqyFX3oVo5iPTRdZZSx pRdziSGcPkJsr8td QHWuRGwmZV4vdUtrD0Yh cJD1WJXis6a5Jw28D47l J9SfwTA+KNClfGU7fYV4 eI2tGvIaTpD2RUdw H251StGpnZHuVzhpy9hb j8incIa6EkQpACKdwhYj xFamAZQ3f1SgQi61T77k IHdpZHRoPSIyMCUi SCIycNxvus8gzG4mQd8+ QEAyhJM2nGD7dI9nSqUo GyC7CXooN026MvNpxQMo RgptJ58yH1BsfVI+ BUWcEfj9EPFxwTayXM7w nQLgCOkxBp6wSVC4IjDq WxCkLIzwT7UjPDJepqbv pdygbBP2ACOkJBCd vG28Ua9zcNxpXf8aIRCa NUZ8CQNllUBfJ7IwiL0e AhYvRGWhPRYiA5PpfKAe RDbmO493ZCesUuT5 VPQhzyOpU7JhWFFfcFfm NsH0c6N6Zf1YjHiudKBd GU3iFxHiTCf4Q0RgUus9 DSQhvKxhQX0nqCGa WWtvNu6uuAmodQrqLV0o STNeeukph819StDhg4ya JYGkzBSuKAuyQLQ2D27n u0R7CYNmLWFyKIO0 xLL5pF8ntPxsfxruyTJb dDsgdmVydGljYWwtYWxp C075LKRukEvlKhYBZtp1 E0BvVto5NTTrdFuf RF9jdLAlKAkpGo9pcKpe sZinTG5rRMHujxxra743 YjNvw5vgFLPzgLGkTQug CNY5P71uk9S5LNHk GWMgTMG5mRG5fX1gcMff bjogbGVmdDsgdmVydGlj TQatULoxY254IZFudLcd Rr4ZPvm3C7NeFng0 FKEjqLtfIX5wrLNiTKfo Tz6bsIjigUznOU3iSXYs yguxp148DqBqd9cmCDJc uEVsCZccZEJ4N39b f1G1GIYeQTNjCCI8rAE5 sO5qkVotqkjumHXmnLik apBahGtyKBmxSNgtH548 IHRvcDsnPlBheWVy OjwvdGQ+CH09dd42F1Zs OcefUwz3XPCmCNF7yEH3 eK6sMZUwGZcey9B5mOY6 B0UzpvGout2jz3od YXB (more content not included)... Normal [facility] C Urineon 04-17-2024 C Urine Urine Culture ordered as a result of parameters set on specific urine dip and urine microsopic results. >3 Organisms Consistent with Contamination Recollection suggested. Normal [facility] Comment on above: Performed By: #### [id number] #### [facility] (DEFAULT) [address] [place] [address] ED Clinical Summaryon 2023 ED Clinical Summary [facility] ? Urgent Care [address] [place] [address] Clinical Summary PERSON INFORMATION Name: BEA DAVILA Age: 38 Years Sex: FEMALE : 1985 MRN: Acct#: Visit Reason: UC - Dysuria; BURNING WHILE URINATING, FREQUENT URINATION Arrival: 04/16/2024 11:52:36 Discharge: 04/16/2024 12:37:00 LOS: 000 00:45 Check In: 04/16/2024 11:52:36 Checkout: 04/16/2024 12:37:00 Address: [place] [address] PCP: Angella Bhat MD PROVIDER INFORMATION Provider Role Assigned Unassigned Yaz Us [employer] DES[employer] Nurse 04/16/2024 11:55:35 Heladio Roth PA-C [facility] 04/16/2024 12:00:16 VITALS INFORMATION Vital Sign Triage Latest Temperature Tympanic Temperature Temporal Artery Pulse Rate O2 Sat 98 % 98 % Respiratory Rate Blood Pressure /86 mmHg /86 mmHg MEDICAL INFORMATION Medications Given: Allergy Information: Bactrim PHYSICIAN DOCUMENTATION DISCHARGE INFORMATION: Discharge Disposition: Home Discharge Location: Home PATIENT EDUCATION INFORMATION Instructions: Urinary Tract Infection, Adult Follow-Up: With: Address: When: Angella Bhat MD [address] [place] [address] DIAGNOSIS: 1:UTI (urinary tract infection) Patient Understands: Yes - Patient/family/careg iver verbalizes understanding of instructions given Comment: Normal [facility] ED Patient Summaryon 024 ED Patient Summary [facility] ? Urgent Care [address] [place] [id number] PATIENT DISCHARGE INSTRUCTIONS Patient Information Name: BEA DAVILA Age: 38 Years Date of : 1985 Reason For Visit: UC - Dysuria; BURNING WHILE URINATING, FREQUENT URINATION Arrival Time: 04/16/2024 11:52:36 Primary Care Physician: Angella Bhat MD Attending Physician: Heladio Roth PA-C Comment: Patient Education With: Address: When: Angella Bhat MD [address] [place] [address] Urinary Tract Infection, Adult A urinary tract [...] a urinary catheter that stays in place. ? You are not able to control when you urinate or have a bowel movement (incontinence). ? You are female and you: ? Use a spermicide or diaphragm for control. ? Have low estrogen levels. ? Are . ? You have certain genes that increase your risk. ? You are sexually active. ? You take antibiotic medicines. ? You have a condition that causes your flow of urine to slow down, such as: ? An enlarged prostate, if you are male. ? Blockage in your urethra. ? A kidney stone. ? A nerve [...] include: ? Needing to urinate right away (urgency). ? Frequent urination. This may include small amounts of urine each time you urinate. ? Pain or burning with urination. ? Blood in the urine. ? Urine that smells bad or unusual. ? Trouble urinating. ? Cloudy urine. ? Vaginal discharge, if you are female. ? Pain in the abdomen or the lower back. You may also have: ? Vomiting or a decreased appetite. ? Confusion. ? Irritability or tiredness. ? A fever or chills. ? Diarrhea. The first symptom in older adults may be confusion. In some cases, they may not have any symptoms until the infection has worsened. How is this diagnosed? This condition is diagnosed based on your medical history and a physical exam. You may also have other tests, including: ? Urine tests. ? Blood tests. ? Tests for STIs (sexually transmitted infections). If you have had more than one UTI, a cystoscopy or imaging studies may be done to determine the cause of the infections. How is this treated? Treatment for this condition includes: ? Antibiotic medicine. ? Kret-wrf-oblizgt medicines to treat discomfort. ? Drinking enough [...] these instructions at home: Medicines ? Take sjdk-ese-rqcwaqz and prescription medicines only as told by [...] ? Wipe from front to back after urinating or having a bowel movement if you are female. Use each tissue only one time when you wipe. ? Drink enough fluid to keep your urine pale yellow. ? Keep all follow-up visits. This is important. Contact a health care provider if: ? Your symptoms do not get better after 1?2 days. ? Your symptoms go away and then return. Get help right away if: ? You have severe pain in your back or your lower abdomen. ? You have a fever or chills. ? You have nausea or vomiting. Summary ? A urinary tract infection (UTI) is an infection of any part of the urinary tract, which includes the kidneys, ureters, bladder, and urethra. ? M (more content not included)... [facility] UA [id number] 04-16-2024 UA Bacteria 1+ [facility] Comment on above: Order Comment: Urina lysis Microscopic order added on by PPT [employer] Expert Rules system. Performed By: #### [id number] #### [facility] (DEFAULT) [address] [place] [id number] UA RBC 15-20 [facility] Comment on above: Order Comment: Urina lysis Microscopic order added on by PPT [employer] Expert Rules system. Performed By: #### [id number] #### [facility] (DEFAULT) [address] [place] [id number] UA Squam Epi Moderate [facility] Comment on above: Order Comment: Urina lysis Microscopic order added on by PPT [employer] Expert Rules system. Performed By: #### [id number] #### [facility] (DEFAULT) [address] [place] [address] [id number] UA WBC 40-50 Normal [facility] Comment on above: Order Comment: Urina lysis Microscopic order added on by Discern Expert Rules system. Performed By: #### 5 [id number], [id number] #### [facility] (DEFAULT) [address] [place] [address] UA w Culture if Ind Standard on 04-16-2024 Breakpoint UA [facility] Comment on above: Performed By: #### 5 [id number], [id number] #### [facility] (DEFAULT) [address] [place] [address] Color (U) Yellow [facility] Comment on above: Performed By: #### 5 [id number], [id number] #### [facility] (DEFAULT) [address] [place] [address] Culture? Yes [facility] Comment on above: Result Comment: Resu lt created by rule GL_MAGR_ADD_UA_CULT Result created by rule GL_MAGR_ADD_UA_CULT1 Performed By: #### 5 [id number], [id number] #### [facility] (DEFAULT) [address] [place] [address] Glucose (U) [Mass/Vol] Negative [facility] Comment on above: Performed By: #### 5 [id number], [id number] #### [facility] (DEFAULT) [address] [place] [address] Ketones Ql (U) TRACE [facility] Comment on above: Performed By: #### 5 [id number], [id number] #### [facility] (DEFAULT) [address] [place] [address] Micro? Indicated Invalid Interpretation [facility] Comment on above: Result Comment: Resu lt created by rule GL_MAGR_ADD_UA_MICRO Performed By: #### 5 [id number], [id number] #### [facility] (DEFAULT) [address] [place] [address] UA Bilirubin Negative Normal [facility] Comment on above: Performed By: #### 5 [id number], [id number] #### [facility] (DEFAULT) [address] [place] [address] UA Blood MODERATE Abnormal NEGATIVE [facility] Comment on above: Performed By: #### 5 [id number], [id number] #### [facility] (DEFAULT) [address] [place] [address]6963 UA Clarity CLOUDY Abnormal CLEAR [facility] Comment on above: Performed By: #### 5 [id number], [id number], [id number] #### [facility] (DEFAULT) [address] [place] [address]3520 UA Leuk Est MODERATE Abnormal NEGATIVE [facility] Comment on above: Performed By: #### 5 [id number], [id number], [id number] #### [facility] (DEFAULT) [address] [place] [address] UA Nitrite Negative Normal [facility] Comment on above: Performed By: #### 5 [id number], [id number], [id number] #### [facility] (DEFAULT) [address] [place] [address] UA pH 6.0 Normal 5-8 [facility] Comment on above: Performed By: #### 5 [id number], [id number], [id number] #### [facility] (DEFAULT) [address] [place] [address] 26360 UA Protein TRACE Abnormal NEGATIVE [facility] Comment on above: Performed By: #### 5 [id number], [id number], [id number] #### [facility] (DEFAULT) [address] [place] [address] 26817 UA Spec Grav >=1.030 Normal 1.001-1.035 [facility] Comment on above: Performed By: #### 5 [id number], [id number], [id number] #### [facility] (DEFAULT) [address] [place] [address] 08838 UA Urobilinogen 1.0 mg/dL Normal 0.2-1.0 [facility] Comment on above: Performed By: #### 5 [id number], [id number], [id number] #### [facility] (DEFAULT) [address] [place] [address] Urine Source Clean Catch Normal [facility] Comment on above: Performed By: #### 5 [id number], [id number], [id number] #### [facility] (DEFAULT) [address] [place] [address] 28461 Urgent Care Rec[facility] 024 Urgent Care Record [facility] ? Urgent Care [address] [place] [address] 08444 PATIENT DISCHARGE INSTRUCTIONS Patient Information Name: BEA DAVILA Age: 38 Years Date of : 1985 Reason For Visit: UC - Dysuria; BURNING WHILE URINATING, FREQUENT URINATION Arrival Time: 04/16/2024 11:52:36 Primary Care Physician: Angella Bhat MD Attending Physician: Heladio Roth PA-C Comment: Visit Diagnosis: Diagnoses This Visit UC - Dysuria ([id number]) UTI (urinary tract infection) (N39.0) If you received any narcotics, sedation, or any other medication that causes drowsiness for the next 24 hours, unless otherwise directed: ? Do not drive a car. ? Do not operate machinery such as power tools, lawn mowers, drills, sewing machines, or stoves ? Avoid alcoholic beverages and drugs for allergies, nerves, or sleep ? Do not make important personal or business decisions or sign any legal documents With: Address: When: Angella Bhat MD [address] [place] [address] Medication Information: The exam and treatment you received today in the [facility] were for an urgent problem and are not intended as complete care. It is important for you to follow up with a doctor, nurse practitioner, or physician?s animal assistant for ongoing care. If your symptoms become worse or you do not improve as expected and you are unable to reach your usual health care provider, you should return to the Emergency Department, we are available 24 hours a day. For those patients who have received Radiology results, the interpretation of your X-ray as given to you by our Urgent Care physician is only a preliminary report. The Radiologist will review your films and if there is a change in the diagnosis you will be notified by phone. Please make sure you have provided a working phone number so we can reach you if necessary. In the event that you had a lab culture while you were a patient in the Urgent Care, you will be notified by phone if there is a need to change your antibiotic. Please make sure you have provided a working phone number so we can reach you if necessary. [facility] has provided you with a complete list of medications post discharge. Please inform your vacuum kettle cook/provider of your visit and for further instruction on these medications. Any specific questions regarding your chronic medications and dosages should be discussed with your primary care physician(s) and/or pharmacist. New Medications [facility] [id number] [place], [place] [id number], [phone] cephalexin (cephalexin 500 mg oral capsule) 1 cap(s) Oral (given by mouth) every 8 hours. for 7 Days. Refills: 0. Additional medications on your home medication list not specifically addressed. Please contact the ordering physician if you have questions about these medications. DULoxetine (DULoxetine 60 mg oral delayed release capsule) 1 cap(s) Oral (given by mouth) every day. (do not crush or chew). naltrexone (naltrexone 50 mg oral tablet) 1 tab(s) Oral (given by mouth) 2 times per day. omeprazole (omeprazole 40 mg oral delayed release capsule) 1 cap(s) Oral (given by mouth) every day. Visit Information Allergies: Substance Reaction Symptoms Type Comments Bactrim Drug Vital Signs: Vitals and Measurements this Visit (last charted value for your 04/16/2024 visit) Vital Signs This Visit Temperature Oral: 36.8 DegC Peripheral Pulse Rate: 104 bpm Respiratory Rate: 16 br/min Systolic Blood Pressure: 126 mmHg Diastolic Blood Pressure: 86 mmHg SpO2: 98 % Oxygen Therapy: Room air Blood Pressure Method: Automatic Measurements This Visit Height/Length Measured: 149.86 cm Weight Measured: 74.84 kg Weight Dosin.840 kg Body Mass Index: 33.32 kg/m2 BSA Measured: 1.77 m2 Problems List: Problem Onset Comments No Problems found Patient Education Urinary Tract Infection, Adult A urinary tract [...] a urinary catheter that stays in place. ? You are not able to control when you urinate or have a bowel movement (incontinence). ? You are female and you: ? Use a spermicide or diaphragm for control. ? Have low estrogen levels. ? Are . ? You have certain genes that (more content not included)... Normal [facility] C Urineon 01-21-2023 Bacteria identified Cx Nom [...] Locations R1: This test was performed at: [facility], [address] [place] [address], [facility]- , , [facility] Comment on above: Performed By: #### 2 [id number] #### [facility] [address] [place] [address] Family Medicine Office/Clini c Noteon 01-18-2023 Family [...] with voice recognition software. Occasional wrong-word or ?wdlpx-f-ymfe? substitutions may have occurred due to the [...] day(s), # 21 cap(s), Refills(s) 0, Pharmacy: [facility]/pharmacy #[id number], 153, cm, 12/23/22 18:41:00 EDT, Height/Length Dosing, 79.4, kg, 01/18/23 13:28:00 EDT, Weight Dosing phenazopyridine, 100 mg = 1 tab(s), Oral, TID, X 3 day(s), # 9 tab(s), Refills(s) 0, [id number], 153, cm, 12/23/22 18:41:00 EDT, Height/Length [...] day(s), # 21 cap(s), Refills(s) 0, [id number], 153, cm, 12/23/22 18:41:00 EDT, Height/Length Dosing, 79.4, kg, 01/18/23 13:28:00 EDT, Weight Dosing phenazopyridine, 100 mg = 1 tab(s), Oral, TID, X 3 day(s), # 9 tab(s), Refills(s) 0, [id number], 153, cm, 12/23/22 18:41:00 EDT, Height/Length Dosing, 79.4, kg, 01/18/23 13:28:00 EDT, Weight Dosing Body Mass Index (BMI) documented 3008F Frequency of urination (R35.0: Frequency of micturition) Ordered: Urnls Dip Stick Non-Auto w/o Micrscpy POC 40985 Follow-up With When Contact Information Yessenia HERNANDEZ, Angella Solomon [address] [place] [address]- Additional Instructions: Patient Education BMI for Adults [...] Current vaping (more content not included)... Normal [facility] Comment on above: Result Comment: Elec [...] numbers. This can be done either in Malagasy (U.S[place] or metric measurements. Note that charts and online BMI calculators are available to help you find your BMI quickly and easily without having to do these calculations yourself. To calculate your BMI in Malagasy (U.S.) measurements: 1. Measure your weight in [...] for Disease Control and Prevention: www.cdc.gov ? [place] [employer]: www.heart.org ? National Heart, Lung, and Blood [place]: www.nhlbi.nih.gov Summary ? Body mass index (BMI) is a number that is calculated from a person's weight and height. ? BMI may help estimate how much of a person's weight is composed of fat. BMI can help identify those who may be at higher risk for certain medical problems. ? BMI can be measured using Malagasy measurements or metric measurements. ? BMI charts are used to identify whether you are underweight, normal weight, overweight, or obese. This information is not intended to replace advice given to you by your health care provider. Make sure you discuss any questions you have with your health care provider. Document Revised: 02/28/2020 Document Reviewed: 01/05/2020 [employer] Patient Education ? 2022 [employer]. Obstetrics and Gynecology Urinary Tract Infection, Adult [...] condition if: (more content not included)... Normal [facility] Patient Letter FTon 2022 Patient Letter [facility] [address] [place] [id number] January 18, 2023 BEA CALVO [address] [facility] [address] [place] [address] : 1985 Please excuse BEA CALVO from work . Date and/or Time of Absence: From: 01/18/2023 To: 01/19/2023 May return to work on: 01/19/2023 Restrictions: None Comments: Please excuse due to an acute illness. Provider Signature: Heladio Roth PA-C Physician Scarf And Anneal Operator [address] [place] [address] Normal [facility] Family Medicine Office/Clini c Noteon 12-23-2022 [...] with voice recognition artificial intelligence software, specifically [employer], [employer] and or [employer]. Substitutions may have occurred due to the [...] of tx plan. Ordered: Rapid Strep POC 65444 Follow-up With When Contact Information Yessenia HERNANDEZ, Ang[place] [address]- Additional Instructions: Patient Education Strep Throat, Adult, Wera-as-Tbir Rapid Strep Test Strep Throat, Adult Problem [...] with above documentation and plan of care. [facility] Comment on above: Result Comment: Elec [...] these instructions at home: Medicines ? Take qbpq-xjq-bpbocoy and prescription medicines only as told by [...] provider. Document Revised: 09/30/2021 Document Reviewed: 09/30/2021 [employer] Patient Education ? 2022 [employer]. Rapid Strep Test Why am I having [...] You have (more content not included)... Normal [facility] Provider Letteron 12-23-2022 Provider Letter December 23, 2022 BEA CALVO [address] [facility] [address] [place] [address] : 1985 To Whom It May Concern, Please excuse above patient from work. Date of Illness: From: 12/23/22 May Return to Work On: 12/24/22 Restrictions: none Comments: none Sincerely, [facility] [address] [facility], [place] [address] [facility] Ambulatory Visit Summaryon 0 12-08-2022 Ambulatory [...] with Angella Bhat MD When: Where: [place] [address]- Medications What How Much When Why Instructions New amoxicillin (amoxicillin 500 mg Cap) 1 Capsules By Mouth Every 12 hours Strep pharyngitis BMI 34.0-34.9,adult Duration: 10 Days Pickup at [id number] Unchanged duloxetine (Cymbalta 60 mg Cap-DR) 60 Milligram By Mouth At bedtime Contact prescribing physician if questions or concerns Unchanged omeprazole (omeprazole 40 mg Cap-DR) Contact prescribing physician if questions or concerns Pharmacy Information [facility]/pharmacy #[id number]: [address] [place], [place] [id number] [phone] Allergies Bactrim (Yeast) Problems Ongoing - Any [...] these instructions at home: Medicines ? Take cpxf-ivs-pimacit and prescription medicines only as told by [...] of s (more content not included)... Normal [facility] Family Medicine Office/Clini c Noteon 12-08-2022 [...] with voice recognition software. Occasional wrong-word or ?gzsuw-j-fnpe? substitutions may have occurred due to the [...] day(s), # 20 cap(s), Refills(s) 0, Pharmacy: [facility]/pharmacy #[id number], 152, cm, 12/08/22 12:57:00 EDT, [...] day(s), # 20 cap(s), Refills(s) 0, Pharmacy: [facility]/pharmacy #[id number], 152, cm, 12/08/22 12:57:00 EDT, Height/Length Dosing, 79.9, kg, 12/08/22 12:57:00 EDT, Weight Dosing Body Mass Index (BMI) documented 3008F Sore throat (J02.9: Acute pharyngitis, unspecified) Ordered: Rapid Strep POC 97035 Follow-up With When Contact Information Angella Bhat [place] [address]- Additional Instructions: Patient Education Strep [...] use Smokeless (more content not included)... Normal [facility] Comment on above: Result Comment: Elec [...] these instructions at home: Medicines ? Take rqgf-fpw-osqodqy and prescription medicines only as told by [...] and water are not available, use hand truck greaser. Make sure that all people in your [...] not wait (more content not included)... Normal [facility] Patient Letter FTon 2022 Patient Letter [facility] [address] [facility] [place] [id number] December 08, 2022 BEA CALVO [address] [facility] [address] [place] [address] : 1985 Please excuse BEA CALVO from work . Date and/or Time of Absence: From: 12/08/2022 To: 12/10/2022 May return to work on: 12/10/2022 Restrictions: None Comments: Please excuse due to an acute illness. Provider Signature: Heladio Roth PA-C Physician Scarf And Anneal Operator [facility] [address] [place] [address] Normal [facility] CHEMISTRYOrdered By: SYSTEM SYSTEM on 04-24-2022 Anion gap [Moles/Vol] 16 mmol/L Normal 6 - 16 mEq/L F C Remisol Calcium [Mass/Vol] 8.8 mg/dL Low 8.9 - 11. 1 mg/dL FT Remisol Chloride [Moles/Vol] 98 mmol/L Low 101 - 1 11 mmol/L FT Remisol CO2 [Moles/Vol] 22 mmol/L Normal 21 - 31 mmol/L FT Remisol Creatinine [Mass/Vol] 0.6 mg/dL Normal 0.5 [...] Detected (04/24/22 2:18 PM) Normal Not Detected [facility] Man Sero URINALYSISOrdered By: Lenora Tavarez on 04-24-2022 Bacteria LM Ql (Urine sed) 1+ /HPF Invalid Interpretation Code Trace/HPF FT UA Auto SS Bilirubin Ql (U) Negative [...] PM) Normal Negative [facility] UA Auto SS [employer].plasma/[employer]well .RBC (Bld) [Mass ratio] 0-3 /HPF Normal [...] [facility] UA Auto SS Urobilinogen Qn (U) 0.5954331 {Roro'U}/dL Normal 0.0 - 1.0 EU/dL [facility] UA Auto SS WBC Auto Ql (U) 1+ *ABN* (04/24/22 2:18 PM) Invalid Interpretation Code Negative [facility] UA Auto SS WBC LM.HPF (Urine sed) [#/Area] 6-15 /HPF Invalid Interpretation Code 0-5/HPF [facility] UA Auto SS BLOOD BANKOrdered By: Tanja Grant on 04-17-2022 ABO/Rh Interp Positive Invalid Interpretation Code FT BB Subsection ABSC Gel Interp Negative (04/17/22 [...] PM) Normal Negative [facility] UA Auto SS [employer].plasma/[employer] .RBC (Bld) [Mass ratio] 0-3 /HPF Normal [...] [facility] UA Auto SS Urobilinogen Qn (U) 1.2824703 {Roro'U}/dL Normal 0.0 - 1.0 EU/dL [facility] UA Auto SS WBC Auto Ql (U) Negative (04/17/22 12:35 PM) Normal Negative [facility] UA Auto SS WBC LM.HPF (Urine sed) [#/Area] 0-5 /HPF Normal 0-5/HPF FT UA Auto SS CHEMISTRYOrdered By: SYSTEM SYSTEM on 04-08-2022 Anion gap [Moles/Vol] 10 mmol/L Normal 6 - 16 mEq/L F C Remisol Chloride [Moles/Vol] 103 mmol/L Normal 101 - 1 11 mmol/L [facility] Remisol CO2 [Moles/Vol] 26 mmol/L Normal 21 - 31 mmol/L FT Remisol Creatinine [Mass/Vol] 0.6 mg/dL Normal 0.5 - 1.3 mg/dL FT Remisol GFR/1.73 sq M.predicted among blacks MDRD (S/P/Bld) [Vol rate/Area] mL/min/1.73 m2 Normal >=59mL/min/1 .73 m2 FT Chem S GFR/1.73 sq M.predicted among non-blacks MDRD (S/P/Bld) [Vol rate/Area] mL/min/1.73 m2 Normal >=59mL/min/1 .73 m2 [facility] Chem S Potassium [Moles/Vol] 3.9 mmol/L Normal 3.5 - 5.3 mmol/L FT Remisol Sodium [Moles/Vol] 135 mmol/L Normal 135 [...] 16.5 % High 10.9 - 14.2 % FT HemeAutoSS Hematocrit (Bld) [Volume fraction] 36.3 % [...] Clear [facility] UA Auto SS Color (U) [place] *ABN* (11/28/21 10:00 PM) Invalid Interpretation Code [...] Interpretation Code Negative [facility] UA Auto SS [employer].plasma/[employer] .RBC (Bld) [Mass ratio] 4-20 /HPF Normal [...] [facility] UA Auto SS Urobilinogen Qn (U) 2.4449269 {Roro'U}/dL Invalid Interpretation Code 0.0 - 1.0 EU/dL [facility] UA Auto SS WBC Auto Ql (U) Negative (11/28/21 10:00 PM) Normal Negative [facility] UA Auto SS WBC LM.HPF (Urine sed) [#/Area] 0-5 /HPF Normal 0-5/HPF [facility] UA Auto SS Q - CBC W/DIFF AND PLTon BASOABS 10 cells/uL Normal 0-200 [facility] Comment on above: Order Comment: [facility] performed at: QPT, [employer] [facility], [address] [facility], [address] [place] [address], [place], [address], Product Development Director: Hesham Bhakta MD [facility] Collection Date/Time: [id number] [facility] Results Received Date/Time: [facility] Reported Date/Time: FASTING: YES Performed By: #### 9 68T, 87169, [id number], 6399 #### [facility] Default [address] [place] [address] Basophils/100 WBC (Bld) 0.2 % Normal [facility] Specialist Comment on above: Order Comment: [facility] performed at: [email or web address], [employer] [facility], [address] [place] [address], [address] [place] [address], [phone], Product Development Director: Hesham Bhakta MD [facility] Date/Time: [facility] Results Received Date/Time: [facility] Reported Date/Time: FASTING: YES Performed By: #### 9 68T, 11993, 85590I, 6399 #### [facility] Default [address] [place] [address] EOSABS 50 cells/uL Normal 15-500 [facility] Specialist Comment on above: Order Comment: [facility] performed at: [email or web address], [employer] [facility], [address] [place] [address], [address] [place] [address], [phone], Product Development Director: Hesham Bhakta MD [facility] Date/Time: [facility] Results Received Date/Time: [facility] Reported Date/Time: FASTING: YES Performed By: #### 9 68T, , [id number], 6399 #### [facility] [address] [place] [address] Eosinophils/100 WBC (Bld) 1.0 % Normal [facility] Specialist Comment on above: Order Comment: [facility] performed at: [email or web address], [employer] [facility], [address] [place] [address], [address] [place] [address], [phone], Product Development Director: Hesham Bhakta MD [facility] Date/Time: [facility] Results Received Date/Time: [facility] Reported Date/Time: FASTING: YES Performed By: #### 9 68T, 60157, 41845U, 6399 #### [facility] [address] [place] [address] Erythrocyte distribution width (RBC) [Ratio] 14.6 % Normal 11.0-15.0 [facility] Comment on above: Order Comment: [facility] performed at: [email or web address], [employer] [facility], [address] [facility], [address] [place] [address], [address] [place] [address], Product Development Director: Hesham Bhakta MD [facility] Date/Time: [facility] Results Received Date/Time: [facility] Reported Date/Time: FASTING: YES Performed By: #### 9 68T, 93878, 19621A, 6399 #### [facility] Default [address] [place] [address] Hematocrit (Bld) [Volume fraction] 40.7 % Normal 35.0-45.0 [facility] Comment on above: Order Comment: [facility] performed at: [email or web address], [employer] [facility], [address] [facility], [address] [place] [address], [address] [place] [address], Product Development Director: Hesham Bhakta MD [facility] Date/Time: [facility] Results Received Date/Time: [facility] Reported Date/Time: FASTING: YES Performed By: #### 9 68T, 34786, 77173U, 6399 #### [facility] Default [address] [place] [address] Hemoglobin (Bld) [Mass/Vol] 12.9 g/dL Normal 11.7-15.5 [facility] Comment on above: Order Comment: [facility] performed at: [email or web address], [employer] [facility], [address] [facility], [address] [place] [address], [address] [place] [address], Product Development Director: Hesham Bhakta MD [facility] Date/Time: [facility] Results Received Date/Time: [facility] Reported Date/Time: FASTING: YES Performed By: #### 9 68T, 86334, 76391K, 6399 #### [facility] Default [address] [place] [address] Lymphocytes (Bld) [#/Vol] 1.935 10*3/uL Normal 850-3900 [facility] Comment on above: Order Comment: [facility] performed at: [email or web address], [employer] [facility], [address] [place] [address], [address] [place] [address], [address] [place] [address], Product Development Director: Hesham Bhakta MD [facility] Date/Time: [facility] Results Received Date/Time: [facility] Reported Date/Time: FASTING: YES Performed By: #### 9 68T, 89891, 80944O, 6399 #### [facility] Default [address] [place] [address] Lymphocytes/100 WBC (Bld) 38.7 % Normal [facility] Comment on above: Order Comment: [facility] performed at: [email or web address], [employer] [facility], [address] [place] [address], [address] [place] [address], [address] [place] [address], Product Development Director: Hesham Bhakta MD [facility] Date/Time: [facility] Results Received Date/Time: [facility] Reported Date/Time: FASTING: YES Performed By: #### 9 68T, 59848, 45768H, 6399 #### [facility] Default [address] [place] [address] MCH (RBC) [Entitic mass] 27.4 pg Normal 27.0-33.0 [facility] Comment on above: Order Comment: [facility] performed at: [email or web address], [employer] [facility], [address] [place] [address], [address] [place] [address], [address] [place] [address], Product Development Director: Hesham Bhakta MD [facility] Date/Time: [facility] Results Received Date/Time: [facility] Reported Date/Time: FASTING: YES Performed By: #### 9 68T, 40078, 17342Q, 6399 #### [facility] Default [address] [place] [address] MCHC (RBC) [Mass/Vol] 31.7 g/dL Low 32.0-36.0 [facility] Comment on above: Order Comment: [facility] performed at: [email or web address], [employer] [facility], [address] [facility], [address] [place] [address], [address] [place] [address], Product Development Director: Hesham Bhakta MD [facility] Date/Time: [facility] Results Received Date/Time: [facility] Reported Date/Time: FASTING: YES Performed By: #### 9 68T, 20433, 63905B, 6399 #### [facility] Default [address] [place] [address] MCV (RBC) [Entitic vol] 86.4 fL Normal 80.0-100.0 [facility] Specialist Comment on above: Order Comment: [facility] performed at: [email or web address], [employer] [facility], [address] [place] [address], [address] [place] [address], [address] [place] [address], Product Development Director: Hesham Bhakta MD [facility] Date/Time: [facility] Results Received Date/Time: [facility] Reported Date/Time: FASTING: YES Performed By: #### 9 68T, 14359, 07839E, 6399 #### [facility] Default [address] [place] [address] MONOABS 385 cells/uL Normal 200-950 [facility] Specialist Comment on above: Order Comment: [facility] performed at: [employer] [facility], [address] [facility], [address] [place] [address], [address] [place] [address], Product Development Director: Hesham Bhakta MD [facility] Date/Time: [facility] Results Received Date/Time: [facility] Reported Date/Time: FASTING: YES Performed By: #### 9 68T, 09211, 35784X, 6399 #### [facility] Default [address] [place] [address] Monocytes/100 WBC (Bld) 7.7 % Normal [facility] Specialist Comment on above: Order Comment: [facility] performed at: [email or web address], [employer] [facility], [address] [facility], [address] [place] [address], [address] [place] [address], Product Development Director: Hesham Bhakta MD [facility] Date/Time: [facility] Results Received Date/Time: [facility] Reported Date/Time: FASTING: YES Performed By: #### 9 68T, 82124, 38144W, 6399 #### [facility] Laboratory Default [address] [place] [address] Neutrophils (Bld) [#/Vol] 2.62 10*3/uL Normal 4072-2644 [facility] Comment on above: Order Comment: Quest Testing performed at: [email or web address], [employer] [facility], [address] [facility], [address] [place] [address], [address] [place] [address], Product Development Director: Hesham Bhakta MD Quest Collection Date/Time: Quest Results Received Date/Time: Quest Reported Date/Time: FASTING: YES Performed By: #### 9 68T, 11985, [id number], 6399 #### [facility] Default [address] [place] [address] Neutrophils/100 WBC (Bld) 52.4 % Normal [facility] Specialist Comment on above: Order Comment: Quest Testing performed at: [employer] [facility], [address] [facility], [address] [place] [address], [address] [place] [address], Product Development Director: Hesham Bhakta MD Quest Collection Date/Time: [facility] Results Received Date/Time: [facility] Reported Date/Time: FASTING: YES Performed By: #### 9 68T, 51570, 90347D, 6399 #### [facility] Default [address] [place] [address] Platelet mean volume (Bld) [Entitic vol] 10.7 fL Normal 7.5-12.5 [facility] Comment on above: Order Comment: Quest Testing performed at: [employer] [facility], [address] [place] [address], [address] [place] [address], [address] [place] [address], Product Development Director: Hesham Bhakta MD Quest Collection Date/Time: Quest Results Received Date/Time: [facility] Reported Date/Time: FASTING: YES Performed By: #### 9 68T, 77081, 20676J, 6399 #### [facility] Default [address] [place] [address] Platelets (Bld) [#/Vol] 328 10*3/uL Normal 140-400 [facility] Comment on above: Order Comment: Quest Testing performed at: [employer], [employer] [facility], [address] [place] [address], [address] [place] [address], [address] [place] [address], Product Development Director: Hesham Bhakta MD Quest Collection Date/Time: [facility] Results Received Date/Time: [facility] Reported Date/Time: FASTING: YES Performed By: #### 9 68T, 37273, 66313T, 6399 #### [facility] Default [address] [place] [address] RBC (Bld) [#/Vol] 4.71 10*6/uL Normal 3.80-5.10 [facility] Comment on above: Order Comment: Quest Testing performed at: [email or web address], [employer] [facility], [address] [place] [address], [address] [place] [address], [address] [place] [address], Product Development Director: Hesham Bhakta MD Quest Collection Date/Time: [facility] Results Received Date/Time: [facility] Reported Date/Time: FASTING: YES Performed By: #### 9 68T, 25640, 23721N, 6399 #### [facility] Default [address] [place] [address] WBC (Bld) [#/Vol] 5.0 10*3/uL Normal 3.8-10.8 [facility] Comment on above: Order Comment: Quest Testing performed at: [email or web address], [employer] [facility], [address] [place] [address], [address] [place] [address], [address] [place] [address], Product Development Director: Hesham Bhakta MD Quest Collection Date/Time: Quest Results Received Date/Time: [facility] Reported Date/Time: FASTING: YES Performed By: #### 9 68T, 64274, 37970A, 6399 #### [facility] Default [address] [place] [address] Q - COMPREHENSIVE METABOLIC PANEL W/EGFRon 11-21-2021 Albumin [Mass/Vol] 4.2 g/dL Normal 3.6-5.1 [facility] Hide [facility]yer Comment on above: Order Comment: Quest Testing performed at: [email or web address], [employer] [facility], [address] [place] [address], [address] [place] [address], [address] [place] [address], Product Development Director: Hesham Bhakta MD Quest Collection Date/Time: Quest Results Received Date/Time: [facility] Reported Date/Time: FASTING: YES Performed By: #### 9 68T, 11485, 39033E, 6399 #### [facility] Default [address] [place] [address] Albumin/Globulin [Mass ratio] 1.5 {ratio} Normal 1.0-2.5 [facility] [place] Comment on above: Order Comment: Quest Testing performed at: [email or web address],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 35.95 kg/m2 Angella Bhat MD Work Phone: [facility] 06-08-2024 15:12-0500 Body temperature 98.1 [degF] Angella Bhat MD Work Phone: [facility] 06-08-2024 15:12-0500 Body weight 80.74 kg Angella Bhat MD Work Phone: [facility] 06-08-2024 15:12-0500 Diastolic blood pressure 68 mm[Hg] Angella Bhat MD Work Phone: [facility] 06-08-2024 15:12-0500 Heart rate 103 /min Angella Bhat MD Work Phone: [facility] 06-08-2024 15:12-0500 SaO2% (BldA) [Mass fraction] 98 % Angella Bhat MD Work Phone: [facility] 06-08-2024 15:12-0500 Systolic blood pressure 108 mm[Hg] Angella Bhat MD Work Phone: [facility] 04-21-2024 11:040 Body height 149.9 cm Angella Bhat MD Work Phone: [facility] 04-21-2024 11:21-0400 Body mass index (BMI) [Ratio] 35.43 kg/m2 Angella Bhat MD Work Phone: [facility] 04-21-2024 11:21-0400 Body temperature 98.2 [degF] Aneglla Bhat MD Work Phone: [facility] 04-21-2024 11:21-0400 Body weight 79.56 kg Angella Bhat MD Work Phone: [facility] 04-21-2024 11:21-0400 Diastolic blood pressure 64 mm[Hg] Angella Bhat MD Work Phone: [facility] 04-21-2024 11:21-0400 Heart rate 86 /min Angella Bhat MD Work Phone: [facility] 04-21-2024 11:21-0400 SaO2% (BldA) [Mass fraction] 97 % Angella Bhat MD Work Phone: [facility] 04-21-2024 11:21-0400 Systolic blood pressure 108 mm[Hg] Angella Bhat MD Work Phone: [facility] 01-18-2023 13:24-0400 Blood Pressure Location Heladio Roth [facility] 01-18-2023 13:24-0400 Body temperature 97.88 [degF] Heladio Roth [facility] 01-18-2023 13:24-0400 Diastolic blood pressure 76 mm[Hg] Heladio Roth [facility] 01-18-2023 13:24-0400 Heart rate 86 /min Heladiomary Roth [facility] 01-18-2023 13:24-0400 SaO2% (BldA) [Mass fraction] 100 % Heladio Roth [facility] 01-18-2023 13:24-0400 Systolic blood pressure 116 mm[Hg] Healdio Roth [facility] 12-23-2022 18:39-0400 Blood Pressure Location Elsi Orzech [facility] 12-23-2022 18:39-0400 Body temperature 97.88 [degF] Elsi Orzech [facility] 12-23-2022 18:39-0400 Diastolic blood pressure 82 mm[Hg] Elsi Orzech [facility] 12-23-2022 18:39-0400 Heart rate 100 /min Elsi Kelsey [facility] 12-23-2022 18:39-0400 SaO2% (BldA) [Mass fraction] 97 % Elsi Kelsey [facility] 12-23-2022 18:39-0400 Systolic blood pressure 120 mm[Hg] Elsi Kelsey [facility] 12-08-2022 12:54-0400 Blood Pressure Location Heladio Roth [facility] 12-08-2022 12:54-0400 Body temperature 97.88 [degF] Heladio Roth [facility] 12-08-2022 12:54-0400 Diastolic blood pressure 82 mm[Hg] Heladiomary NixonGonzalez [facility] 12-08-2022 12:54-0400 Heart rate 110 /min Heladio Roth [facility] 12-08-2022 12:54-0400 SaO2% (BldA) [Mass fraction] 98 % Heladio Roth [facility] 12-08-2022 12:54-0400 Systolic blood pressure 120 mm[Hg] Heladio Osheaey [facility] 04-24-2022 14:56-0400 Diastolic blood pressure 82 mm[Hg] Bereket Carlton [facility] 04-24-2022 14:56-0400 Heart rate 95 /min Bereket Carlton [facility] 04-24-2022 14:56-0400 Mean blood pressure 95 mm[Hg] Bereket Carlton [facility] 04-24-2022 14:56-0400 Respiratory rate 16 /min Bereket Carlton [facility] 04-24-2022 14:56-0400 SaO2% (BldA) [Mass fraction] 100 % Bereket Carlton [facility] 04-24-2022 14:56-0400 Systolic blood pressure 120 mm[Hg] Bereket Cartlon [facility] 04-24-2022 13:43-0400 Body temperature 98.78 [degF] Bereket Carlton [facility] 04-24-2022 13:43-0400 Diastolic blood pressure 95 mm[Hg] Bereket Carlton [facility] 04-24-2022 13:43-0400 Heart rate 124 /min Bereket Carlton [facility] 04-24-2022 13:43-0400 Respiratory rate 18 /min Bereket Carlton [facility] 04-24-2022 13:43-0400 SaO2% (BldA) [Mass fraction] 98 % Bereket Cralton [facility] 04-24-2022 13:43-0400 Systolic blood pressure 129 mm[Hg] Bereket Carlton [facility] 04-17-2022 15:44-0400 Blood Pressure Location Jac Devyn [facility] 04-17-2022 15:44-0400 BP/Pulse Patient Position Jac Devyn [facility] 04-17-2022 15:44-0400 Diastolic blood pressure 82 mm[Hg] Jac Shepard [facility] 04-17-2022 15:44-0400 Heart rate 104 /min Jac Shepard [facility] 04-17-2022 15:44-0400 Mean blood pressure 94 mm[Hg] Jac Shepard [facility] 04-17-2022 15:44-0400 Respiratory rate 18 /min Jac Shepard [facility] 04-17-2022 15:44-0400 SaO2% (BldA) [Mass fraction] 99 % Jac Shepard [facility] 04-17-2022 15:44-0400 Systolic blood pressure 118 mm[Hg] Jac Shepard [facility] 04-17-2022 14:48-0400 Blood Pressure Location Jac Shepard [facility] 04-17-2022 14:48-0400 BP/Pulse Patient Position Jac Shepard [facility] 04-17-2022 14:48-0400 Diastolic blood pressure 79 mm[Hg] Jac Shepard [facility] 04-17-2022 14:48-0400 Heart rate 107 /min Jac Shepard [facility] 04-17-2022 14:48-0400 Mean blood pressure 91 mm[Hg] Jac Shepard [facility] 04-17-2022 14:48-0400 Respiratory rate 18 /min Jac Shepard [facility] 04-17-2022 14:48-0400 SaO2% (BldA) [Mass fraction] 93 % Jac Shepard [facility] 04-17-2022 14:48-0400 Systolic blood pressure 115 mm[Hg] Jac Shepard [facility] 04-17-2022 14:40-0400 Blood Pressure Location Jac Shepard [facility] 04-17-2022 14:40-0400 Body temperature 96.98 [degF] Jac Shepard [facility] 04-17-2022 14:40-0400 Diastolic blood pressure 82 mm[Hg] Jac Shepard [facility] 04-17-2022 14:40-0400 Heart rate 105 /min Jac Shepard [facility] 04-17-2022 14:40-0400 Respiratory rate 23 /min Jac Shepard [facility] 04-17-2022 14:40-0400 SaO2% (BldA) [Mass fraction] 94 % Jac Shepard [facility] 04-17-2022 14:40-0400 Systolic blood pressure 117 mm[Hg] Jac Shepard [facility] 04-17-2022 14:30-0400 Respiratory rate 21 /min Jac Shepard [facility] 04-17-2022 14:25-0400 Respiratory rate 19 /min Jac Shepard [facility] 04-17-2022 14:14-0400 Body temperature 97.16 [degF] Jac Shepard [facility] 04-17-2022 09:52-0400 Mean blood pressure 98 mm[Hg] Jac Shepard [facility] 04-17-2022 09:52-0400 Heart rate 92 /min Jac Shepard [facility] 04-17-2022 09:51-0400 Body temperature 97.34 [degF] Jac Shepard [facility] 04-17-2022 09:51-0400 Respiratory rate 20 /min Jac Shepard [facility] 04-08-2022 13:32-0400 Blood Pressure Location Jac Shepard [facility] 04-08-2022 13:32-0400 Body temperature 98.78 [degF] Jac Shepard [facility] 04-08-2022 13:32-0400 Diastolic blood pressure 86 mm[Hg] Jac Shepard [facility] 04-08-2022 13:32-0400 Heart rate 99 /min Jac Shepard [facility] 04-08-2022 13:32-0400 Mean blood pressure 99 mm[Hg] Jac Shepard [facility] 04-08-2022 13:32-0400 Systolic blood pressure 125 mm[Hg] Jac Shepard [facility] 04-08-2022 13:31-0400 Blood Pressure Location Jac Shepard [facility] 04-08-2022 13:31-0400 BP/Pulse Patient Position Jac Shepard [facility] 04-08-2022 13:31-0400 Diastolic blood pressure 87 mm[Hg] Jac Shepard [facility] 04-08-2022 13:31-0400 Heart rate 98 /min Jac Shepard [facility] 04-08-2022 13:31-0400 Mean blood pressure 102 mm[Hg] Jac Coleten [facility] 04-08-2022 13:31-0400 Respiratory rate 18 /min Jac Shepard [facility] 04-08-2022 13:31-0400 SaO2% (BldA) [Mass fraction] 99 % Jac Devyn [facility] 04-08-2022 13:31-0400 Systolic blood pressure 131 mm[Hg] Jac Shepard [facility] 11-28-2021 21:48-0400 Body temperature 97.7 [degF] Bereket Carlton [facility] 11-28-2021 21:48-0400 Diastolic blood pressure 90 mm[Hg] Bereket Carlton [facility] 11-28-2021 21:48-0400 Heart rate 104 /min Bereket Carlton [facility] 11-28-2021 21:48-0400 Respiratory rate 15 /min Bereket Carlton [facility] 11-28-2021 21:48-0400 SaO2% (BldA) [Mass fraction] 97 % Bereket Carlton [facility] 11-28-2021 21:48-0400 Systolic blood pressure 134 mm[Hg] Bereket Carlton [facility] Encounters Encounter Date Encounter Type Care Provider Facility Start: 09-22-2024 End: 09-22-2024 Bamboo flowsheet Angella Bhat MD Work Phone: [facility] Start: 09-22-2024 End: 09-22-2024 Bamboo flowsheet Angella Bhat MD Work Phone: [facility] Start: 09-22-2024 End: 09-22-2024 ambulatory ANGELLA BHAT Not Available Start: 09-22-2024 End: 09-22-2024 Office outpatient visit 15 minutes Angella Bhat MD Work Phone: [facility] Comment on above: Palpitations (Primar y Dx); Bruising Start: 08-03-2024 End: 08-03-2024 Refill Angella Bhat MD Work Phone: [facility] Comment on above: Alcohol use disorder Start: 07-31-2024 End: 07-31-2024 ambulatory DRE A FELTER Not Available Start: 07-31-2024 End: 07-31-2024 Patient encounter procedure Dre A Felter [employer] Work Phone: [facility] Comment on above: Common wart; Other specified erythematous conditions Start: 07-31-2024 End: 07-31-2024 Bamboo flowsheet Dre A Felter [employer] PA[employer] Work Phone: [facility] Start: 07-31-2024 End: 07-31-2024 Bamboo flowsheet Dre A Felter [employer] PA[employer]OR Work Phone: [facility] Start: 07-19-2024 End: 07-20-2024 Refill Angella Bhat MD Work Phone: [facility] Comment on above: Alcohol use disorder Start: 06-27-2024 End: 06-27-2024 Patient encounter procedure Dre A Felter [employer] Work Phone: [facility] Comment on above: Common wart; Pain, generalized Start: 06-27-2024 End: 06-27-2024 Bamboo flowsheet Dre A Felter [employer] Work Phone: [facility] Start: 06-27-2024 End: 06-27-2024 Bamboo flowsheet Dre A Felter [employer]OR Work Phone: [facility] Start: 06-27-2024 End: 06-27-2024 ambulatory DRE A FELTER Not Available Start: 06-12-2024 End: 06-16-2024 Refill Angella Bhat MD Work Phone: [facility] Comment on above: Alcohol use disorder Start: 06-08-2024 End: 06-08-2024 Office outpatient visit 15 minutes Angella Bhta MD Work Phone: [facility] Comment on above: Breast pain, left (P rimary Dx) Start: 06-08-2024 End: 06-08-2024 ambulatory ANGELLA BHAT Not Available Start: 06-08-2024 End: 06-08-2024 Bamboo flowsheet Angella Bhat MD Work Phone: [facility] Start: 06-08-2024 End: 06-08-2024 Bamboo flowsheet Angella Bhat MD Work Phone: [facility] Start: 04-21-2024 End: 04-21-2024 Bamboo flowsheet Angella Bhat MD Work Phone: [facility] Start: 04-21-2024 End: 04-21-2024 Bamboo flowsheet Angella Bhat MD Work Phone: [facility] Start: 04-21-2024 End: 04-21-2024 Office outpatient visit 25 minutes Angella Bhat MD Work Phone: [facility] Comment on above: Genital warts (Prima ry Dx); Alcohol use disorder; Adverse effect of drug, initial encounter Start: 04-21-2024 End: 04-21-2024 ambulatory ANGELLA BHAT Not Available Start: 04-16-2024 End: 04-16-2024 ambulatory Angella Bhat Facility:[facility] Start: 02-27-2024 End: 03-01-2024 Clinisync Result Encounter Farshad MENESES Work Phone: [facility] Unsolicited Start: 02-27-2024 End: 03-01-2024 Clinisync Result Encounter Farshad MENESES Work Phone: [facility] Unsolicited Start: 01-04-2024 ambulatory MOHSEN EOLIA Facility :[facility] Start: 12-09-2023 End: 12-09-2023 ambulatory ANGELLA BHAT Not Available Start: 01-18-2023 End: 01-18-2023 ambulatory Heladio Roth Facility:[facility] Start: 01-18-2023 End: 01-18-2023 Lab Drop off Heladio Roth [facility] Start: 01-18-2023 End: 01-18-2023 ambulatory Heladio Roth Facility:[facility] Start: 01-18-2023 End: 01-18-2023 Patient encounter procedure Heladio Roth [facility] Start: 12-23-2022 End: 12-23-2022 ambulatory [facility] Start: 12-23-2022 End: 12-23-2022 Patient encounter procedure Elsi X Orzech [facility] Start: 12-08-2022 End: 12-08-2022 ambulatory Heladio Roth Facility:[facility] Start: 12-08-2022 End: 12-08-2022 Patient encounter procedure Heladio Roth [facility] Start: 04-24-2022 End: 04-24-2022 Emergency department patient visit Bereket Carlton [facility] Start: 04-17-2022 End: 04-17-2022 Admission to same day surgery center Jac Shepard [facility] Start: 04-08-2022 End: 04-08-2022 Patient encounter procedure Jac Shepard [facility] Start: 11-28-2021 End: 11-28-2021 Emergency department patient visit Bereket Carlton [facility] Start: 08-26-2021 End: 08-27-2021 ambulatory UNKNOWN PROVIDER [facility] Start: 06-10-2021 End: 06-10-2021 ambulatory UNKNOWN PROVIDER Facility:[facility] Start: 05-21-2021 End: 05-22-2021 ambulatory SAL SCHMID Facility:[facility] Start: 05-20-2021 ambulatory SAL SCHMID Facilit y:[facility] Start: 09-24-2020 End: 09-25-2020 ambulatory JAC DAWKINSERVIN [facility] Procedures Date Procedure Procedure Detail Performing Clinician Start: 07-31-2024 DESTRUCTION OF LESION N atalie Latonia Carlotadonna [employer] Work Phone: Start: 06-27-2024 CRYOTHERAPY SKIN LESION Dre Lincoln Cole [employer] Work Phone: Start: 02-27-2024 Bacteria identified in Urine by Culture Farshad MENESES Work Phone: Start: 04-17-2022 Laparoscopic hysterectomy Jac Shepard Start: 06-21-2019 Pelvic structure (tricia dy structure) Bereket Carlton Cholecystectomy Bereket Carlton Ligation of fallopian tube K trav Carlton Retention of dental device on tooth following dental procedure (disorder) Jac Shepard Comment on above: May 2021 tonsillectomy 1 Bereket Carlton Comment on above: 1996 tonsillectomy 2 Jac Shepard Comment on above: 1996 Plan of Treatment Date Care Activity Detail Author Start: 11-14-2025 Screening for malign ant neoplasm of cervix [facility] Start: 02-19-2025 Influenza vaccination Influenz a Vaccine (Season Ended) [facility] Start: 09-28-2024 End: 09-28-2024 Patient encounter procedure 09/28/2024 1:35 PM EDT Office Visit [facility] [address] [place] [phone] Cole Dre Latonia, [employer] PA[employer]OR [address] [place] [address] [facility] Start: 09-22-2024 End: 09-22-2025 Holter monitor study Holter monitor Imaging Routine Palpitations Expected: 09/22/2024 (Approximate), Expires: 09/22/2025 [facility] Work Phone: Comment on above: Expected: 09/22/2024 (Approximate), Expires: 09/22/2025 Start: 08-29-2024 End: 08-29-2024 Patient encounter procedure 08/29/2024 1:40 PM EDT Office Visit [facility] [address] [place] [phone] Dre Galvan, [employer] PASTOR [address] [place] [address] [facility] Start: 07-31-2024 End: 07-31-2024 Patient encounter procedure 07/31/2024 2:10 PM EST Office Visit [facility] [address] [place] [phone] Dre Galvan, [employer] PASTOR [address] [place] [address] [facility] Start: 06-30-2024 End: 06-30-2024 Professional / ancillary services management [facility] [place] Start: 06-27-2024 End: 06-27-2024 Patient encounter procedure [facility] Comment on above: Arrived Start: 06-08-2024 End: 06-08-2024 Patient encounter procedure 06/08/2024 3:00 PM EST [facility] [address] [place] [phone] Angella Bhat MD [address] [place] [address] Arrived [facility] Comment on above: Arrived Start: 06-08-2024 End: 08-09-2025 DBT Breast - bilateral diagnostic Bilateral diagnostic mammogram with tomosynthesis Imaging Routine Breast pain, left Expected: 06/08/2024, Expires: 08/09/2025 [facility] Healthcare Work Phone: Comment on above: Expected: 06/08/2024 , Expires: 08/09/2025 Start: 05-23-2024 End: 05-23-2024 Patient encounter procedure 05/23/2024 11:20 AM EST Office Visit [facility] [address] [place] [id number] Angella Bhat MD [address] [place] [address] [facility] Start: 04-21-2024 End: 04-21-2024 Patient encounter procedure 04/21/2024 10:40 AM EDT Office Visit [facility] [address] [place] [id number] Angella Bhat MD [address] [place] [address] Arrived [facility] Comment on above: Arrived Start: 02-20-2024 Influenza vaccination Influenza Vacc ine (#1) [facility] Start: 2023 Screening for malign ant neoplasm of breast Mammogram [facility] Start: 2004 Screening for malign ant neoplasm of cervix Pap Smear [facility] Bacteria identified in Urine by Culture URINE CULTURE, ROUTINE Lab Routine 02/27/2024 4:35 PM EDT [facility] Work Phone: Immunizations Immunization Date Immunization Notes Care Provider Fa cili 04-11-2021 SARS-CoV-2 (COVID-19 ) mRNA-[id number] vaccine Heladio Nixonpsey [facility] Comment on above: Result Comment: 2022: TPVAL 03-14-2021 SARS-CoV-2 (COVID-19 ) mRNA-[id number] vaccine Heladio Roth [facility] Comment on above: Result Comment: 2022: TPVAL 09-06-2019 tetanus toxoid, redu rodger diphtheria toxoid, and acellular pertussis vaccine, adsorbed; Translations: [Adacel (Tdap)] Bereket Brandt [facility] 08-18-2019 hepatitis B vaccine, adult dosage Heladio Roth [facility] Payers Date Payer Category Payer Private Health Insurance [facility] MEDICAID [id number] 2018 Medicaid [employer] [place] [id number] 2018-Present [address] [place] [id number] 2018 Medicaid (Managed Care) [facility] MEDICAID [id number] 2018 Medicaid [id number] 1985 Unknown [id number] 2.16.840.1.497527.3.579.2. 732 1983 Unknown [id number] 2.16.840.1.138560.3.579.2. 732 1983 Unknown [id number] 2.16.840.1.523460.3.579.2. 732 1983 Unknown [id number] 2.16.840.1.047095.3.579.2. 2 1983 Unknown [id number] 2.16.840.1.646631.3.579.2. 2 1983 Unknown [id number] 2.16.840.1.361931.3.579.2. 2 1983 Unknown [id number] 2.16.840.1.531551.3.579.2. 732 1983 Unknown [id number] 2.16.840.1.021777.3.579.2. 2 1983 Unknown [id number] 2.16.840.1.494447.3.579.2. 732 1983 Unknown [id number] 2.16.840.1.000350.3.579.2. 1983 Unknown [id number] 2.16.840.1.236021.3.579.2. 727 1983 Unknown [id number] 2.16.840.1.797512.3.579.2. 1983 Unknown [id number] 2.16.840.1.368972.3.579.2. 727 1983 Unknown [id number] 2.16.840.1.650468.3.579.2. 7 1983 Unknown [id number] 2.16.840.1.367228.3.579.2. 718 1983 Unknown [id number] 2.16.840.1.326540.3.579.2. 1259 1983 Unknown [id number] 2.16.840.1.680763.3.579.2. 9 1983 Unknown [id number] 2.16.840.1.700434.3.579.2. 9 1983 Unknown [id number] 2.16.840.1.477801.3.579.2. 9 1983 Unknown [id number] 2.16.840.1.004008.3.579.2. 9 1983 Unknown [id number] 2.16.840.1.924380.3.579.2. 1259 Social History Date Type Detail Facility Tobacco Current vaping o r e-cigarette use Smokeless Tobacco Use:. [facility] Start: 12-01-2022 End: 02-29-2024 Sex Assigned At Female [facility] Tobacco smoking status No Smokin g Status Entered [facility] Start: 01-18-2023 Tobacco smoking status Never smoked tobacco (finding) [facility] Start: 12-09-2023 Tobacco smoking status NHIS Ex-smoker [facility] Start: 06-21-2000 End: 06-21-2006 History of tobacco use Current smoker [facility] Start: 06-21-2000 End: 06-21-2006 History of tobacco use Cigarette Smoker [facility] Start: 12-09-2023 Tobacco use and exposure Smokeless tobacco non-user [facility] Start: 12-09-2023 End: 06-08-2024 Alcoholic beverage intake Current drinker of alcohol (finding) [facility] Start: 12-09-2023 End: 02-29-2024 Alcoholic beverage intake [facility] How often do you nee d to have someone help you when you read instructions, pamphlets, or other written material from your doctor or pharmacy [SILS] Never [facility] Do you belong to any clubs or organizations such as islam groups, unions, fraternal or athletic groups, or school groups? No [facility] How often to you hav e a drink containing alcohol? Monthly or less [facility] How many standard dr inks containing alcohol do you have on a typical day? 1 or 2 [facility] How often do you hav e 6 or more drinks on 1 occasion? Less than monthly [facility] How hard is it for y ou to pay for the very basics like food, housing, medical care, and heating Somewhat hard [facility] Do you feel stress - tense, restless, nervous, or anxious, or unable to sleep at night because your mind is troubled all the time - these days [OSQ] To some extent [facility] (I/We) worried whekt er (my/our) food would run out before (I/we) got money to buy more. Never true [facility] Start: 12-02-2022 Alcohol Comment Caffeine intake: 2-3 cups per day [facility] Start: 1985 Sex assigned at Not on file [facility] Start: 02-29-2024 Sexual orientation Heterosexual (finding) [facility] Start: 06-27-2024 End: 07-31-2024 Alcoholic beverage intake Ex-drinker (finding) [facility] re Functional Status Date Assessment Result Facility 01-18-2023 Functional Status N/A [facility] 12-23-2022 Functional Status N/A [facility] 12-08-2022 Functional Status N/A [facility] 04-24-2022 Functional Status N/A [facility] 04-08-2022 Functional Status No [facility] Clinical Notes 11-28-2021 to 09-22-2024 Angella Bhat MD - 09/22/2024 1:00 PM DELFINO Bueno - 07/31/2024 2:10 PM DELFINO Pascual - 06/27/2024 2:10 PM Cosmo Bhat MD - 06/08/2024 3:00 PM EST Note Date & Type Note Facility 09-22-2024 History of Presen t illness Narrative Images from the original note were not included. Bea Davila is a 39 y.o. female presents with chief complaint of No chief complaint on file. HPI: History of Present Illness Consents to audiovisual telehealth. [place] [address]. Has been having chest pain that she does not feel related to anxiety. Is sharp and will come and go every few seconds. Will last about 30 mins almost daily. No SOB. Will happen when laying in bed. No aggravating or alleviating factors. Not described as racing. Is midsternal. No recent illnesses, cough or congestion. Not associated with vaping. Denies early family cardiac history. Had been on ozempic for the past month, palpitations started after 2 weeks. Is now off of ozempic. Does have more bruising. MEDICATIONS: Current Outpatient Medications Medication Instructions DULoxetine (CYMBALTA) 30 mg, Oral, Daily naltrexone (DEPADE) 100 mg, Oral, Every morning omeprazole (PriLOSEC) [address] capsule TAKE 1 CAPSULE BY MOUTH EVERY DAY 30 MINUTES BEFORE MORNING MEAL FOR 30 DAYS venlafaxine XR (EFFEXOR XR) 75 mg, Oral, Daily, Do not crush or chew. ALLERGIES: Allergies Allergen Reactions Sulfamethoxazole-Trimethoprim Unknown Review of Systems Constitutional: Negative for chills and fever. Respiratory: Negative for cough and shortness of breath. Cardiovascular: Positive for palpitations. Negative for chest pain. Gastrointestinal: Negative for diarrhea, nausea and vomiting. Neurological: Negative for headaches. Medical, Surgical, Family, and Social History reviewed. OBJECTIVE: Visit Vitals LMP (LMP Unknown) OB Status Hysterectomy Smoking Status Former BP Readings from Last 3 Encounters: 06/08/24 108/68 04/21/24 108/64 12/09/23 110/82 Wt Readings from Last 3 Encounters: 06/08/24 178 lb 04/21/24 175 lb 6.4 oz 12/09/23 178 lb 6.4 oz Physical Exam Constitutional: Appearance: Normal appearance. HENT: Head: Atraumatic. Eyes: Conjunctiva/sclera: Conjunctivae normal. Pulmonary: Effort: Pulmonary effort is normal. Neurological: General: No focal deficit present. Mental Status: She is alert. Psychiatric: Mood and Affect: Mood normal. Physical Exam Results ASSESSMENT AND PLAN: Assessment & Plan Assessment/Plan Diagnoses and all orders for this visit: Palpitations - Holter monitor; Future Bruising Will order labs if still an issue after results of holter are obtained. Last labs were normal. Health Maintenance Due Topic Date Due Mammogram Never done documented in this encounter [facility] 07-31-2024 History of Presen t illness Narrative Follow up Diagnosis: Wart Location: Right labium majoris Last visit: 06/27/2024 Symptoms: denies Status: still there Procedure performed: LN2 Number of treatments to date: 1 All pertinent medical history, medications, and allergies were reviewed. General Exam: alert, oriented to person, place, and time, normal affect, well appearing Unaccompanied A focused exam completed based on patient reported problems, see below: 1. Common wart Right Labium Majus Residual verrucous papule, improving Patient elected for cryotherapy today, see procedure note. Diagnosis: Verruca Indication: Inflamed Consent: Verbal consent was obtained and risks were discussed, including, but not limited to risks of scarring, darker or dry cleaning counter clerk pigmentary changes, recurrence, incomplete removal and infection. Method: Liquid nitrogen was used to treat the lesion(s) with two 5-10 second freeze-thaw cycles Number of lesions treated: 1 Post-procedure instructions: Instructions were given verbally The office will be contacted if the lesion fails to resolve despite treatment, or if a side effect develops such as abnormal crusting, scabbing, redness or tenderness Destr of lesion - Right Labium Majus Complexity: simple Destruction method: cryotherapy 2. Other specified erythematous conditions Next Visit: 1 month documented in this encounter [facility] 06-27-2024 History of Presen t illness Narrative Lesions: Location: pubic bone Duration: couple of months Quality: denies pain, denies itch Modifying factors: rubs on clothing, aggravated by shaving Associated symptoms: non-healing Treatments: Terazol Cream New patient All pertinent medical history, medications, and allergies were reviewed. General Exam: alert, oriented to person, place, and time, normal affect, well appearing Unaccompanied A focused exam completed based on patient reported problems, see below: 1. Common wart Right Labium Majus Erythematous verrucous papule(s). Patient and/or family member was counseled regarding warts. Treatment options were discussed including cryotherapy, kellen antigen injections, and topical Cantharidin. It was explained that it typically requires multiple treatments before the wart(s) completely resolve. The importance of following up every 3-4 weeks was emphasized. Encouraged OTC wart removers in between appointments to hasten resolution. Patient elected for cryotherapy today, see procedure note. Diagnosis: Verruca Indication: Inflamed Consent: Verbal consent was obtained and risks were discussed, including, but not limited to risks of scarring, darker or dry cleaning counter clerk pigmentary changes, recurrence, incomplete removal and infection. Method: Liquid nitrogen was used to treat the lesion(s) with two 5-10 second freeze-thaw cycles Number of lesions treated: 1 Post-procedure instructions: Instructions were given orally and in writing. The office will be contacted if the lesion fails to resolve despite treatment, or if a side effect develops such as abnormal crusting, scabbing, redness or tenderness Cryotherapy, skin lesion - Right Labium Majus 2. Pain, generalized Next Visit: 1 month, follow up documented in this encounter [facility] 06-08-2024 History of Presen t illness Narrative Images from the original note were not included. Bea Davila is a 38 y.o. female presents with chief complaint of Breast Pain (Lt side) HPI: History of Present Illness The patient presents for evaluation of left breast pain. She reports experiencing a recurrent, severe burning sensation in her left breast, which occurs daily and multiple times throughout the day. The onset of this symptom was approximately one month ago. The pain is not activity-dependent, as it can manifest even during periods of rest or sleep. She recalls an episode of intense pain while standing at work the previous night. She has no prior history of mammograms and has not noticed any nipple discharge, lumps, or bumps. MEDICATIONS: Current Outpatient Medications Medication Instructions DULoxetine (CYMBALTA) 30 mg, Oral, Daily naltrexone (DEPADE) 100 mg, Oral, Every morning omeprazole (PriLOSEC) [address] capsule TAKE 1 CAPSULE BY MOUTH EVERY DAY 30 MINUTES BEFORE MORNING MEAL FOR 30 DAYS venlafaxine XR (EFFEXOR XR) 75 mg, Oral, Daily, Do not crush or chew. ALLERGIES: Allergies Allergen Reactions Sulfamethoxazole-Trimethoprim Unknown Review of Systems Constitutional: Negative for chills and fever. Respiratory: Negative for shortness of breath. Cardiovascular: Positive for chest pain. Gastrointestinal: Negative for diarrhea, nausea and vomiting. Neurological: Negative for headaches. Medical, Surgical, Family, and Social History reviewed. OBJECTIVE: Visit Vitals BP 108/68 (BP Location: Left arm, Patient Position: Sitting, BP Cuff Size: Adult) Pulse 103 Temp 98.1 F (Temporal) Ht 4' 11 Wt 178 lb LMP (LMP Unknown) SpO2 98% BMI 35.95 kg/m OB Status Hysterectomy Smoking Status Former BSA 1.83 m BP Readings from Last 3 Encounters: 06/08/24 108/68 04/21/24 108/64 12/09/23 110/82 Wt Readings from Last 3 Encounters: 06/08/24 178 lb 04/21/24 175 lb 6.4 oz 12/09/23 178 lb 6.4 oz Physical Exam Constitutional: General: She is not in acute distress. HENT: Head: Normocephalic and atraumatic. Nose: No congestion or rhinorrhea. Mouth/Throat: Mouth: Mucous membranes are moist. Eyes: General: Right eye: No discharge. Left eye: No discharge. Conjunctiva/sclera: Conjunctivae normal. Cardiovascular: Rate and Rhythm: Normal rate. Pulmonary: Effort: Pulmonary effort is normal. No respiratory distress. Abdominal: General: There is no distension. Palpations: Abdomen is soft. Musculoskeletal: Cervical back: Neck supple. Skin: General: Skin is warm and dry. Neurological: General: No focal deficit present. Mental Status: She is alert. Psychiatric: Mood and Affect: Mood normal. Physical Exam Lungs are clear. Heart sounds are normal. Results ASSESSMENT AND PLAN: Assessment & Plan 1. Left breast pain. She reports a burning sensation in the left breast occurring daily for the past month, sometimes multiple times a day, and worsening at night. There is no nipple discharge or lumps. A diagnostic left mammogram with an ultrasound will be ordered to further evaluate the symptoms. The results will be communicated to her upon receipt. If the diagnostic mammogram and ultrasound are normal, a regular screening mammogram will be scheduled after the first of the year. Assessment/Plan Diagnoses and all orders for this visit: Breast pain, left - Bilateral diagnostic mammogram with tomosynthesis; Future Health Maintenance Due Topic Date Due Mammogram Never done Influenza Vaccine (1) Never done documented in this encounter [facility] 04-21-2024 History of Presen t illness Narrative Images from the original note were not included. Bea Davila is a 38 y.o. female presents with chief complaint of Med Refill (Possible allergy/intolerance to Keflex, would like to discuss further ) HPI: History of Present Illness The patient presents for evaluation of multiple medical concerns. She has been on naltrexone for approximately 3 months but discontinued it for about a month and a half. She resumed the medication a week ago, initially at a dose of 50 mg, which she had at home, and has since increased to 100 mg. She is committed to maintaining her alcohol-free status and believes she may have stopped the medication prematurely. She is considering changing her work environment due to the prevalence of alcohol consumption among her colleagues. She has not attended Alcoholics Anonymous (AA) meetings. She identifies stress as a trigger for her cravings and is seeking healthier coping mechanisms. Her boyfriend has suggested that her medication may need adjustment due to her depression and mood swings. She acknowledges that these symptoms are part of her recovery process. She has been using SOMXL twice daily for genital warts, which has been effective in most areas except one. She has a history of Human Papillomavirus (HPV) infection, having been diagnosed twice in the past. Her last Pap smear was normal and she is up-to-date with her screenings. Her first HPV diagnosis was in 2006, which resolved within 6 months. She has taken Keflex before. She started taking it on Wednesday night and by Wednesday night, she started feeling sick. She missed work and did not go to work till . She had nausea and headache. The last dose she took was Wednesday morning and then she was fine by Wednesday night and went to work on . She took it with food. She did not have a rash or diarrhea. She was supposed to take it for a week, but she took it only for 4 days. ALLERGIES She is allergic to SULFA. Flowsheet Row Documentation from 02/28/2024 in [facility] with Esperanza Ferrara MA Hospital Information Diagnosis UTI Discharge Date 02/27/24 Discharged To: Home Setting Discharge Hospital [facility] Admission Date 02/27/24 Medications Discharge medications reviewed and reconciled from hospital? Yes Does the patient have all medications ordered at discharge? Yes Is the patient taking all medications as directed (includes completed medication regime)? Yes Appointments Does the patient have a primary care provider? Yes Self Management Patient Teaching Wrap Up MEDICATIONS: Current Outpatient Medications Medication Instructions DULoxetine (CYMBALTA) 60 mg, Oral, Daily naltrexone (DEPADE) 100 mg, Oral, Every morning omeprazole (PriLOSEC) [address] capsule TAKE 1 CAPSULE BY MOUTH EVERY DAY 30 MINUTES BEFORE MORNING MEAL FOR 30 DAYS ALLERGIES: Allergies Allergen Reactions Sulfamethoxazole-Trimethoprim Unknown Review of Systems Constitutional: Negative for chills and fever. Respiratory: Negative for shortness of breath. Cardiovascular: Negative for chest pain. Gastrointestinal: Negative for diarrhea, nausea and vomiting. Genitourinary: Negative for dysuria and hematuria. Skin: Positive for rash. Neurological: Negative for headaches. Psychiatric/Behavioral: Positive for dysphoric mood. The patient is nervous/anxious. Medical, Surgical, Family, and Social History reviewed. OBJECTIVE: Visit Vitals BP 108/64 (BP Location: Left arm, Patient Position: Sitting, BP Cuff Size: Large adult) Pulse 86 Temp 98.2 F (Temporal) Ht 4' 11 Wt 175 lb 6.4 oz LMP (LMP Unknown) SpO2 97% BMI 35.43 kg/m OB Status Hysterectomy Smoking Status Former BSA 1.82 m BP Readings from Last 3 Encounters: 04/21/24 108/64 12/09/23 110/82 04/28/23 118/76 Wt Readings from Last 3 Encounters: 04/21/24 175 lb 6.4 oz 12/09/23 178 lb 6.4 oz 04/28/23 177 lb Physical Exam Constitutional: General: She is not in acute distress. HENT: Head: Normocephalic and atraumatic. Nose: No congestion or rhinorrhea. Mouth/Throat: Mouth: Mucous membranes are moist. Eyes: General: Right eye: No discharge. Left eye: No discharge. Conjunctiva/sclera: Conjunctivae normal. Cardiovascular: Rate and Rhythm: Normal rate. Pulmonary: Effort: Pulmonary effort is normal. No respiratory distress. Abdominal: General: There is no distension. Palpations: Abdomen is soft. Musculoskeletal: Cervical back: Neck supple. Skin: General: Skin is warm and dry. Neurological: General: No focal deficit present. Mental Status: She is alert. Psychiatric: Mood and Affect: Mood normal. Physical Exam Results ASSESSMENT AND PLAN: Assessment & Plan 1. Alcoholism. She has resumed taking naltrexone 100 mg daily after previously stopping it for a month and a half. She was advised to continue taking naltrexone without interruption to maintain her progress. Various healthy coping mechanisms to manage stress were discussed, including walking, deep breathing, meditation, and reaching out to a friend. It was explained that abstaining from alcohol could lead to decreased dopamine levels, potentially causing depression and anxiety, but these symptoms should improve over time. Monthly appointments were recommended to monitor her progress and provide ongoing support. 2. Adverse reaction to Keflex. She experienced nausea and headache after taking Keflex for four days. It was determined that these symptoms were an adverse reaction rather than an allergy. She was advised to be aware of this reaction and to request Zofran if she needs to take Keflex in the future. 3. Genital warts. She has a persistent genital wart despite using SOMXLI twice daily. A referral to dermatology was made for further evaluation and treatment. Assessment/Plan Diagnoses and all orders for this visit: Genital warts - Ambulatory referral to Dermatology; Future Alcohol use disorder Adverse effect of drug, initial encounter Health Maintenance Due Topic Date Due Mammogram Never done Influenza Vaccine (1) Never done documented in this encounter [facility] 04-16-2024 Note Patient Education Ma terials Follows:and Gynecology Urinary Tract Infection, Adult A urinary [...] a urinary catheter that stays in place. ? You are not able to control when you urinate or have a bowel movement (incontinence). ? You are female and you: ? Use a spermicide or diaphragm for control. ? Have low estrogen levels. ? Are . ? You have certain genes that increase your risk. ? You are sexually active. ? You take antibiotic medicines. ? You have a condition that causes your flow of urine to slow down, such as: ? An enlarged prostate, if you are male. ? Blockage in your urethra. ? A kidney stone. ? A nerve [...] include: ? Needing to urinate right away (urgency). ? Frequent urination. This may include small amounts of urine each time you urinate. ? Pain or burning with urination. ? Blood in the urine. ? Urine that smells bad or unusual. ? Trouble urinating. ? Cloudy urine. ? Vaginal discharge, if you are female. ? Pain in the abdomen or the lower back. You may also have: ? Vomiting or a decreased appetite. ? Confusion. ? Irritability or tiredness. ? A fever or chills. ? Diarrhea. The first symptom in older adults may be confusion. In some cases, they may not have any symptoms until the infection has worsened. How is this diagnosed? This condition is diagnosed based on your medical history and a physical exam. You may also have other tests, including: ? Urine tests. ? Blood tests. ? Tests for STIs (sexually transmitted infections). If you have had more than one UTI, a cystoscopy or imaging studies may be done to determine the cause of the infections. How is this treated? Treatment for this condition includes: ? Antibiotic medicine. ? Lyzr-oje-amqknin medicines to treat discomfort. ? Drinking enough [...] these instructions at home: Medicines ? Take hqvi-sbf-tbuykew and prescription medicines only as told by [...] ? Wipe from front to back after urinating or having a bowel movement if you are female. Use each tissue only one time when you wipe. ? Drink enough fluid to keep your urine pale yellow. ? Keep all follow-up visits. This is important. Contact a health care provider if: ? Your symptoms do not get better after 1?2 days. ? Your symptoms go away and then return. Get help right away if: ? You have severe pain in your back or your lower abdomen. ? You have a fever or chills. ? You have nausea or vomiting. Summary ? A urinary tract infection (UTI) is an infection of any part of the urinary tract, which includes the kidneys, ureters, bladder, and urethra. ? Most urinary tract infections are caused by bacteria in your genital area. ? Treatment for this condition often includes antibiotic medicines. ? If you were prescribed an antibiotic medicine, take it as told by your health care provider. Do not stop using the antibiotic even if you start to feel better. ? Keep all follow-up visits. This is important. This information is not intended to replace advice given to you by your health care provider. Make sure you discuss any questions you have with your health care provider. Document Revised: (more content not included)... [facility] 01-18-2023 Hospital Discharg e instructions Patient Education [...] numbers. This can be done either in [place]ag[place] ([place] or metric measurements. Note that charts and online BMI calculators are available to help you find your BMI quickly and easily without having to do these calculations yourself. To calculate your BMI in [place]ag[place] ([place] measurements: 1.Measure your weight in pounds [...] Centers for Disease Control and Prevention: www.cdc.gov [place] [employer]: www.heart.org National Heart, Lung, and Blood [place]: www.nhlbi.nih.gov Summary Body mass index (BMI) is a number that is calculated from a person's weight and height. BMI may help estimate how much of a person's weight is composed of fat. BMI can help identify those who may be at higher risk for certain medical problems. BMI can be measured using Malagasy measurements or metric measurements. BMI charts are used to identify whether you are underweight, normal weight, overweight, or obese. This information is not intended to replace advice given to you by your health care provider. Make sure you discuss any questions you have with your health care provider. Document Revised: 02/28/2020 Document Reviewed: 01/05/2020 [employer] Patient Education 2022 [employer]. 01/18/2023 13:42:43 Urinary Tract Infection, Adult Urinary [...] Treatment for this condition includes: Antibiotic medicine. Dayq-yzn-pngctup medicines to treat discomfort. Drinking enough water [...] Follow these instructions at home: Medicines Take tidu-yik-ohnrhry and prescription medicines only as told by [...] provider. Document Revised: 01/17/2021 Document Reviewed: 01/17/2021 Elsevier Patient Education 2022 [employer]. Follow Up Care 01/18/2023 11:51:16 With:Angella Bhat MD Address: [address] [place] [id number]- When: Unknown [facility] 01-18-2023 Evaluation + Plan note Diagnostic Tests PendingUrine Culture 01/18/23 [facility] 12-23-2022 Hospital Discharg e instructions Patient Education 12/23/2022 18:51:21 Strep Throat, Adult, Vlrm-rq-Rysh Strep Throat, Adult Strep throat is an [...] Follow these instructions at home: Medicines Take foiu-uke-pbnwybw and prescription medicines only as told by [...] provider. Document Revised: 09/30/2021 Document Reviewed: 09/30/2021 [employer] Patient Education 2022 [employer]. 12/23/2022 18:51:19 Rapid Strep Test Rapid Strep [...] provider. Document Revised: 09/30/2021 Document Reviewed: 09/30/2021 [employer] Patient Education 2022 [employer]. 12/23/2022 18:51:17 Strep Throat, Adult Strep Throat, [...] Follow these instructions at home: Medicines Take msjn-tcj-njbhfbg and prescription medicines only as told by [...] and water are not available, use hand truck greaser. Make sure that all people in your [...] provider. Document Revised: 09/30/2021 Document Reviewed: 09/30/2021 [employer] Patient Education 2022 [employer]. Follow Up Care 12/23/2022 18:24:41 With:Angella Bhat MD Address: [address] [place] [id number]- When: Unknown [facility] 12-08-2022 Hospital Discharg e [...] Follow these instructions at home: Medicines Take pghn-yfe-zckdjaf and prescription medicines only as told by [...] and water are not available, use hand truck greaser. Make sure that all people in your [...] provider. Document Revised: 09/30/2021 Document Reviewed: 09/30/2021 [employer] Patient Education 2022 [employer]. 12/08/2022 13:03:02 BMI for Adults BMI for [...] numbers. This can be done either in [place] ([place] or metric measurements. Note that charts and online BMI calculators are available to help you find your BMI quickly and easily without having to do these calculations yourself. To calculate your BMI in [place]ag[place] ([place] measurements: 1.Measure your weight in pounds [...] Centers for Disease Control and Prevention: www.cdc.gov [place] [employer]: www.heart.org National Heart, Lung, and Blood [place]: www.nhlbi.nih.gov Summary Body mass index (BMI) is a number that is calculated from a person's weight and height. BMI may help estimate how much of a person's weight is composed of fat. BMI can help identify those who may be at higher risk for certain medical problems. BMI can be measured using Malagasy measurements or metric measurements. BMI charts are used to identify whether you are underweight, normal weight, overweight, or obese. This information is not intended to replace advice given to you by your health care provider. Make sure you discuss any questions you have with your health care provider. Document Revised: 02/28/2020 Document Reviewed: 01/05/2020 [employer] Patient Education 2022 [employer]. Follow Up Care 12/08/2022 12:38:52 With:Angella Bhat MD Address: [address] [place], [place] [id number] When: Unknown [facility] 04-24-2022 Hospital Discharg e [...] Treatment for this condition includes: Antibiotic medicine. Wsqt-rry-arrkacx medicines to treat discomfort. Drinking enough water [...] Follow these instructions at home: Medicines Take doek-xsf-dzeznky and prescription medicines only as told by [...] 03/17/2006 Document Revised: 05/25/2019 Document Reviewed: 12/15/2018 [employer] Patient Education 2020 [employer]. 04/24/2022 15:30:02 Antibiotic Medicine, Adult Antibiotic Medicine, [...] 02/17/2005 Document Revised: 12/06/2018 Document Reviewed: 06/08/2017 [employer] Patient Education 2020 [employer] Follow Up Care 04/24/2022 13:42:01 With:Angella Bhat Address: [address] [place] [id number] Business (1) When:04/27/2022 15:29:11 Comments:Call the office of [...] weakness, or any new or worsening symptoms. [facility] 04-24-2022 Evaluation + Plan note Extrac laisha from: Title:ED Note Author:Bereket Carlton DO Date:06/24/21 Acute UTI (N39.0: Urinary tr act infection, site not specified) Orders: cephalexin, 500 mg = 1 cap(s), Oral, q12hr, X 5 day(s), # 10 cap(s), Refills(s) 0, Pharmacy: [facility]/pharmacy #[id number], 152.4, cm, 04/24/22 13:46:00 EDT, Height/Length Dosing, 79, kg, 04/24/22 13:46:00 EDT, Weight Dosing Automated Diff Basic Metabolic Panel CBC w/ Auto Diff eGFR Influenza A&B Ag Rapid COVID Antigen ([facility]) UA With Cult Reflex Urine Culture Diagnostic Tests Pending * Urine Culture 04/24/22 [facility]10-28-2022 Hospital Discharge instructions Patient Education 04/17/2022 14:09:13 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 [facility]06-11-2022 Hospital Discharge instructions Patient Education 11/28/2021 23:01:49 Urinary Tract Infection, Adult, Tugk-dn-Fgsh Urinary Tract Infection, Adult A urinary tract [...] Follow these instructions at home: Medicines Take xtkl-yap-orztipe and prescription medicines only as told by [...] 11/23/2008 Document Revised: 05/25/2019 Document Reviewed: 12/15/2018 [employer] Patient Education 2020 [employer] Follow Up Care 11/28/2021 21:47:33 With:Angella Bhat Address: [address] [place] [id number] [facility] (1) When:12/01/2021 [facility]06-10-2022 Evaluation + Plan note Diagnostic Tests Pending * [facility]ments Appointment Date:04/17/2022 11:30:00 AM Scheduled Provider: Location:[facility] Diagnosis Genital warts- Primary Condyloma acuminatum Alcohol use disorder Adverse effect of drug, initial encounter [facility] Diagnosis Breast pain, left- Primary [facility]* Diagnosis Alcohol use disorder [facility]* Diagnosis Common wart Other specified viral warts Pain, generalized Generalized pain [facility] Diagnosis Alcohol use disorder [facility] Diagnosis Common wart Other specified viral warts Other specified erythematous conditions [facility]* Diagnosis Palpitations- Primary Bruising Contusion of unspecified site [facility] Narrative No data available for this section [facility] No data available for this section [facility] No data available for this section [facility] Summary Purpose Family History No Family [...] section and content) DATE CREATED AUTHOR 09/15/2019 [facility] DATE CREATED AUTHOR AUTHOR'S ORGANIZ ATION 09/10/2021 [facility] DATE CREATED AUTHOR AUTHOR'S ORGANIZ ATION 11/24/2021 [facility] dical Specialist DATE CREATED AUTHOR AUTHOR'S ORGANIZ ATION 12/08/2023 [facility] DATE CREATED AUTHOR AUTHOR'S ORGANIZ ATION 04/29/2024 [facility] DATE CREATED AUTHOR AUTHOR'S ORGANIZ ATION 09/25/2024 [facility] dical Specialists EPIC Patient Care team informatio n (unrecognized section and content) [employer] Relationship Specialty Start Date End Date Angella Bhat MD [address] [place] [address] PCP - General Family Medicine 12/07/23 Mer Chambers NP [address] [place] [address] Nurse Practitioner Family Medicine 11/30/22 [employer] Relationship Specialty Start Date End Date Angella Bhat MD [address] [place] [address] PCP - [facility] 12/07/23 Mer Chambers NP [address] [place] [address] Nurse Practitioner Family Medicine 11/30/22 [employer] Builder Relationship Specialty Start Date End Date Angella Bhat MD [address] [place] [address] PCP - [facility] 12/07/23 Mer Chambers NP [address] [place] [address] Nurse Practitioner Family Medicine 11/30/22 [employer] Builder Relationship Specialty Start Date End Date Angella Bhat MD [address] [place] [address] PCP - [facility] 12/07/23 Angella Bhat MD [address] [place] [address] PCP [facility] 03/21/24 Mer Chambers NP [address] [place] [address] Nurse Practitioner Family Medicine 11/30/22 [employer] Builder Relationship Specialty Start Date End Date Angella Bhat MD [address] [place] [address] PCP - [facility] 12/07/23 Angella Bhat MD [address] [place] [address] PCP - [facility] 03/21/24 Mer Chambers NP [address] [place] [address] Nurse Practitioner [facility] 11/30/22 [employer] Relationship Specialty Start Date End Date Angella Bhat MD [address] [place] [address] PCP - [facility] 12/07/23 Angella Bhat MD [address] [place] [address] [facility] 03/21/24 eMr Chambers NP [address] [place] [address] Nurse Practitioner [facility] 11/30/22 [employer] Relationship Specialty Start Date End Date Angella Bhat MD [address] [place] [address] PCP - [facility] 12/07/23 Angella Bhat MD [address] [place] [address] PCP [facility] 03/21/24 Mer Chambers NP [address] [place] [address] Nurse Practitioner Family [facility] 11/30/22 [employer] Builder Relationship Specialty Start Date End Date Angella Bhat MD [address] [place] [address] PCP - [facility] 12/07/23 Angella Bhat MD [address] [place] [address] [facility] 03/21/24 Mer Chambers NP [address] [place] [address] Nurse Practitioner Family [facility] 11/30/22 [employer] Builder Relationship Specialty Start Date End Date Angella Bhat MD [address] [place] [address] PCP - [facility] 12/07/23 Angella Bhat MD [address] [place] [address] [facility] 03/21/24 Mer Chambers [employer] [address] [place] [address] Nurse Practitioner Family [facility] 11/30/22 [employer] Builder Relationship Specialty Start Date End Date Angella Bhat MD [address] [place] [address] PCP - [facility] 12/07/23 Angella Bhat MD [address] [place] [address] [facility] 03/21/24 Mer Chambers NP [address] [place] [address] Nurse Practitioner [facility] 11/30/22 [employer] Builder Relationship Specialty Start Date End Date Angella Bhat MD [address] [place] [address] PCP - [facility] 12/07/23 Angella Bhat MD [address] [place] [address] PCP - [facility] 03/21/24 Mer Chambers NP [address] [place] [address] Nurse Practitioner [facility] 11/30/22 [employer] Builder Relationship Specialty Start Date End Date Angella Bhat MD [address] [place] [address] PCP - [facility] 12/07/23 Angella Bhat MD [address] [place] [address] [facility] 03/21/24 Mer Chambers NP [address] [place] [address] Nurse Practitioner Family [facility] 11/30/22 Reason for Visit (unrecogniz ed section and content) Reason Comments Med Refill Possible allergy/int olerance to Keflex, would like to discuss further Reason Comments Breast Pain Lt side Reason Comments Med Refill Reason Comments Suspicious Skin Lesion Reason Comments Follow-up FOR RECORDS PERTAINING TO PATIENTS WHO ARE [...] BE BASED ON THE PRIMARY CLINICAL RECORDS. [facility] [employer] [facility]. provides no warranty or guarantee of the accuracy or completeness of information in this document.
--- NOTE | 2024-11-21 22:17 | ED.EXTPRO1 ---
HPI - Extremity Problem General Chief complaint: Extremity Problem, Nontraumatic Stated complaint: Lower Pain Time Seen by Provider: 11/21/24 22:01 Source: patient Mode of arrival: walk-in Limitations: no limitations History of Present Illness HPI Narrative: This 39-year-old female presents for evaluation of right lateral lower leg pain. The patient states she felt fine on Wednesday and woke up Wednesday morning and went to step down out of bed when she felt pain in her right lower leg. The pain has been coming and going since that time. She denies any injury. She is not on control. She is status post hysterectomy. She is not on any hormone therapy but does admit to vaping. She denies any chest pain or shortness of breath. She denies any dizziness or take tachycardia. Pain is worse with ambulation. She is wearing flip-flops that provide no support to her feet but states she does wear tennis shoes while she is working. Does not have any back pain or pain in her femur. The pain is located at the lateral aspect of her right lower leg. There is no foot or ankle pain. She denies any numbness or tingling. Related Data Home Medications ?Medication ?Instructions ?Recorded ?Confirmed duloxetine 60 mg capsule,delayed 60 mg PO DAILY 08/08/23 11/21/24 release omeprazole 40 mg capsule,delayed 40 mg PO DAILY 08/08/23 11/21/24 release naltrexone 50 mg tablet 100 mg PO Q24H 11/21/24 11/21/24 Allergies Allergy/AdvReac Type Severity Reaction Status Date / Time sulfamethoxazole (From Allergy Severe yeast Verified 11/21/24 22:02 Bactrim) infection trimethoprim (From Bactrim) Allergy Severe yeast Verified 11/21/24 22:02 infection Review of Systems ROS Status of ROS 10 or more systems reviewed and unremarkable except as noted in history and below PFSH PFS Social History Little interest or pleasure in doing things: not at all Feeling down, depressed, or hopeless: not at all Exam Narrative Exam Narrative: Vital signs and Nursing Notes reviewed: Patient is afebrile with mild tachycardia with a pulse of 109 and blood pressure is elevated 142/104, she is not hypoxic with pulse ox of 98% on room air General: Awake, alert, oriented, no acute distress, lying comfortably on the stretcher HEENT: Normocephalic atraumatic, mucous membranes are moist and pink, eyes are clear, normal conjunctiva, vision is grossly intact Neck: Supple, no meningeal signs, no anterior or posterior cervical lymphadenopathy Chest: Lungs are clear to auscultation with good air entry, there is no wheezing rhonchi or rales appreciated no accessory muscle use, patient is speaking in complete sentences-no chest wall tenderness to palpation CVS: Regular rate and rhythm S1-S2, tachycardic at triage with a pulse of 109, no murmurs rubs or gallops, pulses are brisk and equal bilaterally Extremities: Moving all extremities, mild tenderness to palpation to the lateral aspect of the right lower leg. There is no redness, swelling or palpable cords, patient is wearing shorts and there is no notable size discrepancy between the right and left legs. Feet are warm and sensate. Pulses are brisk and equal. Skin: Normal in appearance without rash,pallor, petechiae or purpura Neuro: No focal deficits Constitutional Vital Signs, click to edit/add: Last Vital Signs Temp 98.4 F 11/21/24 22:02 Pulse 101 H 11/21/24 22:40 Resp 22 H 11/21/24 22:40 BP 156/99 H 11/21/24 22:40 Pulse Ox 98 11/21/24 22:02 O2 Del Method Room Air 11/21/24 22:02 Course Vital Signs Vital signs: Vital Signs Temperature 98.4 F 11/21/24 22:02 Pulse Rate 109 H 11/21/24 22:02 Respiratory Rate 16 11/21/24 22:02 Blood Pressure 142/104 H 11/21/24 22:02 Pulse Oximetry 98 11/21/24 22:02 Oxygen Delivery Method Room Air 11/21/24 22:02 Temperature 98.4 F 11/21/24 22:02 Pulse Rate 101 H 11/21/24 22:40 Respiratory Rate 22 H 11/21/24 22:40 Blood Pressure 156/99 H 11/21/24 22:40 Pulse Oximetry 98 11/21/24 22:02 Oxygen Delivery Method Room Air 11/21/24 22:02 MDM - Extremity (Nontraumatic) MDM Narrative Medical decision making narrative: This 39-year-old female presents for evaluation of right lower lateral leg pain that has been present since Wednesday morning. The patient is wearing flip-flops and states she does wear sneakers when she is at work but otherwise wears the flip-flops. I explained to her these do not give her legs any support. She denies any injury. She denies tobacco use but does use a vape pen. She is not on control or hormone therapy after having a hysterectomy in the past. She is tender in the right lateral lower leg. I do not appreciate any muscle spasms. There is no palpable cords redness or other notable deformity. She is wearing shorts and her legs were compared sfva-ax-tofg without any notable discrepancy in their size. Her pulses are brisk and normal. A D-dimer was ordered as ultrasound is not readily available at night. While waiting for the D-dimer results she complained of chest pain and the EKG was ordered which is a sinus rhythm 89 bpm with no acute changes. She was medicated with a dose of ibuprofen. Her D-dimer is normal at 0.48. The results of this test was discussed with her and she will be discharged home at this time with a prescription for ibuprofen. Lab Data Labs: Lab Results 11/21/24 Range/Units 22:21 D-Dimer 0.48 (<=0.59) mg/L FEU Discharge Plan Discharge Chief Complaint: Extremity Problem, Nontraumatic Clinical Impression: Lower extremity pain, posterior, Muscle cramps Patient Disposition: Home, Self-Care Time of Disposition Decision: 22:51 Condition: Good Prescriptions / Home Meds: No Action naltrexone 50 mg tablet 100 mg PO Q24H duloxetine 60 mg capsule,delayed release(DR/EC) 60 mg PO DAILY omeprazole 40 mg capsule,delayed release(DR/EC) 40 mg PO DAILY Print Language: German Instructions: Muscle Spasm (ED), Leg Pain (ED) Referrals: NORA BHAT [Primary Care Provider] - 1 week
[2024-11-21] MEDS: IBUPROFEN 600 MG TABLET PO (22:21)
--- NOTE | 2024-11-21 22:38 | ECG_ITS ---
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 Measurements Intervals [place] Rate: 89 P: 35 WV: 142 QRS: 6 QRSD: 62 T: 30 QT: 344 QTc: 390 Interpretive Statements 1100 Sinus rhythm 8102 Low QRS voltage in chest leads Abnormal ECG No previous ECG available for comparison Electronically Signed On 11-22-2024 19:09:24 EDT by STEPHANIE ROSE M.D.
[2024-11-21 22:45] LABS: D Dimer 0.48 mg/L FEU (<=0.59)
== END 2024-11-21 22:58 | disposition home or self-care (01) ==
PROVIDERS: Emergency Provider Emergency Medicine
DX: M79.661 Pain in right lower leg (principal); R25.2 Cramp and spasm; Z90.710 Acquired absence of both cervix and uterus; F17.290 Nicotine dependence, other tobacco product, uncomplicated; R07.9 Chest pain, unspecified
CPT/HCPCS: 36415; 85378; 93005; 99284

== ENCOUNTER 2025-01-06 21:33 | Emergency (ER) | payer OTHER, SELFPAY ==
[2025-01-06 21:37] VITALS: BP 123/97; PULSE 123; TEMP 37.6; O2SAT 98; BMI 33.9
--- OUTSIDE RECORDS SUMMARY | 2025-01-06 21:40 | XMS_ITS | CCD ---
Author Organization [facility] Care Team Providers Care Phlebotomist Associate Name Role Phone SAL SCHMID Admitting Unavailable SAL SCHMID Attending Unavailable SAL SCHMID Referring Unavailable BINU, SAL Admitting Unavailable PROVIDER, [...] Roth. Attending Unavailable Mer Chambers NP Unavailable [phone] Angella Bhat MD Primary Care Provider Angella Bhat Primary Care Unavailable Heladio Roth PA-C Attending Unavailbabar e Heladio Roth PA-C Admitting UnavailAngella Ceja MD Unavailable DRE GALVAN Attending Unavailable ANGELLA BHAT Attending Unavailable JUDY GONZALEZ Attending Unavailable ANGELAL BHAT Referring Unavailable ANGELLA BHAT Referring Unavailable ANGELLA BHAT Referring Unavailable ANGELLA BHAT Attending Unavailable ANGELLA BHAT Referring Unavailable ANGELLA BHAT Attending Unavailable DRE GALVAN Attending Unavailable Allergies Allergy Classification Reported Allergen(s) Allergy Type Date of Onset Reaction(s) Facility (1 source) SULFAMETHOXAZOLE W-TRIMETHOPRIM; Translations: [SULFAMETHOXAZOLE W-TRIMETHOPRIM] Propensity to adverse reactions to drug (disorder) 06-10-20 [facility] (20 sources) Sulfamethoxazole / Trimethoprim; Translations: [sulfamethoxazole-t rimethoprim] Drug Allergy 12-01-19 Yeast (substance), Unknown [facility] Medications Current Medications Medication Drug Class(es) Dates Sig (Normalized) Sig (Original) acetaminophen 325 mg / oxyCODONE hydrochloride 5 mg oral tablet (1 source) Opioid Agonist Start: 04-17-2022 End: 04-19-2022 Percocet 325 mg-5 mg Tab 1 tab(s), Oral, q6hr for pain for 2 day(s), 7 tab(s), Refill(s) 0, [facility]acy #[id number], 152, cm, 04/08/22 13:53:00 EDT, Height/Length [...] day(s), # 20 cap(s), Refills(s) 0, Pharmacy: [facility]/pharmacy #[id number], 152, cm, 12/08/22 12:57:00 EDT, Height/Length [...] day(s), # 21 cap(s), Refills(s) 0, Pharmacy: [facility]/pharmacy #[id number], 153, cm, 12/23/22 18:41:00 EDT, Height/Length Dosing, 79.4, kg, 01/18/23 13:28:00 EDT, Weight Dosing Start Date: 01/18/23 Stop Date: 01/25/23 Status: Ordered Start: 04-24-2022 End: 04-29-2022 take 1 capsule by mouth every twelve hours Keflex 500 mg Cap 500 mg = 1 cap(s), Oral, q12hr, X 5 day(s), # 10 cap(s), Refills(s) 0, Pharmacy: [facility]/pharmacy #[id number], 152.4, cm, 04/24/22 13:46:00 EDT, Height/Length Dosing, 79, kg, 04/24/22 13:46:00 EDT, Weight Dosing Start Date: 04/24/22 Stop Date: 04/29/22 Status: Ordered Start: 11-28-2021 take 1 capsule by mo ut every twelve hours cephalexin 500 mg Cap 500 mg = 1 cap(s), Oral, q12hr, # 20 cap(s), Refills(s) 0, Pharmacy: [facility]/pharmacy #[id number], 152, cm, 11/28/21 21:52:00 EDT, Height/Length Dosing, 73, kg, 11/28/21 21:52:00 EDT, Weight Dosing Start Date: 11/28/21 Status: Ordered Cymbalta 60 mg Cap-DR (5 sources) Start: 09-06-2019 take 1 capsule by mouth at bedtime Cymbalta 60 mg Cap-DR 60 mg, Oral, Bedtime, Refills(s) 0, Depression Start Date: 09/06/19 Status: Ordered Start: 09-06-2019 take 1 capsule by mo uth at bedtime Cymbalta 60 mg Cap-DR 60 mg, Oral, Bedtime, Refills(s) 0 Start Date: 09/06/19 Status: Ordered DULoxetine 60 mg delayed release oral capsule (20 sources) Serotonin and Norepinephrine Reuptake Inhibitor Start: 12-19-2024 DULoxetine (Cymbalta ) [address] capsule Indications: Generalized anxiety disorder TAKE 1 CAPSULE EVERY DAY 90 capsule 3 12/19/2024 Active Start: 09-25-2024 End: 12-19-2024 take 1 capsule by mouth once daily DULoxetine (Cymbalta) [address] capsule Take 60 mg by mouth Daily 09/25/2024 12/19/2024 Discontinued Start: 04-26-2024 take 1 capsule by mo [facility] once daily DULoxetine (Cymbalta) [address] capsule Indications: Generalized anxiety disorder (CMS/HCC) , Current moderate episode of major depressive disorder without prior episode (HCC) (CMS/HCC) Take 1 capsule (30 mg) by mouth Daily 7 capsule 04/26/2024 Active Start: 12-07-2023 take 1 capsule by mo uth once daily DULoxetine (Cymbalta) [address] capsule Indications: Anxiety disorder, unspecified type TAKE 1 CAPSULE BY MOUTH EVERY DAY 90 capsule 3 12/07/2023 Active Start: 09-06-2019 take 1 capsule by mo [facility] at bedtime Cymbalta 60 mg Cap-DR 60 mg, Oral, Bedtime, Refills(s) 0, Depression Start Date: 09/06/19 Status: Ordered ibuprofen 600 mg oral tablet (5 sources) Nonsteroidal Anti-inflammatory Drug take 1 tablet by mouth every six hours as needed for pain ibuprofen 600 MG tablet Take 600 mg by mouth every 6 (six) hours if needed for mild pain Active naltrexone hydrochloride 50 mg oral tablet (20 sources) Opioid Antagonist Start: 2023 End: 2024 take 2 tablets by mouth in the morning naltrexone (Depade) 50 MG tablet Indications: Alcohol use disorder Take 2 tablets (100 mg) by mouth in the morning. 30 tablet 11/22/2024 Active omeprazole 40 mg delayed release oral capsule (20 sources) Proton Pump Inhibitor Start: 2023 End: 2024 omeprazole (PriLOSEC) [address] capsule Indications: Gastroesophageal reflux disease without esophagitis TAKE 1 CAPSULE EVERY DAY 30 MINUTES BEFORE MORNING MEAL 30 capsule 11 11/24/2024 Active Start: 12-08-2022 omeprazole 40 mg Cap-DR [...] day(s), # 9 tab(s), Refills(s) 0, Pharmacy: [facility]/pharmacy #[id number], 153, cm, 12/23/22 18:41:00 EDT, Height/Length Dosing, 79.4, kg, 01/18/23 13:28:00 EDT, Weight Dosing Start Date: 01/18/23 Stop Date: 01/21/23 Status: Ordered 24 hr venlafaxine 75 mg extended release oral capsule (20 sources) Serotonin and Norepinephrine Reuptake Inhibitor Start: 04-26-2024 take 1 capsule by mouth once daily venlafaxine XR (Effexor XR) 75 MG 24 hr capsule Indications: Generalized anxiety disorder , Current moderate episode of major depressive disorder without prior episode (HCC) Take 1 capsule (75 mg) by mouth Daily Do not crush or chew. 30 capsule 1 04/26/2024 Active Problems Active Problems Problem Classification Problem Date Documented Date Episodic/Chronic Anxiety disorders (20 sources) Anxiety disorder; Translations: [Anxiety disorder, unspecified] Onset: 11-30-2022 11-30-2022 Chronic Cardiac dysrhythmias (4 sources) Palpitations; Translations: [Palpitations] 09-22-2024 Episodic E Codes: Adverse effects of medical drugs (2 sources) Adverse reaction to drug; Translations: [Adverse effect of unspecified drugs, medicaments and biological substances, initial encounter] 04-21-2024 Episodic Endometriosis (20 sources) Uterine adenomyosis; Translations: [Adenomyosis] Onset: 11-30-2022 11-30-2022 Chronic Esophageal disorders (8 sources) Gastroesophageal reflux disease; Translations: [Gastroesophageal reflux disease without esophagitis] 04-08-2022 Chronic Genitourinary symptoms and ill-defined conditions (1 source) Increased frequency of urination; Translations: [Frequency of micturition] Onset: 01-18-2023 Episodic Malaise and fatigue (20 sources) Fatigue; Translations: [Chronic fatigue, unspecified] Onset: 11-30-2022 11-30-2022 Chronic Menstrual disorders (20 sources) Menorrhagia; Translations: [Excessive and frequent menstruation with regular cycle] Onset: 04-17-2022 Chronic Miscellaneous mental health disorders (20 sources) Primary insomnia; Translations: [Primary insomnia] Onset: 11-30-2022 11-30-2022 Chronic Mood disorders (20 sources) Mild major depression; Translations: [Major depression, single episode] Onset: 11-30-2022 01-25-2019 Chronic Nonmalignant breast conditions (2 sources) Mastodynia; Translations: [Mastodynia] 06-08-2024 Episodic Nutritional deficiencies (8 sources) Vitamin D deficiency 01-25-2019 Chronic Other acquired deformities (20 sources) Contracture of joint of right ankle; Translations: [Contracture, right ankle] Onset: 11-30-2022 11-30-2022 Chronic Other and unspecified benign neoplasm (1 source) Benign neoplasm of soft tissue; Translations: [Benign neoplasm of connective and other soft tissue, unspecified] Onset: 04-17-2022 Episodic Other connective tissue disease (5 sources) Pain in right lower limb; Translations: [Pain in right leg] Onset: 11-28-2024 11-28-2024 Episodic Other inflammatory condition of skin (2 sources) Erythema of skin; Translations: [Other specified erythematous conditions] 07-31-2024 Episodic Other injuries and conditions due to external causes (2 sources) Contusion; Translations: [Other injury of unspecified body region, initial encounter] 09-22-2024 Episodic Other nervous system disorders (20 sources) Carpal tunnel syndrome of right wrist; [...] and pains; Translations: [Pain, unspecified] 06-27-2024 Episodic Residual codes; unclassified (1 source) Other specified conditions influencing health status; Translations: [Alcohol use disorder] 11-22-2024 Episodic Substance-related disorders (8 sources) Smoker 05-09-2014 [...] Test Name Value Interpretation Reference Range Facility BI MAMMOGRAM DIAGNOSTIC AMEE SYNTHESIS RIGHTon 12-15-2024 BI MAMMOGRAM DIAGNOSTIC TOMOSYNTHESIS RIGHT This is a summary report. The complete report is available in the patient's medical record. If you cannot access the medical record, please contact the sending organization for a detailed fax or copy. EXAMINATION: BI MAMMOGRAM DIAGNOSTIC TOMOSYNTHESIS RIGHT CLINICAL HISTORY: callback TECHNIQUE: Diagnostic digital mammogram study of the right breast was performed with 2D and 3D tomosynthesis imaging. Study was compared to the screening mammogram study of the breasts dated 12/04/2024 and ultrasound study of the right breast dated 12/15/2024. Coned-down compression views, exaggerated lateral cc view and true lateral view were obtained. FINDINGS: A few small scattered benign-appearing asymmetric densities are noted laterally on the exaggerated lateral cc view. Previously noted small nonspecific asymmetric densities on the MLO view superiorly measuring up to 5 x 4 mm are again identified. Findings have overall benign appearance. Right breast ultrasound study demonstrates a likely small cyst at the 11 o'clock position, likely correlating with one of the densities. The 5 x 4 mm area could represent a small unremarkable intramammary lymph node not seen on ultrasound. When correlating all studies no convincing evidence of neoplasm. IMPRESSION: Diagnostic mammogram study of the right breast demonstrates small benign-appearing asymmetric densities superiorly as described, one likely represents a small cyst when correlated with the ultrasound study. The 5 x 4 mm area could represent a small unremarkable intramammary lymph node not seen on ultrasound. When correlating all studies no convincing evidence of neoplasm. Follow-up diagnostic mammogram study of the right breast with similar views as well as ultrasound study of the right breast with similar views is recommended in 6 months to assess stability. BIRADS 3 - Probably Benign Findings DENSITY: The breasts are heterogeneously dense, which may obscure small masses. FOLLOW-UP: Diagnostic Mammogram in 6 Months, breast ultrasound in 6 months Board Certified Radiologists. Accredited by the ACR and FDA. MAMMOGRAPHY IS VERY IMPORTANT TO YOUR HEALTH. THE [employer] GUIDELINES RECOMMEND THAT WOMEN 40 YEARS OF AGE AND OLDER SHOULD HAVE A MAMMOGRAM EVERY YEAR. A REMINDER LETTER WILL BE SENT AT THE APPROPRIATE TIME. ELECTRONICALLY SIGNED BY: Keven Dennis M.D. Normal Not Available BI US BREAST LIMITED RIGHTon 12-15-2024 BI US BREAST LIMITED RIGHT Examination: BI US BREAST LIMITED RIGHT Reason for Study: callback Comparison: Screening mammogram study of the breasts dated 12/04/2024 and diagnostic mammogram study of the right breast dated 12/15/2024. Technique: Right breast ultrasound study was performed. Images were obtained from the 10:00 to the 2 o'clock position to include area of interest. Findings: At the 11 o'clock position there is a small area of decreased echogenicity likely representing a cyst measuring 0.4 x 0.3 x 0.3 cm. The finding is approximately 3.3 cm from the nipple. The finding likely correlates with one of the small likely benign asymmetric densities noted on the mammogram studies. The largest 5 x 4 mm asymmetric density on the mammogram studies may represent a grossly unremarkable appearing intramammary lymph node which is not identified on the ultrasound although difficult to say with certainty, the suspected cyst on ultrasound could represent this density though difficult to say with certainty. No obvious solid vascular mass to suggest neoplasm. When correlating all studies no convincing evidence of neoplasm. No obvious abnormal calcifications or vascularity. No obvious ductal dilatation. IMPRESSION: Impression: Right breast ultrasound study demonstrates a likely small cyst at the 11 o'clock position. The finding likely correlates with one of the small likely benign asymmetric densities noted on the mammogram studies. The largest 5 x 4 mm asymmetric density on mammogram may represent a grossly unremarkable appearing intramammary lymph node not identified on ultrasound although could represent the visualized cyst, difficult to say with certainty. No obvious neoplasm. When correlating all studies no convincing evidence of neoplasm. Follow-up diagnostic mammogram study of the right breast as well as ultrasound study of the right breast in 6 months is recommended to assess stability. BI-RADS 3 ELECTRONICALLY SIGNED BY: Keven Dennis M.D. Normal Not Available No Panel Informationon 07-31 Complexity: simple Destruction method: cryotherapy [facility] No Panel Informationon 06-27 [facility] Coding Summaryon 04-27-2024 Coding Summary HTMLBase 64 BishhmdmTWk8yJv+PGhl YWQ+SE6KIUAyW49wiQCl gK0aQ3ECIViMTdfiYTYD MRqYTqVxtpEiGN0jmXOe ZXJu IC8+TV2qEBEpGftwlABn o3R4oGS4P27wvr8cWCqg qFT3ZABcTvYhnsrqu3pd rPz8BJwcVkohZeZo QLFfiF77MPN6wB77Ov83 xVHpwTKpe9rmkKt1GjCp VEYcVCU5mTzuEEcfn4Wj VPCvS29npDTts2F7 IGNvbGxhcHNlOyBlbXB0 eD0nQZpyrztgb3ytphkg Glb4vz71xRDyv1D4sUO6 G7GajdV6BEPvbXFb RqinmWPOvC2xkgakf6ld czkwVaLsWXLcHBj2MFv5 RULyjUpfLjLrZS90VSW2 XJWranJiW4JgGCXw iCqkAxD2a4I0Rg4CI7PN DuezP6VQXRLTYBpnfAO+ BS95ns12H7UiTfcfJky6 GXIbLEX2yTI9hB2k ZCRfWXxqb3U0qCB0F0Hh ytIdix0mg2tgYLYaOWdo W14ssBCsy8D6RDHbkQI2 GVAdzBoxIhNkfF25 Oyc+MRKuqNytz7IvMfja u0xlk8ymtCh4LnduNLIk erFbhJmkJYU3p3EkAq2w RQWeyVQ3uYR7xC5p RbHfIcI8RAvfY601GpWq uZJhCillD08mC2GqvJJ+ LHNtDgq4GBBgkDjdMG8i J2UmHNWaibnsgEAm dWhqNH6eEBXhjxkeMZYv hB7dHKXnS6x9YyOaJxU7 CMuqY0OvHQYswhguVz67 uM2tWsUlVdN5QFjd O9RalfM1JBKyuYFnYJtj WFU9F06ep5R3RTMfGGRs YVX9xRF6mQ0xcEdmneef bGVmdDsgdmVydGlj RQvkXHflT246OKFdpWne PkNvZGluZyBEYXRlOiAg MTEvMDcvMjAyNDwvdGQ+ WDIyNVB0bMkuRXDm zIQqFBglJr9njNevzXee UH8uLNAhacjePETtwK8h CPLqtZKsaKseYU8gZTQb hagzq501NxPaBVH6 QDHvqIAjI2SovJ3nJzGe QFDqKNHbG2VatBWlNOpj B025GNdqAaC5KOZqrsJz D7SpFOQsuIdcWxI1 y7K4Zy3Ty2BvcqycH5Pj jRYaIyLfKjdrMCr5B5Uq PjwvdHI+RI58EFFsAH14 XXe0OWA8tSsnIInn NXFoP1TiwH1iQqWfYCDg ZGRkOyc+PHRhYmxlIHdp ZHRoPScxMDAlJyBzdHls SQ5nAg9qFEDkZEOh mGmjhCMpSoVcx7xyOXJs ZVrlXC6jtOioK3LoqEQ6 STVoz6h8Si11Q75nO7Yb dXA+LHXkeLI9zND8 yY8jFbEaPaM4OVygZ984 VqCbpSMtJyamf4ejz9de tOk3WvF0KBCwlnBcnFvt EWD6x6StSf30G93i IHdpZHRoPSIxNSUiIHZh wAsrkf2taX4pKx5+PGNv hXA3cEG1rR2iUwOxCwF6 XIfnI849SpOagRCl Pbeom4dth4inkAv2EmJn ITXlbjVavTluDVC6m8Gz Jw38E4ZmuSdch1WeYpb2 wq43qWQdh5B6dRT3 Y2WqMBQtmgycdRPheGub NO6jZACkkmtzTKJrbD4t LTRyV9y3JcLbPrW0WIrh Z1KifiB0ZOMilCQs ULPnjDPGcC7iafdpv5qc dyntXhEaAUMmSNt1LDi7 IOWdkHnwEqWaVIQ7IoG0 DHN9fRSysY2faApa tczmcK6lIiu+GZB9sIOf yUFGXC4fTqbcvMG+PHRk SFX9bBtnGRodMMQonN2r WXVuW7m8JjUkKpY4 CDpcT3HhmxC4AQLnzMKy YDSjvTOVfK5hkpiya6ad jcdsBpThHOFmYKk9SWn6 LWFsaWduOiBsZWZ0 PjZ7FYV2lPZonJ6xzJaf hajloU6xClm+QmlydGgg DQQ3SEh6A5GhYct0XQJz rZnrBG1bqCAoODrs Vu4ivJqcuScyXJ3dNGXn vmieo715FsPvb5aqPWTs qHDqRAamHDG0Z67uq0Z8 TAAxKJYkAQD7vEP6 kZ9trVkiwwwcfWApiPma bsVtgUipUHorFGfdU917 LNTskRxzFyTpERh5O9Sc Dkf9ZFRijMcsPN2h bRNtMXedHi1jwGhhdCsk QY2oQWGiusyue521HsPm a9dyYSBdfNSfOVsiJRA8 E90tc4K7JRCoQXRw QMZ8zIW9kQ7cnFxxinrn bGVmdDsgdmVydGljYWwt HGjcA475ALBsvWndLwIh yPk9O8MhLxs3ZKEw nQkdDP3cnNLqKRzlZj3u bTdudAapNJ4sIBOipxjt l694IeUun0akPLFvmAJh EKkrYXQ2Q98pi5N3 XXRoIKKdPML4qIO9hU7u bGlnbjogbGVmdDsgdmVy yHghGTqhFMyoA339JVSb cDsnPlBhdGllbnQg KTbrLRa1A4FvJeokuTM+ UB20DSVtPC22gXKldKDc a0hjqFk3OtWvDPRqTJY8 tEloOCmfd8CjEPZo H08wvJUni3A9XNYdyWew yUWmDlSamSF9xC4jKIav neinu9dfncsdXwqoa9nh rd46iM23Q86dERfo ZHRoPSIzMCUiIHZhbGln wc7crS4aKt8+PGNvbCB3 iOR3cG1sAZBpYkT8JNnn Q649UbHhhFStKpvj x5yqp2wzuQg0FrJ4GZYc yrLkrKqpYJG8a7MaAd64 X19bGDagYAUyNHKyPUYh ESUymIvdso1eyE9p Ii8+FHRcqMG7vZC1uM7j IdEdXdO5OBflT107SfRb qMGsNfodL06zE3VjwJV+ HIPkFrx0EUFqxEmo KN7onTIuKAvvQv7uLIL4 FqLsBzNmXLsuM2FaKKTh fbntosaavKF6UYOeGEBm yB84Jt5fiNgeQSFl xWSLxR5ftbrju4vgwetb FsRtKZYyXTq7LQg5DIVj cTfuDnQaFYN3WcP3QXD7 fQTdtN3reHmvmhok eM8jM4PvWVOdwcqtKm60 rB1kEpZuMoU2JZpuKbk+ UklDSEFSRFMsIEhPTExZ AISBNH4DADfqhUN+ QRXqJIY9mTvyXRdbKGEy uD4nRGZnC3d3ZjQdHrS5 VAwjM3HcNIExpklnCy89 pD5iWtYoVkA0SRhn N7QrfdC5NFFzxJXcZFoa FHA7A16kk0A5JVZdXXQj MRB8dRT7oB7jiDatzfsh bGVmdDsgdmVydGlj ANgnZYkxI966CVOxcJyh JrHrTuI3FgI7VXS9X0Jn Maz9GULayNldVQ4psKXl MSlmMa5ytAkfbDwn YI7xVTUiimmnGPEpsI9n ZNZpcDKqyYknCT1zRVVd jnoyh477ZtEdHEA6EWPd bODhM4JnoM3fRgSd RHVxOKPzV7ZbhJUcOIte L094BPwrNbC8KMBxavIp K6SlUIEelWyyImO7x0X4 Ye19KATZQXCadbjg dGQ+QNDfXOR6qMenVInw IIVcdR8gPYDeG2r5NwAs OgQ2XMzrH3KgOPDlazoo Sn85yX8oTvAbFqW0 XZkrX8KuiuE4QBBapPQw HKgiIHH0E69wa4K7XVYv DTLeBUD3cTI5bO0pgOmb bjogbGVmdDsgdmVy gGgaKEoaJPknB603SDAq cDsnPkZFTUFMRTwvdGQ+ XSJnTSD8uZlmFLomOOTa iP5pLDYkI3y2WcIw FwV0AOewG5YsRQDjpbhv Iq08vR8yTkKnHdU3MEah J0JhioX8MDCbaKIpRCtd FXG5Y59aj5R2WZQw GLOuFQA5uTW8dY1dqSlu bjogbGVmdDsgdmVydGlj BDxwEIoxF014UMEjhZgv Tt8VAS34LG44A6Re PjwvdGFibGU+PHRhYmxl IHdpZHRoPScxMDAlJyBz hBdxGI3bFi0aTRImZAJz wVuutSCjQrTob2ae SZOmXMxqWR8cxAgiV6Bk gCJ3FXSor8a9Ch58U92k U2HtuJY+FHHfqVX1bOL3 zC8bWqXtYkK2YExj Z416RwFviINuAgnjn9en c1gziMp5KySlIENagxPk sWrtRZU7d9YwVs05R33e IHdpZHRoPSIyMCUi AHYboJygdc8qrK8lKo7+ NRFogKB6pBQ0iX8qUfRd QxI5GYptP315JgAeoRKk QfxdW45yO2IgdFY+ FQTrVsw0CIAhqIhaGO0k nWJyISzxJi5oSMT1AeDk LbYgKYbaC7OvYJMjjpzs yxaghHW0MLFlQYKi wO20Vc4koYwkMa6eZAXt XLW0SQRgiUSbM6YysH5h RoYdYTPiAYKiQ6QdqLOv LImlJ900AUiuLrQ9 NLCtzaWuW9XmKUUluDyz DeU1p5X1Bb9ZhIpefBFx KI1tXeAlDFx3L3UsVop3 TCIvnQsmZH4rhZCs TUgoAh9shNblyHozWU9j VACghcgoo890AvPnl4dt MHNuwROiWBpbGWK0J48u g4W6FKHcJQAbZLY2 uUQ1cF2ztAtvnaqkkRSy dDsgdmVydGljYWwtYWxp R820XQWxgPneEqKEIvb3 J1XqVne9KIKvyHxb HA5ilQToXPvoVi0ivUha uQmpFY1jFXKmyoifc616 UvPhy7ztUMZfzKOmQHkl LAG0E13ld7H3QLEm FGKgHUM4lIE0sB3fpDjs bjogbGVmdDsgdmVydGlj NPgzQUdsO310DIDltJer Xu5LByo5Z1AtMnv1 PGSvjYzaNL9hjWUcXByp Nk5klEnhpYcoIH0rQFAh yfebv891PyNgr7psKCJh jFLbAHwsGNZ0Q39y t6H2UDUlVPIyPBQ4uDN2 fW2mxPdanzoadMHfuTep qfPxuDafTYljWWhaX046 IHRvcDsnPlBheWVy OjwvdGQ+HF62nd75N1Bv CzcjLoh8RZQePKA9jCL5 mB6eRYGtKJxmu8S3eSX1 R0NyrvFotc0ok0sk YXB (more content not included)... Normal [facility] C Urineon 04-17-2024 C Urine Urine Culture ordered as a result of parameters set on specific urine dip and urine microsopic results. >3 Organisms Consistent with Contamination Recollection suggested. Normal [facility] Comment on above: Performed By: #### [id number] #### [facility] (DEFAULT) [address] [place] [id number] ED Clinical Summaryon 2023 ED Clinical Summary [facility] ? Urgent Care [address] [place] [id number] Clinical Summary PERSON INFORMATION Name: BEA DAVILA Age: 38 Years Sex: FEMALE : 1985 MRN: Acct#: Visit Reason: UC - Dysuria; BURNING WHILE URINATING, FREQUENT URINATION Arrival: 04/16/2024 11:52:36 Discharge: 04/16/2024 12:37:00 LOS: 000 00:45 Check In: 04/16/2024 11:52:36 Checkout: 04/16/2024 12:37:00 Address: [address] [address] PCP: Angella Bhat MD PROVIDER INFORMATION Provider Role Assigned Unassigned Yaz Us SPEECH PATHOLOGY TEACHER Nurse 04/16/2024 11:55:35 Heladio Roth PA-C ED PA 04/16/2024 12:00:16 VITALS INFORMATION Vital Sign Triage Latest Temperature Tympanic Temperature Temporal Artery Pulse Rate O2 Sat 98 % 98 % Respiratory Rate Blood Pressure /86 mmHg /86 mmHg MEDICAL INFORMATION Medications Given: Allergy Information: Bactrim PHYSICIAN DOCUMENTATION DISCHARGE INFORMATION: Discharge Disposition: Home Discharge Location: Home PATIENT EDUCATION INFORMATION Instructions: Urinary Tract Infection, Adult Follow-Up: With: Address: When: [place] [address] DIAGNOSIS: 1:UTI (urinary tract infection) Patient Understands: Yes - Patient/family/careg iver verbalizes understanding of instructions given Comment: Normal [facility] ED Patient Summaryon 024 ED Patient Summary [facility] ? Urgent Care [address] [place] [address] [id number] PATIENT DISCHARGE INSTRUCTIONS Patient Information Name: BEA DAVILA Age: 38 Years Date of : 1985 [facility]: [id number] Reason For Visit: UC - Dysuria; BURNING WHILE URINATING, FREQUENT URINATION Arrival Time: 04/16/2024 11:52:36 Primary Care Physician: Angella Bhat MD Attending Physician: Heladio Roth PA-C Comment: Patient Education With: Address: When: [place] [address] Urinary Tract Infection, Adult A urinary tract [...] this condition includes: ? Antibiotic medicine. ? Etkv-jhv-svobtmx medicines to treat discomfort. ? Drinking enough [...] these instructions at home: Medicines ? Take xyhq-lge-ssemlep and prescription medicines only as told by [...] urethra. ? M (more content not included)... [facility] UA [id number] 04-16-2024 UA Bacteria 1+ [facility] Comment on above: Order Comment: Urina lysis Microscopic order added on by [employer] Rules system. Performed By: #### [id number] #### [facility] (DEFAULT) [address] [place] [address] UA RBC 15-20 [facility] Comment on above: Order Comment: Urina lysis Microscopic order added on by [employer] Rules system. Performed By: #### 5 [id number] #### [facility] (DEFAULT) [address] [place] [address] UA Squam Epi Moderate [facility] Comment on above: Order Comment: Urina lysis Microscopic order added on by [employer] Rules system. Performed By: #### 5 [id number], [id number] #### [facility] (DEFAULT) [address] [place] [address] UA WBC 40-50 [facility] Comment on above: Order Comment: Urina lysis Microscopic order added on by [employer] Rules system. Performed By: #### 5 [id number], [id number] #### [facility] (DEFAULT) [address] [place] [address] UA w Culture if Ind Standard on 04-16-2024 Breakpoint UA [facility] Comment on above: Performed By: #### 5 [id number], [id number] #### [facility] (DEFAULT) [address] [place] [address] Color (U) Yellow [facility] Comment on above: Performed By: #### 5 [id number] #### [facility] (DEFAULT) [address] [place] [address] Culture? Yes [facility] Comment on above: Result Comment: Resu lt created by rule GL_MAGR_ADD_UA_CULT Result created by rule GL_MAGR_ADD_UA_CULT1 Performed By: #### 5 [id number], [id number] #### [facility] (DEFAULT) [address] [place] [address] Glucose (U) [Mass/Vol] Negative [facility] Comment on above: Performed By: #### 5 [id number] #### [facility] (DEFAULT) [address] [place] [address] [id number] Ketones Ql (U) TRACE [facility] Comment on above: Performed By: #### 5 [id number], [id number] #### [facility] (DEFAULT) [address] [place] [address] [id number] Micro? Indicated Invalid Interpretation Code [facility] Comment on above: Result Comment: Resu lt created by rule GL_MAGR_ADD_UA_MICRO Performed By: #### 5 [id number] #### [facility] (DEFAULT) [address] [place] [address] [id number] UA Bilirubin Negative Normal [facility] Comment on above: Performed By: #### 5 [id number], [id number], [id number] #### [facility] [facility] (DEFAULT) [address] [place] [address] 42940 UA Blood MODERATE Abnormal NEGATIVE [facility] Comment on above: Performed By: #### 5 [id number], [id number], [id number] #### [facility] (DEFAULT) [address] [place] [address] 19626 UA Clarity CLOUDY Abnormal CLEAR [facility] Comment on above: Performed By: #### 5 [id number], [id number], [id number] #### [facility] (DEFAULT) [address] [place] [address] 17614 UA Leuk Est MODERATE Abnormal NEGATIVE [facility] Comment on above: Performed By: #### 5 [id number], [id number], [id number] #### [facility] (DEFAULT) [address] [place] [address] 09615 UA Nitrite Negative Normal [facility] Comment on above: Performed By: #### 5 [id number], [id number], [id number] #### [facility] (DEFAULT) [address] [place] [address] 08860 UA pH 6.0 Normal 5-8 [facility] Comment on above: Performed By: #### 5 [id number], [id number], [id number] #### [facility] (DEFAULT) [address] [place] [address] 03478 UA Protein TRACE Abnormal NEGATIVE [facility] Comment on above: Performed By: #### 5 [id number], [id number], [id number] #### [facility] (DEFAULT) [address] [place] [address] 20372 UA Spec Grav >=1.030 Normal 1.001-1.035 [facility] Comment on above: Performed By: #### 5 [id number], [id number], [id number] #### [facility] (DEFAULT) [address] [place] [address] 61349 UA Urobilinogen 1.0 mg/dL Normal 0.2-1.0 [facility] Comment on above: Performed By: #### 5 [id number], [id number], [id number] #### [facility] (DEFAULT) [address] [place] [address] Urine Source Clean Catch Normal [facility] Comment on above: Performed By: #### 5 [id number], [id number], [id number] #### [facility] (DEFAULT) [address] [place] [address] Urgent Care Recordon 024 Urgent Care Record [facility] ? Urgent Care [address] [place] [address] PATIENT DISCHARGE INSTRUCTIONS Patient Information Name: BEA DAVILA Age: 38 Years Date of : 1985 Reason For Visit: UC - Dysuria; BURNING WHILE URINATING, FREQUENT URINATION Arrival Time: 04/16/2024 11:52:36 Primary Care Physician: Angella Bhat MD Attending Physician: Heladio Roth PA-C Comment: Visit Diagnosis: Diagnoses This Visit UC - Dysuria ([id number]) UTI (urinary tract infection) (N39.0) If you [...] sign any legal documents With: Address: When: Yessenia HERNANDEZ, Angella [address] [place] [address] Medication Information: The exam and treatment you received today in the [facility] were for an urgent problem and are not intended as complete care. It is important for you to follow up with a doctor, nurse practitioner, or physician?s pharmacy innovation assistant for ongoing care. If your symptoms [...] so we can reach you if necessary. [facility]gent [facility] has provided you with a complete list of medications post discharge. Please inform your plant technician/provider of your visit and for further instruction on these medications. Any specific questions regarding your chronic medications and dosages should be discussed with your primary care physician(s) and/or pharmacist. New Medications [facility] [id number], [address] [place], [place] [id number], [phone] cephalexin (cephalexin 500 mg oral capsule) 1 [...] genes that (more content not included)... Normal [facility] C Urineon 01-21-2023 Bacteria identified Cx [...] Locations R1: This test was performed at: [facility], [address] [place] [address], [id number]- , , Normal [facility] Comment on above: Performed By: #### 2 [id number] #### [facility] [address] [place] [address] Family Medicine Office/Clini c Noteon 01-18-2023 Family [...] with voice recognition software. Occasional wrong-word or ?crtuk-s-rckx? substitutions may have occurred due to the [...] day(s), # 21 cap(s), Refills(s) 0, Pharmacy: [facility]/pharmacy #[id number], 153, cm, 12/23/22 18:41:00 EDT, Height/Length Dosing, 79.4, kg, 01/18/23 13:28:00 EDT, Weight Dosing phenazopyridine, 100 mg = 1 tab(s), Oral, TID, X 3 day(s), # 9 tab(s), Refills(s) 0, Pharmacy: [facility]/pharmacy #[id number], 153, cm, 12/23/22 18:41:00 EDT, Height/Length [...] day(s), # 21 cap(s), Refills(s) 0, Pharmacy: [facility]/pharmacy #[id number], 153, cm, 12/23/22 18:41:00 EDT, Height/Length Dosing, 79.4, kg, 01/18/23 13:28:00 EDT, Weight Dosing phenazopyridine, 100 mg = 1 tab(s), Oral, TID, X 3 day(s), # 9 tab(s), Refills(s) 0, Pharmacy: [facility]/pharmacy #[id number], 153, cm, 12/23/22 18:41:00 EDT, Height/Length Dosing, 79.4, kg, 01/18/23 13:28:00 EDT, Weight Dosing Body Mass Index (BMI) documented 3008F Frequency of urination (R35.0: Frequency of micturition) Ordered: Urnls Dip Stick Non-Auto w/o Micrscpy POC 29310 Follow-up With When Contact Information Yessenia HERNANDEZ, Angella Solomon [address] [place] [address]- Additional Instructions: Patient Education BMI for Adults [...] Current vaping (more content not included)... Normal [facility] Comment on above: Result Comment: Elec [...] numbers. This can be done either in [place]vian (U.S.) or metric measurements. Note that charts and online BMI calculators are available to help you find your BMI quickly and easily without having to do these calculations yourself. To calculate your BMI in [place]vian ([place].S.) measurements: 1. Measure your weight in [...] for Disease Control and Prevention: www.cdc.gov ? [place] Heart Association: www.heart.org ? National Heart, Lung, and Blood [place]: www.nhlbi.nih.gov Summary ? Body mass index (BMI) is a number that is calculated from a person's weight and height. ? BMI may help estimate how much of a person's weight is composed of fat. BMI can help identify those who may be at higher risk for certain medical problems. ? BMI can be measured using Latvian measurements or metric measurements. ? BMI charts are used to identify whether you are underweight, normal weight, overweight, or obese. This information is not intended to replace advice given to you by your health care provider. Make sure you discuss any questions you have with your health care provider. Document Revised: 02/28/2020 Document Reviewed: 01/05/2020 [employer] Patient Education ? 2022 [email or web address]. Obstetrics and Gynecology Urinary Tract Infection, Adult [...] condition if: (more content not included)... Normal [facility] Patient Letter FTMCon 2022 Patient Letter [facility] [address], [place] [phone] January 18, 20[address] BEA CALVO [address] [place] [address] : 1985 Please excuse BEA CALVO from work . Date and/or Time of Absence: From: 01/18/2023 To: 01/19/2023 May return to work on: 01/19/2023 Restrictions: None Comments: Please excuse due to an acute illness. Provider Signature: Heladio Roth PA-C Physician Clinical Analyst [facility] [address] [place] [address] Normal [facility] Family Medicine Office/Clini c Noteon 12-23-2022 [...] with voice recognition artificial intelligence software, specifically [employer], [employer] ([employer]: [place]) and or [employer] M[employer]. Substitutions may have occurred due to the [...] of tx plan. Ordered: Rapid Strep POC 22268 Follow-up With When Contact Information Yessenia HERNANDEZ, Angella [place] [address]- Additional Instructions: Patient Education Strep Throat, Adult, Kous-jn-Xnun Rapid Strep Test Strep Throat, Adult Problem [...] with above documentation and plan of care. [facility] Comment on above: Result Comment: Elec tronically Signed By: SATURNINO Kelsey APRN, [place] X\.br\Date and Time Signed: 12/23/22 19:02 EDT Patient [...] these instructions at home: Medicines ? Take idxg-pzc-vcrsaho and prescription medicines only as told by [...] provider. Document Revised: 09/30/2021 Document Reviewed: 09/30/2021 [employer] Patient Education ? 2022 [email or web address]. Rapid Strep Test Why am I having [...] You have (more content not included)... Normal [facility] Provider Letteron 12-23-2022 Provider Letter December 23, 2022 BEA CALVO [address] [facility] [address] [place] [address] : 1985 To Whom It May Concern, Please excuse above patient from work. Date of Illness: From: 12/23/22 May Return to Work On: 12/24/22 Restrictions: none Comments: none Sincerely, [facility] [address] [place] [address], [place] [address] [facility] Ambulatory Visit Summaryon 0 12-08-2022 Ambulatory Visit [...] with Angella Bhat MD When: Where: [facility] [place] [address]- Medications What How Much When Why Instructions New amoxicillin (amoxicillin 500 mg Cap) 1 Capsules By Mouth Every 12 hours Strep pharyngitis BMI 34.0-34.9,adult Duration: 10 Days Pickup at [facility]/pharmacy #[id number] Unchanged duloxetine (Cymbalta 60 mg Cap-DR) 60 Milligram By Mouth At bedtime Contact prescribing physician if questions or concerns Unchanged omeprazole (omeprazole 40 mg Cap-DR) Contact prescribing physician if questions or concerns Pharmacy Information [facility]/pharmacy #[id number]: [address] [place], [place] [phone] Allergies Bactrim (Yeast) Problems Ongoing - Any [...] these instructions at home: Medicines ? Take rpmc-dii-ppuhhvl and prescription medicines only as told by [...] of s (more content not included)... Normal [facility] Family Medicine Office/Clini c Noteon 12-08-2022 [...] with voice recognition software. Occasional wrong-word or ?yimqp-e-ufdl? substitutions may have occurred due to the [...] day(s), # 20 cap(s), Refills(s) 0, Pharmacy: [facility]/pharmacy #[id number], 152, cm, 12/08/22 12:57:00 EDT, Height/Length [...] day(s), # 20 cap(s), Refills(s) 0, Pharmacy: [facility]/pharmacy #[id number], 152, cm, 12/08/22 12:57:00 EDT, Height/Length Dosing, 79.9, kg, 12/08/22 12:57:00 EDT, Weight Dosing Body Mass Index (BMI) documented 3008F Sore throat (J02.9: Acute pharyngitis, unspecified) Ordered: Rapid Strep POC 39543 Follow-up With When Contact Information Yessenia HERNANDEZ, Angella [place] [address]- Additional Instructions: Patient Education Strep Throat, Adult [...] use Smokeless (more content not included)... Normal [facility] Comment on above: Result Comment: Elec tronically Signed By: Heladio Roth PA-C\.br\Date and Time Signed: 12/08/22 13:18 EDT Patient [...] these instructions at home: Medicines ? Take naof-yjh-jjsucbl and prescription medicines only as told by [...] and water are not available, use hand retail sales representative. Make sure that all people in your [...] not wait (more content not included)... Normal [facility] Patient Letter FTon 2022 Patient Letter [facility] [address] [facility], [facility] [place] [phone] December 08, 2022 BEA CALVO [address] [facility] [address] [place] [address] : 1985 Please excuse BEA CALVO from work . Date and/or Time of Absence: From: 12/08/2022 To: 12/10/2022 May return to work on: 12/10/2022 Restrictions: None Comments: Please excuse due to an acute illness. Provider Signature: Heladio Roth PA-C Physician Clinical Analyst [facility] [address] [facility] [place] [address] Normal [facility] CHEMISTRYOrdered By: SYSTEM SYSTEM on 04-24-2022 [...] rate/Area] mL/min/1.73 m2 Normal >=59mL/min/1 .73 m2 [facility] Chem S Glucose [Mass/Vol] 116 mg/dL Normal [...] Ag Negative (04/24/22 2:18 PM) Normal Negative [facility] Man Sero Influenzae B Ag Negative (04/24/22 2:18 PM) Normal Negative [facility] Man Sero Rapid COV Int NEG Ctl Pass (04/24/22 2:18 PM) Normal [facility] Man Sero Rapid COV Int POS Ctl [...] PM) Normal Negative [facility] UA Auto SS [place].plasma/[place] .RBC (Bld) [Mass ratio] 0-3 /HPF Normal [...] [facility] UA Auto SS Urobilinogen Qn (U) 0.9403059 {Roro'U}/dL Normal 0.0 - 1.0 EU/dL [facility] [...] PM) Normal Negative [facility] UA Auto SS [place].plasma/[place] .RBC (Bld) [Mass ratio] 0-3 /HPF Normal [...] PM) Invalid Interpretation Code 1.005 - 1.030 [facility] UA Auto SS UA Spec Desc [place] (04/17/22 12:35 PM) Normal [facility] UA Auto SS Urobilinogen Qn (U) 1.7879486 {Roro'U}/dL Normal 0.0 - 1.0 EU/dL [facility] UA Auto SS WBC Auto Ql (U) Negative (04/17/22 12:35 PM) Normal Negative [facility] UA Auto SS WBC LM.HPF (Urine sed) [#/Area] 0-5 /HPF Normal 0-5/HPF [facility] UA Auto SS CHEMISTRYOrdered By: SYSTEM SYSTEM on 04-08-2022 Anion gap [Moles/Vol] 10 mmol/L Normal 6 - 16 mEq/L F [facility] Remisol Chloride [Moles/Vol] 103 mmol/L Normal 101 - 1 11 mmol/L FT Remisol CO2 [Moles/Vol] 26 mmol/L Normal 21 - 31 mmol/L [facility]isol Creatinine [Mass/Vol] 0.6 mg/dL Normal 0.5 - 1.3 mg/dL [facility]isol GFR/1.73 sq M.predicted among blacks MDRD (S/P/Bld) [Vol rate/Area] mL/min/1.73 m2 Normal >=59mL/min/1 .73 m2 [facility] Chem S GFR/1.73 sq M.predicted among non-blacks MDRD (S/P/Bld) [Vol rate/Area] mL/min/1.73 m2 Normal >=59mL/min/1 .73 m2 [facility] Chem S Potassium [Moles/Vol] 3.9 mmol/L Normal [...] Clear [facility] UA Auto SS Color (U) [place] *ABN* (11/28/21 10:00 PM) Invalid Interpretation Code [...] Interpretation Code Negative [facility] UA Auto SS [place].plasma/[place] .RBC (Bld) [Mass ratio] 4-20 /HPF Normal [...] [facility] UA Auto SS Urobilinogen Qn (U) 2.1901172 {Roro'U}/dL Invalid Interpretation Code 0.0 - 1.0 EU/dL [facility] UA Auto SS WBC Auto Ql (U) Negative (11/28/21 10:00 PM) Normal Negative [facility] UA Auto SS WBC LM.HPF (Urine sed) [#/Area] 0-5 /HPF Normal 0-5/HPF [facility] UA Auto SS Q - CBC W/DIFF AND PLTon BASOABS 10 cells/uL Normal 0-200 [facility] [employer] Laboratory Director Comment on above: Order Comment: [facility] Testing performed at: [employer] [facility], [address] [place] [address], [address] [place] [address], [address] [place] [address], Pulp Mill Team Leader: Hesham Bhakta MD [facility] Collection Date/Time: [facility] Results Received Date/Time: [facility] Reported Date/Time: FASTING: YES Performed By: #### 9 68T, 98797, 10886M, 6399 #### [facility] Default [address] [place] [address] Basophils/100 WBC (Bld) 0.2 % Normal [facility] Specialist Comment on above: Order Comment: [facility] performed at: [employer] [facility], [address] [place] [address], [address] [place] [address], [address] [place] [address], [employer] Team Leader: Hesham Bhakta MD [facility] Date/Time: [facility] Results Received Date/Time: [facility] Reported Date/Time: FASTING: YES Performed By: #### 9 68T, 80762, 28701Q, 6399 #### [facility] Default [address] [place] [address] EOSABS 50 cells/uL Normal 15-500 [facility] [employer] Laboratory Director Comment on above: Order Comment: [facility] performed at: [employer] [facility], [address] [place] [address], [address] [place] [address], [address] [place] [address], [employer] Team Leader: Hesham Bhakta MD [facility] Date/Time: [facility] Results Received Date/Time: [facility] Reported Date/Time: FASTING: YES Performed By: #### 9 68T, 81077, 84323F, 6399 #### [facility] Default [address] [place] [address] Eosinophils/100 WBC (Bld) 1.0 % Normal [place] [employer] Laboratory Director Comment on above: Order Comment: [facility] performed at: [employer] [facility], [address] [place] [address], [address] [place] [address], [address] [place] [address], [employer] Team Leader: Hesham Bhakta MD [facility] Date/Time: [facility] Results Received Date/Time: [facility] Reported Date/Time: FASTING: YES Performed By: #### 9 68T, 91541, 79678R, 6399 #### [facility] Default [address] [place] [address] Erythrocyte distribution width (RBC) [Ratio] 14.6 % Normal 11.0-15.0 [facility] [employer] Laboratory Director Comment on above: Order Comment: [facility] performed at: [employer], [employer] [facility], [address] [place] [address], [address] [place] [address], [address] [place] [address], [employer] Team Leader: Hesham Bhakta MD [facility] Date/Time: [facility] Results Received Date/Time: [facility] Reported Date/Time: FASTING: YES Performed By: #### 9 68T, 68826, 91701J, 6399 #### [facility] Default [address] [place] [address] Hematocrit (Bld) [Volume fraction] 40.7 % Normal 35.0-45.0 [facility] [employer] Laboratory Director Comment on above: Order Comment: [facility] performed at: [employer], [employer] [facility], [address] [place] [address], [address] [place] [address], [address] [place] [address], [employer] Team Leader: Hesham Bhakta MD [facility] Date/Time: [id number] [facility] Results Received Date/Time: [facility] Reported Date/Time: FASTING: YES Performed By: #### 9 68T, 68996, 29561M, 6399 #### [facility] Default [address] [place] [address] Hemoglobin (Bld) [Mass/Vol] 12.9 g/dL Normal 11.7-15.5 [facility] [employer] Laboratory Director Comment on above: Order Comment: [facility] performed at: [employer] [facility], [address] [facility], [address] [place] [address], [address] [place] [address], [employer] Team Leader: Hesham Bhakta MD [facility] Date/Time: [facility] Results Received Date/Time: [facility] Reported Date/Time: FASTING: YES Performed By: #### 9 68T, 48628, 73239K, 6399 #### [facility] Default [address] [place] [address] Lymphocytes (Bld) [#/Vol] 1.935 10*3/uL Normal 850-3900 [facility] [employer] Laboratory Director Comment on above: Order Comment: [facility] performed at: [employer] [facility], [address] [place] [address], [address] [place] [address], [address] [place] [address], [employer] Team Leader: Hesham Bhakta MD [facility] Date/Time: [facility] Results Received Date/Time: [facility] Reported Date/Time: FASTING: YES Performed By: #### 9 68T, 80162, 80333F, 6399 #### [facility] Default [address] [place] [address] Lymphocytes/100 WBC (Bld) 38.7 % Normal [facility] [employer] Laboratory Director Comment on above: Order Comment: [facility] performed at: [employer], [employer] [facility], [address] [place] [address], [address] [place] [address], [address] [place] [address], [employer] Team Leader: Hesham Bhakta MD [facility] Date/Time: [facility] Results Received Date/Time: [facility] Reported Date/Time: FASTING: YES Performed By: #### 9 68T, 97172, 44128O, 6399 #### [facility] Default [address] [place] [address] MCH (RBC) [Entitic mass] 27.4 pg Normal 27.0-33.0 [facility] [employer] Laboratory Director Comment on above: Order Comment: [facility] performed at: [employer] [facility], [address] [facility], [address] [place] [address], [address], [employer] Team Leader: Hesham Bhakta MD [facility] Date/Time: [facility] Results Received Date/Time: [facility] Reported Date/Time: FASTING: YES Performed By: #### 9 68T, 82606, 98991Z, 6399 #### [facility] Default [address] [place] [address] MCHC (RBC) [Mass/Vol] 31.7 g/dL Low 32.0-36.0 [facility] Comment on above: Order Comment: [facility] performed at: [employer] [facility], [address] [place] [address], [address] [place] [address], [address] [place] [address], [employer] Team Leader: Hesham Bhakta MD [facility] Date/Time: [facility] Results Received Date/Time: [facility] Reported Date/Time: FASTING: YES Performed By: #### 9 68T, 01862, 86711M, 6399 #### [facility] Default [address] [place] [address] MCV (RBC) [Entitic vol] 86.4 fL Normal 80.0-100.0 [facility] Specialist Comment on above: Order Comment: [facility] performed at: [employer] [facility], [address] [place] [address], [address] [place] [address], [address] [place] [address], [employer] Team Leader: Hesham Bhakta MD [facility] Date/Time: [facility] Results Received Date/Time: [facility] Reported Date/Time: FASTING: YES Performed By: #### 9 68T, 46590, 08421S, 6399 #### [facility] Default [address] [place] [address] MONOABS 385 cells/uL Normal 200-950 [facility] [employer] Laboratory Director Comment on above: Order Comment: [facility] performed at: [employer] [facility], [address] [place] [address], [address] [place] [address], [address] [place] [address], [employer] Team Leader: Hesham Bhakta MD [facility] Date/Time: [facility] Results Received Date/Time: [facility] Reported Date/Time: FASTING: YES Performed By: #### 9 68T, 42572, 29875E, 6399 #### [facility] Default [address] [place] [address] Monocytes/100 WBC (Bld) 7.7 % Normal [facility] Specialist Comment on above: Order Comment: [facility] performed at: [employer] [facility], [address] [facility], [address] [place] [address], [phone], [employer] Team Leader: Hesham Bhakta MD [facility] Date/Time: [facility] Results Received Date/Time: [facility] Reported Date/Time: FASTING: YES Performed By: #### 9 68T, 25087, 64462O, 6399 #### [facility] Default [address] [place] [address] Neutrophils (Bld) [#/Vol] 2.62 10*3/uL Normal 6879-7059 [facility] [employer] Laboratory Director Comment on above: Order Comment: [facility] performed at: [employer] [facility], [address] [facility], [address] [place] [address], [phone], [employer] Team Leader: Hesham Bhakta MD [facility] Date/Time: [id number] [facility] Results Received Date/Time: [facility] Reported Date/Time: FASTING: YES Performed By: #### 9 68T, 28949, 26702B, 6399 #### [facility] Default [address] [place] [address] Neutrophils/100 WBC (Bld) 52.4 % Normal [facility] Specialist Comment on above: Order Comment: [facility] performed at: [employer], [employer] [facility], [address] [place] , [address] [place] [address], [address], [employer] Team Leader: Hesham Bhakta MD [facility] Date/Time: [facility] Results Received Date/Time: [facility] Reported Date/Time: FASTING: YES Performed By: #### 9 68T, 71548, 95883U, 6399 #### [facility] Default [address] [place] [address] Platelet mean volume (Bld) [Entitic vol] 10.7 fL Normal 7.5-12.5 [facility] Comment on above: Order Comment: Quest Testing performed at: [employer], [employer] [facility], [address] [facility], [address] [place] [address], [address], Pulp Mill Team Leader: Hesham Bhakta MD Quest Collection Date/Time: [id number] [facility] Results Received Date/Time: Quest Reported Date/Time: FASTING: YES Performed By: #### 9 68T, 07971, [id number], 6399 #### [facility] [address] [place] [address] Platelets (Bld) [#/Vol] 328 10*3/uL Normal 140-400 [facility] Comment on above: Order Comment: Quest Testing performed at: [employer] [facility], [address] [facility], [address] [place] [address], [address], [employer] Team Leader: Hesham Bhakta MD [facility] Collection Date/Time: [id number] [facility] Results Received Date/Time: [facility] Reported Date/Time: FASTING: YES Performed By: #### 9 68T, 20108, 06590S, 6399 #### [facility] Default [address] [place] [address] RBC (Bld) [#/Vol] 4.71 10*6/uL Normal 3.80-5.10 [facility] Comment on above: Order Comment: Quest Testing performed at: [employer] [facility], [address] , [address] [place] [address], [address], Pul[employer] Team Leader: Hesham Bhakta MD Quest Collection Date/Time: [id number] [facility] Results Received Date/Time: [facility] Reported Date/Time: FASTING: YES Performed By: #### 9 68T, 23624, 69383K, 6399 #### [facility] Default [address] [place] [address] WBC (Bld) [#/Vol] 5.0 10*3/uL Normal 3.8-10.8 Neeraj gay [employer] Laboratory Director Comment on above: Order Comment: Quest Testing performed at: [employer] [facility], 5 [facility], [address] [place] [address], [address] [place] [address], [employer] Mill Team Leader: Hesham Bhakta MD Quest Collection Date/Time: [facility] Results Received Date/Time: [facility] Reported Date/Time: FASTING: YES Performed By: #### 9 68T, 43713, 55178R, 6399 #### [facility] [address] [place] [address] Q - COMPREHENSIVE METABOLIC PANEL W/EGFRon 11-21-2021 Albumin [Mass/Vol] 4.2 g/dL Normal 3.6-5.1 Neeraj gay [employer] Laboratory Director Comment on above: Order Comment: Quest Testing performed at: [employer] [facility], [address] [place] [address], [address] [place] [address], [address] [place] [address], Pulp Mill Team Leader: Hesham Bhakta MD Quest Collection Date/Time: [facility] Results Received Date/Time: [facility] Reported Date/Time: FASTING: YES Performed By: #### 9 68T, 48209, 77389M, 6399 #### [facility] Default [address] [place] [address] Albumin/Globulin [Mass ratio] 1.5 {ratio} Normal 1.0-2.5 [facility] [employer] Laboratory Director Comment on above: Order Comment: Quest Testing performed at: [employer] [facility], [address] [place] [address], [address] [place] [address], [address] [place] [address], [employer] Team Leader: Hesham Bhakta MD Quest Collection Date/Time: [facility] Results Received Date/Time: [facility] Reported Date/Time: FASTING: YES Performed By: #### 9 68T, 24428, 60625B, 6399 #### [facility] [address] [place] [address] ALP [Catalytic activity/Vol] 83 U/L Normal 31-125 [facility] Specialist Comment on above: Order Comment: Quest Testing performed at: [employer] [facility], [address] [place] [address], [address] [place] [address], [address] [place] [address], [employer] Team Leader: Hesham Bhakta MD Quest Collection Date/Time: [facility] Results Received Date/Time: [facility] Reported Date/Time: FASTING: YES Performed By: #### 9 68T, 33067, 72965I, 6399 #### [facility] Default [address] [place] [address] ALT [Catalytic activity/Vol] 13 U/L Normal 6-29 [facility] Specialist Comment on above: Order Comment: Quest Testing performed at: [employer] [facility], [address] [place] [address], [address] [place] [address], [address] [place] [address], [employer] Team Leader: Hesham Bhakta MD Quest Collection Date/Time: [facility] Results Received Date/Time: [facility] Reported Date/Time: FASTING: YES Performed By: #### 9 68T, 18540, 06805U, 6399 #### [facility] Default [address] [place] [address] AST [Catalytic activity/Vol] 13 U/L Normal 10-30 [facility] Specialist Comment on above: Order Comment: Quest Testing performed at: [employer] [facility], [address] [place] [address], [address] [place] [address],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 Phone: [facility] 04-21-2024 11:21-0400 Body weight 79.56 kg Angella Bhat MD Work Phone: [facility] 04-21-2024 11:21-0400 Diastolic blood pressure 64 mm[Hg] Angella Bhat MD Work Phone: [facility] 04-21-2024 11:21-0400 Heart rate 86 /min Angella Bhat MD Work Phone: [facility] 04-21-2024 11:21-0400 SaO2% (BldA) [Mass fraction] 97 % Angella Bhat MD Work Phone: [facility] 04-21-2024 11:21-0400 Systolic blood pressure 108 mm[Hg] Angella Bhat MD Work Phone: [facility] 01-18-2023 13:24-0400 Blood Pressure Location Heladio Roth [facility] 01-18-2023 13:24-0400 Body temperature 97.88 [degF] Heladio Roth [facility] 01-18-2023 13:24-0400 Diastolic blood pressure 76 mm[Hg] Heladio Roth [facility] 01-18-2023 13:24-0400 Heart rate 86 /min Heladio Roth [facility] 01-18-2023 13:24-0400 SaO2% (BldA) [Mass fraction] 100 % Heladio Roth [facility] 01-18-2023 13:24-0400 Systolic blood pressure 116 mm[Hg] Heladio Roth [facility] 12-23-2022 18:39-0400 Blood Pressure Location Elsi Jbzech [facility] 12-23-2022 18:39-0400 Body temperature 97.88 [degF] Elsi Orzech [facility] 12-23-2022 18:39-0400 Diastolic blood pressure 82 mm[Hg] Elsi Orzech [facility] 12-23-2022 18:39-0400 Heart rate 100 /min Elsi Orzech [facility] 12-23-2022 18:39-0400 SaO2% (BldA) [Mass fraction] 97 % Elsi Kelsey [facility] 12-23-2022 18:39-0400 Systolic blood pressure 120 mm[Hg] Elsi Muhammadzedain [facility] 12-08-2022 12:54-0400 Blood Pressure Location Heladio Roth [facility] 12-08-2022 12:54-0400 Body temperature 97.88 [degF] Heladio Roth [facility] 12-08-2022 12:54-0400 Diastolic blood pressure 82 mm[Hg] Heladio Roth [facility] 12-08-2022 12:54-0400 Heart rate 110 /min Heladio Roth [facility] 12-08-2022 12:54-0400 SaO2% (BldA) [Mass fraction] 98 % Heladio Roth [facility] 12-08-2022 12:54-0400 Systolic blood pressure 120 mm[Hg] Heladio Roth [facility] 04-24-2022 14:56-0400 Diastolic blood pressure 82 mm[Hg] Bereket Carlton [facility] 04-24-2022 14:56-0400 Heart rate 95 /min Bereket Carlton [facility] 04-24-2022 14:56-0400 Mean blood pressure 95 mm[Hg] Bereket Carlton [facility] 04-24-2022 14:56-0400 Respiratory rate 16 /min Bereket Carlton [facility] 04-24-2022 14:56-0400 SaO2% (BldA) [Mass fraction] 100 % Bereket Carlton [facility] 04-24-2022 14:56-0400 Systolic blood pressure 120 mm[Hg] Bereket Carlton [facility] 04-24-2022 13:43-0400 Body temperature 98.78 [degF] Bereket Carlton [facility] 04-24-2022 13:43-0400 Diastolic blood pressure 95 mm[Hg] Bereket Carlton [facility] 04-24-2022 13:43-0400 Heart rate 124 /min Bereket Carlton [facility] 04-24-2022 13:43-0400 Respiratory rate 18 /min Bereket Carlton [facility] 04-24-2022 13:43-0400 SaO2% (BldA) [Mass fraction] 98 % Bereket Carlton [facility] 04-24-2022 13:43-0400 Systolic blood pressure 129 mm[Hg] Bereket Carlton [facility] 04-17-2022 15:44-0400 Blood Pressure Location Jac Shepard [facility] 04-17-2022 15:44-0400 BP/Pulse Patient Position Jac Shepard [facility] 04-17-2022 15:44-0400 Diastolic blood pressure 82 mm[Hg] Jac Shepard [facility] 04-17-2022 15:44-0400 Heart rate 104 /min Jac Shepard [facility] 04-17-2022 15:44-0400 Mean blood pressure 94 mm[Hg] Jac Shepard [facility] 04-17-2022 15:44-0400 Respiratory rate 18 /min Jac Shepard [facility] 04-17-2022 15:44-0400 SaO2% (BldA) [Mass fraction] 99 % Jac Shepard [facility] 04-17-2022 15:44-0400 Systolic blood pressure 118 mm[Hg] Jac Shepard [facility] 04-17-2022 14:48-0400 Blood Pressure Location Jac Shepard [facility] 04-17-2022 14:48-0400 BP/Pulse Patient Position Jac Shepard [facility] 04-17-2022 14:48-0400 Diastolic blood pressure 79 mm[Hg] Jac Shepard [facility] 04-17-2022 14:48-0400 Heart rate 107 /min Jac Shepard [facility] 04-17-2022 14:48-0400 Mean blood pressure 91 mm[Hg] Jac Shepard [facility] 04-17-2022 14:48-0400 Respiratory rate 18 /min Jac Shepard [facility] 04-17-2022 14:48-0400 SaO2% (BldA) [Mass fraction] 93 % Jac Shepard [facility] 04-17-2022 14:48-0400 Systolic blood pressure 115 mm[Hg] Jac Shepard [facility] 04-17-2022 14:40-0400 Blood Pressure Location Jac Shepard [facility] 04-17-2022 14:40-0400 Body temperature 96.98 [degF] Jac Shepard [facility] 04-17-2022 14:40-0400 Diastolic blood pressure 82 mm[Hg] Jac Shepard [facility] 04-17-2022 14:40-0400 Heart rate 105 /min Jac Shepard [facility] 04-17-2022 14:40-0400 Respiratory rate 23 /min Jca Shepard [facility] 04-17-2022 14:40-0400 SaO2% (BldA) [Mass fraction] 94 % Jac Shepard [facility] 04-17-2022 14:40-0400 Systolic blood pressure 117 mm[Hg] Jac Shepard [facility] 04-17-2022 14:30-0400 Respiratory rate 21 /min Jac Shepard [facility] 04-17-2022 14:25-0400 Respiratory rate 19 /min Jac Shepard [facility] 04-17-2022 14:14-0400 Body temperature 97.16 [degF] Jac Shepard [facility] 04-17-2022 09:52-0400 Mean blood pressure 98 mm[Hg] Jac Shepard [facility] 04-17-2022 09:52-0400 Heart rate 92 /min aJc Shepard [facility] 04-17-2022 09:51-0400 Body temperature 97.34 [degF] Jac Shepard [facility] 04-17-2022 09:51-0400 Respiratory rate 20 /min Jac Shepard [facility] 04-08-2022 13:32-0400 Blood Pressure Location Jac Shepard [facility] 04-08-2022 13:32-0400 Body temperature 98.78 [degF] Jac Shepard [facility] 04-08-2022 13:32-0400 Diastolic blood pressure 86 mm[Hg] Jac Shepard [facility] 04-08-2022 13:32-0400 Heart rate 99 /min Jac Shepard [facility] 04-08-2022 13:32-0400 Mean blood pressure 99 mm[Hg] Jac Shepard [facility] 04-08-2022 13:32-0400 Systolic blood pressure 125 mm[Hg] Jac Shepard [facility] 04-08-2022 13:31-0400 Blood Pressure Location Jac Shepard [facility] 04-08-2022 13:31-0400 BP/Pulse Patient Position Jac Shepard [facility] 04-08-2022 13:31-0400 Diastolic blood pressure 87 mm[Hg] Jac Shepard [facility] 04-08-2022 13:31-0400 Heart rate 98 /min Jac Shepard [facility] 04-08-2022 13:31-0400 Mean blood pressure 102 mm[Hg] Jac Shepard [facility] 04-08-2022 13:31-0400 Respiratory rate 18 /min Jac Shepard [facility] 04-08-2022 13:31-0400 SaO2% (BldA) [Mass fraction] 99 % Jac Shepard [facility] 04-08-2022 13:31-0400 Systolic blood pressure 131 mm[Hg] Jac Shepard [facility] 11-28-2021 21:48-0400 Body temperature 97.7 [degF] Bereket Carlton [facility] 11-28-2021 21:48-0400 Diastolic blood pressure 90 mm[Hg] Bereket Carlton [facility] 11-28-2021 21:48-0400 Heart rate 104 /min Bereket Carlton [facility] 11-28-2021 21:48-0400 Respiratory rate 15 /min Bereket Carlton [facility] 11-28-2021 21:48-0400 SaO2% (BldA) [Mass fraction] 97 % Bereket Carlton [facility] 11-28-2021 21:48-0400 Systolic blood pressure 134 mm[Hg] Bereket Carlton [facility] Encounters Encounter Date Encounter Type Care Provider Facility Start: 12-19-2024 End: 12-19-2024 Priya Bhat MD Work Phone: [facility] Comment on above: Generalized anxiety disorder (Primary Dx) Start: 12-15-2024 End: 12-15-2024 ambulatory ANGELLA BHAT Not Available Start: 12-04-2024 End: 12-04-2024 ambulatory ANGELLA BHAT Not Available Start: 11-27-2024 End: 11-27-2024 Bamboo flowsheet Judy MENESES Work Phone: [facility] Start: 11-27-2024 End: 11-27-2024 Bamboo flowsheet Judy MENESES Work Phone: [facility] Start: 11-27-2024 End: 11-27-2024 ambulatory JUDY GONZALEZ Not Available Start: 11-27-2024 End: 11-27-2024 Office outpatient visit 25 minutes Judy MENESES Work Phone: [facility] Comment on above: Right leg pain (Prim barbara Dx) Start: 11-23-2024 End: 11-24-2024 Refill Angella Bhat MD Work Phone: [facility] Comment on above: Gastroesophageal ref lux disease without esophagitis Start: 11-22-2024 End: 11-22-2024 Refill Abigail Gerald THOMPSON [facility] Comment on above: Alcohol use disorder Start: 09-22-2024 End: 09-22-2024 Bamboo flowsheet Angella [...] 07-31-2024 Patient encounter procedure Dre A Felter [employer]ICE OFFICER-[employer]IGHT CRE[employer] TIME CLERK Work Phone: [facility] Comment on above: Common wart; Other specified erythematous conditions Start: 07-31-2024 End: 07-31-2024 Bamboo flowsheet Dre A Felter [employer]ICE OFFICER-FLIGHT CREW TIME CLERK Work Phone: [facility] Start: 07-31-2024 End: 07-31-2024 Bamboo flowsheet Dre A Felter [employer]ICE OFFICER-FLIGHT [employer]W TIME CLERK Work Phone: [facility] Start: 07-19-2024 End: 07-20-2024 Refill Angella Bhat MD Work Phone: [facility] Comment on above: Alcohol use disorder Start: 06-27-2024 End: 06-27-2024 Patient encounter procedure Dre A Felter [employer]ICE OFFICER-FLIGHT CREW TIME CLERK Work Phone: [facility] Comment on above: Common wart; Pain, generalized Start: 06-27-2024 End: 06-27-2024 Bamboo flowsheet Dre A Felter [employer] POLICE OFFICER-FLIGHT CREW TIME CLERK Work Phone: [facility] Start: 06-27-2024 End: 06-27-2024 Bamboo flowsheet Dre A Felter [employer]ICE OFFICER-FLIGHT CREW TIME CLERK Work Phone: [facility] Start: 06-27-2024 End: 06-27-2024 ambulatory DRE A FELTER Not Available Start: 06-12-2024 End: 06-16-2024 Refill Angella Bhat MD Work Phone: [facility] Comment on above: Alcohol use disorder Start: 06-08-2024 End: 06-08-2024 Office outpatient visit 15 minutes Angella Bhat MD Work Phone: [facility] Comment on above: Breast pain, left (P rimary Dx) Start: 06-08-2024 End: 06-08-2024 ambulatory ANGELLA BHAT Not Available Start: 06-08-2024 End: 06-08-2024 Bamboo flowsheet Angella Bhat MD Work Phone: [facility] Start: 06-08-2024 End: 06-08-2024 Bamboo flowsdom Bhat MD Work Phone: [facility] [...] encounter Start: 04-21-2024 End: 04-21-2024 ambulatory ANGELLA HBAT Not Available Start: 04-16-2024 End: 04-16-2024 ambulatory Angella Bhat Facility:[facility] Start: 02-27-2024 End: 03-01-2024 Clinisync Result Encounter Farshad MENESES Work Phone: [facility] Unsolicited Start: 02-27-2024 End: 03-01-2024 Clinisync Result Encounter Farshad MENESES Work Phone: [facility] Unsolicited Start: 01-04-2024 ambulatory MOHSEN STEWART Facility :[facility] Start: 01-18-2023 End: 01-18-2023 ambulatory Heladio Roth Facility:[facility] Start: 01-18-2023 End: 01-18-2023 Lab Drop off Heladio Roth [facility] Start: 01-18-2023 End: 01-18-2023 ambulatory Heladio Roth Facility:[facility] Start: 01-18-2023 End: 01-18-2023 Patient encounter procedure Heladio Roth [facility] Start: 12-23-2022 End: 12-23-2022 ambulatory Elsi Kelsey Facility:[facility] Start: 12-23-2022 End: 12-23-2022 Patient encounter procedure Elsi X Orzech [facility] Start: 12-08-2022 End: 12-08-2022 ambulatory Heladio Roth Facility:[facility] Start: 12-08-2022 End: 12-08-2022 Patient encounter procedure Heladio Roth [facility] Start: 04-24-2022 End: 04-24-2022 Emergency department patient visit Bereket Carlton [facility] Start: 04-17-2022 End: 04-17-2022 Admission to same day surgery center Jac Shepard [facility] Start: 04-08-2022 End: 04-08-2022 Patient encounter procedure Jac Shepard [facility] Start: 11-28-2021 End: 11-28-2021 Emergency department patient visit Bereket Carlton [facility] Start: 08-26-2021 End: 08-27-2021 ambulatory UNKNOWN PROVIDER Facility:[facility] Start: 06-10-2021 End: 06-10-2021 ambulatory UNKNOWN PROVIDER Facility:[facility] Start: 05-21-2021 End: 05-22-2021 ambulatory SAL SCHMID Facility:[facility] Start: 05-20-2021 ambulatory SAL SCHMID Facilit y:[facility] Start: 09-24-2020 End: 09-25-2020 ambulatory JAC MÁRQUEZ [facility] Procedures Date Procedure Procedure Detail Performing Clinician Start: 12-15-2024 Mammography Angella vail MD Work Phone: Start: 07-31-2024 DESTRUCTION OF LESION N milagro Galvan [employer] OFFICER-[employer] TIME CLERK Work Phone: Start: 06-27-2024 CRYOTHERAPY SKIN LESION Dre Galvan [employer]ICE OFFICER-FLIGHT CREW TIME CLERK Work Phone: Start: 02-27-2024 Bacteria identified in [...] Treatment Date Care Activity Detail Author Start: 12-15-2025 Screening for malign ant neoplasm of breast Mammogram [facility] Start: 11-14-2025 Screening for malign ant neoplasm of cervix [facility] Start: 02-19-2025 Influenza vaccination N [facility] Start: 12-04-2024 End: 12-04-2024 Professional / ancillary services management [facility] Start: 11-27-2024 End: 11-27-2024 Patient encounter procedure 11/27/2024 10:20 AM EDT Office Visit [facility] [address] [place] [place] [id number] Judy Gonzalez PA [address] [place] [address] [facility] Start: 09-28-2024 End: 09-28-2024 Patient encounter procedure 09/28/2024 1:35 PM EDT Office Visit [facility] [address] [place] [address] Dre Galvan, [employer] POLICE OFFICER-[employer]W TIME CLERK [address] [place] [address] [facility] Start: 09-22-2024 End: 09-22-2025 Holter monitor study Holter monitor Imaging Routine Palpitations Expected: 09/22/2024 (Approximate), Expires: 09/22/2025 [facility] Work Phone: Comment on above: Expected: 09/22/2024 (Approximate), Expires: 09/22/2025 Start: 08-29-2024 End: 08-29-2024 Patient encounter procedure 08/29/2024 1:40 PM EDT Office Visit [facility] [address] [place] [phone] Dre Galvan, [employer] POLICE OFFICER-FL[employer] CREW TIME CLERK [address] [place] [address] [facility] Start: 07-31-2024 End: 07-31-2024 Patient encounter procedure 07/31/2024 2:10 PM EST Office Visit [facility] [address] [place] [phone] Dre Galvan, [employer] POLICE OFFICER-FLIGHT CREW TIME CLERK [address] [place] [address] [facility] Start: 06-30-2024 End: 06-30-2024 Professional / ancillary services management [facility] Start: 06-27-2024 End: 06-27-2024 Patient encounter procedure [facility] Comment on above: Arrived Start: 06-08-2024 End: 06-08-2024 Patient encounter procedure 06/08/2024 3:00 PM EST Office Visit [facility] [address] [place] [phone] Angella Bhat MD [address] [place] [address] Arrived [facility] Comment on above: Arrived Start: 06-08-2024 End: 08-09-2025 DBT Breast - bilateral diagnostic Bilateral diagnostic mammogram with tomosynthesis Imaging Routine Breast pain, left Expected: 06/08/2024, Expires: 08/09/2025 [facility] Work Phone: Comment on above: Expected: 06/08/2024 , Expires: 08/09/2025 Start: 05-23-2024 End: 05-23-2024 Patient encounter procedure 05/23/2024 11:20 AM EST Office Visit [facility] [address] [place] [address] Angella Bhat MD [address] [place] [address] [facility] Start: 04-21-2024 End: 04-21-2024 Patient encounter procedure 04/21/2024 10:40 AM EDT Office Visit [facility] [address] [place] [address] Angella Bhat MD [address] [place] [address] Arrived [facility] Comment on above: Arrived Start: 02-20-2024 Influenza vaccination Influenza Vacc ine (#1) [facility] Start: 2023 Screening for malign ant neoplasm of breast Mammogram [facility] Start: 2004 Screening for malign ant neoplasm of cervix Pap Smear [facility] Bacteria identified in Urine by Culture URINE CULTURE, ROUTINE Lab Routine 02/27/2024 4:35 PM EDT [facility] Work Phone: Immunizations Immunization Date Immunization Notes Care Provider Fa cility 04-11-2021 SARS-CoV-2 (COVID-19 ) mRNA-1273 vaccine Heladio Roth [facility] Comment on above: Result Comment: 2022: TPVAL 03-14-2021 SARS-CoV-2 (COVID-19 ) mRNA-1273 vaccine Heladio Roth [facility] Comment on above: Result Comment: 2022: TPVAL 09-06-2019 tetanus toxoid, redu rodger diphtheria toxoid, and acellular pertussis vaccine, adsorbed; Translations: [Adacel (Tdap)] Bereket Brandt [facility] 08-18-2019 hepatitis B vaccine, adult dosage Heladio Roth [facility] Payers Date Payer Category Payer Private Health Insurance [facility] MEDICAID [id number] 2018 Medicaid [employer] [place] [id number] 2018-Present [address] [place] [id number] 2018 Medicaid (Managed Care) [facility] MEDICAID [id number] 2018 Medicaid [id number] 1983 Unknown [id number] 2.16.840.1.731663.3.579.2. 732 1983 Unknown [id number] 2.16.840.1.022525.3.579.2. 2 1983 Unknown [id number] 2.16.840.1.651249.3.579.2. 2 1983 Unknown [id number] 2.16.840.1.769011.3.579.2. 1983 Unknown [id number] 2.16.840.1.465852.3.579.2. 1983 Unknown [id number] 2.16.840.1.834479.3.579.2. 1983 Unknown [id number] 2.16.840.1.506137.3.579.2. 1983 Unknown [id number] 2.16.840.1.536540.3.579.2 1983 Unknown [id number] 2.16.840.1.426443.3.579.2. 1983 Unknown [id number] 2.16.840.1.797151.3.579.2 1983 Unknown [id number] 2.16.840.1.595687.3.579.2 1983 Unknown [id number] 2.16.840.1.448785.3.579.2 1983 Unknown [id number] 2.16.840.1.580428.3.579.2. 1983 Unknown [id number] 2.16.840.1.200446.3.579.2. 1983 Unknown [id number] 2.16.840.1.852392.3.579.2. 8 1983 Unknown [id number] 2.16.840.1.009095.3.579.2. 1259 1983 Unknown [id number] 2.16.840.1.707368.3.579.2. 9 1983 Unknown [id number] 2.16.840.1.381696.3.579.2. 9 1983 Unknown [id number] 2.16.840.1.420079.3.579.2. 1258 1983 Unknown [id number] 2.16.840.1.159272.3.579.2. 1258 1983 Unknown [id number] 2.16.840.1.143061.3.579.2. 1258 1983 Unknown [id number] 2.16.840.1.019934.3.579.2. 1258 1983 Unknown [id number] 2.16.840.1.529570.3.579.2. 1258 1983 Unknown [id number] 2.16.840.1.251127.3.579.2. 1259 Social History Date Type Detail Facility Tobacco Current vaping o r e-cigarette use Smokeless Tobacco Use:. [facility] Start: 12-01-2022 End: 02-29-2024 Sex Assigned At Female [facility] Tobacco smoking status No Smokin g Status Entered [facility] Start: 01-18-2023 Tobacco smoking status Never smoked tobacco (finding) [facility] Start: 12-09-2023 Tobacco smoking status COIS Ex-smoker [facility] Start: 06-21-2000 End: 06-21-2006 History of tobacco use Current smoker [facility] Start: 06-21-2000 End: 06-21-2006 History of tobacco use Cigarette Smoker [facility] Start: 12-09-2023 Tobacco use and exposure Smokeless tobacco non-user [facility] Start: 12-09-2023 End: 06-08-2024 Alcoholic beverage intake Current drinker of alcohol (finding) [facility] Start: 12-09-2023 End: 02-29-2024 Alcoholic beverage intake [facility] How often do you nee d to have someone help you when you read instructions, pamphlets, or other written material from your doctor or pharmacy [SILS] Never [facility] Do you belong to any clubs or organizations such as caodaism groups, unions, fraternal or athletic groups, or [...] To some extent [facility] (I/We) worried wheth er (my/our) food would run out before (I/we) got money to buy more. Never true [facility] Start: 12-02-2022 Alcohol Comment Caffeine intake: 2-3 cups per day [facility] Start: 1985 Sex assigned at Not on file [facility] Start: 02-29-2024 Sexual orientation Heterosexual (finding) [facility] Start: 06-27-2024 End: 11-27-2024 Alcoholic beverage intake Ex-drinker (finding) [facility] How often do you nee d to have someone help you when you read instructions, pamphlets, or other written material from your doctor or pharmacy [SILS] Never [facility] Functional Status Date Assessment Result Facility 01-18-2023 Functional Status N/A [facility] 12-23-2022 Functional Status N/A [facility] 12-08-2022 Functional Status N/A [facility] 04-24-2022 Functional Status N/A [facility] 04-08-2022 Functional Status No [facility] Clinical Notes 11-28-2021 to 11-27-2024 GIDEON Chávez - 11/27/2024 10:20 AM EDTTelephone Encounter - GIDEON Chávez - 11/24/2024 11:07 AM EDTTelephone Encounter - GIDEON Chávez - 11/24/2024 11:07 AM EDT Note Date & Type Note Facility 11-27-2024 History of Presen t illness Narrative Images from the original note were not included. Bea Davila is a 39 y.o. female presents with chief complaint of No chief complaint on file. HPI: Flowsheet Row Office Visit from 11/27/2024 in [facility] with GIDEON Chávez Hospital Information ED, Hospital or Mcfp Facility Discharge? ED Patient has been contacted within 2 days of being seen in the ED Yes Diagnosis DX: Lower extremity pain,posterior, muscle cramps Discharge Date 11/21/24 Discharged To: Home Setting Discharge Hospital [facility] Engagement Admission Date 11/21/24 Medications Discharge medications reviewed and reconciled from hospital? Yes Is the patient having any side effects they believe may be caused by any medication additions or changes? No Does the patient have all medications ordered at discharge? Yes Nursing Interventions No intervention needed Is the patient taking all medications as directed (includes completed medication regime)? Yes Nursing Interventions Nurse provided patient education Appointments Does the patient have a primary care provider? Yes Nursing Interventions Verified appointment date/time/provider Self Management Does patient have home health? no Patient Teaching Does the patient have access to their discharge instructions? Yes Nursing Interventions Reviewed instructions with patient What is the patient's perception of their health status since discharge? Same Is the patient/caregiver able to teach back the hierarchy of who to call/visit for symptoms/problems? PCP, Specialist, Home Health nurse, Urgent Care, ED, 911 Yes Wrap Up Is the patient/caregiver familiar with Advance Care Planning? Yes Would the patient like more information on Advance Care Planning? No Wrap Up Additional Comments Pt had labs and EKG done History of Present Illness The patient is a 39-year-old female who presents for an ER follow-up. She sought emergency care at [place] on 11/24/2024 due to leg swelling. The pain, initially localized, has since migrated to a different area of her leg. Despite the discomfort, she retains the ability to ambulate. The pain is absent during periods of rest and only manifests upon movement. She has been managing the pain with ibuprofen, which has resulted in a significant improvement of approximately 70 to 80 percent. Additionally, she reported edema in her feet and ankles during her work shift last night. She has developed blisters on her feet, which she attributes to wearing tennis shoes. She has been applying triple antibiotic ointment and covering the blisters with Band-Aids. MEDICATIONS: Current Outpatient Medications Medication Instructions DULoxetine (CYMBALTA) 60 mg, Daily ibuprofen 600 mg, Every 6 hours PRN naltrexone (DEPADE) 100 mg, Oral, Every morning omeprazole (PriLOSEC) [address] capsule TAKE 1 CAPSULE EVERY DAY 30 MINUTES BEFORE MORNING MEAL venlafaxine XR (EFFEXOR XR) 75 mg, Oral, Daily, Do not crush or chew. ALLERGIES: Allergies Allergen Reactions Sulfamethoxazole-Trimethoprim Unknown Review of Systems General: Denies fever, chills, fatigue, MYERS or weight loss/gain CV: Denies CP, palpitations or swelling in legs Resp: denies cough, SOB or wheezing GI: Denies abd pain/n/v/c/d Skin: Denies rash Neuro: Denies LH or dizziness Medical, Surgical, Family, and Social History reviewed. OBJECTIVE: Visit Vitals BP 124/86 (BP Location: Left arm, Patient Position: Sitting, BP Cuff Size: Adult) Pulse 90 Temp 98.5 F (Temporal) Ht 4' 11 Wt 188 lb 6.4 oz LMP (LMP Unknown) SpO2 98% BMI 38.05 kg/m OB Status Hysterectomy Smoking Status Former BSA 1.89 m BP Readings from Last 3 Encounters: 11/27/24 124/86 06/08/24 108/68 04/21/24 108/64 Wt Readings from Last 3 Encounters: 11/27/24 188 lb 6.4 oz 06/08/24 178 lb 04/21/24 175 lb 6.4 oz Physical Exam Physical Exam Respiratory: Clear to auscultation, no wheezing, rales or rhonchi Cardiovascular: Regular rate and rhythm, no murmurs, rubs, or gallops General: alert & oriented, NAD Head: NC/AT Oral Cavity: MMM Skin: warm, dry Heart: RRR, No m/r/g, S1S2 nml Lungs: CTA b/l Abdomen: soft, ND/NT, BS wnl Musculoskeletal: normal gait Extremities: no clubbing, cyanosis or edema Neurological: nonfocal Psych: mood/affect full range Results Labs - Blood clot test: Negative ASSESSMENT AND PLAN: Assessment & Plan 1. Leg pain. - The patient's leg pain is likely due to a muscle spasm, as indicated by the negative blood clot test results from the emergency room visit on 11/24/2024. - Reports a 70-80% improvement in symptoms with the use of ibuprofen. - Advised to continue taking ibuprofen as needed for pain management. - If the pain recurs or worsens, further evaluation, including an ultrasound, may be necessary. 2. Blisters on feet. - Developed blisters on her feet, likely due to wearing inappropriate footwear. - Currently using triple antibiotic ointment and Band-Aids for treatment. - Ibuprofen may help reduce inflammation and pain associated with the blisters. - Allergic to sulfa, so alternative treatments were not prescribed. Assessment/Plan Problem List Items Addressed This Visit None Health Maintenance Due Topic Date Due Mammogram Never done Influenza Vaccine (Season Ended) 2025 documented in this encounter [facility] 11-24-2024 Telephone encounter Note completed [facility] 11-24-[address] Bhat out of office, please advise. documented in this encounter [facility] 11-23-[address] Bhat out of office, please advise. [facility] 09-22-2024 History of Presen t illness Narrative Images from the original note were not included. Bea Davila is a 39 y.o. female presents with chief complaint of No chief complaint on file. HPI: History of Present Illness Consents to audiovisual telehealth. Is [place] at [place] on [address]. Has been having chest pain that she [...] Mammogram Never done documented in this encounter [facility] 07-31-2024 History of Presen t [...] limited to risks of scarring, darker or director medical pigmentary changes, recurrence, incomplete removal and infection. [...] Visit: 1 month documented in this encounter [facility] 06-27-2024 History of Presen t [...] limited to risks of scarring, darker or director medical pigmentary changes, recurrence, incomplete removal and infection. [...] month, follow up documented in this encounter [facility] 06-08-2024 History of Presen t [...] (1) Never done documented in this encounter [facility] 04-21-2024 History of Presen t [...] SULFA. Flowsheet Row Documentation from 02/28/[address] [facility] with Esperanzageorgina Ferrara MA Hospital Information Diagnosis UTI Discharge Date 02/27/24 Discharged To: Home Setting Discharge Hospital [facility] Engagement Admission Date 02/27/24 Medications Discharge medications reviewed [...] (1) Never done documented in this encounter [facility] 04-16-2024 Note Patient Education Ma [...] this condition includes: ? Antibiotic medicine. ? Jnwh-fbh-ctdgavw medicines to treat discomfort. ? Drinking enough [...] these instructions at home: Medicines ? Take gxhy-rrr-nrncftr and prescription medicines only as told by [...] provider. Document Revised: (more content not included)... [facility] 01-18-2023 Hospital Discharg e instructions Patient [...] numbers. This can be done either in [place]ian ([place] or metric measurements. Note that charts and online BMI calculators are available to help you find your BMI quickly and easily without having to do these calculations yourself. To calculate your BMI in [place] ([place] measurements: 1.Measure your weight in pounds [...] Centers for Disease Control and Prevention: www.cdc.gov [place] [employer] Heart [employer]: www.heart.org National Heart, Lung, and Blood [place]: www.nhlbi.nih.gov Summary Body mass index (BMI) is a number that is calculated from a person's weight and height. BMI may help estimate how much of a person's weight is composed of fat. BMI can help identify those who may be at higher risk for certain medical problems. BMI can be measured using Latvian measurements or metric measurements. BMI charts are used to identify whether you are underweight, normal weight, overweight, or obese. This information is not intended to replace advice given to you by your health care provider. Make sure you discuss any questions you have with your health care provider. Document Revised: 02/28/2020 Document Reviewed: 01/05/2020 [facility] Patient Education 2022 [email or web address]. 01/18/2023 13:42:43 Urinary Tract Infection, Adult Urinary [...] Treatment for this condition includes: Antibiotic medicine. Rama-azd-vdbewos medicines to treat discomfort. Drinking enough water [...] Follow these instructions at home: Medicines Take mgzn-qpc-yoqllyv and prescription medicines only as told by [...] provider. Document Revised: 01/17/2021 Document Reviewed: 01/17/2021 [facility] Patient Education 2022 [email or web address]. Follow Up Care 01/18/2023 11:51:16 With:Angella Bhat MD Address: [address] [place], [place] [id number]- When: Unknown [facility] 01-18-2023 Evaluation + Plan note Diagnostic Tests PendingUrine Culture 01/18/23 [facility] 12-23-2022 Hospital Discharg e instructions Patient Education 12/23/2022 18:51:21 Strep Throat, Adult, Zecu-nf-Svnt Strep Throat, Adult Strep throat is an [...] Follow these instructions at home: Medicines Take cjvf-vwa-xlrxxgc and prescription medicines only as told by [...] provider. Document Revised: 09/30/2021 Document Reviewed: 09/30/2021 [facility] Patient Education 2022 [email or web address]. 12/23/2022 18:51:19 Rapid Strep Test Rapid Strep [...] provider. Document Revised: 09/30/2021 Document Reviewed: 09/30/2021 [facility] Patient Education 2022 [email or web address]. 12/23/2022 18:51:17 Strep Throat, Adult Strep Throat, [...] Follow these instructions at home: Medicines Take hjod-lmh-bgnhstv and prescription medicines only as told by [...] and water are not available, use hand retail sales representative. Make sure that all people in your [...] provider. Document Revised: 09/30/2021 Document Reviewed: 09/30/2021 [facility] Patient Education 2022 [employer] Follow Up Care 12/23/2022 18:24:41 With:Angella Bhat MD Address: [address] [place] [id number]- When: Unknown [facility] 12-08-2022 Hospital Discharg e instructions [...] Follow these instructions at home: Medicines Take ocmv-php-ujelqvq and prescription medicines only as told by [...] and water are not available, use hand retail sales representative. Make sure that all people in your [...] provider. Document Revised: 09/30/2021 Document Reviewed: 09/30/2021 [facility] Patient Education 2022 [email or web address]. 12/08/2022 13:03:02 BMI for Adults BMI for [...] numbers. This can be done either in [place] ([place] or metric measurements. Note that charts and online BMI calculators are available to help you find your BMI quickly and easily without having to do these calculations yourself. To calculate your BMI in [place] ([place] measurements: 1.Measure your weight in pounds [...] Centers for Disease Control and Prevention: www.cdc.gov [employer] Heart Association: www.heart.org National Heart, Lung, and Blood [place]: www.nhlbi.nih.gov Summary Body mass index (BMI) is a number that is calculated from a person's weight and height. BMI may help estimate how much of a person's weight is composed of fat. BMI can help identify those who may be at higher risk for certain medical problems. BMI can be measured using Latvian measurements or metric measurements. BMI charts are used to identify whether you are underweight, normal weight, overweight, or obese. This information is not intended to replace advice given to you by your health care provider. Make sure you discuss any questions you have with your health care provider. Document Revised: 02/28/2020 Document Reviewed: 01/05/2020 [facility] Patient Education 2022 [email or web address]. Follow Up Care 12/08/2022 12:38:52 With:Angella Bhat MD Address: [address] [place], [place] [id number] When: Unknown [facility] 04-24-2022 Hospital Discharg e instructions [...] Treatment for this condition includes: Antibiotic medicine. Zesc-cvb-nbzkqtc medicines to treat discomfort. Drinking enough water [...] Follow these instructions at home: Medicines Take lwby-zkk-gpimpsq and prescription medicines only as told by [...] 03/17/2006 Document Revised: 05/25/2019 Document Reviewed: 12/15/2018 [facility] Patient Education 2020 [email or web address]. 04/24/2022 15:30:02 Antibiotic Medicine, Adult Antibiotic Medicine, [...] 02/17/2005 Document Revised: 12/06/2018 Document Reviewed: 06/08/2017 [facility] Patient Education 2020 [email or web address]. Follow Up Care 04/24/2022 13:42:01 With:Angella Bhat Address: [address] [place] [address] [place] [address] [facility] (1) When:04/27/2022 15:29:11 Comments:Call the office [...] weakness, or any new or worsening symptoms. [facility] 04-24-2022 Evaluation + Plan note Extrac laisha from: Title:ED Note Author:Bereket Carlton DO Date:06/24/21 Acute UTI (N39.0: Urinary tr act infection, site not specified) Orders: cephalexin, 500 mg = 1 cap(s), Oral, q12hr, X 5 day(s), # 10 cap(s), Refills(s) 0, Pharmacy: 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 [facility]06-11-2022 Hospital Discharge instructions Patient Education 11/28/2021 23:01:49 Urinary Tract Infection, Adult, Sryh-xa-Whmb Urinary Tract Infection, Adult A urinary tract [...] Follow these instructions at home: Medicines Take qyxq-dlt-wvedukj and prescription medicines only as told by [...] 11/23/2008 Document Revised: 05/25/2019 Document Reviewed: 12/15/2018 [facility] Patient Education 2020 [email or web address]. Follow Up Care 11/28/2021 21:47:33 With:Angella Bhat Address: [address] [place] [id number] [facility] (1) When:12/01/2021 [facility]06-10-2022 Evaluation + Plan note Diagnostic Tests Pending * Urine Culture [facility]28[facility]21 [facility] Future Appointments Appointment Date:04/17/2022 11:30:00 AM Scheduled Provider: Location:[facility] Diagnosis Genital warts- Primary Condyloma [...] unspecified site [facility] Diagnosis Alcohol use disorder [facility]* Diagnosis Gastroesophageal reflux disease without esophagitis Esophageal reflux [facility]* Diagnosis Right leg pain- Primary Pain in soft tissues of limb [facility]* Diagnosis Generalized anxiety disorder- Primary Generalized anxiety disorder [facility] N[facility] No data available for this section [facility] No data available for this section [facility] No data available for this section [facility] Summary Purpose Family History No Family [...] section and content) DATE CREATED AUTHOR 09/15/2019 [facility] DATE CREATED AUTHOR AUTHOR'S ORGANIZ ATION 09/10/2021 [facility] DATE CREATED AUTHOR AUTHOR'S ORGANIZ ATION 11/24/2021 [facility]ical Specialist DATE CREATED AUTHOR AUTHOR'S ORGANIZ ATION 12/08/2023 [facility] DATE CREATED AUTHOR AUTHOR'S ORGANIZ ATION 04/29/2024 [facility] DATE CREATED AUTHOR AUTHOR'S ORGANIZ ATION 12/20/2024 [facility] Specialists EPIC Patient Care team informatio n (unrecognized section and content) Phlebotomist Associate Relationship Specialty Start Date End Date Angella Bhat MD [address] [place] [address] PCP - General Family Medicine 12/07/23 Mer Chambers NP [address] [place] [address] Nurse Practitioner Family Medicine 11/30/22 Phlebotomist Associate Relationship Specialty Start Date End Date Angella Bhat MD [address] [place] [address] PCP - General [facility] [place] 12/07/23 Mer Chambers [employer] [address] [place] [address] Nurse Practitioner Family Medicine 11/30/22 Phlebotomist Associate Relationship Specialty Start Date End Date Angella Bhat MD [address] [place] [address] PCP - General [facility] [place] 12/07/23 Mer Chambers NP [address] [place] [address] Nurse Practitioner Family Medicine 11/30/22 Phlebotomist Associate Relationship Specialty Start Date End Date Angella Bhat MD [address] [place] [address] PCP - General [facility] [place] 12/07/23 Angella Bhat MD [address] [place] [address] PCP - [facility] 03/21/24 Mer Chambers NP [address] [place] [address] Nurse Practitioner Family Medicine 11/30/22 Phlebotomist Associate Relationship Specialty Start Date End Date Angella Bhat MD [address] [place] [id number] PCP - General [facility] [place] 12/07/23 Angella Bhat MD [address] [place] [address] PCP - [facility] 03/21/24 Mer Chambers NP [address] [place] [address] Nurse Practitioner [facility] [place] 11/30/22 Phlebotomist Associate Relationship Specialty Start Date End Date Angella Bhat MD [address] [place] [address] PCP - [facility] 12/07/23 Angella Bhat MD [address] [place] [address] [facility] 03/21/24 Mer Chambers NP [address] [place] [address] Nurse Practitioner Family [facility] 11/30/22 Phlebotomist Associate Relationship Specialty Start Date End Date Angella Bhat MD [address] [place] [address] PCP - General [facility] [place] 12/07/23 Angella Bhat MD [address] [place] [address] PCP - [facility] 03/21/24 Mer Chambers NP [address] [place] [address] Nurse Practitioner Family [facility] 11/30/22 Phlebotomist Associate Relationship Specialty Start Date End Date Angella Bhat MD [address] [place] [address] PCP - [facility] 12/07/23 Angella Bhat MD [address] [place] [address] [facility] 03/21/24 Mer Chambers NP [address] [place] [address] Nurse Practitioner Family [facility] 11/30/22 Phlebotomist Associate Relationship Specialty Start Date End Date Angella Bhat MD [address] [place] [address] PCP - [facility] 12/07/23 Angella Bhat MD [address] [place] [address] [facility] 03/21/24 Mer Chambers NP [address] [place] [address] Nurse Practitioner Family Medicine 11/30/22 Phlebotomist Associate Relationship Specialty Start Date End Date Angella Bhat MD [address] [place] [address] PCP - General [facility] [place] 12/07/23 Angella Bhat MD [address] [place] [address] PCP - [facility] 03/21/24 Mer Chambers NP [address] [place] [address] Nurse Practitioner Family [facility] 11/30/22 Phlebotomist Associate Relationship Specialty Start Date End Date Angella Bhat MD [address] [place] [address] PCP - [facility] 12/07/23 Angella Bhat MD [address] [place] [address] [facility] 03/21/24 Mer Chambers NP [address] [place] [address] Nurse Practitioner [facility] [place] 11/30/22 Phlebotomist Associate Relationship Specialty Start Date End Date Angella Bhat MD [address] [place] [address] PCP - [facility] 12/07/23 Angella Bhat MD [address] [place] [address] PCP [facility] 03/21/24 Mer Chambers NP [address] [place] [address] Nurse Practitioner [facility] [place] 11/30/22 Phlebotomist Associate Relationship Specialty Start Date End Date Angella Bhat MD [address] [place] [address] PCP - [facility] 12/07/23 Angella Bhat MD [address] [place] [address] [facility] 03/21/24 Mer Chambers NP [address] [place] [address] Nurse Practitioner [facility] [place] 11/30/22 Phlebotomist Associate Relationship Specialty Start Date End Date Angella Bhat MD [address] [place] [address] PCP [facility] 12/07/23 Angella Bhat MD [address] [place] [address] [facility] 03/21/24 Mer Chambers NP [address] [place] [address] Nurse Practitioner [facility] [place] 11/30/22 Reason for Visit (unrecogniz ed section and content) Reason Comments Med Refill Possible allergy/int olerance to Keflex, would like to discuss further Reason Comments Breast Pain Lt side Reason Comments Med Refill Reason Comments Suspicious Skin Lesion Reason Comments Follow-up Reason Onset Date Comments Med Refill 11/22/2024 FOR RECORDS PERTAINING TO PATIENTS WHO ARE [...] BE BASED ON THE PRIMARY CLINICAL RECORDS. [facility]. provides no warranty or guarantee of the accuracy or completeness of information in this document.
--- NOTE | 2025-01-06 21:55 | PC.NURSE ---
Patient reports pain and clear blisters to upper and lower lips, patient is sunburned on face, chest and trunk.
--- NOTE | 2025-01-06 22:40 | ED.GENADUL1 ---
HPI HPI - General Adult General Chief complaint: Skin/Abscess/Foreign Body Stated complaint: Hand Foot and Mouth Time Seen by Provider: 01/06/25 21:50 Source: patient Mode of arrival: walk-in Limitations: no limitations History of Present Illness HPI narrative: cc - lip lesions Pt developed blisters to the bottom lip. She is concerned that she contracted hand, foot, mouth since several of her family members wwere recently diagnosed. She was also in [place] with increased sun exposure but does not specifically recall getting burned in that area. 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 Related Data Home Medications ?Medication ?Instructions ?Recorded ?Confirmed duloxetine 60 mg capsule,delayed 60 mg PO DAILY 08/08/23 01/06/25 release omeprazole 40 mg capsule,delayed 40 mg PO DAILY 08/08/23 01/06/25 release naltrexone 50 mg tablet 100 mg PO Q24H 11/21/24 01/06/25 Allergies Allergy/AdvReac Type Severity Reaction Status Date / Time sulfamethoxazole (From Allergy Severe yeast Verified 01/06/25 21:42 Bactrim) infection trimethoprim (From Bactrim) Allergy Severe yeast Verified 11/21/24 22:02 infection Opioid HPI Opioid Management Most Recent Opioid Data: Last Pain Scale 1 Today, 21:37 PFSH PFSH Social History Little interest or pleasure in doing things: not at all Feeling down, depressed, or hopeless: not at all Exam Narrative Exam Narrative: Nurses notes and vital signs reviewed and patient is not hypoxic. afebrile General: Well-appearing and in no apparent distress. Skin: Warm, dry, no pallor noted. No rash. Head: Normocephalic, atraumatic. Eye: Pupils are equal, round and EOMI. No scleral icterus. Ears, Nose, Mouth, and Throat: The bottom lip is dry with blister-like lesions noted. No involvement of the inner mucosa and no posterior oropharynx erythema, uvula is mid-line, no tongue or pharyngeal/tonsillar lesions. Oral mucosa is moist Cardiovascular: Regular Rate and Rhythm without murmur, gallop or rub. Respiratory: No accessory muscle use or respiratory distress. Lungs are clear to auscultation, no wheezing, rales or rhonchi Musculoskeletal: normal ROM. No skin changes on the palms of the hands or soles of the feet. Neurological: A&O x4. No cranial nerve dysfunction observed. No truncal ataxia. Moves all extremities. Sensation intact. Psychiatric: Cooperative and interactive. Normal mood and affect. Constitutional Vital Signs, click to edit/add: Last Vital Signs Temp 99.7 F 01/06/25 21:37 Pulse 123 H 01/06/25 21:37 Resp 16 01/06/25 21:37 BP 123/97 H 01/06/25 21:37 Pulse Ox 98 01/06/25 21:37 O2 Del Method Room Air 01/06/25 21:37 Course Vital Signs Vital signs: Vital Signs Temperature 99.7 F 01/06/25 21:37 Pulse Rate 123 H 01/06/25 21:37 Respiratory Rate 16 01/06/25 21:37 Blood Pressure 123/97 H 01/06/25 21:37 Pulse Oximetry 98 01/06/25 21:37 Oxygen Delivery Method Room Air 01/06/25 21:37 Temperature 99.7 F 01/06/25 21:37 Pulse Rate 123 H 01/06/25 21:37 Respiratory Rate 16 01/06/25 21:37 Blood Pressure 123/97 H 01/06/25 21:37 Pulse Oximetry 98 01/06/25 21:37 Oxygen Delivery Method Room Air 01/06/25 21:37 Medical Decision Making MDM Narrative Medical decision making narrative: Patient has blisterlike lesions noted on the lower lip but no involvement on the inner mucosa, posterior pharynx, hands or feet. She is concerned that she may have contracted zdau-ssjj-eja-mouth disease after being exposed to several family members who were diagnosed with that. After examining the patient, I am not convinced that she has contracted kvpn-gaub-lyv-mouth disease. These lesions may be related to sun exposure in [place] -she just got back. 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 Therefore I wrote the patient a work excuse for her to be off the next few days. I encouraged her to apply Vaseline to the affected area, limit sun exposure, increase oral fluid intake, avoid spicy foods. Discharge Plan Discharge Chief Complaint: Skin/Abscess/Foreign Body Clinical Impression: Aphthous ulcer of mouth, Stomatitis Patient Disposition: Home, Self-Care Time of Disposition Decision: 22:39 Prescriptions / Home Meds: No Action naltrexone 50 mg tablet 100 mg PO Q24H duloxetine 60 mg capsule,delayed release(DR/EC) 60 mg PO DAILY omeprazole 40 mg capsule,delayed release(DR/EC) 40 mg PO DAILY Print Language: Korean Instructions: Oral Mucositis (ED) Referrals: NORA BHAT [Primary Care Provider] - 1 week
== END 2025-01-06 22:48 | disposition home or self-care (01) ==
PROVIDERS: Emergency Provider Emergency Medicine
DX: K12.0 Recurrent oral aphthae (principal); K12.1 Other forms of stomatitis
CPT/HCPCS: 99281